=== PATIENT | female | born 1940 | race Caucasian/White ===

== ENCOUNTER 2022-03-09 17:01 | Inpatient (IN) | payer MEDICARE, SELFPAY ==
--- NOTE | 2022-03-09 17:03 | ECHOCS_ITS ---
Reason For Study: CHF Procedure This was a 2D Doppler, Color Flow transthoracic echocardiogram. The study was technically difficult. Contrast injection was performed. Exam performed portable in patient room. Left Ventricle Normal LV size. Mild concentric left ventricular hypertrophy. The left ventricular ejection fraction is 60 %. Unable to assess diastolic dysfunction due to arrhythmia. Right Ventricle Normal right ventricle. Atria The left atrium is severely enlarged. The right atrium is mildly enlarged. Mitral Valve Bioprosthetic mitral valve. Tricuspid Valve Mild tricuspid valve insufficiency. Pulmonary artery systolic pressure is 61 mmHg. Severe pulmonary hypertension. Aortic Valve Mild (1+) aortic valve insufficiency. Pulmonic Valve The pulmonic valve is not well visualized. Great Vessels Normal sized aortic root. Pericardium/Pleural No pericardial effusion. Medication Diluted definity 1ml given slow IV push to enhance endocardial definition. MMode/2D Measurements & Calculations LVIDd: 4.5 cm IVSd: 1.4 cm Ao root diam: 3.1 cm LVIDs: 2.9 cm LVPWd: 1.1 cm LA dimension: 5.4 cm FS: 36.1 % LAV(MOD-bp): 111.7 ml LA A4 area: 33.6 cm2 RA A4 area: 24.6 cm2 LAV(MOD-bp) Indexed: 57.7 ml/m2 LAV(MOD-sp2): 98.6 ml LAV(MOD-sp4): 112.3 ml Doppler Measurements & Calculations MV E max renea: 191.6 cm/sec MV V2 max: 166.1 cm/sec MV P1/2t max renea: 158.5 cm/sec MV max P.1 mmHg MV P1/2t: 110.1 msec MV V2 mean: 106.1 cm/sec MV dec slope: 421.6 cm/sec2 MV mean P.0 mmHg MVA(P1/2t): 2.0 cm2 MV V2 VTI: 39.3 cm Ao V2 max: 176.4 cm/sec LV V1 max: 143.3 cm/sec PA V2 max: 110.0 cm/sec Ao max P.5 mmHg LV V1 max P.3 mmHg Ao V2 mean: 128.5 cm/sec Ao mean P.4 mmHg Ao V2 VTI: 29.1 cm TR max renea: 360.3 cm/sec TR max P.9 mmHg ECHO/Echo Complete W/ Contrast Interpretation Summary Mild concentric left ventricular hypertrophy. The left ventricular ejection fraction is 60 %. Unable to assess diastolic dysfunction due to arrhythmia. The left atrium is severely enlarged. The right atrium is mildly enlarged. Bioprosthetic mitral valve. Mild tricuspid valve insufficiency. Severe pulmonary hypertension. Ordering Physician: Tata Sales Referring Physician: Qasim Carreon Performed By: Graham Lofton RCS
[2022-03-09 17:25] VITALS: BP 126/61; PULSE 87; RESP 18; TEMP 36.9; O2SAT 94; BMI 37.8
--- NOTE | 2022-03-09 17:41 | PCM.HP.STD ---
HPI - General General Date of Admission: 03/09/22 Date of Service: 03/09/22 Chief Complaint: URI type symptoms, dyspnea. HPI Narrative The patient is an 81 y/o F w/ PMHx: Severe debilitating BL Knee OA/Rheumatoid arthritis, Chronic BL LE Lymphedema, CKD stage III unclear subtype, Chronic atrial fibrillation on coumadin, Diastolic CHF following w/ [employer] Ass[employer] Inspector Dr. Munoz, Valvular Heart Disease s/p mitral valve replacement (porcine bioprosthetic mitral valve) and tricuspid valve annuloplasty, pulmonary HTN, Hx prior notable R pleural effusion s/p pleurodesis (remotely 2015), Former tobacco use who initially presented to [facility] ED on 03/08/2022 with onset of flulike symptoms including nausea, malaise, cough, diarrhea as well as body aches x1 week reportedly also not taking her medications at the same time secondary to feeling poorly with initial vital signs at their outside facility including T98.7, BP 104/79, heart rate 149, respiratory rate 28, 93% on room air eventually prior to transfer on 03/09/22 requiring 3L NC, weight 220.4 pounds with BMI calculated 40.363, chest x-ray with diffuse interstitial infiltrates bilaterally, influenza B/A PCR negative, lactate 2.1, COVID PCR negative, D-dimer 2046 which per their range should be less than or equal to 500, initial troponin 3417--> 3090--> 2189, magnesium 2.09 with normal range 1.6-2.40, CMP with sodium 139, potassium 3.5, chloride 102, BUN/creatinine 50/1.97, glucose 116, hepatic profile with T bili 1.5 otherwise not marked appearing, BNP 482, initial INR at their outside facility 12.2 with most recent INR repeat check prior to transfer request 03/09/2022 10:40 AM 6.2 repeat 03/09/2022 BMP with sodium 137, potassium 3.4, chloride 103, BUN/creatinine 47/1.70. 05/30/2021 BMP with creatinine 1.45 at that time. In the ED at outside facility patient rate did improve with Cardizem drip and she was eventually able to be transition to oral metoprolol and Cardizem oral home regimen. However given notable troponin elevations and acute presentation with A. fib RVR as well as CHF exacerbation patient transition to [facility] [place] for further cardiac evaluation. [facility] Medical History (Updated 03/09/22 @ 19:[address] Tata Sales MD) Chronic acquired lymphedema Chronic atrial fibrillation Chronic diastolic CHF (congestive heart failure) Former tobacco use History of temporary cardiac pacemaker treatment HTN (hypertension) Morbid obesity Rheumatoid arthritis Valvular heart disease Home Medications calcium carbonate 600 mg-vitamin D3 10 mcg (400 unit) tablet (Calcium 600 + D(3)) 1 ea PO DAILY 12/17/13 [History Last Taken Unknown] diltiazem HCl 180 mg capsule,extended release 24 hr 180 mg PO DAILY afib 12/17/13 [History Last Taken Unknown] furosemide 40 mg tablet 40 mg PO DAILY diuretic 12/17/13 [History Last Taken Unknown] metoprolol tartrate 50 mg tablet 100 mg PO BID blood pressure 12/17/13 [History Last Taken Unknown] Century Adults 50+ Tablet 1 tab PO DAILY vitamin 08/21/16 [History Last Taken Unknown] Klor-Con M20 1 tab PO DAILY mineral 08/21/16 [History Last Taken Unknown] Spironolactone 25 mg PO DAILY diuretic 08/21/16 [History Last Taken Unknown] Warfarin Sodium 0.5 tab PO afib 08/21/16 [History Last Taken Unknown] Warfarin Sodium 1 tab PO afib 08/21/16 [History Last Taken Unknown] Allergy/AdvReac Type Severity Reaction Status Date / Time ceftriaxone [From Rocephin] Allergy Mild Rash Verified 03/09/22 14:35 allopurinol Allergy Mild Rash Uncoded 03/09/22 14:35 Colchicine Allergy Mild Rash Uncoded 03/09/22 14:35 Family History (Updated 03/09/22 @ 19:[address] Tata Sales MD) Mother Heart disease Father Cancer Leukemia. Surgical History H/O tricuspid valve annuloplasty S/P MVR (mitral valve replacement) Social History (Updated 03/09/22 @ 19:[address] Tata Sales MD) household members: none Smoking Status: Former smoker how long ago did patient quit smoking: Quit 05/26/1959, smoked ~2 years w/ 0.25 pack/day. alcohol intake: current alcohol intake frequency: holidays/special occasions only substance use type: does not use ROS ROS Narrative Admission Review of Systems: CONSTITUTIONAL: No weight loss, fever, chills, + weakness or fatigue. HEENT: + Congestion, rhinorrhea, sore throat. Eyes: No visual loss, blurred vision, double vision or yellow sclerae. Ears, Nose, Throat: No hearing loss, sneezing. SKIN: + Chronic BL LE stasis disease skin changes. CARDIOVASCULAR: No chest pain, chest pressure or chest discomfort, palpitations, edema, orthopnea, syncopal events. RESPIRATORY: + shortness of breath, cough, No marked sputum, wheezing, hemoptysis. GASTROINTESTINAL: + anorexia, nausea, No vomiting or diarrhea, abdominal pain, melena, BRBPR. GENITOURINARY: No dysuria, frequency, urgency or retention. NEUROLOGICAL: No headache, dizziness, syncope, paralysis, ataxia, numbness or tingling in the extremities, focal weakness, change in bowel or bladder control, seizure. MUSCULOSKELETAL: + muscle, back pain, joint pain or stiffness. HEMATOLOGIC: + anemia, bleeding or bruising. LYMPHATICS: No enlarged nodes. No history of splenectomy. PSYCHIATRIC: No history of depression or anxiety. ENDOCRINOLOGIC: No reports of sweating, cold or heat intolerance. No polyuria or polydipsia. ALLERGIES: + history of hives. Vital Signs Vital Signs Vital Signs: Weight Weight: 206 lb 9.17 oz Body Mass Index (BMI) 37.8 Physical Exam Narrative Physical Examination: General: Awake, alert, oriented x 3 and cooperative, seated upright in the PCU bed, fatigued but no distress. Skin: Normal color, normal turgor, no icterus, no cyanosis except for notable bilateral lower extremity stasis skin changes. HEENT: AT/NC, EOMI, PERRLA, MMM, no carotid bruits, + JVD noted. Lungs: Diminished, greater bases, mild rales at bases, appropriate effort, no rhonchi or wheezing. Heart: Irregular irregular; no gallop, rub audible. Abdomen: Soft, obese, NTTP, ND, distant normal BS, no HSM. Extremities: No cyanosis, clubbing, see skin. Neurological: Patient awake, alert, oriented as noted, cognitive function intact; pupils equally reactive to light and accommodation, cranial nerves II-XII grossly normal, moving all 4 extremities, no focal deficits, strength moderately to severely global decreased Psychiatric: Affect appears fatigued otherwise normal, no acute evidence of depressive or anxiety feelings. Results Lab / Micro Data Result Diagrams: 03/09/22 18:29 Assessment & Plan Assessment/Plan (1) Congestive heart failure: (2) Atrial fibrillation: (3) NSTEMI, initial episode of care: PLAN: Plan The patient is an 81 y/o F w/ PMHx: Severe debilitating BL Knee OA/Rheumatoid arthritis, Chronic BL LE Lymphedema, CKD stage III unclear subtype, Chronic atrial fibrillation on coumadin, Diastolic CHF following w/ Quality Ass[employer] Inspector Dr. Munoz, Valvular Heart Disease s/p mitral valve replacement (porcine bioprosthetic mitral valve) and tricuspid valve annuloplasty, pulmonary HTN, Hx prior notable R pleural effusion s/p pleurodesis (remotely 2014), Former tobacco use who initially presented to [facility] ED on 03/08/2022 with onset of flulike symptoms including nausea, malaise, cough, diarrhea as well as body aches x1 week reportedly also not taking her medications at the same time secondary to feeling poorly w/ eventual Dx NSTEMI, PAF w/ RVR, CHF Exac w/ hypoxia prompting transfer to [facility] on 03/09/22. #1. Chronic atrial fibrillation with RVR with associated #2, #3 with associated hypercoagulable state as a result however upon current presentation INR significantly elevated with a supratherapeutic status: EKG in ED w/ atrial fibrillation w/ RVR. Patient in the outside facility eventually transition to Cardizem drip but improved overnight and now on metoprolol and cardizem oral regimen. Will admit to PCU, maintain on telemetry, continue cardiac enzyme serial set with as noted significantly elevated enzymes which have been trending downward fortunately, outside ED magnesium level normal, most recent echocardiogram from review of cleansing records likely 2018 thus obtain ECHO, obtain TSH level. Patient in outside facility initial INR 12.2 with most recent repeat following ED interventions 6.2 thus currently supratherapeutic. Upon admission we will also immediately repeat INR and continue to treat until appropriate level. Will continue oral metoprolol and cardizem with dosing now as rate upon presentation 99. Cardiology consulted, pending. #2. Acute Decompensated Diastolic CHF likely secondary to #1 primarily: CXR obtained in the ED w/ diffuse interstitial infiltrates bilaterally. Suspect likely secondary to #1, will maintain on cardiac telemetry, obtain cardiac enzyme series, obtain serial EKGs, improving, will place on IV lasix 40 mg daily diuresis w/ potential oral transition in AM, monitor I/Os, continue medical therapy w/ asa, at least moderate dose statin, BB, magnesium level normal, TSH requested. Including seeing system unable to see exact results of recent echo but most likely performed last 2018 with reportedly mild reduced EF, appropriate appearing mitral valve, will request repeat. Cardiology consulted, pending. #3. Fatigue, malaise, hypoxia requiring 3 L nasal cannula at outside facility secondary to Acute NSTEMI suspect likely secondary to #1, #2 and #4: EKG in ED w/ atrial fibrillation with RVR as noted, CXR w/ diffuse interstitial infiltrates bilaterally suspected secondary to overload. Trop elevated, 3417--> 3090--> 2189. Outside facility ED presentation with supratherapeutic INR initially 12.2 and most recently prior to transfer 6.2. Will maintain on a monitored bed, continue serial cardiac enzymes and EKGs, magnesium level normal at outside facility. Continue medical management w/ asa, BB, add at least moderate dose statin w/ AM FLP. Cardiology consulted. ASA, NG, morphine. #4. Recent Acute Viral Syndrome: Will maintain on oxygen with wean as tolerated to room air, PRN albuterol, HOB, IS parameters w/ pending sputum cultures, full respiratory viral panel and urine antigens. At outside facility COVID PCR as well as influenza a and B PCR all negative. Patient with ongoing viral type syndrome URI symptoms x1 week. Given presentation chest x-ray suspect more likely from overload however will also request a procalcitonin and low threshold to add antibiotics if any concerns arise for superimposed bacterial pneumonia. CXR will be repeated in AM to assure no developing PNA. #5. Supratherapeutic INR: Unclear why patient's levels so significantly elevated although she does have some elevated renal function as well, initial outside facility INR 12.2, most recent INR repeat prior to transfer 6.2, will repeat level immediately upon admission and continue to treat as needed. #6. Acute kidney injury on CKD stage III, unclear subtype: Secondary to likely acute presentation as noted number 1, #2, admission BUN/Cr initially 50/1.97 with most recent repeat 47/1.70, prior baseline creatinine noted to be 1.4. Given presentation we will continue diuresis but decrease to lasix 40 mg daily with consideration oral transition in AM. #7. Hypokalemia: Admission K+ 3.4 obtained this a.m. at outside facility, will request repeat upon arrival, magnesium the day prior at their facility normal level, supplementation will be administered if repeat level similarly decreased, repeat level in AM. #8. Hypertension: Will continue metoprolol, cardizem, holding spironolactone with current Cr rise, resume once appropriate and IV lasix as noted, PRN IV hydralazine. #9. Valvular heart disease: Per review of records in [facility] system, patient s/p mitral valve replacement (porcine bioprosthetic mitral valve) and tricuspid valve annuloplasty, unable to discern exact echocardiogram read but listed likely most recently 2018, request repeat echo as noted above. #10. Severe debilitating BL Knee OA/Rheumatoid arthritis: Patient and family report that she has significant severe debilitating bilateral knee arthritis and does allude to potentially rheumatoid arthritis but unclear specific history with usage per description of prednisone therapy. Awaiting for medication clarification. Will have PT and OT assessments as well as case management especially given patient from description is near chair/bedbound because of the debility. #11. Former tobacco use: Encourage continued tobacco cessation. #12. Chronic bilateral lower extremity lymphedema: Place neck Pete wraps with elevation. #13. Obesity: Weight loss and lifestyle changes encouraged. #14. DVT prophylaxis: SCDs, continue to trend INR and resume Coumadin once appropriate. #15. CODE status: Patient DARIUS is her daughter Apoorva Aguilar and living will is currently in place. Discussed CODE status at length including difference between FULL code, DNR-CCA and DNR-CC status. Following discussions about the differences in these status, requested Full Code status. Advanced Care Planning Face to Face Time: 16 minutes. Charges/Coding Visit Charges Inpatient E&M: 94241 Init Hosp L3 Procedures Hospitalists Procedures: 15072 Advncd Care Plan 30 Min
--- NOTE | 2022-03-09 18:15 | NURSING ---
Called daughter Apoorva to obtain med list, no answer. Message left asking for call back.
[2022-03-09 18:59] VITALS: PULSE 91
[2022-03-09 19:02] LABS: Anion Gap 6 (5-15); BUN 47 mg/dL (7-18); BUN/Creat Ratio 27.6 RATIO (10-20); Calcium,Total 8.9 mg/dL (8.5-10.1); Chloride 105 mmol/L (98-107); EST Glomerular Filtration Rate 31 mL/min (>60); Est Glom Filt Rate - Afr Amer 37 mL/min (>60); Estimated Creatinine Clearance 20.87 ml/min; Glucose 143 mg/dL (74-106); Potassium 3.4 mmol/L (3.5-5.1); Sodium Level 139 mmol/L (136-145)
[2022-03-09 19:28] LABS: Procalcitonin 1.34 ng/mL (0.00-0.09)
[2022-03-09 20:27] LABS: Troponin-I HS 1568 pg/mL (3.0-54.0)
[2022-03-09 21:31] LABS: Troponin-I HS 1541 pg/mL (3.0-54.0)
[2022-03-09 21:53] VITALS: BP 107/53; PULSE 93; RESP 20; TEMP 37.8; O2SAT 93
[2022-03-09 21:56] VITALS: PULSE 93
[2022-03-09] MEDS: Metoprolol Tartrate 100 MG Tablet PO (21:56)
[2022-03-09] MEDS: dilTIAZem CD 180 MG Capsule PO (21:57)
[2022-03-09] MEDS: Atorvastatin Calcium 40 MG Tablet PO (21:57)
[2022-03-09] MEDS: Aspirin 325 MG Tablet PO (21:57)
[2022-03-09] MEDS: Clopidogrel Bisulfate 300 MG Tablet PO (21:57)
[2022-03-09] MEDS: Potassium Chloride Oral Tablet 20 MEQ 40 MEQ PO (22:00)
[2022-03-09] MEDS: Furosemide 40 MG/4 ML Vial IV (22:04)
[2022-03-09] MEDS: 0.9% Saline Lock 10 ML Syringe IV (22:05)
[2022-03-10] VITALS (12 sets, daily range): BP systolic 93–112; BP diastolic 51–62; PULSE 80–91; RESP 16–20; TEMP 36–37.3; O2SAT 90–96
--- NOTE | 2022-03-10 00:02 | NURSING ---
pt refuses straight cath for urine specimen. urine collected from clean purewick.
[2022-03-10 00:51] LABS: Troponin-I HS 1459 pg/mL (3.0-54.0)
[2022-03-10 04:42] LABS: Mucous, Urine 0 SEEN /hpf (<or=2+); Squamous Epithelial Cells - UA 0 SEEN /hpf (5-10); White Blood Cells 0 SEEN /hpf (0-5)
[2022-03-10 04:43] LABS: Color, Urine Yellow (Yellow); Glucose, Dipstick Normal (Normal); Ketone-Dipstick Negative (Negative); Leukocyte Esterase-Dipstick Negative /ul (Negative); Nitrite-Dipstick Negative (Negative); Occult Blood-Urine 10 /ul (Negative); Protein-Dipstick Negative (Negative); Urine Bilirubin Dipstick Negative (Negative); Urine Clarity Clear (Clear); Urine Urobilinogen Normal (Normal)
[2022-03-10 05:36] LABS: Bacteria 2+ /hpf (None Seen); Red Blood Cells-Urine 0-5 SEEN /hpf (0-5)
--- NOTE | 2022-03-10 05:55 | RAD_ITS ---
STUDY: X-RAY CHEST REASON FOR EXAM: Female, 81 years old. Dyspnea, cough TECHNIQUE: Single AP portable view of the chest. COMPARISON: Comparison is made with prior study of 03/08/2022. FINDINGS: EKG electrodes are seen. Gastric congestion mild degree of CHF. Mild increased markings at the lung bases suggestive of bibasilar atelectasis. There is blunting of the left cosmetic angle. Sternal cerclage wires are present from a prior sternotomy. Prior mitral valve replacement. A left atrial appendage clip is seen. Normal mediastinum and patria. Normal visualized pulmonary arteries. There is atherosclerotic tortuosity of the aortic arch and descending thoracic aorta. Normal visualized thoracic spine. There is degenerative osteoarthritis of the bilateral shoulders. There is no demonstrated abnormality of the visualized soft tissue structures of the upper abdomen. RAD/Chest 1 View (Portable) IMPRESSION: Progressive mild degree of CHF with bibasilar atelectasis. Blunting of both costophrenic angles. Electronically Signed: Herminio Manning MD at 9:43 EST ,
[2022-03-10 07:01] LABS: Absolute Lymphocyte Count 0.43 X10^3/uL (0.83-4.51); Absolute Neutrophil Count 6.6 X10^3/uL (2.0-7.7); Basophil# 0.01 X10^3/uL; Basophil% 0.1 % (0-1); Eosinophil# 0.02 X10^3/uL; Eosinophils% 0.3 % (0-5); Hematocrit 31.7 % (37-47); Hemoglobin 10.3 g/dL (12.0-15.0); Lymphocyte # 0.43 X10^3/ul (0.83-4.51); Lymphocyte % 5.8 % (19-41); Mean Corp Hgb Conc 32.5 g/dL (32-36); Mean Corpuscular Volume 98.4 fL (81-99); Mean Platelet Vol. 10.2 fl (6.2-12.0); Monocyte# 0.32 X10^3/uL; Monocyte% 4.3 % (0-10); NRBC Flagged by Analyzer 0 % (0-5); Neutrophil # 6.59 X10^3/uL (2.7-7.7); Neutrophil % 88.8 % (47-70); POSITIVE DIFFERENTIAL YES; Platelet Count 147 K/mm3 (150-450); RBC Distribution Width CV 14.5 % (11.6-14.6); RBC Distribution Width SD 51.3 fl (35.1-43.9); Red Blood Count 3.22 M/mm3 (4.2-5.4); White Blood Count 7.4 K/mm3 (4.4-11.0)
[2022-03-10 07:02] LABS: Differential Indicated SCAN CRITERIA MET
[2022-03-10 07:57] LABS: ALB/GLOB Ratio 0.5 RATIO (0.9-2.4); AST(SGOT) 23 U/L (15-37); Alanine Aminotransfer ALT/SGPT 17 U/L (13-56); Albumin, Serum 2.2 g/dL (3.2-5.0); Alkaline Phosphatase 90 U/L (45-117); Anion Gap 7 (5-15); BUN 46 mg/dL (7-18); BUN/Creat Ratio 29.1 RATIO (10-20); Calcium,Total 8.4 mg/dL (8.5-10.1); Chloride 107 mmol/L (98-107); Cholesterol 88 mg/dL (200); Creatinine, Serum 1.58 mg/dL (0.55-1.02); EST Glomerular Filtration Rate 33 mL/min (>60); Est Glom Filt Rate - Afr Amer 40 mL/min (>60); Estimated Creatinine Clearance 22.46 ml/min; Globulin 4.2 g/dL (2.2-4.2); Glucose 111 mg/dL (74-106); High Density Lipoprotein 22 mg/dL; Potassium 3.8 mmol/L (3.5-5.1); Protein, Total 6.4 g/dL (6.4-8.2); Sodium Level 138 mmol/L (136-145); Thyroid Stim Hormone (TSH) 0.53 uIU/mL (0.358-3.74); Triglycerides 93 mg/dL; Very Low Density Lipoprotein 19 mg/dL (5-40)
[2022-03-10 07:58] LABS: International Normalized Ratio 4.1; Prothrombin Time (Protime)PT. 39.3 SECONDS (11.7-14.9)
[2022-03-10] MEDS: dilTIAZem CD 180 MG Capsule PO (08:34)
[2022-03-10] MEDS: Clopidogrel Bisulfate 75 MG Tablet PO (08:34)
[2022-03-10] MEDS: Aspirin 81 MG TAB.CHEW PO (08:34)
--- NOTE | 2022-03-10 09:52 | CON.PCM.CA_ITS ---
Assessment & Plan Assessment/Plan (1) NSTEMI, initial episode of care: PLAN: Troponin here in our hospital are showing a rather flat trend. Possibly type II. Will cycle another set of troponin. If it also remained in the flat trend, then will recommend Lexiscan stress Myoview. Otherwise, coronary angiography will be recommended. (2) Atrial fibrillation: PLAN: Chronic atrial fibrillation. For rate control. Agree with metoprolol and diltiazem. (3) Congestive heart failure: PLAN: Echo pending. (4) Hypertension: QUALIFIERS: Hypertension type: essential hypertension PLAN: Controlled. (5) S/P MVR (mitral valve replacement): PLAN: Surgery done in 2014. Awaiting echocardiogram. (6) Chronic renal disease: PLAN: Monitor creatinine. HPI Consult Data Date of Consult: 03/10/22 HPI Narrative HPI Narrative: The patient has a history of valvular heart disease status post mitral valve replacement with a bioprosthetic valve, cardiomyopathy and chronic atrial fibrillation. According to her, she stopped taking her medications at home 3 to 4 days prior to presentation because of not feeling well. According to her, she had nausea, malaise and generalized body aches. No chest pain. No short ness of breath. According to her, her children were at home and advised her to go to the hospital. According to her, they noticed that she was more lethargic and sleepy. In the emergency room, she was noted to be in atrial fibrillation with rapid ventricular response. Her troponins were also elevated. [facility] Medical History (Updated 03/10/22 @ 09:[address] Aretha Reyes MD) Chronic acquired lymphedema Chronic atrial fibrillation Chronic diastolic CHF (congestive heart failure) Former tobacco use History of temporary cardiac pacemaker treatment HTN (hypertension) Morbid obesity Rheumatoid arthritis Valvular heart disease Home Medications calcium carbonate 600 mg-vitamin D3 10 mcg (400 unit) tablet (Calcium 600 + D(3)) 1 ea PO DAILY 12/17/13 [History Last Taken Unknown] diltiazem HCl 180 mg capsule,extended release 24 hr 180 mg PO DAILY afib 12/17/13 [History Last Taken Unknown] furosemide 40 mg tablet 40 mg PO DAILY diuretic 12/17/13 [History Last Taken Unknown] metoprolol tartrate 50 mg tablet 100 mg PO BID blood pressure 12/17/13 [History Last Taken Unknown] Century Adults 50+ Tablet 1 tab PO DAILY vitamin 08/21/16 [History Last Taken Unknown] Klor-Con M20 1 tab PO DAILY mineral 08/21/16 [History Last Taken Unknown] Spironolactone 25 mg PO DAILY diuretic 08/21/16 [History Last Taken Unknown] Warfarin Sodium 0.5 tab PO afib 08/21/16 [History Last Taken Unknown] Warfarin Sodium 1 tab PO afib 08/21/16 [History Last Taken Unknown] Allergy/AdvReac Type Severity Reaction Status Date / Time ceftriaxone [From Rocephin] Allergy Mild Rash Verified 03/09/22 14:35 allopurinol Allergy Mild Rash Uncoded 03/09/22 14:35 Colchicine Allergy Mild Rash Uncoded 03/09/22 14:35 Family History (Updated 03/09/22 @ 19:[address] Tata Sales MD) Mother Heart disease Father Cancer Leukemia. Surgical History (Updated 03/10/22 @ 09:[address] Aretha Reyes MD) H/O tricuspid valve annuloplasty S/P MVR (mitral valve replacement) Social History (Updated 03/09/22 @ 19:[address] Tata Sales MD) household members: none Smoking Status: Former smoker how long ago did patient quit smoking: Quit 05/26/1959, smoked ~2 years w/ 0.25 pack/day. alcohol intake: current alcohol intake frequency: holidays/special occasions only substance use type: does not use Physical Exam Narrative Comfortable. No apparent distress. Heart sounds 1 and 2 noted. Irregularly irregular. Chest examination shows decreased breath sounds at bases. Abdomen soft. Alert oriented x3. Both legs have chronic eczematous changes. No ankle edema noted. Risk Stratification Risk Stratification Applicable: No Objective Data Vital Signs: Vital Signs Temp Pulse Resp BP Pulse Ox O2 Del Method O2 Flow Rate 98.6 F 90 16 102/53 L 95 Nasal Cannula 2 03/10/22 08:18 03/10/22 08:18 03/10/22 08:18 03/10/22 08:18 03/10/22 08:18 03/10/22 08:18 03/10/22 08:18 Oxygen Flow Rate (L/min) 2 Oxygen Delivery Method Nasal Cannula Weight: 208 lb 1.862 oz Body Mass Index (BMI) 37.8 Intake & Output: Intake and Output for Last 24 Hours 03/08/22 03/09/22 03/10/22 23:59 23:59 23:59 Intake Total 150 / 150 Output Total 400 / 400 Balance -250 / -250 Lab / Micro Data Attestation: I reviewed the patient's lab results. Result Diagrams: 03/10/22 06:35 03/10/22 06:35 Labs: Laboratory Results - last 24 hr 03/09/22 18:29: PT 39.0 H, INR 4.0 H* 03/09/22 18:29: Sodium 139, Potassium 3.4 L, Chloride 105, Carbon Dioxide 28.0, Anion Gap 6, BUN 47 H, Creatinine 1.70 H, Estim Creat Clear Calc 20.87, Est GFR (MDRD) Af Amer 37 L, Est GFR (MDRD) Non-Af 31 L, BUN/Creatinine Ratio 27.6 H, Glucose 143 H, Calcium 8.9 03/09/22 18:29: Procalcitonin 1.34 H 03/09/22 18:29: Troponin I High Sens 1568 H* 03/09/22 21:00: Troponin I High Sens 1541 H* 03/10/22 00:02: Urine Color Yellow, Urine Clarity Clear, Urine pH 5.0, Ur Specific [place] 1.020, Urine Protein Negative, Urine Glucose (UA) Normal, Urine Ketones Negative, Urine Occult Blood 10 H, Urine Nitrite Negative, Urine Bilirubin Negative, Urine Urobilinogen Normal, Ur Leukocyte Esterase Negative, Urine RBC 0-5 SEEN, Urine WBC 0 SEEN, Ur Squamous Epith Cells 0 SEEN, Urine Bacteria 2+, Urine Mucus 0 SEEN 03/10/22 00:06: Troponin I High Sens 1459 H* 03/10/22 06:35: WBC 7.4, RBC 3.22 L, Hgb 10.3 L, Hct 31.7 L, MCV 98.4, MCH 32.0, MCHC 32.5, RDW Std Deviation 51.3 H, RDW Coeff of Diandra 14.5, Plt Count 147 L, MPV 10.2, Immature Gran % (Auto) 0.700, Neut % (Auto) 88.8 H, Lymph % (Auto) 5.8 L, [place] % (Auto) 4.3, Eos % (Auto) 0.3, Baso % (Auto) 0.1, Absolute Neuts (auto) 6.6, Absolute Lymphs (auto) 0.43 L, Nucleated RBC % 0 03/10/22 06:35: PT 39.3 H, INR 4.1 H* 03/10/22 06:35: Sodium 138, Potassium 3.8, Chloride 107, Carbon Dioxide 24.0, Anion Gap 7, BUN 46 H, Creatinine 1.58 H, Estim Creat Clear Calc 22.46, Est GFR (MDRD) Af Amer 40 L, Est GFR (MDRD) Non-Af 33 L, BUN/Creatinine Ratio 29.1 H, Glucose 111 H, Calcium 8.4 L, Total Bilirubin 1.70 H, AST 23, ALT 17, Alkaline Phosphatase 90, Total Protein 6.4, Albumin 2.2 L, Globulin 4.2, Albumin/Globulin Ratio 0.5 L, Triglycerides 93, Cholesterol 88, LDL Cholesterol 47, VLDL Cholesterol 19, HDL Cholesterol 22 L, TSH 0.53 Micro: Microbiology 03/09/22 22:51 Nasal Secretion SARS-CoV-2 Antigen (Rapid) - Final 03/09/22 18:08 Mucosa - Nasopharyngeal Respiratory Panel (PCR) - Final Rhythm Strip Rhythm Strip: A-fib Cardiology Labs/Tests 03/09/22 18:29: PT 39.0 H, INR 4.0 H* 03/09/22 18:29: Sodium 139, Potassium 3.4 L, Chloride 105, Carbon Dioxide 28.0, Anion Gap 6, BUN 47 H, Creatinine 1.70 H, Est GFR (MDRD) Af Amer 37 L, Est GFR (MDRD) Non-Af 31 L, BUN/Creatinine Ratio 27.6 H, Glucose 143 H, Calcium 8.9 03/10/22 00:02: Urine Color Yellow, Urine Clarity Clear, Urine pH 5.0, Ur Specific [place] 1.020, Urine Protein Negative, Urine Glucose (UA) Normal, Urine Ketones Negative, Urine Occult Blood 10 H, Urine Nitrite Negative, Urine Bilirubin Negative, Urine Urobilinogen Normal, Ur Leukocyte Esterase Negative, Urine RBC 0-5 SEEN, Urine WBC 0 SEEN 03/10/22 06:35: WBC 7.4, RBC 3.22 L, Hgb 10.3 L, Hct 31.7 L, MCV 98.4, MCH 32.0, MCHC 32.5, Plt Count 147 L, MPV 10.2, Immature Gran % (Auto) 0.700, Neut % (A uto) 88.8 H, Lymph % (Auto) 5.8 L, [place] % (Auto) 4.3, Eos % (Auto) 0.3, Baso % (Auto) 0.1, Absolute Neuts (auto) 6.6, Nucleated RBC % 0 03/10/22 06:35: PT 39.3 H, INR 4.1 H* 03/10/22 06:35: Sodium 138, Potassium 3.8, Chloride 107, Carbon Dioxide 24.0, Anion Gap 7, BUN 46 H, Creatinine 1.58 H, Est GFR (MDRD) Af Amer 40 L, Est GFR (MDRD) Non-Af 33 L, BUN/Creatinine Ratio 29.1 H, Glucose 111 H, Calcium 8.4 L, Total Bilirubin 1.70 H, Triglycerides 93, Cholesterol 88, LDL Cholesterol 47, VLDL Cholesterol 19, HDL Cholesterol 22 L Rhythm: EKG: Atrial fibrillation. No ischemic changes noted. ECHO: Stress Test: Cardiac Cath: PCI: CT Surgery: Holter monitor: EPS: PPM: CXR: Chest CT Scan: Radiography Diagnostic Testing: Radiology Impression Chest X-Ray 03/10/22 05:55 IMPRESSION: Progressive mild degree of CHF with bibasilar atelectasis. Blunting of both costophrenic angles. Electronically Signed: Herminio Manning MD at 9:43 EST ,
[2022-03-10 11:23] LABS: Troponin-I HS 1216 pg/mL (3.0-54.0)
--- NOTE | 2022-03-10 12:00 | CASEMGMT ---
Addendum entered by Christina Jacobson 03/10/22 17:54: 1330: RN KOLE to room. Pt resting in bed. Dtr, Apoorva, @ bedside. PT/OT evals still pending. Apoorva voices concern re: pt weakness and her returning home. She states she feels pt should go to a SNF @ discharge short-term prior to returning home. Pt agreeable. They both state [facility] in [place] is 1st choice, but they would like to look at list of other SNF choices. sr. merchandise planner, Jodie, made aware. Original Note: RN CM ARMHOLE RAISER LOCKSTITCH CM to room to meet with patient for initial transition planning/care coordination assessment. RN KOLE introduced self and role at [facility]. Pt voices understanding and consents to assessment at this time. Pt resting in bed in no distress at this time. Pt is A/O at this time and answers all questions appropriately. Care providers, pharmacy, and demographics verified/updated at this time. PCP: Dr Carreon Specialists:Dr Hernandez--blade bender furnace tender @ [facility]. [facility] in [place]. Preferred Pharmacy: [facility], [place]. Insurance: Vaprema Prescription Benefit: yes Living Will/HPOA: Has both LW and HCPOA, who is her dtr, Apoorva LNOK: DtrApoorva. 2 sons Living Arrangements: Lives alone in condo w/no steps to enter. Was independent w/ADL's @ baseline. Dtr lives about 5 miles away and stops in often. Granddaughters help w/home mgmt tasks and get groceries for pt. Pt manages her own medications. Transportation: Pt states drives self and states no transportation concerns at this time. Pt states she usually only drives to doctor appts and to the hospital. DME: States has the following DME: cane, lift chair, pulse ox. Pt states her son just ordered her a rollator, but it has not come in yet. Pt interested in medical alert info which was provided at this time. Pt states no need for further DME at this time. HHC/SNF: Hx [facility] in [place]. Pt states she has been weak and would consider going to a SNF, if needed. PT/OT evals pending. PLAN: TBD by tila w/therapy Essie RAMOS RN, CM
--- NOTE | 2022-03-10 13:14 | PN.HOSP_ITS ---
Subjective Subjective Patient seen and examined. She had no active complaints and had an uneventful night. She denied any chest pain, palpitations, dizziness, nausea, vomiting or diarrhea. Review of systems is otherwise negative. She has remained rate controlled. Objective Data Objective Data Vital Signs: Vital Signs Temp Pulse Resp BP Pulse Ox O2 Del Method O2 Flow Rate 98.6 F 90 16 102/53 L 95 Nasal Cannula 2 03/10/22 08:18 03/10/22 08:18 03/10/22 08:18 03/10/22 08:18 03/10/22 08:18 03/10/22 08:18 03/10/22 08:18 Oxygen Flow Rate (L/min) 2 Oxygen Delivery Method Nasal Cannula Weight: 208 lb 1.862 oz Body Mass Index (BMI) 37.8 Intake & Output: Intake and Output for Last 24 Hours 03/08/22 03/09/22 03/10/22 23:59 23:59 23:59 Intake Total 150 / 150 Output Total 400 / 400 Balance -250 / -250 Lab / Micro Data Result Diagrams: 03/10/22 06:35 03/10/22 06:35 Labs: Laboratory Results - last 24 hr 03/09/22 18:29: PT 39.0 H, INR 4.0 H* 03/09/22 18:29: Sodium 139, Potassium 3.4 L, Chloride 105, Carbon Dioxide 28.0, Anion Gap 6, BUN 47 H, Creatinine 1.70 H, Estim Creat Clear Calc 20.87, Est GFR (MDRD) Af Amer 37 L, Est GFR (MDRD) Non-Af 31 L, BUN/Creatinine Ratio 27.6 H, Glucose 143 H, Calcium 8.9 03/09/22 18:29: Procalcitonin 1.34 H 03/09/22 18:29: Troponin I High Sens 1568 H* 03/09/22 21:00: Troponin I High Sens 1541 H* 03/10/22 00:02: Urine Color Yellow, Urine Clarity Clear, Urine pH 5.0, Ur Specific [place] 1.020, Urine Protein Negative, Urine Glucose (UA) Normal, Urine Ketones Negative, Urine Occult Blood 10 H, Urine Nitrite Negative, Urine Bilirubin Negative, Urine Urobilinogen Normal, Ur Leukocyte Esterase Negative, Urine RBC 0-5 SEEN, Urine WBC 0 SEEN, Ur Squamous Epith Cells 0 SEEN, Urine Bacteria 2+, Urine Mucus 0 SEEN 03/10/22 00:06: Troponin I High Sens 1459 H* 03/10/22 06:35: WBC 7.4, RBC 3.22 L, Hgb 10.3 L, Hct 31.7 L, MCV 98.4, MCH 32.0, MCHC 32.5, RDW Std Deviation 51.3 H, RDW Coeff of Diandra 14.5, Plt Count 147 L, MPV 10.2, Immature Gran % (Auto) 0.700, Neut % (Auto) 88.8 H, Lymph % (Auto) 5.8 L, Saline % (Auto) 4.3, Eos % (Auto) 0.3, Baso % (Auto) 0.1, Absolute Neuts (auto) 6.6, Absolute Lymphs (auto) 0.43 L, Nucleated RBC % 0 03/10/22 06:35: PT 39.3 H, INR 4.1 H* 03/10/22 06:35: Sodium 138, Potassium 3.8, Chloride 107, Carbon Dioxide 24.0, Anion Gap 7, BUN 46 H, Creatinine 1.58 H, Estim Creat Clear Calc 22.46, Est GFR (MDRD) Af Amer 40 L, Est GFR (MDRD) Non-Af 33 L, BUN/Creatinine Ratio 29.1 H, Glucose 111 H, Calcium 8.4 L, Total Bilirubin 1.70 H, AST 23, ALT 17, Alkaline Phosphatase 90, Total Protein 6.4, Albumin 2.2 L, Globulin 4.2, Albumin/Globulin Ratio 0.5 L, Triglycerides 93, Cholesterol 88, LDL Cholesterol 47, VLDL Cholesterol 19, HDL Cholesterol 22 L, TSH 0.53 03/10/22 10:15: Troponin I High Sens 1216 H* Micro: Microbiology 03/09/22 22:51 Nasal Secretion SARS-CoV-2 Antigen (Rapid) - Final 03/09/22 18:08 Mucosa - Nasopharyngeal Respiratory Panel (PCR) - Final Radiography Diagnostic Testing: Radiology Impression Echocardiogram 03/09/22 17:03 Interpretation Summary Mild concentric left ventricular hypertrophy. The left ventricular ejection fraction is 60 %. Unable to assess diastolic dysfunction due to arrhythmia. The left atrium is severely enlarged. The right atrium is mildly enlarged. Bioprosthetic mitral valve. Mild tricuspid valve insufficiency. Severe pulmonary hypertension. Ordering Physician: Tata Sales Referring Physician: Qasim Carreon Performed By: Graham Lofton RCS Chest X-Ray 03/10/22 05:55 IMPRESSION: Progressive mild degree of CHF with bibasilar atelectasis. Blunting of both costophrenic angles. Electronically Signed: Herminio Manning MD at 9:43 EST Reading Location ID and State: [address] [place] [address] , Service support , Rhythm Strip Rhythm Strip: A-fib Physical Exam Const alert, oriented x3 and no apparent distress HEENT head/scalp atraumatic and moist oral mucous membranes Head and Scalp: normocephalic Mouth: oral and palatal mucosa normal Eyes PERRL, EOMs intact bilaterally and conjunctivae normal Neck no lymphadenopathy, supple and no JVD Resp normal respiratory effort, no retractions, no use of accessory muscles and clear to auscultation bilaterally Cardio regular rate, S1 normal heart sound, S2 normal heart sound and no murmurs Cardio Narrative: afib, rate controlled GI normal to inspection, nondistended, normoactive bowel sounds, soft to palpation and non-tender Extremity normal to inspection, full ROM and no clubbing, cyanosis or edema Neuro oriented x3, CN's II-XII intact bilaterally, moves all extremities and no focal motor deficits Sensorium / Orientation: awake and alert Motor Exam: strength 5/5 throughout Psych affect normal Assessment & Plan Assessment/Plan (1) NSTEMI, initial episode of care: (2) Atrial fibrillation: PLAN: Plan #Acute on chronic HFpEF * stable. on room air * on IV lasix 40mg dialy * monitor intkae and output * fluid restriction to 1500cc daily. * #Afib with RVR * still in afib, though now rate controlled * cardiology consulted o/a of markedly elevated troonins. * on metoprolol and cardizem. * cardiology on board. 2D echo ordered * coumadin on hold due to supratherapeutic INR * #Nonstemi * troponins were markedly elevated in the mid 3000s; trended downwards to 1216. * cardiology on board * on aspirin, plavix nad metoprolol * cardiology on board * for stress test tomorrow per cardiology #Supratherapeutic INR: INR today is 4.1. coumadin on hold. #JACQUIE on CKD 3B: CR is 1.58 today, dwon from 1.7 yesterday. Baseline from August 2016 shows Cr of 1.56. #Hypokalemia:resolved. K is 3.8 #Hypertension: on metoprolol and losartan #Bilateral knee arthritis: on tylenol #Chronic bilateral LE lymphedema: SANTHOSH wraps in place MItral valve disease: s/p mitral valve replacement with a prosthetic valve DVT prophylaxis: SCDs. no anticoagulation as INR is supratherapeutic Charges/Coding Visit Charges Inpatient E&M: 29543 Subs Hosp L2
--- NOTE | 2022-03-10 13:46 | CASEMGMT ---
Discharge Monitor Worker This health underwriter went to patients room. Family at bedside. A daughter and two sons. This health underwriter introduced self and role at [facility]. This health underwriter left a?list of?care home facility providers including quality and resource use data and consistent with patient?s preferred geographic region, medical needs, and insurance network were provided from the [employer] Guide. [facility] [place] does not have any beds at this time. 2nd choice would be [facility]. This health underwriter will send a referral to [facility]. MARIA ALEJANDRA Michel notified. Jerad TINOCO Tnt Powder Worker
[2022-03-10] MEDS: Acetaminophen 325 MG Tablet 650 MG PO (14:55)
--- NOTE | 2022-03-10 15:53 | CASEMGMT ---
Discharge Foster Care Case Manager This comic book writer sent PT/OT notes to Karin at [facility]. Jerad TINOCO Food Trades Assistants
--- NOTE | 2022-03-10 16:34 | CASEMGMT ---
Discharge Powerhouse Electrician Apprentice Karin from [facility] reached out. Patient has been accepted. Pre-cert has been started. MARIA ALEJANDRA Michel notified. Jerad TINOCO Subacute Nurse
[2022-03-10] MEDS: Metoprolol Tartrate 100 MG Tablet PO (21:51)
[2022-03-10] MEDS: Atorvastatin Calcium 40 MG Tablet PO (21:51)
[2022-03-11] VITALS (18 sets, daily range): BP systolic 103–122; BP diastolic 52–65; PULSE 81–113; RESP 18–24; TEMP 36.7–38.7; O2SAT 91–96
[2022-03-11] MEDS: Acetaminophen 325 MG Tablet 650 MG PO ×4 (04:15→18:34)
--- NOTE | 2022-03-11 04:17 | NURSING ---
pt with T 100.4, pt noted with 8 layers of blankets on pt bed. 4 layers removed at this time. will monitor.
--- NOTE | 2022-03-11 05:55 | EKG12_ITS ---
Test Reason : AM EKG Blood Pressure : / mmHG Vent. Rate : 096 BPM Atrial Rate : 000 BPM P-R Int : 000 ms QRS Dur : 086 ms QT Int : 352 ms P-R-T Axes : 000 092 077 degrees QTc Int : 444 ms Atrial fibrillation Rightward axis Nonspecific ST and T wave abnormality Abnormal ECG When compared with ECG of 10-MAR-2022 05:20, No significant change was found Confirmed by SHARON MARKS, GIRISH ([id number]), pictures editor PHIL LOOMIS ([id number]) on 03/14/2022 12:44:21 PM Referred By: Confirmed By:GIRISH HERRERA MD
[2022-03-11 06:24] LABS: Absolute Lymphocyte Count 0.41 X10^3/uL (0.83-4.51); Absolute Neutrophil Count 5.6 X10^3/uL (2.0-7.7); Eosinophil# 0.02 X10^3/uL; Eosinophils% 0.3 % (0-5); Hematocrit 29.9 % (37-47); Hemoglobin 9.7 g/dL (12.0-15.0); Lymphocyte # 0.41 X10^3/ul (0.83-4.51); Lymphocyte % 6.5 % (19-41); Mean Corp Hgb Conc 32.4 g/dL (32-36); Mean Corpuscular Hgb 31.9 pg (27.0-32.0); Mean Corpuscular Volume 98.4 fL (81-99); Monocyte# 0.28 X10^3/uL; Monocyte% 4.4 % (0-10); NRBC Flagged by Analyzer 0 % (0-5); Neutrophil # 5.57 X10^3/uL (2.7-7.7); Neutrophil % 87.9 % (47-70); POSITIVE DIFFERENTIAL YES; Platelet Count 130 K/mm3 (150-450); RBC Distribution Width CV 14.6 % (11.6-14.6); RBC Distribution Width SD 52.1 fl (35.1-43.9); Red Blood Count 3.04 M/mm3 (4.2-5.4); White Blood Count 6.3 K/mm3 (4.4-11.0)
--- NOTE | 2022-03-11 06:25 | RAD_ITS ---
STUDY: X-RAY CHEST REASON FOR EXAM: Female, 81 years old. Fever. TECHNIQUE: AP COMPARISON: 03/10/2022 at 5:16 AM FINDINGS: Mild cardiomegaly, sternotomy wires, atrial appendage clip and evidence of previous mitral valve repair. No evidence of consolidation, pneumothorax, or large pleural effusion. The interstitial and vascular prominence seen on previous study has improved but not resolved. Mild blunting of costophrenic sulci persists. RAD/Chest 1 View (Portable) IMPRESSION: Slight improvement in CHF. Mild residual interstitial edema remains present. Electronically Signed: Sim Santos MD at 6:39 EST Reading Location ID and State: [facility] / [place] Tel , Service support ,
[2022-03-11 06:42] LABS: Differential Indicated SCAN CRITERIA MET
[2022-03-11 06:49] LABS: Anion Gap 4 (5-15); BUN 50 mg/dL (7-18); BUN/Creat Ratio 29.9 RATIO (10-20); Calcium,Total 8.6 mg/dL (8.5-10.1); Chloride 107 mmol/L (98-107); Creatinine, Serum 1.67 mg/dL (0.55-1.02); EST Glomerular Filtration Rate 31 mL/min (>60); Est Glom Filt Rate - Afr Amer 38 mL/min (>60); Estimated Creatinine Clearance 21.25 ml/min; Glucose 128 mg/dL (74-106); Potassium 3.9 mmol/L (3.5-5.1); Sodium Level 138 mmol/L (136-145)
[2022-03-11 07:19] LABS: Differential Comment SCANNED
--- NOTE | 2022-03-11 08:50 | NURSING ---
Patient brought down to the [facility] department for Lexiscan stress test. After resting nuclear images obtained, patient then refused to proceed with the remainder of the test. Patient taken back to her room in PCU 126. Charge nurse Ciara notified, family notified, and Dr. Reyes notified.
[2022-03-11 09:47] LABS: Prothrombin Time (Protime)PT. 39.7 SECONDS (11.7-14.9)
[2022-03-11 09:59] LABS: International Normalized Ratio 4.1
[2022-03-11] MEDS: Aspirin 81 MG TAB.CHEW PO (10:01)
[2022-03-11] MEDS: dilTIAZem CD 180 MG Capsule PO (10:01)
[2022-03-11] MEDS: Clopidogrel Bisulfate 75 MG Tablet PO (10:01)
--- NOTE | 2022-03-11 10:02 | PN.CARD_ITS ---
Subjective Subjective Patient complains of generally feeling unwell. Generalized aches and pains. Refused to complete the pharmacological stress test this morning. Only resting images were obtained. Diagnosed with UTI and started on antibiotics by internal medicine. Objective Data Vital Signs: Vital Signs Temp Pulse Resp BP Pulse Ox O2 Del Method O2 Flow Rate 99.6 F H 111 H 18 108/62 93 Nasal Cannula 2 03/11/22 09:28 03/11/22 09:28 03/11/22 09:28 03/11/22 09:28 03/11/22 09:28 03/11/22 09:28 03/11/22 09:28 Oxygen Flow Rate (L/min) 2 Oxygen Delivery Method Nasal Cannula Weight: 206 lb 12.697 oz Body Mass Index (BMI) 37.8 Intake & Output: Intake and Output for Last 24 Hours 03/09/22 03/10/22 03/11/22 23:59 23:59 23:59 Intake Total 1110 / 1310 200 / 200 Output Total 1100 / 1325 325 / 325 Balance 10 / -15 -125 / -125 Lab / Micro Data Result Diagrams: 03/11/22 06:14 03/11/22 06:14 Labs: Laboratory Results - last 24 hr 03/10/22 10:15: Troponin I High Sens 1216 H* 03/11/22 06:14: WBC 6.3, RBC 3.04 L, Hgb 9.7 L, Hct 29.9 L, MCV 98.4, MCH 31.9, MCHC 32.4, RDW Std Deviation 52.1 H, RDW Coeff of Diandra 14.6, Plt Count 130 L, MPV 10.0, Immature Gran % (Auto) 0.900, Neut % (Auto) 87.9 H, Lymph % (Auto) 6.5 L, [place] % (Auto) 4.4, Eos % (Auto) 0.3, Baso % (Auto) 0.0, Absolute Neuts (auto) 5.6, Absolute Lymphs (auto) 0.41 L, Nucleated RBC % 0, Differential Comment SCANNED 03/11/22 06:14: Sodium 138, Potassium 3.9, Chloride 107, Carbon Dioxide 27.0, Anion Gap 4 L, BUN 50 H, Creatinine 1.67 H, Estim Creat Clear Calc 21.25, Est GFR (MDRD) Af Amer 38 L, Est GFR (MDRD) Non-Af 31 L, BUN/Creatinine Ratio 29.9 H , Glucose 128 H, Calcium 8.6 03/11/22 09:22: PT 39.7 H, INR 4.1 H* Micro: Microbiology 03/10/22 00:02 Urine, Clean Catch Urine Culture - Final Mixed Gram Pos & Gram Neg Org 03/11/22 06:40 Nasal Secretion SARS-CoV-2 & FLU Antigen (Rapid) - Final Rhythm Strip Rhythm Strip: A-fib Cardiology Labs/Tests 03/11/22 06:14: WBC 6.3, RBC 3.04 L, Hgb 9.7 L, Hct 29.9 L, MCV 98.4, MCH 31.9, MCHC 32.4, Plt Count 130 L, MPV 10.0, Immature Gran % (Auto) 0.900, Neut % (Auto) 87.9 H, Lymph % (Auto) 6.5 L, [place] % (Auto) 4.4, Eos % (Auto) 0.3, Baso % (Auto) 0.0, Absolute Neuts (auto) 5.6, Nucleated RBC % 0 03/11/22 06:14: Sodium 138, Potassium 3.9, Chloride 107, Carbon Dioxide 27.0, Anion Gap 4 L, BUN 50 H, Creatinine 1.67 H, Est GFR (MDRD) Af Amer 38 L, Est GFR (MDRD) Non-Af 31 L, BUN/Creatinine Ratio 29.9 H, Glucose 128 H, Calcium 8.6 03/11/22 09:22: PT 39.7 H, INR 4.1 H* Rhythm: EKG: ECHO: Stress Test: Cardiac Cath: PCI: CT Surgery: Holter monitor: EPS: PPM: CXR: Chest CT Scan: Radiography Diagnostic Testing: Radiology Impression Echocardiogram 03/09/22 17:03 Interpretation Summary Mild concentric left ventricular hypertrophy. The left ventricular ejection fraction is 60 %. Unable to assess diastolic dysfunction due to arrhythmia. The left atrium is severely enlarged. The right atrium is mildly enlarged. Bioprosthetic mitral valve. Mild tricuspid valve insufficiency. Severe pulmonary hypertension. Ordering Physician: Tata Sales Referring Physician: Qasim Carreon Performed By: Graham Lofton RCS Chest X-Ray 03/11/22 06:25 IMPRESSION: Slight improvement in CHF. Mild residual interstitial edema remains present. Electronically Signed: Sim Santos MD at 6:39 EST Reading Location ID and State: [facility] / [place] Tel , Service support , Physical Exam Narrative Heart sounds 1 and 2 noted. Irregularly irregular. Chest examination shows decreased breath sounds at bilateral bases. Alert oriented x3. No ankle edema. Assessment & Plan Assessment/Plan (1) NSTEMI, initial episode of care: PLAN: No symptoms of chest pain or shortness of breath. Normal left ventricular systolic function on echo. Discussed with patient and her daughter. We will try to complete pharmacological stress on Sunday. (2) Atrial fibrillation: PLAN: Chronic atrial fibrillation. For rate control. Agree with metoprolol and diltiazem. Increase as tolerated. (3) Congestive heart failure: PLAN: Normal left ventricular systolic function. Unable to determine diastolic function secondary to rhythm problems. (4) Hypertension: QUALIFIERS: Hypertension type: essential hypertension PLAN: Controlled. (5) S/P MVR (mitral valve replacement): PLAN: Bioprosthetic mitral valve functioning normally. (6) Chronic renal disease: PLAN: Monitor creatinine. (7) UTI (urinary tract infection): PLAN: As per internal medicine. (8) Pulmonary hypertension:
--- NOTE | 2022-03-11 10:30 | PN.HOSP_ITS ---
Subjective Subjective Patient seen and examined. Daughter and son were by her bedside. She was due to have a stress test today, but abandoned the test after she had the resting images taken. She complains of generalised malaise and weakness. SHe has a mild fever today of 99.6F. Her heart rate was 111 at time of review. Objective Data Objective Data Vital Signs: Vital Signs Temp Pulse Resp BP Pulse Ox O2 Del Method O2 Flow Rate 99.6 F H 111 H 18 108/62 93 Nasal Cannula 2 03/11/22 09:28 03/11/22 09:28 03/11/22 09:28 03/11/22 09:28 03/11/22 09:28 03/11/22 09:28 03/11/22 09:28 Oxygen Flow Rate (L/min) 2 Oxygen Delivery Method Nasal Cannula Weight: 206 lb 12.697 oz Body Mass Index (BMI) 37.8 Intake & Output: Intake and Output for Last 24 Hours 03/09/22 03/10/22 03/11/22 23:59 23:59 23:59 Intake Total 1110 / 1310 200 / 200 Output Total 1100 / 1325 325 / 325 Balance 10 / -15 -125 / -125 Lab / Micro Data Result Diagrams: 03/11/22 06:14 03/11/22 06:14 Labs: Laboratory Results - last 24 hr 03/10/22 10:15: Troponin I High Sens 1216 H* 03/11/22 06:14: WBC 6.3, RBC 3.04 L, Hgb 9.7 L, Hct 29.9 L, MCV 98.4, MCH 31.9, MCHC 32.4, RDW Std Deviation 52.1 H, RDW Coeff of Diandra 14.6, Plt Count 130 L, MPV 10.0, Immature Gran % (Auto) 0.900, Neut % (Auto) 87.9 H, Lymph % (Auto) 6.5 L, [place] % (Auto) 4.4, Eos % (Auto) 0.3, Baso % (Auto) 0.0, Absolute Neuts (auto) 5.6, Absolute Lymphs (auto) 0.41 L, Nucleated RBC % 0, Differential Comment SCANNED 03/11/22 06:14: Sodium 138, Potassium 3.9, Chloride 107, Carbon Dioxide 27.0, Anion Gap 4 L, BUN 50 H, Creatinine 1.67 H, Estim Creat Clear Calc 21.25, Est GFR (MDRD) Af Amer 38 L, Est GFR (MDRD) Non-Af 31 L, BUN/Creatinine Ratio 29.9 H , Glucose 128 H, Calcium 8.6 03/11/22 09:22: PT 39.7 H, INR 4.1 H* Micro: Microbiology 03/10/22 00:02 Urine, Clean Catch Urine Culture - Final Mixed Gram Pos & Gram Neg Org 03/11/22 06:40 Nasal Secretion SARS-CoV-2 & FLU Antigen (Rapid) - Final 03/09/22 22:51 Nasal Secretion SARS-CoV-2 Antigen (Rapid) - Final 03/09/22 18:08 Mucosa - Nasopharyngeal Respiratory Panel (PCR) - Final Radiography Diagnostic Testing: Radiology Impression Echocardiogram 03/09/22 17:03 Interpretation Summary Mild concentric left ventricular hypertrophy. The left ventricular ejection fraction is 60 %. Unable to assess diastolic dysfunction due to arrhythmia. The left atrium is severely enlarged. The right atrium is mildly enlarged. Bioprosthetic mitral valve. Mild tricuspid valve insufficiency. Severe pulmonary hypertension. Ordering Physician: Tata Sales Referring Physician: Qasim Carreon Performed By: Graham Lofton [facility] Chest X-Ray 03/11/22 06:25 IMPRESSION: Slight improvement in CHF. Mild residual interstitial edema remains present. Electronically Signed: Sim Santos MD at 6:39 EST Reading Location ID and State: [facility] [place] Tel , Service support , Rhythm Strip Rhythm Strip: A-fib Physical Exam Const alert, oriented x3 and no apparent distress HEENT head/scalp atraumatic and moist oral mucous membranes Head and Scalp: normocephalic Mouth: oral and palatal mucosa normal Eyes PERRL, EOMs intact bilaterally and conjunctivae normal Neck no lymphadenopathy, supple and no JVD Resp normal respiratory effort, no retractions, no use of accessory muscles and clear to auscultation bilaterally Cardio regular rate, regular rhythm, S1 normal heart sound, S2 normal heart sound and no murmurs Cardio Narrative: afib, rate controlled GI normal to inspection, nondistended, normoactive bowel sounds, soft to palpation and non-tender Extremity normal to inspection, full ROM and no clubbing, cyanosis or edema Neuro oriented x3, CN's II-XII intact bilaterally, moves all extremities and no focal motor deficits Sensorium / Orientation: awake and alert Motor Exam: strength 5/5 throughout Psych affect normal Assessment & Plan Assessment/Plan (1) NSTEMI, initial episode of care: (2) Atrial fibrillation: PLAN: Plan #Acute on chronic HFpEF * stable. on room air * on IV lasix 40mg dialy * monitor intkae and output * fluid restriction to 1500cc daily. * #Afib with RVR * still in afib; rate control not optimized * on metoprolol and cardizem * 2D echo: EF of 60%, with mild concentric LVH with severely enlarged left atrium, bioprosthetic mitral valve and severe pulmonary hypertension * coumadin on hold due to supratherapeutic INR * * #Nonstemi * troponins were markedly elevated in the mid 3000s; trended downwards to 1216. * cardiology on board * on aspirin, plavix nad metoprolol * cardiology on board * abandoned stress test after the resting images were taken * per cardiology, she is not in a good shape to have cardiac cath; to have the rest of the stress images taken on Sunday. #Supratherapeutic INR: INR today remains 4.1. coumadin on hold. #UTI: urinalysis showed 2+ bacteria. Urine culture pending. Started on IV ceftriaxone #JACQUIE on CKD 3B: CR is 1.67 today. Baseline Cr is ~ 1.56. WIll monitor. #Hypokalemia:resolved. #Hypertension: on metoprolol and losartan #Bilateral knee arthritis: on tylenol #Chronic bilateral LE lymphedema: SANTHOSH wraps in place MItral valve disease: s/p mitral valve replacement with a prosthetic valve DVT prophylaxis: SCDs. no anticoagulation as INR is supratherapeutic Charges/Coding Visit Charges Inpatient E&M: 64045 [facility] Hosp L3
[2022-03-11 17:42] LABS: Mucous, Urine 0 SEEN /hpf (<or=2+)
[2022-03-11 17:50] LABS: Color, Urine Yellow (Yellow); Glucose, Dipstick Normal (Normal); Ketone-Dipstick Negative (Negative); Leukocyte Esterase-Dipstick 25 /ul (Negative); Nitrite-Dipstick Negative (Negative); Occult Blood-Urine 25 /ul (Negative); Protein-Dipstick 30 mg/dl (Negative); Specific Gravity, Urine 1.015 (1.002-1.030); Urine Bilirubin Dipstick Negative (Negative); Urine Clarity Sl. Cloudy (Clear); Urine Urobilinogen Normal (Normal)
[2022-03-11 17:52] LABS: Bacteria 2+ /hpf (None Seen); Red Blood Cells-Urine 0-5 SEEN /hpf (0-5); Squamous Epithelial Cells - UA 0-5 SEEN /hpf (5-10); White Blood Cells 0-5 SEEN /hpf (0-5)
[2022-03-11] MEDS: Metoprolol Tartrate 50 MG Tablet PO (18:34)
--- NOTE | 2022-03-11 19:53 | PCM.HOSP.N ---
Hospitalist Note Bld Cx w/ GP cocci, will add vanc.
[2022-03-11] MEDS: Atorvastatin Calcium 40 MG Tablet PO (20:37)
[2022-03-11] MEDS: 0.9% Saline Lock 10 ML Syringe IV (22:03)
--- NOTE | 2022-03-11 22:45 | PCM.RX.CS ---
Consult Pharmacy has been consulted to manage selected antiobiotic: Vancomycin Type of Consult: New start Labs: Sodium 138 mmol/L (136-145) 03/11/22 06:14 Potassium 3.9 mmol/L (3.5-5.1) 03/11/22 06:14 Chloride 107 mmol/L (98-107) 03/11/22 06:14 Carbon Dioxide 27.0 mmol/L (21.0-32.0) 03/11/22 06:14 Anion Gap 4 (5-15) L 03/11/22 06:14 BUN 50 mg/dL (7-18) H 03/11/22 06:14 Creatinine 1.67 mg/dL (0.55-1.02) H 03/11/22 06:14 Est GFR (MDRD) Af Amer 38 mL/min (>60) L 03/11/22 06:14 Est GFR (MDRD) Non-Af 31 mL/min (>60) L 03/11/22 06:14 BUN/Creatinine Ratio 29.9 RATIO (10-20) H 03/11/22 06:14 Glucose 128 mg/dL (74-106) H 03/11/22 06:14 Microbiology: Microbiology 03/11/22 07:32 Blood Culture (Wb) - Venous Blood Culture - Preliminary 03/10/22 00:02 Urine, Clean Catch Urine Culture - Final Mixed Gram Pos & Gram Neg Org 03/11/22 06:40 Nasal Secretion SARS-CoV-2 & FLU Antigen (Rapid) - Final 03/09/22 22:51 Nasal Secretion SARS-CoV-2 Antigen (Rapid) - Final 03/09/22 18:08 Mucosa - Nasopharyngeal Respiratory Panel (PCR) - Final Weight used for dosin.8 kg Estimated Creatinine Clearance: 28.5 Goal Trough: 15-20 mcg/mL Pharmacy Plan for Drug Dosing: Pharmacy Service will continue to monitor and adjust dosing as required. Medications Vancomycin HCl (Vancomycin) 1,000 mg in 200 mls @ 200 mls/hr IV Q24H BRAIN Discontinued Medications Vancomycin HCl 2,000 mg/ (Sodium Chloride) 540 mls @ 250 mls/hr IV X1 ONE Stop: 03/11/22 22:09 Last Admin: 03/11/22 22:02 Dose: 250 mls/hr Follow-Up Labs: Trough Vancomycin Labs to be done on [date and time ordered]: 03/13 @ 2474
[2022-03-12] VITALS (16 sets, daily range): BP systolic 104–120; BP diastolic 45–67; PULSE 80–112; RESP 18–28; TEMP 36.6–38.2; O2SAT 91–99
[2022-03-12] MEDS: Acetaminophen 325 MG Tablet 650 MG PO ×3 (05:48→21:22)
[2022-03-12 07:42] LABS: Absolute Lymphocyte Count 0.37 X10^3/uL (0.83-4.51); Absolute Neutrophil Count 4.9 X10^3/uL (2.0-7.7); Basophil# 0.01 X10^3/uL; Basophil% 0.2 % (0-1); Hematocrit 28.5 % (37-47); Hemoglobin 9.5 g/dL (12.0-15.0); Lymphocyte # 0.37 X10^3/ul (0.83-4.51); Lymphocyte % 6.6 % (19-41); Mean Corp Hgb Conc 33.3 g/dL (32-36); Mean Corpuscular Hgb 33.1 pg (27.0-32.0); Mean Corpuscular Volume 99.3 fL (81-99); Mean Platelet Vol. 9.9 fl (6.2-12.0); Monocyte# 0.35 X10^3/uL; Monocyte% 6.2 % (0-10); NRBC Flagged by Analyzer 0 % (0-5); Neutrophil # 4.88 X10^3/uL (2.7-7.7); Neutrophil % 86.5 % (47-70); POSITIVE DIFFERENTIAL YES; Platelet Count 135 K/mm3 (150-450); RBC Distribution Width CV 14.4 % (11.6-14.6); RBC Distribution Width SD 51.8 fl (35.1-43.9); Red Blood Count 2.87 M/mm3 (4.2-5.4); White Blood Count 5.6 K/mm3 (4.4-11.0)
[2022-03-12 07:47] LABS: Differential Indicated SCAN CRITERIA MET
[2022-03-12 08:10] LABS: Anion Gap 7 (5-15); BUN 53 mg/dL (7-18); BUN/Creat Ratio 31.7 RATIO (10-20); Calcium,Total 8.2 mg/dL (8.5-10.1); Chloride 106 mmol/L (98-107); Creatinine, Serum 1.67 mg/dL (0.55-1.02); EST Glomerular Filtration Rate 31 mL/min (>60); Est Glom Filt Rate - Afr Amer 38 mL/min (>60); Estimated Creatinine Clearance 21.25 ml/min; Glucose 117 mg/dL (74-106); Magnesium 2.6 mg/dL (1.6-2.6); Sodium Level 137 mmol/L (136-145)
[2022-03-12 08:41] LABS: Platelet Estimate ADEQUATE (ADEQ); Red Cell Morphology NORM C+C NORMAL (NORM C&C)
[2022-03-12 08:43] LABS: Prothrombin Time (Protime)PT. 40.6 SECONDS (11.7-14.9)
[2022-03-12 08:46] LABS: International Normalized Ratio 4.2
[2022-03-12] MEDS: dilTIAZem CD 240 MG Capsule PO (09:03)
[2022-03-12] MEDS: Metoprolol Tartrate 100 MG Tablet PO ×2 (09:03→21:22)
[2022-03-12] MEDS: Clopidogrel Bisulfate 75 MG Tablet PO (09:03)
--- NOTE | 2022-03-12 10:21 | PN.CARD_ITS ---
Subjective Subjective Reports feeling much better today. Appetite coming back. No chest pain or shortness of breath. Objective Data Vital Signs: Vital Signs Temp Pulse Resp BP Pulse Ox O2 Del Method O2 Flow Rate 98.9 F 108 H 28 H 111/45 L 95 Nasal Cannula 2 03/12/22 08:48 03/12/22 09:03 03/12/22 08:48 03/12/22 09:03 03/12/22 08:48 03/12/22 08:48 03/12/22 08:48 Oxygen Flow Rate (L/min) 2 Oxygen Delivery Method Nasal Cannula Weight: 208 lb 5.389 oz Body Mass Index (BMI) 37.8 Intake & Output: Intake and Output for Last 24 Hours 03/10/22 03/11/22 03/12/22 23:59 23:59 23:59 Intake Total 1110 / 1310 1050 / 1170 810 / 810 Output Total 1100 / 1325 775 / 925 300 / 300 Balance 10 / 15 275 / 245 510 / 510 Lab / Micro Data Result Diagrams: 03/12/22 07:21 03/12/22 07:21 Labs: Laboratory Results - last 24 hr 03/11/22 17:25: Urine Color Yellow, Urine Clarity Sl. Cloudy, Urine pH 6.0, Ur Specific [place] 1.015, Urine Protein 30 H, Urine Glucose (UA) Normal, Urine Ketones Negative, Urine Occult Blood 25 H, Urine Nitrite Negative, Urine Bilirubin Negative, Urine Urobilinogen Normal, Ur Leukocyte Esterase 25 H, Urine RBC 0-5 SEEN, Urine WBC 0-5 SEEN, Ur Squamous Epith Cells 0-5 SEEN, Urine Bacteria 2+, Urine Mucus 0 SEEN 03/12/22 07:21: WBC 5.6, RBC 2.87 L, Hgb 9.5 L, Hct 28.5 L, MCV 99.3 H, MCH 33.1 H, MCHC 33.3, RDW Std Deviation 51.8 H, RDW Coeff of Diandra 14.4, Plt Count 135 L, MPV 9.9, Immature Gran % (Auto) 0.500, Neut % (Auto) 86.5 H, Lymph % (Auto) 6.6 L, [place] % (Auto) 6.2, Eos % (Auto) 0.0, Baso % (Auto) 0.2, Absolute Neuts (auto) 4.9, Absolute Lymphs (auto) 0.37 L, Nucleated RBC % 0, Platelet Estimate ADEQUATE, RBC Morphology NORM C+C 03/12/22 07:21: Sodium 137, Potassium 4.0, Chloride 106, Carbon Dioxide 24.0, Anion Gap 7, BUN 53 H, Creatinine 1.67 H, Estim Creat Clear Calc 21.25, Est GFR (MDRD) Af Amer 38 L, Est GFR (MDRD) Non-Af 31 L, BUN/Creatinine Ratio 31.7 H, Glucose 117 H, Calcium 8.2 L, Magnesium 2.6 03/12/22 07:21: PT 40.6 H, INR 4.2 H* Micro: Microbiology 03/11/22 07:32 Blood Culture (Wb) - Venous Bacteria Detection (PCR) - Final Enterococcus faecalis 03/11/22 07:32 Blood Culture (Wb) - Venous Blood Culture - Preliminary 03/10/22 00:02 Urine, Clean Catch Urine Culture - Final Mixed Gram Pos & Gram Neg Org 03/11/22 06:40 Nasal Secretion SARS-CoV-2 & FLU Antigen (Rapid) - Final Rhythm Strip Rhythm Strip: A-fib (Episode of irregular broad complex tachycardia. Likely A. fib with aberrancy (Chula's)) Cardiology Labs/Tests 03/11/22 17:25: Urine Color Yellow, Urine Clarity Sl. Cloudy, Urine pH 6.0, Ur Specific [place] 1.015, Urine Protein 30 H, Urine Glucose (UA) Normal, Urine Ketones Negative, Urine Occult Blood 25 H, Urine Nitrite Negative, Urine Bilirubin Negative, Urine Urobilinogen Normal, Ur Leukocyte Esterase 25 H, Urine RBC 0-5 SEEN, Urine WBC 0-5 SEEN 03/12/22 07:21: WBC 5.6, RBC 2.87 L, Hgb 9.5 L, Hct 28.5 L, MCV 99.3 H, MCH 33.1 H, MCHC 33.3, Plt Count 135 L, MPV 9.9, Immature Gran % (Auto) 0.500, Neut % (Auto) 86.5 H, Lymph % (Auto) 6.6 L, [place] % (Auto) 6.2, Eos % (Auto) 0.0, Baso % (Auto) 0.2, Absolute Neuts (auto) 4.9, Nucleated RBC % 0 03/12/22 07:21: Sodium 137, Potassium 4.0, Chloride 106, Carbon Dioxide 24.0, Anion Gap 7, BUN 53 H, Creatinine 1.67 H, Est GFR (MDRD) Af Amer 38 L, Est GFR (MDRD) Non-Af 31 L, BUN/Creatinine Ratio 31.7 H, Glucose 117 H, Calcium 8.2 L, Magnesium 2.6 03/12/22 07:21: PT 40.6 H, INR 4.2 H* Rhythm: EKG: ECHO: Stress Test: Cardiac Cath: PCI: CT Surgery: Holter monitor: EPS: PPM: CXR: Chest CT Scan: Physical Exam Narrative Heart sounds 1 and 2 noted. Irregularly irregular. Chest examination shows decreased breath sounds at bilateral bases. Alert oriented x3. No ankle edema. Assessment & Plan Assessment/Plan (1) NSTEMI, initial episode of care: PLAN: No symptoms of chest pain or shortness of breath. Normal left ventricular systolic function on echo. Discussed with patient and her daughter. We will try to complete pharmacological stress on Sunday. Stop Aspirin as patient on Clopidogrel and Warfarin. (2) Atrial fibrillation: PLAN: Chronic atrial fibrillation. For rate control. Continue metoprolol and diltiazem. Check magnesium level. (3) Congestive heart failure: PLAN: Normal left ventricular systolic function. Unable to determine diastolic function secondary to rhythm problems. (4) Hypertension: QUALIFIERS: Hypertension type: essential hypertension PLAN: Controlled. (5) S/P MVR (mitral valve replacement): PLAN: Bioprosthetic mitral valve functioning normally. (6) Chronic renal disease: PLAN: Monitor creatinine. (7) UTI (urinary tract infection): PLAN: As per internal medicine. (8) Pulmonary hypertension: PLAN: On diltiazem.
[2022-03-12] MEDS: Furosemide 40 MG/4 ML Vial IV (10:33)
[2022-03-12] MEDS: 0.9% Saline Lock 10 ML Syringe IV ×2 (10:33→21:23)
[2022-03-12 11:17] LABS: Magnesium 2.6 mg/dL (1.6-2.6)
[2022-03-12 13:09] LABS: AST(SGOT) 25 U/L (15-37); Alanine Aminotransfer ALT/SGPT 18 U/L (13-56); Albumin, Serum 2.1 g/dL (3.2-5.0); Alkaline Phosphatase 113 U/L (45-117); Bilirubin, Direct 0.65 mg/dL (0.00-0.30); Globulin 5.2 g/dL (2.2-4.2); Magnesium 2.6 mg/dL (1.6-2.6); Protein, Total 7.3 g/dL (6.4-8.2)
--- NOTE | 2022-03-12 13:47 | PN.HOSP_ITS ---
Subjective Subjective Patient seen ad examined. SHe had no active complaints. She had been tachycardic and tachypneic this morning; these resolved later in the day. She had a fever this morning also. She denied any fever, chills, cough, chest pain, palpitations, dizziness. Review of systems is otherwise negative. Objective Data Objective Data Vital Signs: Vital Signs Temp Pulse Resp BP Pulse Ox O2 Del Method O2 Flow Rate 98.8 F 80 20 H 107/52 L 97 Nasal Cannula 2 03/12/22 10:24 03/12/22 10:59 03/12/22 10:24 03/12/22 10:24 03/12/22 12:33 03/12/22 10:24 03/12/22 12:33 Oxygen Flow Rate (L/min) 2 Oxygen Delivery Method Nasal Cannula Weight: 208 lb 5.389 oz Body Mass Index (BMI) 37.8 Intake & Output: Intake and Output for Last 24 Hours 03/10/22 03/11/22 03/12/22 23:59 23:59 23:59 Intake Total 1110 / 1310 1050 / 1170 810 / 810 Output Total 1100 / 1325 775 / 925 300 / 300 Balance / 15 275 / 245 510 / 510 Lab / Micro Data Result Diagrams: 03/12/22 07:21 03/12/22 07:21 Labs: Laboratory Results - last 24 hr 03/11/22 17:25: Urine Color Yellow, Urine Clarity Sl. Cloudy, Urine pH 6.0, Ur Specific [place] 1.015, Urine Protein 30 H, Urine Glucose (UA) Normal, Urine Ketones Negative, Urine Occult Blood 25 H, Urine Nitrite Negative, Urine Bilirubin Negative, Urine Urobilinogen Normal, Ur Leukocyte Esterase 25 H, Urine RBC 0-5 SEEN, Urine WBC 0-5 SEEN, Ur Squamous Epith Cells 0-5 SEEN, Urine Bacteria 2+, Urine Mucus 0 SEEN 03/12/22 07:21: WBC 5.6, RBC 2.87 L, Hgb 9.5 L, Hct 28.5 L, MCV 99.3 H, MCH 33.1 H, MCHC 33.3, RDW Std Deviation 51.8 H, RDW Coeff of Diandra 14.4, Plt Count 135 L, MPV 9.9, Immature Gran % (Auto) 0.500, Neut % (Auto) 86.5 H, Lymph % (Auto) 6.6 L, [place] % (Auto) 6.2, Eos % (Auto) 0.0, Baso % (Auto) 0.2, Absolute Neuts (auto) 4.9, Absolute Lymphs (auto) 0.37 L, Nucleated RBC % 0, Platelet Estimate ADEQUATE, RBC Morphology NORM C+C 03/12/22 07:21: Sodium 137, Potassium 4.0, Chloride 106, Carbon Dioxide 24.0, Anion Gap 7, BUN 53 H, Creatinine 1.67 H, Estim Creat Clear Calc 21.25, Est GFR (MDRD) Af Amer 38 L, Est GFR (MDRD) Non-Af 31 L, BUN/Creatinine Ratio 31.7 H, Glucose 117 H, Calcium 8.2 L, Magnesium 2.6 03/12/22 07:21: PT 40.6 H, INR 4.2 H* 03/12/22 07:21: Magnesium 2.6 03/12/22 12:44: Magnesium 2.6, Total Bilirubin 1.20 H, Direct Bilirubin 0.65 H, AST 25, ALT 18, Alkaline Phosphatase 113, Total Protein 7.3, Albumin 2.1 L, Globulin 5.2 H Micro: Microbiology 03/11/22 07:32 Blood Culture (Wb) - Venous Bacteria Detection (PCR) - Final Enterococcus faecalis 03/11/22 07:32 Blood Culture (Wb) - Venous Blood Culture - Preliminary Enterococcus faecalis 03/11/22 17:25 Urine, Clean Catch Urine Culture - Preliminary 03/10/22 00:02 Urine, Clean Catch Urine Culture - Final Mixed Gram Pos & Gram Neg Org 03/11/22 06:40 Nasal Secretion SARS-CoV-2 & FLU Antigen (Rapid) - Final 03/09/22 22:51 Nasal Secretion SARS-CoV-2 Antigen (Rapid) - Final 03/09/22 18:08 Mucosa - Nasopharyngeal Respiratory Panel (PCR) - Final Rhythm Strip Rhythm Strip: A-fib (Episode of irregular broad complex tachycardia. Likely A. fib with aberrancy (Chula's)) Physical Exam Const alert, oriented x3 and no apparent distress HEENT head/scalp atraumatic and moist oral mucous membranes Head and Scalp: normocephalic Mouth: oral and palatal mucosa normal Eyes PERRL, EOMs intact bilaterally and conjunctivae normal Neck no lymphadenopathy, supple and no JVD Resp normal respiratory effort, no retractions, no use of accessory muscles and clear to auscultation bilaterally Cardio regular rhythm, S1 normal heart sound, S2 normal heart sound and no murmurs Cardio Narrative: tachycardic GI normal to inspection, nondistended, normoactive bowel sounds, soft to palpation and non-tender Extremity normal to inspection, full ROM and no clubbing, cyanosis or edema Neuro oriented x3, CN's II-XII intact bilaterally, moves all extremities and no focal motor deficits Sensorium / Orientation: awake and alert Motor Exam: strength 5/5 throughout Psych affect normal Assessment & Plan Assessment/Plan (1) NSTEMI, initial episode of care: (2) Atrial fibrillation: PLAN: Plan #Acute on chronic HFpEF * stable. on room air * on IV lasix 40mg dialy * monitor intkae and output * fluid restriction to 1500cc daily. * #Afib with RVR * was mildly tachycardic today. * on metoprolol and cardizem * 2D echo: EF of 60%, with mild concentric LVH with severely enlarged left atrium, bioprosthetic mitral valve and severe pulmonary hypertension * coumadin on hold due to supratherapeutic INR * * #Nonstemi * troponins were markedly elevated in the mid 3000s; trended downwards to 1216. * cardiology on board * on aspirin, plavix nad metoprolol * cardiology on board * abandoned stress test after the resting images were taken * per cardiology, she is not in a good shape to have cardiac cath; to have the rest of the stress images taken on Sunday. #Supratherapeutic INR: * INR remains elevated and is 4.2 today. * coumadin remains on hold. * liver enzymes show elevated bilirubin of 1.7, but AST,ALT and ALP are WNL * trend INR #UTI with bacteremia * blood cultures positive (one sample) for Enterococcus faecalis. Blood bacteria PCR also positive for Enterococcus faecalis * now on IV vancomycin and zosyn * repeat blood cultures * consult ID * 2D echo showed no evidence of vegetation. #JACQUIE on CKD 3B: CR is still 1.67 today. Baseline Cr is ~ 1.56. WIll monitor. #Hypokalemia:resolved. #Hypertension: on metoprolol and losartan #Bilateral knee arthritis: on tylenol #Chronic bilateral LE lymphedema: SANTHOSH wraps in place MItral valve disease: s/p mitral valve replacement with a prosthetic valve DVT prophylaxis: SCDs. no anticoagulation as INR is supratherapeutic Charges/Coding Visit Charges Inpatient E&M: 74015 [facility] Hosp L3
--- NOTE | 2022-03-12 15:29 | CT_ITS ---
INDICATION: Sepsis. UTI with bacteremia. History of tricuspid valve annuloplasty. EXAMINATION: CT ABDOMEN AND PELVIS WITH CONTRAST - CT Abdomen And Pelvis W/ Contrast Injection TECHNIQUE: Helically acquired images were obtained of the abdomen and pelvis following IV contrast. A radiation dose optimization technique was used for this scan. IV Contrast dosage and agent: 75 mL of Isovue 370 Oral contrast: Gastrografin. COMPARISON: None. FINDINGS: LOWER CHEST: Small left pleural effusion. There is dependent changes at the left lung base. Evidence of median sternotomy. There are diffuse coronary artery calcifications and evidence of mitral valve replacement. Mild cardiomegaly. LIVER: Homogeneous. No focal mass. GALLBLADDER AND BILIARY TREE: Multiple gallstones without wall thickening or inflammatory change. No intra- or extrahepatic biliary ductal dilation. PANCREAS: Partial fatty replacement of the pancreas without mass. SPLEEN: Spleen is mildly prominent. There is an irregular area of low attenuation anteriorly. Question remote infarct. ADRENAL GLANDS: No nodules. KIDNEYS AND URETERS: The right kidney is malrotated. There is a exophytic 3.9 cm cyst off the lower pole. No renal calculi or solid mass. No hydronephrosis. Normal visualized right ureter. There is a subcentimeter cyst lower pole cortex of an otherwise normal left kidney. Normal left ureter. PERITONEUM: No ascites or free air. No other fluid collection. BOWEL: Stomach is poorly distended but otherwise unremarkable. Normal small intestine. Contrast history throughout the colon. There is sigmoid diverticulosis without acute inflammatory change. Normal appendix. LYMPH NODES: No enlarged mesenteric or retroperitoneal lymph nodes. VESSELS: Minimal atherosclerotic changes of the aorta without aneurysm. Prominent IVC. URINARY BLADDER: Unremarkable. REPRODUCTIVE ORGANS: Anteverted uterus. There is a large calcified fibroid posterior fundal wall. Other scattered calcifications are seen in the myometrium. No adnexal mass. ABDOMINAL WALL: No discrete abdominal or pelvic wall hernia. BONES: Degenerative changes of the lumbar spine and hips. No lytic or blastic lesions are noted. CT/Abdomen/Pelvis WITH Contrast IMPRESSION: 1. Bilateral renal cysts. There is no other evidence of renal, ureteral or urinary bladder abnormality. 2. Sigmoid diverticulosis without acute inflammatory change. 3. Fibroid uterus. 4. Remote splenic infarct. 5. Multiple gallstones without choledocholithiasis or inflammatory change. 6. Degenerative changes of the lumbar spine. Electronically Signed: Dante Casarez DO at 18:39 EST Reading Location ID and State: [address] [place] [address] Tel [phone], Service support ,
[2022-03-12] MEDS: Atorvastatin Calcium 40 MG Tablet PO (21:22)
[2022-03-12] MEDS: Vancomycin IV 1,000 MG/200 ML BAG 200 MG IV (21:23)
[2022-03-13] VITALS (15 sets, daily range): BP systolic 91–122; BP diastolic 51–60; PULSE 80–107; RESP 12–20; TEMP 36.6–37.8; O2SAT 87–99
[2022-03-13] MEDS: Acetaminophen 325 MG Tablet 650 MG PO ×2 (05:04→20:44)
--- NOTE | 2022-03-13 05:40 | EKG12_ITS ---
Test Reason : AM EKG Blood Pressure : / mmHG Vent. Rate : 086 BPM Atrial Rate : 000 BPM P-R Int : 000 ms QRS Dur : 102 ms QT Int : 386 ms P-R-T Axes : 000 101 052 degrees QTc Int : 461 ms Atrial fibrillation Possible Right ventricular hypertrophy Abnormal ECG When compared with ECG of 11-MAR-2022 04:43, MANUAL COMPARISON REQUIRED, DATA IS UNCONFIRMED Confirmed by SHARON MARKS, GIRISH ([id number]), multimedia editor PHIL LOOMIS ([id number]) on 03/14/2022 12:57:07 PM Referred By: Confirmed By:GIRISH HERRERA MD
--- NOTE | 2022-03-13 05:55 | EKG12_ITS ---
Test Reason : AM EKG Blood Pressure : / mmHG Vent. Rate : 101 BPM Atrial Rate : 000 BPM P-R Int : 000 ms QRS Dur : 098 ms QT Int : 380 ms P-R-T Axes : 000 092 041 degrees QTc Int : 492 ms Atrial fibrillation with rapid ventricular response Rightward axis Low voltage QRS RSR' or QR pattern in V1 suggests right ventricular conduction delay Abnormal ECG Confirmed by PARDEEP MARKS, MASON ([id number]), marketing editor PHIL LOOMIS ([id number]) on 03/22/2022 9:00:47 AM Referred By: FOREIGN Confirmed By:MASON ROBERTO MD
[2022-03-13] MEDS: Clopidogrel Bisulfate 75 MG Tablet PO (06:22)
[2022-03-13 06:36] LABS: Absolute Neutrophil Count 4.9 X10^3/uL (2.0-7.7); Basophil# 0.02 X10^3/uL; Basophil% 0.3 % (0-1); Eosinophil# 0.03 X10^3/uL; Eosinophils% 0.5 % (0-5); Hematocrit 27.3 % (37-47); Hemoglobin 8.9 g/dL (12.0-15.0); Lymphocyte % 8.5 % (19-41); Mean Corp Hgb Conc 32.6 g/dL (32-36); Mean Corpuscular Hgb 32.2 pg (27.0-32.0); Mean Corpuscular Volume 98.9 fL (81-99); Mean Platelet Vol. 9.6 fl (6.2-12.0); Monocyte# 0.39 X10^3/uL; Monocyte% 6.7 % (0-10); NRBC Flagged by Analyzer 0 % (0-5); Neutrophil # 4.89 X10^3/uL (2.7-7.7); Neutrophil % 83.5 % (47-70); POSITIVE DIFFERENTIAL YES; Platelet Count 140 K/mm3 (150-450); RBC Distribution Width CV 14.5 % (11.6-14.6); RBC Distribution Width SD 51.8 fl (35.1-43.9); Red Blood Count 2.76 M/mm3 (4.2-5.4); White Blood Count 5.9 K/mm3 (4.4-11.0)
[2022-03-13 06:49] LABS: International Normalized Ratio 5.2
[2022-03-13 06:52] LABS: Differential Indicated SCAN CRITERIA MET
[2022-03-13 07:03] LABS: Anion Gap 8 (5-15); BUN 53 mg/dL (7-18); BUN/Creat Ratio 29.1 RATIO (10-20); Calcium,Total 8.2 mg/dL (8.5-10.1); Chloride 104 mmol/L (98-107); Creatinine, Serum 1.82 mg/dL (0.55-1.02); EST Glomerular Filtration Rate 28 mL/min (>60); Est Glom Filt Rate - Afr Amer 34 mL/min (>60); Glucose 110 mg/dL (74-106); Potassium 3.5 mmol/L (3.5-5.1); Sodium Level 139 mmol/L (136-145)
[2022-03-13 07:06] LABS: Platelet Estimate SLT DEC (ADEQ)
[2022-03-13] MEDS: 0.9% Saline Lock 10 ML Syringe IV ×2 (09:42→21:41)
--- NOTE | 2022-03-13 11:04 | CASEMGMT ---
Discharge Machinery Cleaner Karin reached out. Pre-cert has been obtained. MARIA ALEJANDRA Michel notified. Jerad TINOCO University Lecturer
[2022-03-13] MEDS: dilTIAZem CD 240 MG Capsule PO (12:06)
[2022-03-13] MEDS: Furosemide 40 MG/4 ML Vial IV (12:06)
[2022-03-13] MEDS: Metoprolol Tartrate 100 MG Tablet PO ×2 (12:06→20:44)
--- NOTE | 2022-03-13 12:57 | STRESSREP ---
Stress Test Report Pharmacologic myocardial perfusion stress test. [83-year-old lady with a history of chest pain and non-ST elevation myocardial infarction.] Resting EKG demonstrates sinus bradycardia with a rate of 94 bpm. Resting blood pressure is 104/62 mmHg. 0.4 mg of regadenoson was infused per usual protocol followed by rapid intravenous saline flush injection. Continuous EKG monitoring was performed. The maximum heart rate was 126 bpm which was 90% of max impacted heart rate the maximum workload was 1 metabolic equivalent. At rest there were no ST or T wave changes noted to suggest ischemia and at peak infusion nonspecific ST changes were noted with did not meet the criteria for ischemia. Occasional premature ventricular complexes noted. No clinical angina is noted. The final blood pressure was 104/62 mmHg. Myocardial perfusion protocol. 14.1 mCi of technetium 99m sestamibi was injected at rest. 0.4 mg of regadenoson was infused per usual protocol. At peak infusion 43 mCi of technetium 99m sestamibi was injected stress images were obtained stress and rest images were reconstructed and compared in the short axis vertical long and horizontal long axis. Gated images were also obtained. Perfusion SPECT analysis: Review of the stress images demonstrate normal uptake of tracer noted in all areas of the myocardium. The resting images similar demonstrated normal uptake of tracer noted in all areas of the myocardium. No areas of reversibility are noted to suggest ischemia and no previous infarct is noted. Gated SPECT analysis: The gated ejection fraction is 60. Conclusion: Normal pharmacologic myocardial perfusion stress test. Preserved ejection fraction.
--- NOTE | 2022-03-13 13:35 | CASEMGMT ---
MARIA ALEJANDRA did notify physician that patient was approved for correction. However, patient is not medically ready. MARIA ALEJANDRA notified [place] via [employer]. Marilu [place] PULMONOLOGIST INTENSIVIST KARMA
--- NOTE | 2022-03-13 13:42 | PCM.CONS.GEN ---
Assessment & Plan Assessment/Plan (1) S/P MVR (mitral valve replacement): (2) UTI (urinary tract infection): PLAN: 1 of 2 bcx with enterococcus, possible bacteremia secondary to uti. Will stop zosyn. Cont vanc. Repeat bcx pending. Depending on clinical progress and further cx results, may need NOHEMY given presence of tissue valve replacement. Spoke with lab at [place], no bcx were collected there. Will follow, thank you, d/w Dr. Hernandez HPI Consult Data Date of Consult: 03/13/22 HPI Narrative Reason for Consultation: bacteremia HPI Narrative: CARLOS ALBERTO GOLDBERG, is a 81 F with RA, CKD, tissue MVR, presented to ED at [facility] with 1 week of aches, fatigue, nausea, cough, falls at home. Had stopped taking her meds at home due to not feeling well. Some dysuria, no abd pain. Transferred here for CHF exacerbation. Fever to 101.7, abx started. Now on vanc/zosyn, feeling a little better. Full ROS performed and neg except as noted above. [facility] Medical History Chronic acquired lymphedema Chronic atrial fibrillation Chronic diastolic CHF (congestive heart failure) Former tobacco use History of temporary cardiac pacemaker treatment HTN (hypertension) Morbid obesity Rheumatoid arthritis Valvular heart disease Home Medications calcium carbonate 600 mg-vitamin D3 10 mcg (400 unit) tablet (Calcium 600 + D(3)) 1 ea PO DAILY supp 12/17/13 [History Last Taken Unknown] diltiazem HCl 180 mg capsule,extended release 24 hr 180 mg PO DAILY afib 12/17/13 [History Last Taken Unknown] furosemide 40 mg tablet 40 mg PO DAILY diuretic 12/17/13 [History Last Taken Unknown] metoprolol tartrate 50 mg tablet 100 mg PO BID blood pressure 12/17/13 [History Last Taken Unknown] Century Adults 50+ Tablet 1 tab PO DAILY vitamin 08/21/16 [History Last Taken Unknown] Klor-Con M20 1 tab PO DAILY mineral 08/21/16 [History Last Taken Unknown] Warfarin Sodium 1 tab PO afib 08/21/16 [History Last Taken Unknown] Warfarin Sodium 5 mg PO afib 08/21/16 [History Last Taken Unknown] Allergy/AdvReac Type Severity Reaction Status Date / Time allopurinol Allergy Mild Rash Verified 03/11/22 10:14 ceftriaxone [From Rocephin] Allergy Mild Rash Verified 03/09/22 14:35 colchicine Allergy Mild Rash Verified 03/11/22 10:14 Family History (Updated 03/09/22 @ 19:[address] Tata Sales MD) Mother Heart disease Father Cancer Leukemia. Surgical History (Updated 03/10/22 @ 09:[address] Aretha Reyes MD) H/O tricuspid valve annuloplasty S/P MVR (mitral valve replacement) Social History (Updated 03/09/22 @ 19:[address] Tata Sales MD) household members: none Smoking Status: Former smoker how long ago did patient quit smoking: Quit 05/26/1959, smoked ~2 years w/ 0.25 pack/day. alcohol intake: current alcohol intake frequency: holidays/special occasions only substance use type: does not use Physical Exam Const alert and no apparent distress General Appearance: cooperative HEENT normocephalic and head/scalp atraumatic Eyes PERRL and EOMs intact bilaterally Neck supple and No nodes Resp clear to auscultation bilaterally Auscultation: diminished lung sounds Cardio regular rate and regular rhythm Heart Sounds: murmur GI soft to palpation, non-tender and non-distended Extremity General Extremity: edema Skin no rashes or lesions noted Skin Narrative: no splinter hemorrhages on fingers Neuro CN's II-XII intact bilaterally Lab / Micro Data Attestation: I reviewed the patient's lab results. Result Diagrams: 03/13/22 06:19 03/13/22 06:19 Labs: Laboratory Results - last 24 hr 03/13/22 06:19: WBC 5.9, RBC 2.76 L, Hgb 8.9 L, Hct 27.3 L, MCV 98.9, MCH 32.2 H, MCHC 32.6, RDW Std Deviation 51.8 H, RDW Coeff of Diandra 14.5, Plt Count 140 L, MPV 9.6, Immature Gran % (Auto) 0.500, Neut % (Auto) 83.5 H, Lymph % (Auto) 8.5 L, [place] % (Auto) 6.7, Eos % (Auto) 0.5, Baso % (Auto) 0.3, Absolute Neuts (auto) 4.9, Absolute Lymphs (auto) 0.50 L, Nucleated RBC % 0, Platelet Estimate SLT 03/13/22 06:19: Sodium 139, Potassium 3.5, Chloride 104, Carbon Dioxide 27.0, Anion Gap 8, BUN 53 H, Creatinine 1.82 H, Estim Creat Clear Calc 19.50, Est GFR (MDRD) Af Amer 34 L, Est GFR (MDRD) Non-Af 28 L, BUN/Creatinine Ratio 29.1 H, Glucose 110 H, Calcium 8.2 L 03/13/22 06:19: PT 48.0 H, INR 5.2 H* Micro: Microbiology 03/11/22 17:25 Urine, Clean Catch Urine Culture - Preliminary GPC Poss Enterococcus sp Mixed Gram Positive Organisms 03/11/22 07:32 Blood Culture (Wb) - Venous Bacteria Detection (PCR) - Final Enterococcus faecalis 03/11/22 07:32 Blood Culture (Wb) - Venous Blood Culture - Final Enterococcus faecalis Rhythm Strip Rhythm Strip: A-fib (Episode of irregular broad complex tachycardia. Likely A. fib with aberrancy (Chula's)) Radiology Impression Abdomen/Pelvis CT 03/12/22 15:29 IMPRESSION: 1. Bilateral renal cysts. There is no other evidence of renal, ureteral or urinary bladder abnormality. 2. Sigmoid diverticulosis without acute inflammatory change. 3. Fibroid uterus. 4. Remote splenic infarct. 5. Multiple gallstones without choledocholithiasis or inflammatory change. 6. Degenerative changes of the lumbar spine. Electronically Signed: Dante Casarez DO at 18:39 EST Reading Location ID and State: [address] [place] [address] Tel [phone], Service support ,
--- NOTE | 2022-03-13 15:45 | PN.HOSP_ITS ---
Subjective Subjective Doing well, no chest pain, no issues overnight Objective Data Objective Data Vital Signs: Vital Signs Temp Pulse Resp BP Pulse Ox O2 Del Method O2 Flow Rate 98.7 F 94 12 122/56 H 99 Room Air 2 03/13/22 12:08 03/13/22 15:00 03/13/22 12:08 03/13/22 12:08 03/13/22 12:08 03/13/22 14:08 03/13/22 08:28 Oxygen Flow Rate (L/min) 2 Oxygen Delivery Method Room Air Weight: 209 lb 7.026 oz Body Mass Index (BMI) 37.8 Intake & Output: Intake and Output for Last 24 Hours 03/12/22 03/13/22 03/14/22 03:59 03:59 03:59 Intake Total 1560 / 1560 895 / 895 50 / 50 Output Total 700 / 700 700 / 700 75 / 75 Balance 860 / 860 195 / 195 -25 / -25 Lab / Micro Data Result Diagrams: 03/13/22 06:19 03/13/22 06:19 Labs: Laboratory Results - last 24 hr 03/13/22 06:19: WBC 5.9, RBC 2.76 L, Hgb 8.9 L, Hct 27.3 L, MCV 98.9, MCH 32.2 H , MCHC 32.6, RDW Std Deviation 51.8 H, RDW Coeff of Diandra 14.5, Plt Count 140 L, MPV 9.6, Immature Gran % (Auto) 0.500, Neut % (Auto) 83.5 H, Lymph % (Auto) 8.5 L, [place] % (Auto) 6.7, Eos % (Auto) 0.5, Baso % (Auto) 0.3, Absolute Neuts (auto) 4.9, Absolute Lymphs (auto) 0.50 L, Nucleated RBC % 0, Platelet Estimate SLT 03/13/22 06:19: Sodium 139, Potassium 3.5, Chloride 104, Carbon Dioxide 27.0, Anion Gap 8, BUN 53 H, Creatinine 1.82 H, Estim Creat Clear Calc 19.50, Est GFR (MDRD) Af Amer 34 L, Est GFR (MDRD) Non-Af 28 L, BUN/Creatinine Ratio 29.1 H, Glucose 110 H, Calcium 8.2 L 03/13/22 06:19: PT 48.0 H, INR 5.2 H* Micro: Microbiology 03/12/22 15:40 Blood Culture (Wb) - Right Hand Blood Culture - Preliminary 03/11/22 17:25 Urine, Clean Catch Urine Culture - Preliminary GPC Poss Enterococcus sp Mixed Gram Positive Organisms 03/11/22 07:32 Blood Culture (Wb) - Venous Bacteria Detection (PCR) - Final Enterococcus faecalis 03/11/22 07:32 Blood Culture (Wb) - Venous Blood Culture - Final Enterococcus faecalis 03/10/22 00:02 Urine, Clean Catch Urine Culture - Final Mixed Gram Pos & Gram Neg Org 03/11/22 06:40 Nasal Secretion SARS-CoV-2 & FLU Antigen (Rapid) - Final 03/09/22 22:51 Nasal Secretion SARS-CoV-2 Antigen (Rapid) - Final 03/09/22 18:08 Mucosa - Nasopharyngeal Respiratory Panel (PCR) - Final Radiography Diagnostic Testing: Radiology Impression Abdomen/Pelvis CT 03/12/22 15:29 IMPRESSION: 1. Bilateral renal cysts. There is no other evidence of renal, ureteral or urinary bladder abnormality. 2. Sigmoid diverticulosis without acute inflammatory change. 3. Fibroid uterus. 4. Remote splenic infarct. 5. Multiple gallstones without choledocholithiasis or inflammatory change. 6. Degenerative changes of the lumbar spine. Electronically Signed: Dante Casarez DO at 18:39 EST Reading Location ID and State: [address] [place] [address] Tel [phone], Service support , Rhythm Strip Rhythm Strip: A-fib (Episode of irregular broad complex tachycardia. Likely A. fib with aberrancy (Chula's)) Physical Exam Narrative General: Alert, Oriented x3, Cooperative, No apparent distress HEENT: Atraumatic, PERRLA, EOMI, Normocephalic Oral: Moist Mucosa Neck: Supple, No JVD Lungs: Diminished, Normal air movement, No rhonchi, No wheeze, No rales Cardiovascular: Regular rate, Regular Rhythm, Normal S1, Normal S2, No murmurs Abdomen: Soft, Non Tender, Non-Distended, No Hepato-splenomegaly Extremities: No edema, Capillary Refill Less than 3 Seconds Skin: No rashes, No breakdown Musculoskeletal: No Tenderness to Palpation of Joints or Extremities Neurological: Cranial nerves II-XII grossly intact, Motor Exam 5/5 strength throughout, Sensory exam intact to light touch and pain Psych/Mental Status: Normal Affect, Appropriate Assessment & Plan Assessment/Plan (1) NSTEMI, initial episode of care: (2) Atrial fibrillation: PLAN: Plan 1. Acute on chronic diastolic CHF/A. fib with RVR/non-STEMI/supratherapeutic INR/JACQUIE/HTN/HLD ? She is feeling much better and her creatinine is improving we will continue with her IV Lasix ? Continue with the fluid restriction ? We will continue to hold her Coumadin as her INR is elevated to 5.2 this is likely a reaction to the antibiotics we will continue to monitor ? Echo with an EF of 60% and a bioprosthetic mitral valve with severe pulmonary hypertension ? Stress test today was unremarkable, elevated troponin was likely secondary to her RVR 2. UTI with possible bacteremia ? 1 blood culture with Enterococcus repeat blood cultures are pending ? Appreciate infectious disease assistance ? Initial 2D echo does not show any vegetations on her bioprosthetic valve DVT: Supratherapeutic INR Charges/Coding Visit Charges Inpatient E&M: 37321 Subs Hosp L2
[2022-03-13] MEDS: Atorvastatin Calcium 40 MG Tablet PO (20:44)
[2022-03-13] MEDS: Vancomycin IV 1,000 MG/200 ML BAG 200 MG IV (21:41)
[2022-03-13 22:24] LABS: Vancomycin, Trough Level 21.3 ug/mL (5.0-15.0)
[2022-03-14] VITALS (17 sets, daily range): BP systolic 86–113; BP diastolic 48–88; PULSE 81–93; RESP 16–20; TEMP 36.4–36.8; O2SAT 97–100
--- NOTE | 2022-03-14 03:22 | PCM.RX.CS ---
Consult Pharmacy has been consulted to manage selected antiobiotic: Vancomycin Type of Consult: Follow-up Labs: Sodium 139 mmol/L (136-145) 03/13/22 06:19 Potassium 3.5 mmol/L (3.5-5.1) 03/13/22 06:19 Chloride 104 mmol/L (98-107) 03/13/22 06:19 Carbon Dioxide 27.0 mmol/L (21.0-32.0) 03/13/22 06:19 Anion Gap 8 (5-15) 03/13/22 06:19 BUN 53 mg/dL (7-18) H 03/13/22 06:19 Creatinine 1.82 mg/dL (0.55-1.02) H 03/13/22 06:19 Est GFR (MDRD) Af Amer 34 mL/min (>60) L 03/13/22 06:19 Est GFR (MDRD) Non-Af 28 mL/min (>60) L 03/13/22 06:19 BUN/Creatinine Ratio 29.1 RATIO (10-20) H 03/13/22 06:19 Glucose 110 mg/dL (74-106) H 03/13/22 06:19 Vancomycin Trough 21.3 ug/mL (5.0-15.0) H 03/13/22 21:21 Microbiology: Microbiology 03/12/22 15:40 Blood Culture (Wb) - Right Hand Blood Culture - Preliminary 03/11/22 17:25 Urine, Clean Catch Urine Culture - Preliminary GPC Poss Enterococcus sp Mixed Gram Positive Organisms 03/11/22 07:32 Blood Culture (Wb) - Venous Bacteria Detection (PCR) - Final Enterococcus faecalis 03/11/22 07:32 Blood Culture (Wb) - Venous Blood Culture - Final Enterococcus faecalis 03/10/22 00:02 Urine, Clean Catch Urine Culture - Final Mixed Gram Pos & Gram Neg Org 03/11/22 06:40 Nasal Secretion SARS-CoV-2 & FLU Antigen (Rapid) - Final 03/09/22 22:51 Nasal Secretion SARS-CoV-2 Antigen (Rapid) - Final 03/09/22 18:08 Mucosa - Nasopharyngeal Respiratory Panel (PCR) - Final Goal Trough: 15-20 mcg/mL Pharmacy Plan for Drug Dosing: Pharmacy Service will continue to monitor and adjust dosing as required. TROUGH 21.3 AND DOSE GIVEN. HOLD NEXT DOSE AND DRAW RANDOM LEVEL IN 32 HRS
[2022-03-14 06:41] LABS: Absolute Lymphocyte Count 0.76 X10^3/uL (0.83-4.51); Absolute Neutrophil Count 6.7 X10^3/uL (2.0-7.7); Basophil# 0.01 X10^3/uL; Basophil% 0.1 % (0-1); Eosinophil# 0.07 X10^3/uL; Eosinophils% 0.9 % (0-5); Hematocrit 27.8 % (37-47); Hemoglobin 8.7 g/dL (12.0-15.0); Lymphocyte # 0.76 X10^3/ul (0.83-4.51); Lymphocyte % 9.5 % (19-41); Mean Corp Hgb Conc 31.3 g/dL (32-36); Mean Corpuscular Hgb 31.4 pg (27.0-32.0); Mean Corpuscular Volume 100.4 fL (81-99); Mean Platelet Vol. 9.9 fl (6.2-12.0); Monocyte# 0.42 X10^3/uL; Monocyte% 5.3 % (0-10); NRBC Flagged by Analyzer 0 % (0-5); Neutrophil # 6.68 X10^3/uL (2.7-7.7); Neutrophil % 83.6 % (47-70); Platelet Count 177 K/mm3 (150-450); RBC Distribution Width CV 14.3 % (11.6-14.6); RBC Distribution Width SD 51.8 fl (35.1-43.9); Red Blood Count 2.77 M/mm3 (4.2-5.4)
[2022-03-14 07:09] LABS: Anion Gap 10 (5-15); BUN 53 mg/dL (7-18); BUN/Creat Ratio 25.1 RATIO (10-20); Calcium,Total 8.4 mg/dL (8.5-10.1); Chloride 105 mmol/L (98-107); Creatinine, Serum 2.11 mg/dL (0.55-1.02); EST Glomerular Filtration Rate 24 mL/min (>60); Est Glom Filt Rate - Afr Amer 29 mL/min (>60); Estimated Creatinine Clearance 16.82 ml/min; Glucose 110 mg/dL (74-106); Potassium 3.4 mmol/L (3.5-5.1); Sodium Level 140 mmol/L (136-145)
[2022-03-14 08:02] LABS: Prothrombin Time (Protime)PT. 56.6 SECONDS (11.7-14.9)
[2022-03-14 08:05] LABS: International Normalized Ratio 6.5
[2022-03-14] MEDS: Acetaminophen 325 MG Tablet 650 MG PO (08:29)
[2022-03-14] MEDS: Furosemide 40 MG/4 ML Vial IV (08:29)
[2022-03-14] MEDS: Metoprolol Tartrate 100 MG Tablet PO ×2 (08:29→21:39)
[2022-03-14] MEDS: Clopidogrel Bisulfate 75 MG Tablet PO (08:29)
--- NOTE | 2022-03-14 09:43 | PCM.PN.ID ---
Physical Exam Narrative Feeling better, no fever, no n/v/d. Const alert and no apparent distress Resp normal air movement and clear to auscultation bilaterally Cardio regular rate and regular rhythm Heart Sounds: murmur GI soft to palpation, non-tender and non-distended Skin no rashes or lesions noted ID ID: Route of nutrition/ use of supplements: [] Nutritional Intake: [] IV Site: [] Hernandez Catheter: [] Assessment & Plan Assessment/Plan (1) S/P MVR (mitral valve replacement): (2) UTI (urinary tract infection): PLAN: enterococcus bacteremia secondary to uti. Change vanc to ampicillin. Repeat bcx today. Will order NOHEMY given presence of tissue valve replacement. Spoke with lab at [facility], no bcx were collected there. Will follow (3) Bacteremia due to Enterococcus:
--- NOTE | 2022-03-14 10:16 | PCM.PN.HOSP ---
Subjective Subjective Well, no issues overnight. She has intermittently required oxygen via nasal cannula Objective Data Objective Data Vital Signs: Vital Signs Temp Pulse Resp BP Pulse Ox O2 Del Method O2 Flow Rate 97.5 F L 93 18 107/70 98 Nasal Cannula 2 03/14/22 08:12 03/14/22 08:29 03/14/22 08:12 03/14/22 08:29 03/14/22 08:12 03/14/22 08:12 03/14/22 08:12 Oxygen Flow Rate (L/min) 2 Oxygen Delivery Method Nasal Cannula Weight: 208 lb 1.862 oz Body Mass Index (BMI) 37.8 Intake & Output: Intake and Output for Last 24 Hours 03/13/22 03/14/22 03/15/22 03:59 03:59 03:59 Intake Total 895 / 895 820 / 820 60 / 60 Output Total 700 / 700 75 / 75 200 / 200 Balance 195 / 195 745 / 745 -140 / -140 Lab / Micro Data Result Diagrams: 03/14/22 06:32 03/14/22 06:32 Labs: Laboratory Results - last 24 hr 03/13/22 21:21: Vancomycin Trough 21.3 H 03/14/22 06:32: WBC 8.0, RBC 2.77 L, Hgb 8.7 L, Hct 27.8 L, MCV 100.4 H, MCH 31.4, MCHC 31.3 L, RDW Std Deviation 51.8 H, RDW Coeff of Diandra 14.3, Plt Count 177, MPV 9.9, Immature Gran % (Auto) 0.600, Neut % (Auto) 83.6 H, Lymph % (Auto) 9.5 L, [place] % (Auto) 5.3, Eos % (Auto) 0.9, Baso % (Auto) 0.1, Absolute Neuts (auto) 6.7, Absolute Lymphs (auto) 0.76 L, Nucleated RBC % 0 03/14/22 06:32: Sodium 140, Potassium 3.4 L, Chloride 105, Carbon Dioxide 25.0, Anion Gap 10, BUN 53 H, Creatinine 2.11 H, Estim Creat Clear Calc 16.82, Est GFR (MDRD) Af Amer 29 L, Est GFR (MDRD) Non-Af 24 L, BUN/Creatinine Ratio 25.1 H, Glucose 110 H, Calcium 8.4 L 03/14/22 06:32: PT 56.6 H, INR 6.5 H* Micro: Microbiology 03/12/22 15:40 Blood Culture (Wb) - Right Hand Blood Culture - Preliminary 03/11/22 17:25 Urine, Clean Catch Urine Culture - Final Enterococcus faecalis Mixed Gram Positive Organisms 03/13/22 06:19 Blood Culture (Wb) - Right Hand Blood Culture - Preliminary 03/11/22 07:32 Blood Culture (Wb) - Venous Bacteria Detection (PCR) - Final Enterococcus faecalis 03/11/22 07:32 Blood Culture (Wb) - Venous Blood Culture - Final Enterococcus faecalis 03/10/22 00:02 Urine, Clean Catch Urine Culture - Final Mixed Gram Pos & Gram Neg Org 03/11/22 06:40 Nasal Secretion SARS-CoV-2 & FLU Antigen (Rapid) - Final 03/09/22 22:51 Nasal Secretion SARS-CoV-2 Antigen (Rapid) - Final 03/09/22 18:08 Mucosa - Nasopharyngeal Respiratory Panel (PCR) - Final Rhythm Strip Rhythm Strip: A-fib (Episode of irregular broad complex tachycardia. Likely A. fib with aberrancy (Ch[place]'s)) Physical Exam Narrative General: Alert, Oriented x3, Cooperative, No apparent distress HEENT: Atraumatic, PERRLA, EOMI, Normocephalic Oral: Moist Mucosa Neck: Supple, No JVD Lungs: Diminished, Normal air movement, No rhonchi, No wheeze, No rales Cardiovascular: Regular rate, Regular Rhythm, Normal S1, Normal S2, No murmurs Abdomen: Soft, Non Tender, Non-Distended, No Hepato-splenomegaly Extremities: No edema, Capillary Refill Less than 3 Seconds Skin: No rashes, No breakdown Musculoskeletal: No Tenderness to Palpation of Joints or Extremities Neurological: Cranial nerves II-XII grossly intact, Motor Exam 5/5 strength throughout, Sensory exam intact to light touch and pain Psych/Mental Status: Normal Affect, Appropriate Assessment & Plan Assessment/Plan (1) NSTEMI, initial episode of care: (2) Atrial fibrillation: PLAN: Plan 1. Acute on chronic diastolic CHF/A. fib with RVR/non-STEMI/supratherapeutic INR/JACQUIE/HTN/HLD ? She is feeling much better and her her creatinine did get worse today we will hold her Lasix ? Continue with the fluid restriction ? We will continue to hold her Coumadin as her INR is elevated to 5.2 this is likely a reaction to the antibiotics we will continue to monitor ? Echo with an EF of 60% and a bioprosthetic mitral valve with severe pulmonary hypertension ? Stress test today was unremarkable, elevated troponin was likely secondary to her RVR ? Her INR continues to rise and is now 6.5, will give her p.o. dose of vitamin K 2. UTI with possible bacteremia ? Repeat blood cultures are positive for gram-positive organism ? Appreciate infectious disease assistance ? Initial 2D echo does not show any vegetations on her bioprosthetic valve DVT: Supratherapeutic INR Charges/Coding Visit Charges Inpatient E&M: 65848 Subs Hosp L2
--- NOTE | 2022-03-14 10:30 | CASEMGMT ---
According to the [employer] medicare website, the following are in-network tertiary facilities: [facility], [facility], [facility], [facility], [facility], [facility], [facility], and . Briana MACKEY CM
--- NOTE | 2022-03-14 10:30 | CASEMGMT ---
MARIA ALEJANDRA notified Karin at [facility] that patient will not be ready today and that she may come on IV antibiotics. This was done through [facility]. SW will keep her updated. Plan: [facility] pending patient being medically ready and a new pre-cert is obtained. Marilu Covington [employer]
[2022-03-14] MEDS: Phytonadione (Vit K1) 5 MG TABLET PO (10:37)
[2022-03-14] MEDS: Atorvastatin Calcium 40 MG Tablet PO (21:39)
[2022-03-14] MEDS: 0.9% Saline Lock 10 ML Syringe IV (21:40)
[2022-03-15] VITALS (24 sets, daily range): BP systolic 90–112; BP diastolic 40–63; PULSE 66–110; RESP 16–18; TEMP 36.2–36.8; O2SAT 91–100
[2022-03-15] MEDS: 0.9% Saline Lock 10 ML Syringe IV ×4 (05:26→20:38)
[2022-03-15 05:58] LABS: Absolute Lymphocyte Count 0.61 X10^3/uL (0.83-4.51); Absolute Neutrophil Count 6.1 X10^3/uL (2.0-7.7); Basophil# 0.02 X10^3/uL; Basophil% 0.3 % (0-1); Eosinophil# 0.07 X10^3/uL; Eosinophils% 0.9 % (0-5); Hematocrit 23.7 % (37-47); Hemoglobin 7.4 g/dL (12.0-15.0); Lymphocyte # 0.61 X10^3/ul (0.83-4.51); Lymphocyte % 8.2 % (19-41); Mean Corp Hgb Conc 31.2 g/dL (32-36); Mean Corpuscular Hgb 31.2 pg (27.0-32.0); Monocyte# 0.47 X10^3/uL; Monocyte% 6.4 % (0-10); NRBC Flagged by Analyzer 0 % (0-5); Neutrophil # 6.14 X10^3/uL (2.7-7.7); Platelet Count 190 K/mm3 (150-450); RBC Distribution Width CV 14.2 % (11.6-14.6); RBC Distribution Width SD 50.7 fl (35.1-43.9); Red Blood Count 2.37 M/mm3 (4.2-5.4); White Blood Count 7.4 K/mm3 (4.4-11.0)
[2022-03-15 06:12] LABS: International Normalized Ratio 3.4; Prothrombin Time (Protime)PT. 33.8 SECONDS (11.7-14.9)
[2022-03-15 06:42] LABS: Anion Gap 6 (5-15); BUN 60 mg/dL (7-18); BUN/Creat Ratio 21.9 RATIO (10-20); Calcium,Total 8.4 mg/dL (8.5-10.1); Chloride 106 mmol/L (98-107); Creatinine, Serum 2.74 mg/dL (0.55-1.02); EST Glomerular Filtration Rate 18 mL/min (>60); Est Glom Filt Rate - Afr Amer 21 mL/min (>60); Estimated Creatinine Clearance 12.95 ml/min; Glucose 112 mg/dL (74-106); Potassium 3.4 mmol/L (3.5-5.1); Sodium Level 138 mmol/L (136-145)
[2022-03-15] MEDS: Clopidogrel Bisulfate 75 MG Tablet PO (09:24)
--- NOTE | 2022-03-15 12:39 | PN.HOSP_ITS ---
Subjective Subjective Doing well, no issues overnight. She continues to have positive blood cultures and she is more anemic today. She denies any overt symptoms. Objective Data Objective Data Vital Signs: Vital Signs Temp Pulse Resp BP Pulse Ox O2 Del Method O2 Flow Rate 97.3 F L 91 18 92/56 L 100 Nasal Cannula 2 03/15/22 11:26 03/15/22 11:26 03/15/22 11:26 03/15/22 11:26 03/15/22 11:26 03/15/22 11:26 03/15/22 11:26 FiO2 2 03/15/22 07:40 Oxygen Flow Rate (L/min) 2 Oxygen Delivery Method Nasal Cannula Weight: 206 lb 12.697 oz Body Mass Index (BMI) 37.8 Intake & Output: Intake and Output for Last 24 Hours 03/14/22 03/15/22 03/16/22 03:59 03:59 03:59 Intake Total 820 / 820 920 / 920 210 / 210 Output Total 75 / 75 875 / 875 Balance 745 / 745 45 / 45 210 / 210 Lab / Micro Data Result Diagrams: 03/15/22 05:44 03/15/22 05:44 Labs: Laboratory Results - last 24 hr 03/15/22 05:44: WBC 7.4, RBC 2.37 L, Hgb 7.4 L, Hct 23.7 L, MCV 100.0 H, MCH 31.2, MCHC 31.2 L, RDW Std Deviation 50.7 H, RDW Coeff of Diandra 14.2, Plt Count 190, MPV 10.0, Immature Gran % (Auto) 1.200 H, Neut % (Auto) 83.0 H, Lymph % (Auto) 8.2 L, [place] % (Auto) 6.4, Eos % (Auto) 0.9, Baso % (Auto) 0.3, Absolute Neuts (auto) 6.1, Absolute Lymphs (auto) 0.61 L, Nucleated RBC % 0 03/15/22 05:44: Sodium 138, Potassium 3.4 L, Chloride 106, Carbon Dioxide 26.0, Anion Gap 6, BUN 60 H, Creatinine 2.74 H, Estim Creat Clear Calc 12.95, Est GFR (MDRD) Af Amer 21 L, Est GFR (MDRD) Non-Af 18 L, BUN/Creatinine Ratio 21.9 H, Gl ucose 112 H, Calcium 8.4 L 03/15/22 05:44: PT 33.8 H, INR 3.4 03/15/22 08:15: Blood Type A POSITIVE, Antibody Screen NEGATIVE, Crossmatch See Detail Micro: Microbiology 03/13/22 06:19 Blood Culture (Wb) - Right Hand Blood Culture - Preliminary GPC Poss Enterococcus sp 03/12/22 15:40 Blood Culture (Wb) - Right Hand Blood Culture - Preliminary GPC Poss Enterococcus sp 03/11/22 17:25 Urine, Clean Catch Urine Culture - Final Enterococcus faecalis Mixed Gram Positive Organisms 03/11/22 07:32 Blood Culture (Wb) - Venous Bacteria Detection (PCR) - Final Enterococcus faecalis 03/11/22 07:32 Blood Culture (Wb) - Venous Blood Culture - Final Enterococcus faecalis 03/10/22 00:02 Urine, Clean Catch Urine Culture - Final Mixed Gram Pos & Gram Neg Org 03/11/22 06:40 Nasal Secretion SARS-CoV-2 & FLU Antigen (Rapid) - Final 03/09/22 22:51 Nasal Secretion SARS-CoV-2 Antigen (Rapid) - Final 03/09/22 18:08 Mucosa - Nasopharyngeal Respiratory Panel (PCR) - Final Rhythm Strip Rhythm Strip: A-fib (Episode of irregular broad complex tachycardia. Likely A. fib with aberrancy ([place]'s)) Physical Exam Narrative General: Alert, Oriented x3, Cooperative, No apparent distress HEENT: Atraumatic, PERRLA, EOMI, Normocephalic Oral: Moist Mucosa Neck: Supple, No JVD Lungs: Diminished, Normal air movement, No rhonchi, No wheeze, No rales Cardiovascular: Regular rate, Regular Rhythm, Normal S1, Normal S2, No murmurs Abdomen: Soft, Non Tender, Non-Distended, No Hepato-splenomegaly Extremities: No edema, Capillary Refill Less than 3 Seconds Skin: No rashes, No breakdown Musculoskeletal: No Tenderness to Palpation of Joints or Extremities Neurological: Cranial nerves II-XII grossly intact, Motor Exam 5/5 strength throughout, Sensory exam intact to light touch and pain Psych/Mental Status: Normal Affect, Appropriate Assessment & Plan Assessment/Plan (1) NSTEMI, initial episode of care: (2) Atrial fibrillation: PLAN: Plan 1. Acute on chronic diastolic CHF/A. fib with RVR/non-STEMI/supratherapeutic INR/JACQUIE/HTN/HLD ?We will hold her Lasix as well as her other blood pressure medication secondary to her hypotension. ? Continue with the fluid restriction ? We will continue to hold her Coumadin she was given a dose of vitamin K now her INR is 3.4 we will monitor ? Echo with an EF of 60% and a bioprosthetic mitral valve with severe pulmonary hypertension ? Stress test was unremarkable, elevated troponin was likely secondary to her RVR ?Plan is for NOHEMY secondary to her chronic bacteremia however given her anemia cardiology would like to wait 2. UTI with possible bacteremia ? Repeat blood cultures are positive for gram-positive organism ? Appreciate infectious disease assistance ? Initial 2D echo does not show any vegetations on her bioprosthetic valve, plan for NOHEMY 3. Anemia ? Currently unsure as to the etiology no obvious signs of bleeding ? We will obtain a Hemoccult and start her on a PPI ? We will consult GI at the request of cardiology ? Given her cardiac history we will go ahead and transfuse her DVT: Supratherapeutic INR Charges/Coding Visit Charges Inpatient E&M: 84680 Subs Hosp L2
[2022-03-15] MEDS: Nystatin Powder 15gm Bottle 1 APPLIC TOPICAL ×2 (13:27→20:41)
[2022-03-15] MEDS: Menthol/Lanolin/Calamine/Znox 113 GM Tube 1 APPLIC TOPICAL ×2 (13:27→20:40)
[2022-03-15] MEDS: Acetaminophen 325 MG Tablet 650 MG PO (13:40)
--- NOTE | 2022-03-15 13:56 | PN.ID_ITS ---
Physical Exam Narrative No fever, some dyspnea, no n/v/d. Const alert and no apparent distress Resp Auscultation: diminished lung sounds Cardio regular rate and regular rhythm Heart Sounds: murmur GI soft to palpation, non-tender and non-distended Extremity General Extremity: edema Skin no rashes or lesions noted ID ID: Route of nutrition/ use of supplements: [] Nutritional Intake: [] IV Site: [] Hernandez Catheter: [] Assessment & Plan Assessment/Plan (1) S/P MVR (mitral valve replacement): (2) UTI (urinary tract infection): PLAN: enterococcus bacteremia secondary to uti. 03/14 changed vanc to ampicillin. Repeat bcx today. Ordered NOHEMY given presence of tissue valve replacement. Spoke with lab at [place], no bcx were collected there. Will follow (3) Bacteremia due to Enterococcus:
--- NOTE | 2022-03-15 17:28 | EX.PCM.CON.G ---
HPI Consult Data Date of Consult: 03/15/22 HPI Narrative Reason for Consultation: Anemia HPI Narrative: CARLOS ALBERTO GOLDBERG, is a 81 F with Severe debilitating BL Knee OA/Rheumatoid arthritis, Chronic BL LE Lymphedema, CKD stage III unclear subtype, Chronic atrial fibrillation on coumadin, Diastolic CHF following w/ Store Lead Dr. 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 She initially presented to the [facility] ED on 03/08/2022 with onset of flulike symptoms including nausea, malaise, cough, diarrhea as well as body aches x1 week reportedly also not taking her medications at the same time secondary to feeling poorly. She had stopped taking her meds at home due to not feeling well.? She complained of some dysuria, no abd pain.? She was transferred here for CHF exacerbation.? Fever to 101.7, abx started.? She is now on vanc/zosyn feeling a little better.? She is scheduled to get a NOHEMY. However her hemoglobin has been dropping so for evaluation of her worsening anemia. She is on warfarin due to her history of valvular disease status post mitral valve replacement. [facility] Medical History Chronic acquired lymphedema Chronic atrial fibrillation Chronic diastolic CHF (congestive heart failure) Former tobacco use History of temporary cardiac pacemaker treatment HTN (hypertension) Morbid obesity Rheumatoid arthritis Valvular heart disease Home Medications calcium carbonate 600 mg-vitamin D3 10 mcg (400 unit) tablet (Calcium 600 + D(3)) 1 ea PO DAILY supp 12/17/13 [History Last Taken Unknown] diltiazem HCl 180 mg capsule,extended release 24 hr 180 mg PO DAILY afib 12/17/13 [History Last Taken Unknown] furosemide 40 mg tablet 40 mg PO DAILY diuretic 12/17/13 [History Last Taken Unknown] metoprolol tartrate 50 mg tablet 100 mg PO BID blood pressure 12/17/13 [History Last Taken Unknown] Century Adults 50+ Tablet 1 tab PO DAILY vitamin 08/21/16 [History Last Taken Unknown] Klor-Con M20 1 tab PO DAILY mineral 08/21/16 [History Last Taken Unknown] Warfarin Sodium 1 tab PO afib 08/21/16 [History Last Taken Unknown] Warfarin Sodium 5 mg PO afib 08/21/16 [History Last Taken Unknown] Allergy/AdvReac Type Severity Reaction Status Date / Time allopurinol Allergy Mild Rash Verified 03/11/22 10:14 ceftriaxone [From Rocephin] Allergy Mild Rash Verified 03/09/22 14:35 colchicine Allergy Mild Rash Verified 03/11/22 10:14 Family History (Updated 03/09/22 @ 19:[address] Tata Sales MD) Mother Heart disease Father Cancer Leukemia. Surgical History (Updated 03/10/22 @ 09:[address] Aretha Reyes MD) H/O tricuspid valve annuloplasty S/P MVR (mitral valve replacement) Social History (Updated 03/09/22 @ 19:[address] Tata Sales MD) household members: none Smoking Status: Former smoker how long ago did patient quit smoking: Quit 05/26/1959, smoked ~2 years w/ 0.25 pack/day. alcohol intake: current alcohol intake frequency: holidays/special occasions only substance use type: does not use ROS ROS Narrative Admission Review of Systems: CONSTITUTIONAL: No weight loss, fever, chills, + weakness or fatigue. HEENT: + Congestion, rhinorrhea, sore throat. Eyes: No visual loss, blurred vision, double vision or yellow sclerae. Ears, Nose, Throat: No hearing loss, sneezing. SKIN: + Chronic BL LE stasis disease skin changes. CARDIOVASCULAR: No chest pain, chest pressure or chest discomfort, palpitations, edema, orthopnea, syncopal events. RESPIRATORY: + shortness of breath, cough, No marked sputum, wheezing, hemoptysis. GASTROINTESTINAL: + anorexia, nausea, No vomiting or diarrhea, abdominal pain, melena, BRBPR. GENITOURINARY: No dysuria, frequency, urgency or retention. NEUROLOGICAL: No headache, dizziness, syncope, paralysis, ataxia, numbness or tingling in the extremities, focal weakness, change in bowel or bladder control, seizure. MUSCULOSKELETAL: + muscle, back pain, joint pain or stiffness. HEMATOLOGIC: + anemia, bleeding or bruising. LYMPHATICS: No enlarged nodes. No history of splenectomy. PSYCHIATRIC: No history of depression or anxiety. ENDOCRINOLOGIC: No reports of sweating, cold or heat intolerance. No polyuria or polydipsia. ALLERGIES: + history of hives. Physical Exam Narrative No fever, some dyspnea, no n/v/d. Const alert and no apparent distress Resp Auscultation: diminished lung sounds Cardio regular rate and regular rhythm Heart Sounds: murmur GI soft to palpation, non-tender and non-distended Extremity General Extremity: edema Skin no rashes or lesions noted Lab / Micro Data Result Diagrams: 03/15/22 05:44 03/15/22 05:44 Labs: Laboratory Results - last 24 hr 03/15/22 05:44: WBC 7.4, RBC 2.37 L, Hgb 7.4 L, Hct 23.7 L, MCV 100.0 H, MCH 31.2, MCHC 31.2 L, RDW Std Deviation 50.7 H, RDW Coeff of Diandra 14.2, Plt Count 190, MPV 10.0, Immature Gran % (Auto) 1.200 H, Neut % (Auto) 83.0 H, Lymph % (Auto) 8.2 L, [place] % (Auto) 6.4, Eos % (Auto) 0.9, Baso % (Auto) 0.3, Absolute Neuts (auto) 6.1, Absolute Lymphs (auto) 0.61 L, Nucleated RBC % 0 03/15/22 05:44: Sodium 138, Potassium 3.4 L, Chloride 106, Carbon Dioxide 26.0, Anion Gap 6, BUN 60 H, Creatinine 2.74 H, Estim Creat Clear Calc 12.95, Est GFR (MDRD) Af Amer 21 L, Est GFR (MDRD) Non-Af 18 L, BUN/Creatinine Ratio 21.9 H, Glucose 112 H, Calcium 8.4 L 03/15/22 05:44: PT 33.8 H, INR 3.4 03/15/22 08:15: Blood Type A POSITIVE, Antibody Screen NEGATIVE, Crossmatch See Detail Micro: Microbiology 03/13/22 06:19 Blood Culture (Wb) - Right Hand Blood Culture - Preliminary GPC Poss Enterococcus sp Rhythm Strip Rhythm Strip: A-fib (Episode of irregular broad complex tachycardia. Likely A. fib with aberrancy (Chula's)) Assessment & Plan Assessment/Plan (1) Anemia: PLAN: The differential diagnosis for acute blood loss anemia in the setting of abdominal pain and nausea prior to coming to the hospital including peptic ulcer disease, gastritis, duodenitis, esophagitis. She should undergo an upper endoscopy to try for acute blood loss anemia so she can undergo NOHEMY to assess for for any vegetations. The patient and her son were explained alternatives, risk, infection, sepsis, . She will have an ASA of 3 for the procedure. Charges/Coding Visit Charges Inpatient E&M: 45351 Init Hosp L2
[2022-03-15] MEDS: Atorvastatin Calcium 40 MG Tablet PO (20:42)
[2022-03-15] MEDS: Metoprolol Tartrate 100 MG Tablet PO (20:42)
[2022-03-16] VITALS (23 sets, daily range): BP systolic 80–113; BP diastolic 45–59; PULSE 59–121; RESP 16–18; TEMP 36.3–37.3; O2SAT 88–98
[2022-03-16] MEDS: Menthol/Lanolin/Calamine/Znox 113 GM Tube 1 APPLIC TOPICAL ×2 (05:37→22:50)
[2022-03-16] MEDS: 0.9% Saline Lock 10 ML Syringe IV (05:37)
[2022-03-16] MEDS: Nystatin Powder 15gm Bottle 1 APPLIC TOPICAL ×2 (05:37→22:50)
[2022-03-16 06:11] LABS: Absolute Lymphocyte Count 0.45 X10^3/uL (0.83-4.51); Absolute Neutrophil Count 4.9 X10^3/uL (2.0-7.7); Basophil# 0.02 X10^3/uL; Basophil% 0.3 % (0-1); Eosinophil# 0.04 X10^3/uL; Eosinophils% 0.7 % (0-5); Hemoglobin 8.1 g/dL (12.0-15.0); Lymphocyte # 0.45 X10^3/ul (0.83-4.51); Lymphocyte % 7.6 % (19-41); Mean Corp Hgb Conc 32.4 g/dL (32-36); Mean Corpuscular Hgb 30.8 pg (27.0-32.0); Mean Corpuscular Volume 95.1 fL (81-99); Mean Platelet Vol. 9.9 fl (6.2-12.0); Monocyte# 0.39 X10^3/uL; Monocyte% 6.6 % (0-10); NRBC Flagged by Analyzer 0 % (0-5); Neutrophil # 4.92 X10^3/uL (2.7-7.7); Neutrophil % 83.6 % (47-70); POSITIVE DIFFERENTIAL YES; Platelet Count 153 K/mm3 (150-450); RBC Distribution Width CV 17.1 % (11.6-14.6); RBC Distribution Width SD 58.1 fl (35.1-43.9); Red Blood Count 2.63 M/mm3 (4.2-5.4); White Blood Count 5.9 K/mm3 (4.4-11.0)
[2022-03-16 06:25] LABS: Differential Indicated SCAN CRITERIA MET
[2022-03-16 06:30] LABS: International Normalized Ratio 2.8; Prothrombin Time (Protime)PT. 29.1 SECONDS (11.7-14.9)
[2022-03-16 06:37] LABS: Anion Gap 9 (5-15); BUN 69 mg/dL (7-18); BUN/Creat Ratio 19.4 RATIO (10-20); Calcium,Total 8.2 mg/dL (8.5-10.1); Chloride 107 mmol/L (98-107); Creatinine, Serum 3.55 mg/dL (0.55-1.02); EST Glomerular Filtration Rate 13 mL/min (>60); Est Glom Filt Rate - Afr Amer 16 mL/min (>60); Glucose 99 mg/dL (74-106); Potassium 3.5 mmol/L (3.5-5.1); Sodium Level 139 mmol/L (136-145)
[2022-03-16 06:43] LABS: Differential Comment SCANNED
[2022-03-16] MEDS: dilTIAZem CD 240 MG Capsule PO (09:29)
[2022-03-16] MEDS: Metoprolol Tartrate 100 MG Tablet PO (09:29)
--- NOTE | 2022-03-16 10:15 | PN.ID_ITS ---
Physical Exam Narrative Feeling ok, EGD planned. No fever, no abd pain. Const alert and no apparent distress Resp normal air movement and clear to auscultation bilaterally Cardio regular rate and regular rhythm Heart Sounds: murmur GI soft to palpation, non-tender and non-distended Skin no rashes or lesions noted ID ID: Route of nutrition/ use of supplements: [] Nutritional Intake: [] IV Site: [] Hernandez Catheter: [] Assessment & Plan Assessment/Plan (1) S/P MVR (mitral valve replacement): (2) UTI (urinary tract infection): PLAN: enterococcus bacteremia secondary to uti. 03/14 changed vanc to ampicillin. Repeat bcx neg at 48h. Ordered NOHEMY given presence of tissue valve replacement. Spoke with lab at [place], no bcx were collected there. Worsening JACQUIE, will decrease ampicillin dose and consult neph. Will follow (3) Bacteremia due to Enterococcus:
--- NOTE | 2022-03-16 10:38 | CASEMGMT ---
MARIA ALEJANDRA sent updates to [place] via [employer]. MARIA ALEJANDRA also let Karin know patient will not be ready today. Plan: d/c to [place] pending patient being medically ready and insurance approval. Marilu PARADA
--- NOTE | 2022-03-16 11:46 | PN.HOSP_ITS ---
Subjective Subjective No issues overnight, still feels well. Renal functions continue to worsen, she was transfused 2 units yesterday hemoglobin today is 8.1 Objective Data Objective Data Vital Signs: Vital Signs Temp Pulse Resp BP Pulse Ox O2 Del Method O2 Flow Rate 97.4 F L 101 H 18 111/57 L 92 Room Air 2 03/16/22 09:00 03/16/22 09:29 03/16/22 09:00 03/16/22 09:29 03/16/22 10:17 03/16/22 09:25 03/16/22 09:19 FiO2 2 03/15/22 07:40 Oxygen Flow Rate (L/min) 2 Oxygen Delivery Method Room Air Weight: 207 lb 10.807 oz Body Mass Index (BMI) 37.8 Intake & Output: Intake and Output for Last 24 Hours 03/15/22 03/16/22 03/17/22 03:59 03:59 03:59 Intake Total 920 / 920 1860 / 1860 210 / 210 Output Total 875 / 875 475 / 475 50 / 50 Balance 45 / 45 1385 / 1385 160 / 160 Lab / Micro Data Result Diagrams: 03/16/22 04:46 03/16/22 04:46 Labs: Laboratory Results - last 24 hr 03/15/22 08:15: Blood Type A POSITIVE, Antibody Screen NEGATIVE, Crossmatch See Detail 03/16/22 04:46: WBC 5.9, RBC 2.63 L, Hgb 8.1 L, Hct 25.0 L, MCV 95.1, MCH 30.8, MCHC 32.4, RDW Std Deviation 58.1 H, RDW Coeff of Diandra 17.1 H, Plt Count 153, MPV 9.9, Immature Gran % (Auto) 1.200 H, Neut % (Auto) 83.6 H, Lymph % (Auto) 7.6 L, [place] % (Auto) 6.6, Eos % (Auto) 0.7, Baso % (Auto) 0.3, Absolute Neuts (auto) 4. 9, Absolute Lymphs (auto) 0.45 L, Nucleated RBC % 0, Differential Comment SCA NNED 03/16/22 04:46: Sodium 139, Potassium 3.5, Chloride 107, Carbon Dioxide 23.0, Anion Gap 9, BUN 69 H, Creatinine 3.55 H, Estim Creat Clear Calc 10.00, Est GFR (MDRD) Af Amer 16 L, Est GFR (MDRD) Non-Af 13 L, BUN/Creatinine Ratio 19.4, Glucose 99, Calcium 8.2 L 03/16/22 04:46: PT 29.1 H, INR 2.8 Micro: Microbiology 03/14/22 09:54 Blood Culture (Wb) - Right Hand Blood Culture - Preliminary No growth in 48 hours. 03/13/22 06:19 Blood Culture (Wb) - Right Hand Blood Culture - Preliminary GPC Poss Enterococcus sp 03/12/22 15:40 Blood Culture (Wb) - Right Hand Blood Culture - Preliminary GPC Poss Enterococcus sp 03/11/22 17:25 Urine, Clean Catch Urine Culture - Final Enterococcus faecalis Mixed Gram Positive Organisms 03/11/22 07:32 Blood Culture (Wb) - Venous Bacteria Detection (PCR) - Final Enterococcus faecalis 03/11/22 07:32 Blood Culture (Wb) - Venous Blood Culture - Final Enterococcus faecalis 03/10/22 00:02 Urine, Clean Catch Urine Culture - Final Mixed Gram Pos & Gram Neg Org 03/11/22 06:40 Nasal Secretion SARS-CoV-2 & FLU Antigen (Rapid) - Final 03/09/22 22:51 Nasal Secretion SARS-CoV-2 Antigen (Rapid) - Final 03/09/22 18:08 Mucosa - Nasopharyngeal Respiratory Panel (PCR) - Final Rhythm Strip Rhythm Strip: A-fib (Episode of irregular broad complex tachycardia. Likely A. fib with aberrancy (Chula's)) Physical Exam Narrative General: Alert, Oriented x3, Cooperative, No apparent distress HEENT: Atraumatic, PERRLA, EOMI, Normocephalic Oral: Moist Mucosa Neck: Supple, No JVD Lungs: Diminished, Normal air movement, No rhonchi, No wheeze, No rales Cardiovascular: Regular rate, Regular Rhythm, Normal S1, Normal S2, No murmurs Abdomen: Soft, Non Tender, Non-Distended, No Hepato-splenomegaly Extremities: No edema, Capillary Refill Less than 3 Seconds Skin: No rashes, No breakdown Musculoskeletal: No Tenderness to Palpation of Joints or Extremities Neurological: Cranial nerves II-XII grossly intact, Motor Exam 5/5 strength throughout, Sensory exam intact to light touch and pain Psych/Mental Status: Normal Affect, Appropriate Assessment & Plan Assessment/Plan (1) NSTEMI, initial episode of care: (2) Atrial fibrillation: PLAN: Plan 1. Acute on chronic diastolic CHF/A. fib with RVR/non-STEMI/supratherapeutic INR/JACQUIE/HTN/HLD ? Continue with the fluid restriction ? We will continue to hold her Coumadin she was given a dose of vitamin K now her INR is 2.8 we will monitor ? Echo with an EF of 60% and a bioprosthetic mitral valve with severe pulmonary hypertension ? Stress test was unremarkable, elevated troponin was likely secondary to her RVR ? Plan is for NOHEMY secondary to her chronic bacteremia however given her anemia cardiology would like to wait ? She was transfused 2 units hemoglobin is 8.1 which is not an appropriate response, GI was consulted plan for EGD. We will transfuse another unit today 2. UTI with possible bacteremia ? Repeat blood cultures are positive for gram-positive organism ? Appreciate infectious disease assistance ? Initial 2D echo does not show any vegetations on her bioprosthetic valve, plan for NOHEMY 3. Anemia ? Currently unsure as to the etiology no obvious signs of bleeding ? We will obtain a Hemoccult and start her on a PPI ? We will consult GI ? Given her cardiac history we will go ahead and transfuse her DVT: Therapeutic INR Charges/Coding Visit Charges Inpatient E&M: 73414 Subs Hosp L2
[2022-03-16 15:20] LABS: Partial Thromboplast Time 52.1 Seconds (24.1-36.2)
[2022-03-16] MEDS: Lactated Ringers 1,000 ML 15 ML IV (15:47)
--- NOTE | 2022-03-16 16:00 | EGD_PTH ---
PATIENT: CARLOS ALBERTO GOLDBERG LOC: [facility] U#:[id number] AGE/SX: 81/F ROOM: [facility] RE03/09/[address]: Dr. Ni Johnson DO : 1940 BED: 1 DIS: 03/27/2022 SPEC #: [id number] RECD: 03/16/22 16:31 STATUS: BETTY REKisha #: [id number] RAFA: 03/16/22 16:[address]: Sheldon Da Silva DEPT: SURGICAL PATHOLOGY RECD BY: Stephanie Jade ENTERED: 03/17/22 08:37 SP TYPE: EGD BIOPSY OT DR: MD Dr. Crystal Che DO Dr. Linda Wang, MD Dr. Michael Stencel, MD Dr. Mark Tereletsky, DO Dr. Nana Yaa Koram, MD Dr. Nicholas F Kotsonis, MD Dr. Robert Leininger, MD Tissues: Gastric mucous membrane Procedures: Surgery Specimen Level IV Comments: @ Ordering doctor for SUIV edited from to @ by RGOOD at 03/17/22 1229 @ Submitting doctor edited from to @ by RGOOD at 03/17/22 1229 HEADER OPERATION: EGD (MAC) biopsy, APC PRE-OP DIAGNOSIS: Anemia TISSUE SUBMITTED: Antrum biopsy for histo and H. pylori MICROSCOPIC DIAGNOSIS Gastric antrum, biopsy: Chronic gastritis with focal active gastritis. AM:brenda 03/20/2022 COMMENT The results of immunohistochemistry for Helicobacter pylori will be reported separately ([id number]). MICROSCOPIC DESCRIPTION Slides are reviewed. GROSS DESCRIPTION Received in fixative is one container labeled with the patient's name and designated antrum biopsy. The specimen consists of two irregular fragments of light matthew soft tissue that in aggregate measure 0.6 x 0.6 x 0.1 cm. The specimen is totally submitted in one cassette. / AM:brenda 03/17/2022 TC:2 CPT: 76749
--- NOTE | 2022-03-16 16:00 | IMM_PTH ---
PATIENT: CARLOS ALBERTO GOLDBERG LOC: [facility] U#:[id number] AGE/SX: 81/F ROOM: [facility] RE03/09/[address]: Dr. Ni Johnson DO : 1940 BED: 1 DIS: 03/27/2022 SPEC #: [id number] RECD: 03/17/22 12:27 STATUS: BETTY REQ #: [id number] RAFA: 03/16/22 16:[address]: Sheldon Da Silva DEPT: IMMUNOHISTOCHEMISTRY RECD BY: Joyce Aranda ENTERED: 03/17/22 12:28 SP TYPE: IMMUNO OTHR DR: MD Dr. Crystal Che DO Dr. Linda Wang, MD Dr. Michael Stencel, MD Dr. Mark Tereletsky, DO Dr. Nana Yaa Koram, MD Dr. Nicholas F Kotsonis, MD Dr. Robert Leininger, MD Tissues: Stomach, NOS Procedures: H Pylori (initial) PHYSICIAN & [address] [address] SPECIMEN INFORMATION: Tissue Source: Antrum biopsy Clinical Info: Cara Specimen Number: [id number] CPT code: 33832 METHODOLOGY: Deparaffinized sections of prefer/formalin-fixed tissue or PAP/DQ stained slides are incubated with monoclonal/polyclonal antibodies/oligonucleotide probes. Localization is made via biotin free immunoperoxidase method. Appropriate controls are performed and reacted as expected. Results on target cell population are indicated in the following table: RESULTS: ANTIBODY / CLONE RESULT H Pylori (polyclonal) negative These tests were developed and their performance characteristics determined by [facility]. They may not have been cleared or approved by the U.S. Food and Drug Administration. The FDA has determined that such clearance or approval is not necessary. The above immunohistochemical/dualISH markers are ordered and reviewed by the Pathologist. INTERPRETATION: Antrum, biopsy: Negative for Helicobacter pylori organisms. AM:brenda 03/20/2022
--- NOTE | 2022-03-16 16:05 | PCM.CONS.R ---
HPI Consult Data Date of Consult: 03/16/22 HPI Narrative Reason for Consultation: acute renal failure HPI Narrative: CARLOS ALBERTO GOLDBERG, is a 81 F who presents to [facility] on 03/09/22 transfer to [place] ER for afib with rvr, CHF, and urosepsis with enterococcus followed by ID. She complained of nausea, diarrhea, fever, chills, cough, malaise and myalgias. She had poor appetite. She is debilitated from OA/Rheumatoid arthritis. She has chronic CHF, afib, cad s/p MVR and tricuspid valve annuloplasty, pulmonary hypertension, chronic lymphedema. She has a history of CKD stage III with creatinine 1.58 at baseline on [facility] records progressed to 3.55 today. She is nonoliguric. She was treated with vanco then switched to ampicillin for her UTI with sepsis. BP has been low normal but stable. She received iv contrast on 03/[address] abdomen. She was on cardizem drip for afib with rvr., pulse in the 80- 100's. She remains on lasix and potassium. She is on warfarin. Chest x-ray with diffuse interstitial infiltrates bilaterally on admit, influenza B/A PCR negative, COVID PCR negative. [facility] Medical History Chronic acquired lymphedema Chronic atrial fibrillation Chronic diastolic CHF (congestive heart failure) Former tobacco use History of temporary cardiac pacemaker treatment HTN (hypertension) Morbid obesity Rheumatoid arthritis Valvular heart disease Home Medications calcium carbonate 600 mg-vitamin D3 10 mcg (400 unit) tablet (Calcium 600 + D(3)) 1 ea PO DAILY supp 12/17/13 [History Last Taken Unknown] diltiazem HCl 180 mg capsule,extended release 24 hr 180 mg PO DAILY afib 12/17/13 [History Last Taken Unknown] furosemide 40 mg tablet 40 mg PO DAILY diuretic 12/17/13 [History Last Taken Unknown] metoprolol tartrate 50 mg tablet 100 mg PO BID blood pressure 12/17/13 [History Last Taken Unknown] Century Adults 50+ Tablet 1 tab PO DAILY vitamin 08/21/16 [History Last Taken Unknown] Klor-Con M20 1 tab PO DAILY mineral 08/21/16 [History Last Taken Unknown] Warfarin Sodium 1 tab PO afib 08/21/16 [History Last Taken Unknown] Warfarin Sodium 5 mg PO afib 08/21/16 [History Last Taken Unknown] Allergy/AdvReac Type Severity Reaction Status Date / Time allopurinol Allergy Mild Rash Verified 03/11/22 10:14 ceftriaxone [From Rocephin] Allergy Mild Rash Verified 03/09/22 14:35 colchicine Allergy Mild Rash Verified 03/11/22 10:14 Family History (Updated 03/09/22 @ 19:[address] Tata Sales MD) Mother Heart disease Father Cancer Leukemia. Surgical History (Updated 03/10/22 @ 09:[address] Aretha Reyes MD) H/O tricuspid valve annuloplasty S/P MVR (mitral valve replacement) Social History (Updated 03/09/22 @ 19:[address] Tata Sales MD) household members: none Smoking Status: Former smoker how long ago did patient quit smoking: Quit 05/26/1959, smoked ~2 years w/ 0.25 pack/day. alcohol intake: current alcohol intake frequency: holidays/special occasions only substance use type: does not use Lab / Micro Data Result Diagrams: 03/16/22 04:46 03/16/22 04:46 Labs: Laboratory Results - last 24 hr 03/15/22 08:15: Crossmatch See Detail 03/15/22 08:15: Crossmatch See Detail 03/16/22 04:46: WBC 5.9, RBC 2.63 L, Hgb 8.1 L, Hct 25.0 L, MCV 95.1, MCH 30.8, MCHC 32.4, RDW Std Deviation 58.1 H, RDW Coeff of Diandra 17.1 H, Plt Count 153, MPV 9.9, Immature Gran % (Auto) 1.200 H, Neut % (Auto) 83.6 H, Lymph % (Auto) 7.6 L, [place] % (Auto) 6.6, Eos % (Auto) 0.7, Baso % (Auto) 0.3, Absolute Neuts (auto) 4.9, Absolute Lymphs (auto) 0.45 L, Nucleated RBC % 0, Differential Comment SCANNED 03/16/22 04:46: Sodium 139, Potassium 3.5, Chloride 107, Carbon Dioxide 23.0, Anion Gap 9, BUN 69 H, Creatinine 3.55 H, Estim Creat Clear Calc 10.00, Est GFR (MDRD) Af Amer 16 L, Est GFR (MDRD) Non-Af 13 L, BUN/Creatinine Ratio 19.4, Glucose 99, Calcium 8.2 L 03/16/22 04:46: PT 29.1 H, INR 2.8 03/16/22 14:50: APTT 52.1 H Micro: Microbiology 03/14/22 09:54 Blood Culture (Wb) - Right Hand Blood Culture - Preliminary No growth in 48 hours. Rhythm Strip Rhythm Strip: A-fib (Episode of irregular broad complex tachycardia. Likely A. fib with aberrancy (Chula's))
--- NOTE | 2022-03-16 16:26 | OP.CCLET_ITS ---
03/16/2022 Qasim Carreon Re : Upper GI endoscopy procedure for Rose Marie Alexrolly Carreon This procedure was performed on March. My impressions and recommendations are as follows: Impressions : - LA Grade B erosive esophagitis. - Small hiatal hernia. - Red blood in the gastric antrum. - Oozing gastric ulcers with a visible vessel. Injected. Treated with argon plasma coagulation (APC). - Chronic gastritis with hemorrhage. Biopsied. - Normal first portion of the duodenum. Recommendations : - Clear liquid diet today - Return patient to [facility] for [facility] care. - Use Protonix (pantoprazole) 40 mg IV Q12. - Use sucralfate tablets 1 gram PO QID for 3 weeks. - Continue present medications. My findings are described in the full procedure note, which is enclosed. If I can be of further assistance, please feel free to contact me at . Sincerely, Sheldon Da Silva, 03/16/2022 4:25:35 PM This report has been signed electronically.
--- NOTE | 2022-03-16 16:26 | OP.EGD_ITS ---
Patient Name: Rose Marie Rome Procedure Date: 03/16/2022 3:28 PM Date of : 1940 Age: 81 Procedure: Upper GI endoscopy Indications: Epigastric abdominal pain, Melena Providers: Sheldon Da Silva DO Medicines: Monitored Anesthesia Care Patient Profile: This is an 81 year old female. Refer to note in patient chart for documentation of history and physical. Patient has symptoms of acute epigastric abdominal pain. Complications: No immediate complications. Procedure: Pre-Anesthesia Assessment: - Prior to the procedure, a History and Physical was performed, and patient medications and allergies were reviewed. The risks and benefits of the procedure and the sedation options and risks were discussed with the patient. All questions were answered and informed consent was obtained. Patient identification and proposed procedure were verified by the physician. Mental Status Examination: normal. Prophylactic Antibiotics: The patient does not require prophylactic antibiotics. Prior Anticoagulants: The patient has taken no previous anticoagulant or antiplatelet agents. ASA Grade Assessment: II - A patient with mild systemic disease. After reviewing the risks and benefits, the patient was deemed in satisfactory condition to undergo the procedure. The anesthesia plan was to use monitored anesthesia care (MAC). Immediately prior to administration of medications, the patient was re-assessed for adequacy to receive sedatives. The heart rate, respiratory rate, oxygen saturations, blood pressure, adequacy of pulmonary ventilation, and response to care were monitored throughout the procedure. The physical status of the patient was re-assessed after the procedure. After obtaining informed consent, the endoscope was passed under direct vision. Throughout the procedure, the patient's blood pressure, pulse, and oxygen saturations were monitored continuously. The gastroscope was introduced through the mouth, and advanced to the second part of duodenum. The upper GI endoscopy was accomplished without difficulty. The patient tolerated the procedure well. Scope In: 3:55:15 PM Scope Out: 4:08:44 PM Total Procedure Duration Time 0 hours 13 minutes 29 seconds Findings: LA Grade B (one or more mucosal breaks greater than 5 mm, not extending between the tops of two mucosal folds) esophagitis with no bleeding was found 34 to 37 cm from the incisors. A small hiatal hernia was present. Red blood was found in the gastric antrum. Three oozing cratered gastric ulcers with a visible vessel were found in the gastric antrum. The largest lesion was 6 mm in largest dimension. Area was successfully injected with 5 mL of a 1:10,000 solution of epinephrine for hemostasis. Coagulation for hemostasis using argon plasma at 0.3 liters/minute and 30 crocker was successful. Diffuse severe inflammation with hemorrhage characterized by erythema was found in the entire examined stomach. Biopsies were taken with a cold forceps for histology. Verification of patient identification for the specimen was done. Estimated blood loss was minimal. The first portion of the duodenum was normal. Impression: - LA Grade B erosive esophagitis. - Small hiatal hernia. - Red blood in the gastric antrum. - Oozing gastric ulcers with a visible vessel. Injected. Treated with argon plasma coagulation (APC). - Chronic gastritis with hemorrhage. Biopsied. - Normal first portion of the duodenum. Recommendation: - Clear liquid diet today - Return patient to [facility] for [facility] care. - Use Protonix (pantoprazole) 40 mg IV Q12. - Use sucralfate tablets 1 gram PO QID for 3 weeks. - Continue present medications. Procedure Code(s): --- Professional --- 54905, 59, Esophagogastroduodenoscopy, flexible, transoral; with control of bleeding, any method 92754, 51, Esophagogastroduodenoscopy, flexible, transoral; with biopsy, single or multiple CPT copyright 2017 [employer]. All rights reserved. The codes documented in this report are preliminary and upon patient service specialist review may be revised to meet current compliance requirements. Sheldon Da Silva DO 03/16/2022 4:25:35 PM This report has been signed electronically. Number of Addenda: 0 Note Initiated On: 03/16/2022 3:28 PM
--- NOTE | 2022-03-16 16:38 | CON.PCM.RE_ITS ---
Assessment & Plan Assessment/Plan (1) Acute renal failure: PLAN: on CKD stage 4. Creatinine 1.58 eCRCL 22 on admission progressed to 3.55 eCRCL 10cc/min likely due to contrast induced ATN in presence of sepsis, afib with rvr with hypotension.Currently nonoliguric. No urgency for renal replacement today but discussed with pt and son at bedside that she may require dialysis if renal fxn continues to deteriorate. Recommend to hold lasix, give as needed. UA with trace protein, check FENA. urine eos for AIN not available in abena. Check C3 complement r/o SBE. NOHEMY pending. Continue to renal dose antibx. (2) CKD (chronic kidney disease) stage 4, GFR 15-29 ml/min: PLAN: Creatinine 1.58 eCRCL 22cc/min on admit. (3) Bacteremia due to Enterococcus: PLAN: ID following on ampicillin iv. NOHEMY pending r/o SBE. Low grade fever (4) UTI (urinary tract infection): PLAN: on antibx (5) Pulmonary hypertension: PLAN: chronic lymphedema with venous stasis skin changes in legs (6) S/P MVR (mitral valve replacement): (7) Atrial fibrillation: PLAN: with rvr, rate controlled on metoprolol, cardizem. Cardiology mgmt (8) Congestive heart failure: PLAN: oxygenation stable (9) Leg edema: PLAN: hx lymphedema (10) Hypertension: QUALIFIERS: Hypertension type: essential hypertension PLAN: history. Maintain SBP >100 for renal perfusion (11) Anemia: PLAN: prbc as needed HPI Consult Data Date of Consult: 03/17/22 HPI Narrative Reason for Consultation: acute renal failure on CKD Stage 4. HPI Narrative: CARLOS ALBERTO GOLDBERG, is a 81 F who presents to [facility] on 03/09/22 transfer from [facility] for afib with rvr, CHF, and urosepsis with enterococcus.? She complained of nausea, diarrhea, fever, chills, cough, malaise and myalgias. She had poor appetite past several week. She is debilitated from OA/Rheumatoid arthritis but is able to perform ADL's with walker at home prior to admission. She has chronic CHF followed by CHF clinic, afib, CAD s/p MVR and tricuspid valve annuloplasty, pulmonary hypertension, chronic lymphedema on lasix. Her INR was elevated at 6 with anemia s/p blood transfusion. She returns from EGD procedure with son at bedside to provide most of history. She has a history of CKD stage III with creatinine 1.58 on admission upon review of [facility] records. Patient or her son is not aware of kidney problems in the past. Consulted for worsening renal function. Creatinine progressed to 3.55 eCRCL 10cc/min today. She is currently nonoliguric. She was treated with vanco then switched to ampicillin for her UTI with sepsis.?NOHEMY pending. BP has been low normal but stable. She received iv contrast on 03/[address] abdomen.? KIDNEYS AND URETERS: right kidney is malrotated. There is a exophytic 3.9 cm cyst off the lower pole. No renal calculi or solid mass. No hydronephrosis. Normal visualized right ureter. There is a subcentimeter cyst lower pole cortex of an otherwise normal left kidney. She was on cardizem drip for afib with rvr with pulse in the 80- 100's. her l asix was discontinued on 03/14. Chest x-ray with diffuse interstitial infiltrates bilaterally on admit, influenza B/A PCR negative,? COVID PCR negative. [facility] Medical History Chronic acquired lymphedema Chronic atrial fibrillation Chronic diastolic CHF (congestive heart failure) Former tobacco use History of temporary cardiac pacemaker treatment HTN (hypertension) Morbid obesity Rheumatoid arthritis Valvular heart disease Home Medications calcium carbonate 600 mg-vitamin D3 10 mcg (400 unit) tablet (Calcium 600 + D(3)) 1 ea PO DAILY supp 12/17/13 [History Last Taken Unknown] diltiazem HCl 180 mg capsule,extended release 24 hr 180 mg PO DAILY afib 12/17/13 [History Last Taken Unknown] furosemide 40 mg tablet 40 mg PO DAILY diuretic 12/17/13 [History Last Taken Unknown] metoprolol tartrate 50 mg tablet 100 mg PO BID blood pressure 12/17/13 [History Last Taken Unknown] Century Adults 50+ Tablet 1 tab PO DAILY vitamin 08/21/16 [History Last Taken Unknown] Klor-Con M20 1 tab PO DAILY mineral 08/21/16 [History Last Taken Unknown] Warfarin Sodium 1 tab PO afib 08/21/16 [History Last Taken Unknown] Warfarin Sodium 5 mg PO afib 08/21/16 [History Last Taken Unknown] Allergy/AdvReac Type Severity Reaction Status Date / Time allopurinol Allergy Mild Rash Verified 03/11/22 10:14 ceftriaxone [From Rocephin] Allergy Mild Rash Verified 03/09/22 14:35 colchicine Allergy Mild Rash Verified 03/11/22 10:14 Family History (Updated 03/09/22 @ 19:[address] Tata Sales MD) Mother Heart disease Father Cancer Leukemia. Surgical History (Updated 03/10/22 @ 09:[address] Aretha Reyes MD) H/O tricuspid valve annuloplasty S/P MVR (mitral valve replacement) Social History (Updated 03/09/22 @ 19:[address] Tata Sales MD) household members: none Smoking Status: Former smoker how long ago did patient quit smoking: Quit 05/26/1959, smoked ~2 years w/ 0.25 pack/day. alcohol intake: current alcohol intake frequency: holidays/special occasions only substance use type: does not use ROS Review of Systems ROS Unobtainable: due to mental condition Constitutional Constitutional: Reports chills, fever(s), malaise and weakness Eyes Eyes: Denies change in vision ENT HEENT: Denies nasal congestion Cardiovascular Cardiovascular: Reports dyspnea on exertion and edema; Denies chest pain Respiratory/Chest Respiratory/Chest: Reports dyspnea on exertion Gastrointestinal Gastrointestinal: Reports anorexia and nausea; Denies abdominal pain, diarrhea or vomiting Genitourinary Genitourinary: Denies hematuria or oliguria Musculoskeletal Musculoskeletal: Reports abnormal gait, arthralgias, myalgias and other Details: she has RA not on medications for it, uses walker at home Integumentary Integumentary: Reports other Details: easy bruising Neurologic Neurologic: Reports abnormal gait and weakness; Denies syncope Psychiatric Psychiatric: Denies anxiety or confusion Endocrine Endocrinology: Reports fatigue Hematologic/Lymphatic Hematologic/Lymphatic: Reports anemia, easy bleeding and easy bruising Physical Exam Const alert, oriented x3 and no apparent distress Constitutional Narrative: somnolent, drowsy after Endoscopy but arrousable, answers questions appropriately but poor historian, son at bedside General Appearance: well developed Nutritional Appearance: obese HEENT normocephalic Eyes EOMs intact bilaterally and no scleral icterus Resp no use of accessory muscles Resp Narrative: faint basilar crackles Cardio Rhythm: abnormal rhythm GI non-tender and non-distended GI Narrative: obese Auscultation: normoactive bowel sounds Palpation: soft Bladder / Kidney Exam: bladder normal to palpation Back/Spine Back/Spine Narrative: gen weakness, DJD changes Extremity Extremity Narrative: no edema, tender to palpation of legs, joints, muscles Skin Skin Narrative: ecchymosis neck, arms, hands, skin hyperpigmentation below shins bilat Neuro Neuro Narrative: weakness, debilitated, drowy, drifts back to sleep Sensorium / Orientation: awake Psych cooperative Medical Records Data Attestation: I reviewed the patient's medical records Lab / Micro Data Attestation: I reviewed the patient's lab results. Result Diagrams: 03/17/22 06:22 03/17/22 06:22 Labs: Laboratory Results - last 24 hr 03/15/22 08:15: Crossmatch See Detail 03/15/22 08:15: Crossmatch See Detail 03/16/22 04:46: WBC 5.9, RBC 2.63 L, Hgb 8.1 L, Hct 25.0 L, MCV 95.1, MCH 30.8, MCHC 32.4, RDW Std Deviation 58.1 H, RDW Coeff of Diandra 17.1 H, Plt Count 153, MPV 9.9, Immature Gran % (Auto) 1.200 H, Neut % (Auto) 83.6 H, Lymph % (Auto) 7.6 L, [place] % (Auto) 6.6, Eos % (Auto) 0.7, Baso % (Auto) 0.3, Absolute Neuts (auto) 4.9, Absolute Lymphs (auto) 0.45 L, Nucleated RBC % 0, Differential Comment SCANNED 03/16/22 04:46: Sodium 139, Potassium 3.5, Chloride 107, Carbon Dioxide 23.0, Anion Gap 9, BUN 69 H, Creatinine 3.55 H, Estim Creat Clear Calc 10.00, Est GFR (MDRD) Af Amer 16 L, Est GFR (MDRD) Non-Af 13 L, BUN/Creatinine Ratio 19.4, Glucose 99, Calcium 8.2 L 03/16/22 04:46: PT 29.1 H, INR 2.8 03/16/22 14:50: APTT 52.1 H Micro: Microbiology 03/14/22 09:54 Blood Culture (Wb) - Right Hand Blood Culture - Preliminary No growth in 48 hours. Rhythm Strip Rhythm Strip: A-fib (Episode of irregular broad complex tachycardia. Likely A. fib with aberrancy (Chula's))
[2022-03-16] MEDS: Atorvastatin Calcium 40 MG Tablet PO (22:50)
[2022-03-17] VITALS (18 sets, daily range): BP systolic 99–148; BP diastolic 45–59; PULSE 68–90; RESP 16; TEMP 36.4–36.9; O2SAT 95–98
[2022-03-17] MEDS: Menthol/Lanolin/Calamine/Znox 113 GM Tube 1 APPLIC TOPICAL ×3 (05:39→22:21)
[2022-03-17] MEDS: Nystatin Powder 15gm Bottle 1 APPLIC TOPICAL ×3 (05:39→22:21)
[2022-03-17 06:36] LABS: Absolute Lymphocyte Count 0.49 X10^3/uL (0.83-4.51); Absolute Neutrophil Count 6.2 X10^3/uL (2.0-7.7); Basophil# 0.01 X10^3/uL; Basophil% 0.1 % (0-1); Eosinophil# 0.03 X10^3/uL; Eosinophils% 0.4 % (0-5); Hematocrit 26.9 % (37-47); Hemoglobin 8.6 g/dL (12.0-15.0); Lymphocyte # 0.49 X10^3/ul (0.83-4.51); Lymphocyte % 6.9 % (19-41); Mean Corpuscular Hgb 29.6 pg (27.0-32.0); Mean Corpuscular Volume 92.4 fL (81-99); Mean Platelet Vol. 9.5 fl (6.2-12.0); Monocyte# 0.35 X10^3/uL; Monocyte% 4.9 % (0-10); NRBC Flagged by Analyzer 0 % (0-5); Neutrophil # 6.15 X10^3/uL (2.7-7.7); Neutrophil % 86.4 % (47-70); POSITIVE DIFFERENTIAL YES; Platelet Count 175 K/mm3 (150-450); RBC Distribution Width CV 18.2 % (11.6-14.6); RBC Distribution Width SD 60.1 fl (35.1-43.9); Red Blood Count 2.91 M/mm3 (4.2-5.4); White Blood Count 7.1 K/mm3 (4.4-11.0)
[2022-03-17 06:37] LABS: Differential Indicated SCAN CRITERIA MET
[2022-03-17 06:45] LABS: International Normalized Ratio 3.6; Prothrombin Time (Protime)PT. 35.8 SECONDS (11.7-14.9)
[2022-03-17 06:53] LABS: Differential Comment SCANNED
[2022-03-17 07:06] LABS: Anion Gap 9 (5-15); BUN 75 mg/dL (7-18); BUN/Creat Ratio 15.8 RATIO (10-20); Calcium,Total 8.2 mg/dL (8.5-10.1); Chloride 108 mmol/L (98-107); Creatinine, Serum 4.74 mg/dL (0.55-1.02); EST Glomerular Filtration Rate 9 mL/min (>60); Est Glom Filt Rate - Afr Amer 11 mL/min (>60); Estimated Creatinine Clearance 7.49 ml/min; Glucose 114 mg/dL (74-106); Potassium 3.9 mmol/L (3.5-5.1); Sodium Level 139 mmol/L (136-145)
--- NOTE | 2022-03-17 09:20 | CASEMGMT ---
Discharge Research Pharmacist This medical underwriter asked Karin at [facility] to start pre-cert. Jerad TINOCO Nurse Charge Rn
[2022-03-17] MEDS: 0.9 % NaCl (Sterile) Posiflush 10 mL IV (09:56)
[2022-03-17] MEDS: Clopidogrel Bisulfate 75 MG Tablet PO (11:01)
[2022-03-17] MEDS: Metoprolol Tartrate 100 MG Tablet PO ×2 (11:01→22:20)
[2022-03-17] MEDS: dilTIAZem CD 240 MG Capsule PO (11:01)
--- NOTE | 2022-03-17 11:22 | PN.HOSP_ITS ---
Subjective Subjective Drowsy but alert. Her urine output has decreased with her ATN Objective Data Objective Data Vital Signs: Vital Signs Temp Pulse Resp BP Pulse Ox O2 Del Method O2 Flow Rate 98.0 F 89 16 107/59 L 95 Nasal Cannula 2 03/17/22 10:00 03/17/22 11:01 03/17/22 10:00 03/17/22 11:01 03/17/22 10:00 03/17/22 10:00 03/17/22 10:00 FiO2 2 03/16/22 18:00 Oxygen Flow Rate (L/min) 2 Oxygen Delivery Method Nasal Cannula Weight: 207 lb 3.752 oz Body Mass Index (BMI) 37.8 Intake & Output: Intake and Output for Last 24 Hours 03/16/22 03/17/22 03/18/22 03:59 03:59 03:59 Intake Total 1860 / 1860 760 / 760 482.5 / 482.5 Output Total 475 / 475 100 / 100 50 / 50 Balance 1385 / 1385 660 / 660 432.5 / 432.5 Lab / Micro Data Result Diagrams: 03/17/22 06:22 03/17/22 06:22 Labs: Laboratory Results - last 24 hr 03/15/22 08:15: Crossmatch See Detail 03/15/22 08:15: Crossmatch See Detail 03/16/22 14:50: APTT 52.1 H 03/17/22 06:22: WBC 7.1, RBC 2.91 L, Hgb 8.6 L, Hct 26.9 L, MCV 92.4, MCH 29.6, MCHC 32.0, RDW Std Deviation 60.1 H, RDW Coeff of Diandra 18.2 H, Plt Count 175, MPV 9.5, Immature Gran % (Auto) 1.300 H, Neut % (Auto) 86.4 H, Lymph % (Auto) 6.9 L, [place] % (Auto) 4.9, Eos % (Auto) 0.4, Baso % (Auto) 0.1, Absolute Neuts (auto) 6.2, Absolute Lymphs (auto) 0.49 L, Nucleated RBC % 0, Differential Comment SCANNED 03/17/22 06:22: Sodium 139, Potassium 3.9, Chloride 108 H, Carbon Dioxide 22.0, Anion Gap 9, BUN 75 H, Creatinine 4.74 H, Estim Creat Clear Calc 7.49, Est GFR (MDRD) Af Amer 11 L, Est GFR (MDRD) Non-Af 9 L, BUN/Creatinine Ratio 15.8, Glucose 114 H, Calcium 8.2 L 03/17/22 06:22: PT 35.8 H, INR 3.6 Micro: Microbiology 03/16/22 23:25 Stool Stool Occult Blood (JOSSUE) - Final 03/15/22 13:20 Blood Culture (Wb) - Right Hand Blood Culture - Preliminary No growth in 48 hours. 03/14/22 09:54 Blood Culture (Wb) - Right Hand Blood Culture - Preliminary No growth in 48 hours. 03/13/22 06:19 Blood Culture (Wb) - Right Hand Blood Culture - Preliminary GPC Poss Enterococcus sp 03/12/22 15:40 Blood Culture (Wb) - Right Hand Blood Culture - Preliminary GPC Poss Enterococcus sp 03/11/22 17:25 Urine, Clean Catch Urine Culture - Final Enterococcus faecalis Mixed Gram Positive Organisms 03/11/22 07:32 Blood Culture (Wb) - Venous Bacteria Detection (PCR) - Final Enterococcus faecalis 03/11/22 07:32 Blood Culture (Wb) - Venous Blood Culture - Final Enterococcus faecalis 03/10/22 00:02 Urine, Clean Catch Urine Culture - Final Mixed Gram Pos & Gram Neg Org 03/11/22 06:40 Nasal Secretion SARS-CoV-2 & FLU Antigen (Rapid) - Final 03/09/22 22:51 Nasal Secretion SARS-CoV-2 Antigen (Rapid) - Final 03/09/22 18:08 Mucosa - Nasopharyngeal Respiratory Panel (PCR) - Final Rhythm Strip Rhythm Strip: A-fib (Episode of irregular broad complex tachycardia. Likely A. fib with aberrancy (Chula's)) Physical Exam Narrative General: Drowsy but alert, Oriented x3, Cooperative, No apparent distress HEENT: Atraumatic, PERRLA, EOMI, Normocephalic Oral: Moist Mucosa Neck: Supple, No JVD Lungs: Diminished, Normal air movement, No rhonchi, No wheeze, No rales Cardiovascular: Regular rate, Regular Rhythm, Normal S1, Normal S2, No murmurs Abdomen: Soft, Non Tender, Non-Distended, No Hepato-splenomegaly Extremities: No edema, Capillary Refill Less than 3 Seconds Skin: No rashes, No breakdown Musculoskeletal: No Tenderness to Palpation of Joints or Extremities Neurological: Cranial nerves II-XII grossly intact, Motor Exam 5/5 strength throughout, Sensory exam intact to light touch and pain Psych/Mental Status: Normal Affect, Appropriate Assessment & Plan Assessment/Plan (1) NSTEMI, initial episode of care: (2) Atrial fibrillation: PLAN: Plan 1. Acute on chronic diastolic CHF/A. fib with RVR/non-STEMI/supratherapeutic INR/TN/HTN/HLD ? Continue with the fluid restriction ? We will continue to hold her Coumadin she was given a dose of vitamin K now her INR is 2.8 we will monitor ? Echo with an EF of 60% and a bioprosthetic mitral valve with severe pulmonary hypertension ? Stress test was unremarkable, elevated troponin was likely secondary to her RVR ? Plan is for NOHEMY secondary to her chronic bacteremia however given her anemia cardiology would like to wait ?Hemoglobin is 8.6 today after another unit of blood yesterday. She did have an EGD which showed esophagitis and gastritis, continue with PPI and Carafate ? Nephrology consulted secondary to her ATN which is likely a reaction to her diuresis as well as her contrast from the CT scan on 03/14/2022, given her decreased urine output will consult general surgery for a temporary dialysis catheter to be placed. Of note her blood cultures have been negative for the last 2 days 2. UTI with possible bacteremia ? Repeat blood cultures are positive for gram-positive organism ? Appreciate infectious disease assistance ? Initial 2D echo does not show any vegetations on her bioprosthetic valve, plan for NOHEMY 3. Anemia ?Esophagitis and gastritis on EGD ?Continue with her PPI and Carafate ?Appreciate GIs assistance ?We will have a low threshold for transfusion DVT: Therapeutic INR Charges/Coding Visit Charges Inpatient E&M: 21539 Subs Hosp L2
--- NOTE | 2022-03-17 11:40 | PN.RENAL_ITS ---
Subjective Subjective denies nausea, vomiting, SOB or chest pain. Renal fxn continues to decline with oligoanuria. DW hospitalist and pt about initiating dialysis. INR elevated at 3.6 hgb 8.6g today. Repeat Blood cx no growth so far Objective Data Objective Data Vital Signs: Vital Signs Temp Pulse Resp BP Pulse Ox O2 Del Method O2 Flow Rate 98.0 F 89 16 107/59 L 95 Nasal Cannula 2 03/17/22 10:00 03/17/22 11:01 03/17/22 10:00 03/17/22 11:01 03/17/22 10:00 03/17/22 10:00 03/17/22 10:00 FiO2 2 03/16/22 18:00 Oxygen Flow Rate (L/min) 2 Oxygen Delivery Method Nasal Cannula Weight: 94 kg Body Mass Index (BMI) 37.8 Intake & Output: Intake and Output for Last 24 Hours 03/15/22 03/16/22 03/17/22 23:59 23:59 23:59 Intake Total 1860 / 1860 760 / 760 482.5 / 482.5 Output Total 475 / 475 100 / 100 50 / 50 Balance 1385 / 1385 660 / 660 432.5 / 432.5 Lab / Micro Data Result Diagrams: 03/17/22 06:22 03/17/22 06:22 Labs: Laboratory Results - last 24 hr 03/15/22 08:15: Crossmatch See Detail 03/15/22 08:15: Crossmatch See Detail 03/16/22 14:50: APTT 52.1 H 03/17/22 06:22: WBC 7.1, RBC 2.91 L, Hgb 8.6 L, Hct 26.9 L, MCV 92.4, MCH 29.6, MCHC 32.0, RDW Std Deviation 60.1 H, RDW Coeff of Diandra 18.2 H, Plt Count 175, MPV 9.5, Immature Gran % (Auto) 1.300 H, Neut % (Auto) 86.4 H, Lymph % (Auto) 6.9 L, [place] % (Auto) 4.9, Eos % (Auto) 0.4, Baso % (Auto) 0.1, Absolute Neuts (auto) 6.2, Absolute Lymphs (auto) 0.49 L, Nucleated RBC % 0, Differential Comment SCANNED 03/17/22 06:22: Sodium 139, Potassium 3.9, Chloride 108 H, Carbon Dioxide 22.0, Anion Gap 9, BUN 75 H, Creatinine 4.74 H, Estim Creat Clear Calc 7.49, Est GFR (MDRD) Af Amer 11 L, Est GFR (MDRD) Non-Af 9 L, BUN/Creatinine Ratio 15.8, Glucose 114 H, Calcium 8.2 L 03/17/22 06:22: PT 35.8 H, INR 3.6 Micro: Microbiology 03/16/22 23:25 Stool Stool Occult Blood (JOSSUE) - Final 03/15/22 13:20 Blood Culture (Wb) - Right Hand Blood Culture - Preliminary No growth in 48 hours. 03/14/22 09:54 Blood Culture (Wb) - Right Hand Blood Culture - Preliminary No growth in 48 hours. 03/13/22 06:19 Blood Culture (Wb) - Right Hand Blood Culture - Preliminary GPC Poss Enterococcus sp 03/12/22 15:40 Blood Culture (Wb) - Right Hand Blood Culture - Preliminary GPC Poss Enterococcus sp 03/11/22 17:25 Urine, Clean Catch Urine Culture - Final Enterococcus faecalis Mixed Gram Positive Organisms 03/11/22 07:32 Blood Culture (Wb) - Venous Bacteria Detection (PCR) - Final Enterococcus faecalis 03/11/22 07:32 Blood Culture (Wb) - Venous Blood Culture - Final Enterococcus faecalis 03/10/22 00:02 Urine, Clean Catch Urine Culture - Final Mixed Gram Pos & Gram Neg Org 03/11/22 06:40 Nasal Secretion SARS-CoV-2 & FLU Antigen (Rapid) - Final 03/09/22 22:51 Nasal Secretion SARS-CoV-2 Antigen (Rapid) - Final 03/09/22 18:08 Mucosa - Nasopharyngeal Respiratory Panel (PCR) - Final Rhythm Strip Rhythm Strip: A-fib (Episode of irregular broad complex tachycardia. Likely A. fib with aberrancy (Chula's)) Physical Exam Const alert and oriented x3 General Appearance: well developed Nutritional Appearance: obese Resp clear to auscultation bilaterally Cardio no rub Rhythm: abnormal rhythm GI non-tender and non-distended Auscultation: normoactive bowel sounds Palpation: soft Extremity no clubbing, cyanosis or edema Skin Skin Narrative: ecchymosis Neuro Sensorium / Orientation: awake and alert Psych cooperative Assessment & Plan Assessment/Plan (1) Acute renal failure: PLAN: on CKD stage 4. Creatinine 1.58 eCRCL 22 on admission progressed to 4.7 eCRCL 8cc/min today from ATN due to contrast induced ATN, sepsis, afib with rvr with hypotension.Urine output poor. Discussed initiating dialysis with temp dialysis catheter due to elevated INR. Pt in agreement with dialysis. Surgery consulted. Check C3 complement r/o SBE. NOHEMY pending. DW hospitalist, pt and family. (2) CKD (chronic kidney disease) stage 4, GFR 15-29 ml/min: PLAN: Creatinine 1.58 eCRCL 22cc/min on admit. (3) Bacteremia due to Enterococcus: PLAN: ID following on ampicillin iv. NOHEMY pending r/o SBE. (4) UTI (urinary tract infection): PLAN: on antibx (5) Pulmonary hypertension: PLAN: chronic lymphedema with venous stasis skin changes in legs (6) S/P MVR (mitral valve replacement): (7) Atrial fibrillation: PLAN: with rvr, rate controlled on metoprolol, cardizem. Cardiology mgmt (8) Congestive heart failure: PLAN: oxygenation stable (9) Leg edema: PLAN: hx lymphedema (10) Hypertension: QUALIFIERS: Hypertension type: essential hypertension PLAN: history. Maintain SBP >100 for renal perfusion (11) Anemia: PLAN: prbc as needed
[2022-03-17 12:22] LABS: AST(SGOT) 24 U/L (15-37); Alanine Aminotransfer ALT/SGPT 15 U/L (13-56); Albumin, Serum 1.8 g/dL (3.2-5.0); Alkaline Phosphatase 117 U/L (45-117); Bilirubin, Direct 0.46 mg/dL (0.00-0.30); Globulin 4.7 g/dL (2.2-4.2); Protein, Total 6.5 g/dL (6.4-8.2)
--- NOTE | 2022-03-17 12:49 | CASEMGMT ---
Discharge Lead Java Software Engineer Karin reached out. Pre-cert has been obtained. MARIA ALEJANDRA Michel notified. Jerad TINOCO Bottom Filler
--- NOTE | 2022-03-17 13:15 | CASEMGMT ---
Green sheet placed on patient's chart in the event patient is ready over the weekend. Plan: d/c to [place] under skilled level of care when medically ready. Marilu PARADA
[2022-03-17 13:39] LABS: Hemoglobin 8.3 g/dL (12.0-15.0)
--- NOTE | 2022-03-17 13:42 | PN.ID_ITS ---
Physical Exam Narrative Feeling tired and weak. No fever. Const no apparent distress Orientation / Consciousness: lethargic Resp Auscultation: diminished lung sounds Cardio regular rate and regular rhythm GI soft to palpation, non-tender and non-distended Extremity General Extremity: edema Skin no rashes or lesions noted ID ID: Route of nutrition/ use of supplements: [] Nutritional Intake: [] IV Site: [] Hernandez Catheter: [] Assessment & Plan Assessment/Plan (1) S/P MVR (mitral valve replacement): (2) UTI (urinary tract infection): PLAN: enterococcus bacteremia secondary to uti. 03/14 changed vanc to ampicillin. Repeat bcx neg at 48h. Ordered NOHEMY given presence of tissue valve replacement. Spoke with lab at [place], no bcx were collected there. Worsening JACQUIE, neph following. Will follow (3) Bacteremia due to Enterococcus:
[2022-03-17] MEDS: Phytonadione (Vit K1) 5 MG TABLET PO (14:41)
--- NOTE | 2022-03-17 17:36 | PN_ITS ---
Subjective Subjective Patient underwent an upper endoscopy yesterday for GI bleed. 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 She is stools today. She was discovered to have an increase in INR so she had to get more vitamin K. Objective Data Objective Data Vital Signs: Vital Signs Temp Pulse Resp BP Pulse Ox O2 Del Method O2 Flow Rate 97.9 F 75 16 101/55 L 97 Nasal Cannula 2 03/17/22 16:55 03/17/22 16:55 03/17/22 16:55 03/17/22 16:55 03/17/22 16:55 03/17/22 16:55 03/17/22 16:55 FiO2 2 03/17/22 12:00 Oxygen Flow Rate (L/min) 2 Oxygen Delivery Method Nasal Cannula Weight: 207 lb 3.752 oz Body Mass Index (BMI) 37.8 Intake & Output: Intake and Output for Last 24 Hours 03/15/22 03/16/22 03/17/22 23:59 23:59 23:59 Intake Total 1860 / 1860 760 / 760 512.5 / 512.5 Output Total 475 / 475 100 / 100 50 / 50 Balance 1385 / 1385 660 / 660 462.5 / 462.5 Lab / Micro Data Result Diagrams: 03/17/22 13:23 03/17/22 06:22 Labs: Laboratory Results - last 24 hr 03/15/22 08:15: Crossmatch See Detail 03/17/22 06:22: WBC 7.1, RBC 2.91 L, Hgb 8.6 L, Hct 26.9 L, MCV 92.4, MCH 29.6, MCHC 32.0, RDW Std Deviation 60.1 H, RDW Coeff of Diandra 18.2 H, Plt Count 175, MPV 9.5, Immature Gran % (Auto) 1.300 H, Neut % (Auto) 86.4 H, Lymph % (Auto) 6.9 L, [place] % (Auto) 4.9, Eos % (Auto) 0.4, Baso % (Auto) 0.1, Absolute Neuts (auto) 6.2, Absolute Lymphs (auto) 0.49 L, Nucleated RBC % 0, Differential Comment SCANNED 03/17/22 06:22: Sodium 139, Potassium 3.9, Chloride 108 H, Carbon Dioxide 22.0, Anion Gap 9, BUN 75 H, Creatinine 4.74 H, Estim Creat Clear Calc 7.49, Est GFR (MDRD) Af Amer 11 L, Est GFR (MDRD) Non-Af 9 L, BUN/Creatinine Ratio 15.8, Glucose 114 H, Calcium 8.2 L 03/17/22 06:22: PT 35.8 H, INR 3.6 03/17/22 06:22: Total Bilirubin 0.90, Direct Bilirubin 0.46 H, AST 24, ALT 15, Alkaline Phosphatase 117, Total Protein 6.5, Albumin 1.8 L, Globulin 4.7 H 03/17/22 13:23: Hgb 8.3 L, Hct 26.0 L Micro: Microbiology 03/16/22 23:25 Stool Stool Occult Blood (JOSSUE) - Final 03/15/22 13:20 Blood Culture (Wb) - Right Hand Blood Culture - Preliminary No growth in 48 hours. 03/14/22 09:54 Blood Culture (Wb) - Right Hand Blood Culture - Preliminary No growth in 48 hours. 03/13/22 06:19 Blood Culture (Wb) - Right Hand Blood Culture - Preliminary GPC Poss Enterococcus sp 03/12/22 15:40 Blood Culture (Wb) - Right Hand Blood Culture - Preliminary GPC Poss Enterococcus sp 03/11/22 17:25 Urine, Clean Catch Urine Culture - Final Enterococcus faecalis Mixed Gram Positive Organisms 03/11/22 07:32 Blood Culture (Wb) - Venous Bacteria Detection (PCR) - Final Enterococcus faecalis 03/11/22 07:32 Blood Culture (Wb) - Venous Blood Culture - Final Enterococcus faecalis 03/10/22 00:02 Urine, Clean Catch Urine Culture - Final Mixed Gram Pos & Gram Neg Org 03/11/22 06:40 Nasal Secretion SARS-CoV-2 & FLU Antigen (Rapid) - Final 03/09/22 22:51 Nasal Secretion SARS-CoV-2 Antigen (Rapid) - Final 03/09/22 18:08 Mucosa - Nasopharyngeal Respiratory Panel (PCR) - Final Rhythm Strip Rhythm Strip: A-fib (Episode of irregular broad complex tachycardia. Likely A. fib with aberrancy (Chula's)) Physical Exam Narrative Feeling tired and weak. No fever. Const no apparent distress Orientation / Consciousness: lethargic Resp Auscultation: diminished lung sounds Cardio regular rate and regular rhythm GI soft to palpation, non-tender and non-distended Extremity General Extremity: edema Skin no rashes or lesions noted Assessment & Plan Assessment/Plan (1) GI bleed: PLAN: Recommend continue PPI therapy. She will also need octreotide. Hemoglobin hematocrit. She may need repeat upper endoscopy if her hemoglobin continues to trend down in the setting of anticoagulation. Charges/Coding Visit Charges Inpatient E&M: 12035 Subs Hosp L2
--- NOTE | 2022-03-17 19:19 | CON.PCM.SX_ITS ---
Assessment & Plan Assessment/Plan (1) Acute renal failure: PLAN: see below PLAN: Plan This consultaiton is a request for temporary dialysis catheter i have discussed this with patient's family and patient. Given that patient has elevated INR, will await until it is lower, possibly tomorrow. I have explained the risks of the procedure to them, including but not limited to: infection, bleeding, injury to blood vessels/nerves, pneumothorax, etc. - they understand and agree to proceed. I have answered their questions and they have no further questions. Will check INR tomorrow. HPI Consult Data Date of Consult: 03/17/22 HPI Narrative Reason for Consultation: need for dialysis catheter HPI Narrative: CARLOS ALBERTO GOLDBERG, is a 81 F with multiple medical illnesses who presents with acute renal failure. Dr. Nic Hernandez, the hospitalist, has requested consultation for consideration of placement of temporary dialysis catheter. Patient was admitted to hospital on 03/09/2022 for exacerbation of CHF. A few days ago, she had an INR of 6.5, she was taking coumadin as a home medication. In talking with the patient's children and herself, they do not recall the last time she took coumadin. I cannot find in the medical records if the patient was given coumadin during her hospitalization. However, she is on plavix. Patient has had a GI bleeding with findings of ulcers and angiodysplasia by endoscopy. She has had little to no urine output recently and her serum creatinine has been slowly increasing, this morning it was 4.74. Nephrology has recommended temporary dialysis. [facility] Medical History Chronic acquired lymphedema Chronic atrial fibrillation Chronic diastolic CHF (congestive heart failure) Former tobacco use History of temporary cardiac pacemaker treatment HTN (hypertension) Morbid obesity Rheumatoid arthritis Valvular heart disease Home Medications calcium carbonate 600 mg-vitamin D3 10 mcg (400 unit) tablet (Calcium 600 + D(3)) 1 ea PO DAILY supp 12/17/13 [History Last Taken Unknown] diltiazem HCl 180 mg capsule,extended release 24 hr 180 mg PO DAILY afib 12/17/13 [History Last Taken Unknown] furosemide 40 mg tablet 40 mg PO DAILY diuretic 12/17/13 [History Last Taken Unknown] metoprolol tartrate 50 mg tablet 100 mg PO BID blood pressure 12/17/13 [History Last Taken Unknown] Century Adults 50+ Tablet 1 tab PO DAILY vitamin 08/21/16 [History Last Taken Unknown] Klor-Con M20 1 tab PO DAILY mineral 08/21/16 [History Last Taken Unknown] Warfarin Sodium 1 tab PO afib 08/21/16 [History Last Taken Unknown] Warfarin Sodium 5 mg PO afib 08/21/16 [History Last Taken Unknown] Allergy/AdvReac Type Severity Reaction Status Date / Time allopurinol Allergy Mild Rash Verified 03/11/22 10:14 ceftriaxone [From Rocephin] Allergy Mild Rash Verified 03/09/22 14:35 colchicine Allergy Mild Rash Verified 03/11/22 10:14 Family History Mother Heart disease Father Cancer Leukemia. Surgical History H/O tricuspid valve annuloplasty S/P MVR (mitral valve replacement) Social History household members: none Smoking Status: Former smoker how long ago did patient quit smoking: Quit 05/26/1959, smoked ~2 years w/ 0.25 pack/day. alcohol intake: current alcohol intake frequency: holidays/special occasions only substance use type: does not use ROS Constitutional Constitutional: Reports fatigue; Denies anorexia or chills Cardiovascular Cardiovascular: Denies chest pain at rest Respiratory/Chest Respiratory/Chest: Reports shortness of breath with exertion Gastrointestinal Gastrointestinal: Reports systems reviewed and no addt'l complaints, except as documented Genitourinary Genitourinary: Denies hematuria Musculoskeletal Musculoskeletal: Denies abnormal gait Integumentary Integumentary: Denies jaundice Physical Exam Narrative ill appearing, morbidly obese female with numerous ecchymoses of extremities Const alert and oriented x3 General Appearance: cooperative HEENT normocephalic Neck supple Resp normal respiratory effort Effort and Inspection: able to speak in complete sentences GI soft to palpation Medical Records Data Attestation: I reviewed the patient's medical records Lab / Micro Data Attestation: I reviewed the patient's lab results. Result Diagrams: 03/17/22 13:23 03/17/22 06:22 Labs: Laboratory Results - last 24 hr 03/15/22 08:15: Crossmatch See Detail 03/17/22 06:22: WBC 7.1, RBC 2.91 L, Hgb 8.6 L, Hct 26.9 L, MCV 92.4, MCH 29.6, MCHC 32.0, RDW Std Deviation 60.1 H, RDW Coeff of Diandra 18.2 H, Plt Count 175, MPV 9.5, Immature Gran % (Auto) 1.300 H, Neut % (Auto) 86.4 H, Lymph % (Auto) 6.9 L, [place] % (Auto) 4.9, Eos % (Auto) 0.4, Baso % (Auto) 0.1, Absolute Neuts (auto) 6.2, Absolute Lymphs (auto) 0.49 L, Nucleated RBC % 0, Differential Comment SCANNED 03/17/22 06:22: Sodium 139, Potassium 3.9, Chloride 108 H, Carbon Dioxide 22.0, Anion Gap 9, BUN 75 H, Creatinine 4.74 H, Estim Creat Clear Calc 7.49, Est GFR (MDRD) Af Amer 11 L, Est GFR (MDRD) Non-Af 9 L, BUN/Creatinine Ratio 15.8, Glucose 114 H, Calcium 8.2 L 03/17/22 06:22: PT 35.8 H, INR 3.6 03/17/22 06:22: Total Bilirubin 0.90, Direct Bilirubin 0.46 H, AST 24, ALT 15, Alkaline Phosphatase 117, Total Protein 6.5, Albumin 1.8 L, Globulin 4.7 H 03/17/22 13:23: Hgb 8.3 L, Hct 26.0 L Micro: Microbiology 03/16/22 23:25 Stool Stool Occult Blood (JOSSUE) - Final 03/15/22 13:20 Blood Culture (Wb) - Right Hand Blood Culture - Preliminary No growth in 48 hours. Rhythm Strip Rhythm Strip: A-fib (Episode of irregular broad complex tachycardia. Likely A. fib with aberrancy ([place]ula's))
[2022-03-17] MEDS: Atorvastatin Calcium 40 MG Tablet PO (22:20)
[2022-03-17] MEDS: 0.9% Saline Lock 10 ML Syringe IV (22:25)
[2022-03-18] VITALS (18 sets, daily range): BP systolic 96–121; BP diastolic 50–68; PULSE 58–90; RESP 18–20; TEMP 36.2–36.7; O2SAT 93–98
[2022-03-18] MEDS: Menthol/Lanolin/Calamine/Znox 113 GM Tube 1 APPLIC TOPICAL ×2 (05:48→12:51)
[2022-03-18] MEDS: Nystatin Powder 15gm Bottle 1 APPLIC TOPICAL ×2 (05:48→12:51)
[2022-03-18 07:12] LABS: Absolute Neutrophil Count 6.1 X10^3/uL (2.0-7.7); Basophil# 0.02 X10^3/uL; Basophil% 0.3 % (0-1); Eosinophil# 0.03 X10^3/uL; Eosinophils% 0.4 % (0-5); Hematocrit 28.6 % (37-47); Hemoglobin 9.2 g/dL (12.0-15.0); Lymphocyte % 5.7 % (19-41); Mean Corp Hgb Conc 32.2 g/dL (32-36); Mean Corpuscular Hgb 29.7 pg (27.0-32.0); Mean Corpuscular Volume 92.3 fL (81-99); Mean Platelet Vol. 9.3 fl (6.2-12.0); Monocyte# 0.34 X10^3/uL; Monocyte% 4.9 % (0-10); NRBC Flagged by Analyzer 0.3 % (0-5); Neutrophil # 6.12 X10^3/uL (2.7-7.7); Neutrophil % 87.4 % (47-70); POSITIVE DIFFERENTIAL YES; Platelet Count 176 K/mm3 (150-450); RBC Distribution Width CV 17.5 % (11.6-14.6); RBC Distribution Width SD 57.2 fl (35.1-43.9)
[2022-03-18 07:20] LABS: Differential Indicated SCAN CRITERIA MET
[2022-03-18 07:54] LABS: ALB/GLOB Ratio 0.4 RATIO (0.9-2.4); AST(SGOT) 18 U/L (15-37); Alanine Aminotransfer ALT/SGPT 15 U/L (13-56); Albumin, Serum 1.8 g/dL (3.2-5.0); Alkaline Phosphatase 112 U/L (45-117); Anion Gap 12 (5-15); BUN 81 mg/dL (7-18); BUN/Creat Ratio 14.6 RATIO (10-20); Calcium,Total 8.4 mg/dL (8.5-10.1); Chloride 106 mmol/L (98-107); Creatinine, Serum 5.54 mg/dL (0.55-1.02); EST Glomerular Filtration Rate 8 mL/min (>60); Est Glom Filt Rate - Afr Amer 10 mL/min (>60); Estimated Creatinine Clearance 6.41 ml/min; Globulin 4.6 g/dL (2.2-4.2); Glucose 107 mg/dL (74-106); Potassium 3.9 mmol/L (3.5-5.1); Protein, Total 6.4 g/dL (6.4-8.2); Sodium Level 139 mmol/L (136-145)
[2022-03-18 08:21] LABS: International Normalized Ratio 2.3; Prothrombin Time (Protime)PT. 24.5 SECONDS (11.7-14.9)
[2022-03-18] MEDS: dilTIAZem CD 240 MG Capsule PO (09:13)
[2022-03-18] MEDS: Clopidogrel Bisulfate 75 MG Tablet PO (09:13)
[2022-03-18] MEDS: Metoprolol Tartrate 100 MG Tablet PO (09:13)
[2022-03-18 09:48] LABS: Complement C3 108 mg/dL (82-167)
[2022-03-18] MEDS: Phytonadione (Vit K1) 5 MG TABLET PO (10:18)
--- NOTE | 2022-03-18 11:24 | PN.RENAL_ITS ---
Subjective Subjective Denies nausea or vomiting. Shortness of breath is under control. Denies chest pain. Dialysis catheter delayed due to elevated INR. Receiving FFP and vitamin K to reverse INR. Hemoglobin stable at 9.2 today after multiple blood transfusions. Objective Data Objective Data Vital Signs: Vital Signs Temp Pulse Resp BP Pulse Ox O2 Del Method O2 Flow Rate 97.7 F L 72 18 116/57 L 95 Nasal Cannula 2 03/18/22 09:04 03/18/22 09:13 03/18/22 09:04 03/18/22 09:04 03/18/22 09:04 03/18/22 09:04 03/18/22 09:04 FiO2 2 03/17/22 12:00 Oxygen Flow Rate (L/min) 2 Oxygen Delivery Method Nasal Cannula Weight: 94 kg Body Mass Index (BMI) 37.8 Intake & Output: Intake and Output for Last 24 Hours 03/16/22 03/17/22 03/18/22 23:59 23:59 23:59 Intake Total 760 / 760 1272.5 / 1272.5 210 / 210 Output Total 100 / 100 50 / 50 0 / 0 Balance 660 / 660 1222.5 / 1222.5 210 / 210 Lab / Micro Data Result Diagrams: 03/18/22 06:50 03/18/22 06:50 Labs: Laboratory Results - last 24 hr 03/15/22 08:15: Crossmatch See Detail 03/17/22 06:22: Complement C3 108 03/17/22 06:22: Total Bilirubin 0.90, Direct Bilirubin 0.46 H, AST 24, ALT 15, Alkaline Phosphatase 117, Total Protein 6.5, Albumin 1.8 L, Globulin 4.7 H 03/17/22 13:23: Hgb 8.3 L, Hct 26.0 L 03/18/22 06:50: WBC 7.0, RBC 3.10 L, Hgb 9.2 L, Hct 28.6 L, MCV 92.3, MCH 29.7, MCHC 32.2, RDW Std Deviation 57.2 H, RDW Coeff of Diandra 17.5 H, Plt Count 176, MPV 9.3, Immature Gran % (Auto) 1.300 H, Neut % (Auto) 87.4 H, Lymph % (Auto) 5.7 L, [place] % (Auto) 4.9, Eos % (Auto) 0.4, Baso % (Auto) 0.3, Absolute Neuts (auto) 6.1, Absolute Lymphs (auto) 0.40 L, Nucleated RBC % 0.3 03/18/22 06:50: PT 24.5 H, INR 2.3 03/18/22 06:50: Sodium 139, Potassium 3.9, Chloride 106, Carbon Dioxide 21.0, Anion Gap 12, BUN 81 H, Creatinine 5.54 H, Estim Creat Clear Calc 6.41, Est GFR (MDRD) Af Amer 10 L, Est GFR (MDRD) Non-Af 8 L, BUN/Creatinine Ratio 14.6, Glu cose 107 H, Calcium 8.4 L, Total Bilirubin 1.00, AST 18, ALT 15, Alkaline Phosphatase 112, Total Protein 6.4, Albumin 1.8 L, Globulin 4.6 H, Albumin/Globulin Ratio 0.4 L Micro: Microbiology 03/13/22 06:19 Blood Culture (Wb) - Right Hand Blood Culture - Final GPC Poss Enterococcus sp 03/12/22 15:40 Blood Culture (Wb) - Right Hand Blood Culture - Final GPC Poss Enterococcus sp 03/16/22 23:25 Stool Stool Occult Blood (JOSSUE) - Final 03/15/22 13:20 Blood Culture (Wb) - Right Hand Blood Culture - Preliminary No growth in 48 hours. 03/14/22 09:54 Blood Culture (Wb) - Right Hand Blood Culture - Preliminary No growth in 48 hours. 03/11/22 17:25 Urine, Clean Catch Urine Culture - Final Enterococcus faecalis Mixed Gram Positive Organisms 03/11/22 07:32 Blood Culture (Wb) - Venous Bacteria Detection (PCR) - Final Enterococcus faecalis 03/11/22 07:32 Blood Culture (Wb) - Venous Blood Culture - Final Enterococcus faecalis 03/10/22 00:02 Urine, Clean Catch Urine Culture - Final Mixed Gram Pos & Gram Neg Org 03/11/22 06:40 Nasal Secretion SARS-CoV-2 & FLU Antigen (Rapid) - Final 03/09/22 22:51 Nasal Secretion SARS-CoV-2 Antigen (Rapid) - Final 03/09/22 18:08 Mucosa - Nasopharyngeal Respiratory Panel (PCR) - Final Rhythm Strip Rhythm Strip: A-fib (Episode of irregular broad complex tachycardia. Likely A. fib with aberrancy (Chula's)) Physical Exam Const alert, oriented x3 and no apparent distress General Appearance: well developed Nutritional Appearance: obese HEENT normocephalic Eyes PERRL Resp clear to auscultation bilaterally Cardio Rhythm: abnormal rhythm irregularly irregular GI non-tender and non-distended Auscultation: normoactive bowel sounds Palpation: soft Extremity no clubbing, cyanosis or edema Skin Skin Narrative: Ecchymosis diffuse, hyperpigmentation of skin on lower extremities bilaterally Neuro Sensorium / Orientation: awake and alert Motor Exam: Negative for tremor or asterixis Psych cooperative Assessment & Plan Assessment/Plan (1) Acute renal failure: PLAN: on CKD stage 4. Creatinine increased to 5.54 with oliguric renal failure. Dialysis today after temporary dialysis catheter placement by surgery after INR reversed with FFP and vitamin K. Discussed with patient and patient daughter regarding initiating dialysis. (2) CKD (chronic kidney disease) stage 4, GFR 15-29 ml/min: PLAN: Creatinine 1.58 eCRCL 22cc/min on admit. (3) Bacteremia due to Enterococcus: PLAN: ID following on ampicillin iv. NOHEMY pending r/o SBE. (4) UTI (urinary tract infection): PLAN: on antibx (5) Pulmonary hypertension: PLAN: chronic lymphedema with venous stasis skin changes in legs (6) S/P MVR (mitral valve replacement): (7) Atrial fibrillation: PLAN: with rvr, rate controlled on metoprolol, cardizem. Cardiology mgmt (8) Congestive heart failure: PLAN: oxygenation stable (9) Leg edema: PLAN: hx lymphedema (10) Hypertension: QUALIFIERS: Hypertension type: essential hypertension PLAN: history. Maintain SBP >100 for renal perfusion (11) Anemia: PLAN: prbc as needed
--- NOTE | 2022-03-18 11:42 | PN.HOSP_ITS ---
Subjective Subjective Doing well, no issues overnight. INR is down to 2.3 Objective Data Objective Data Vital Signs: Vital Signs Temp Pulse Resp BP Pulse Ox O2 Del Method O2 Flow Rate 97.7 F L 72 18 116/57 L 95 Nasal Cannula 2 03/18/22 09:04 03/18/22 09:13 03/18/22 09:04 03/18/22 09:04 03/18/22 09:04 03/18/22 09:04 03/18/22 09:04 FiO2 2 03/17/22 12:00 Oxygen Flow Rate (L/min) 2 Oxygen Delivery Method Nasal Cannula Weight: 207 lb 3.752 oz Body Mass Index (BMI) 37.8 Intake & Output: Intake and Output for Last 24 Hours 03/17/22 03/18/22 03/19/22 03:59 03:59 03:59 Intake Total 760 / 760 1272.5 / 1272.5 210 / 210 Output Total 100 / 100 50 / 50 0 / 0 Balance 660 / 660 1222.5 / 1222.5 210 / 210 Lab / Micro Data Result Diagrams: 03/18/22 06:50 03/18/22 06:50 Labs: Laboratory Results - last 24 hr 03/15/22 08:15: Crossmatch See Detail 03/17/22 06:22: Complement C3 108 03/17/22 06:22: Total Bilirubin 0.90, Direct Bilirubin 0.46 H, AST 24, ALT 15, Alkaline Phosphatase 117, Total Protein 6.5, Albumin 1.8 L, Globulin 4.7 H 03/17/22 13:23: Hgb 8.3 L, Hct 26.0 L 03/18/22 06:50: WBC 7.0, RBC 3.10 L, Hgb 9.2 L, Hct 28.6 L, MCV 92.3, MCH 29.7, MCHC 32.2, RDW Std Deviation 57.2 H, RDW Coeff of Diandra 17.5 H, Plt Count 176, MPV 9.3, Immature Gran % (Auto) 1.300 H, Neut % (Auto) 87.4 H, Lymph % (Auto) 5.7 L, [place] % (Auto) 4.9, Eos % (Auto) 0.4, Baso % (Auto) 0.3, Absolute Neuts (auto) 6.1, Absolute Lymphs (auto) 0.40 L, Nucleated RBC % 0.3 03/18/22 06:50: PT 24.5 H, INR 2.3 03/18/22 06:50: Sodium 139, Potassium 3.9, Chloride 106, Carbon Dioxide 21.0, Anion Gap 12, BUN 81 H, Creatinine 5.54 H, Estim Creat Clear Calc 6.41, Est GFR (MDRD) Af Amer 10 L, Est GFR (MDRD) Non-Af 8 L, BUN/Creatinine Ratio 14.6, Glucose 107 H, Calcium 8.4 L, Total Bilirubin 1.00, AST 18, ALT 15, Alkaline Phosphatase 112, Total Protein 6.4, Albumin 1.8 L, Globulin 4.6 H, Albumin/Globulin Ratio 0.4 L Micro: Microbiology 03/13/22 06:19 Blood Culture (Wb) - Right Hand Blood Culture - Final GPC Poss Enterococcus sp 03/12/22 15:40 Blood Culture (Wb) - Right Hand Blood Culture - Final GPC Poss Enterococcus sp 03/16/22 23:25 Stool Stool Occult Blood (JOSSUE) - Final 03/15/22 13:20 Blood Culture (Wb) - Right Hand Blood Culture - Preliminary No growth in 48 hours. 03/14/22 09:54 Blood Culture (Wb) - Right Hand Blood Culture - Preliminary No growth in 48 hours. 03/11/22 17:25 Urine, Clean Catch Urine Culture - Final Enterococcus faecalis Mixed Gram Positive Organisms 03/11/22 07:32 Blood Culture (Wb) - Venous Bacteria Detection (PCR) - Final Enterococcus faecalis 03/11/22 07:32 Blood Culture (Wb) - Venous Blood Culture - Final Enterococcus faecalis 03/10/22 00:02 Urine, Clean Catch Urine Culture - Final Mixed Gram Pos & Gram Neg Org 03/11/22 06:40 Nasal Secretion SARS-CoV-2 & FLU Antigen (Rapid) - Final 03/09/22 22:51 Nasal Secretion SARS-CoV-2 Antigen (Rapid) - Final 03/09/22 18:08 Mucosa - Nasopharyngeal Respiratory Panel (PCR) - Final Rhythm Strip Rhythm Strip: A-fib (Episode of irregular broad complex tachycardia. Likely A. fib with aberrancy ([place]'s)) Physical Exam Narrative General: Drowsy but alert, Oriented x3, Cooperative, No apparent distress HEENT: Atraumatic, PERRLA, EOMI, Normocephalic Oral: Moist Mucosa Neck: Supple, No JVD Lungs: Diminished, Normal air movement, No rhonchi, No wheeze, No rales Cardiovascular: Regular rate, Regular Rhythm, Normal S1, Normal S2, No murmurs Abdomen: Soft, Non Tender, Non-Distended, No Hepato-splenomegaly Extremities: No edema, Capillary Refill Less than 3 Seconds Skin: No rashes, No breakdown Musculoskeletal: No Tenderness to Palpation of Joints or Extremities Neurological: Cranial nerves II-XII grossly intact, Motor Exam 5/5 strength throughout, Sensory exam intact to light touch and pain Psych/Mental Status: Normal Affect, Appropriate Assessment & Plan Assessment/Plan (1) NSTEMI, initial episode of care: (2) Atrial fibrillation: PLAN: Plan 1. Acute on chronic diastolic CHF/A. fib with RVR/non-STEMI/supratherapeutic INR/TN/HTN/HLD ? Continue with the fluid restriction ? We will continue to hold her Coumadin she was given a dose of vitamin K now her INR is 2.3, will give her another dose of vitamin K and FFP to try to get her INR below 1.7 so she can have a dialysis catheter placed and start dialysis. ? Echo with an EF of 60% and a bioprosthetic mitral valve with severe pulmonary hypertension ? Stress test was unremarkable, elevated troponin was likely secondary to her RVR ? Plan is for NOHEMY secondary to her chronic bacteremia however given her anemia cardiology would like to wait ?Hemoglobin is 8.6 today after another unit of blood yesterday. She did have an EGD which showed esophagitis and gastritis, continue with PPI and Carafate ? Nephrology consulted secondary to her ATN which is likely a reaction to her diuresis as well as her contrast from the CT scan on 03/14/2022, given her decreased urine output. Of note her blood cultures have been negative for several days 2. UTI with possible bacteremia ? Repeat blood cultures are negative ? Appreciate infectious disease assistance ? Initial 2D echo does not show any vegetations on her bioprosthetic valve, plan for NOHEMY 3. Anemia ?Esophagitis and gastritis on EGD ?Continue with her PPI and Carafate ?Appreciate GIs assistance ?We will have a low threshold for transfusion DVT: Therapeutic INR Charges/Coding Visit Charges Inpatient E&M: 89834 Subs Hosp L2
[2022-03-18 15:03] LABS: International Normalized Ratio 1.9; Prothrombin Time (Protime)PT. 21.4 SECONDS (11.7-14.9)
[2022-03-18] MEDS: Lidocaine 1% (20 ml mdv) 20 ML Vial 10 ML INFILT (16:30)
--- NOTE | 2022-03-18 16:30 | RAD_ITS ---
STUDY: X-RAY CHEST REASON FOR EXAM: Female, 81 years old. dialysis cath line placement verification TECHNIQUE: Single frontal view of the chest. COMPARISON: March 11, 2022 FINDINGS: Sternotomy wires and atrial appendage clip again noted. New right subclavian catheter terminates in the superior vena cava. Prosthetic heart valve. SUGGESTED. Increased left lower lobe airspace disease. There is no demonstrated pleural abnormality. Normal size heart. Normal mediastinum and patria. Normal visualized pulmonary arteries. Normal visualized aortic arch and descending thoracic aorta. Normal visualized thoracic spine. Normal visualized ribs, clavicles, and shoulders. There is no demonstrated abnormality of the visualized soft tissue structures of the upper abdomen. RAD/CXR for Line Placement IMPRESSION: Increasing left lower lobe infiltrate. New right subclavian catheter. No pneumothorax. Electronically Signed: Gregorio Su MD at 17:17 EST ,
[2022-03-18] MEDS: Acetaminophen 325 MG Tablet 650 MG PO (16:50)
--- NOTE | 2022-03-18 20:46 | OP.PCM_ITS ---
Report of Operation Date of Procedure: 03/18/22 Pre-Operative Diagnosis: acute renal failure, need for dialysis, need for dialy sis catheter Post-Operative Diagnosis: same Surgery/Procedure Performed:: placement of double lumen dialysis catheter in right subclavian vein Surgeon: Nancy Wasserman Type of Anesthesia: Local Estimated Blood Loss (mL): 10 ml Description of Procedure: After informed consent was given, the patient was supine in her hospital bed as this was a bedside procedure. The patient?s right upper chest and neck were then prepped with a surgical skin preparation and sterile surgical drapes were placed. The skin of the neck and upper chest area was infiltrated with local anesthetic - 1% xylocaine.- a total of 15 ml was used. The US machine was used for real time imaging. The right IJ was identified. A needle trocar was then inserted attempted to be inserted into the RIJ but without success. Therefore, the right subclavian vein was attempted to be accessed. A needle trocar was inserted into the right subclavian vein and there was good aspiration of venous blood. A wire was then threaded into the needle trocar. Once this was done, then the needle trocar was removed. A small skin ronny was made with an 11 blade knife at the wire entrance site. The dilators in the kit were then passed over the wire into the right subclavian vein via the Seldinger technique. Then the dialysis catheter itself was then passed over the wire into the right subclavian vein via the Seldinger technique. There was good aspiration of blood. The catheter was then flushed with normal saline. It was then sutured to the chest wall skin. Sterile dressing was applied. The patient tolerated the procedure well. Complications none noted
--- NOTE | 2022-03-18 21:12 | DIALYSIS ---
2044 Hemodialysis treatment x 2.5 hours. Net UF 0 (even). Patient tolerated well, without complaints or adverse clinical S&S. Catheter positional (red port difficult to flush or draw without manipulation). HD run with ports reversed, able to sustain BFR 250 to 300 - high VPs (>250). Catheter insertion site seeping blood - dressing reinforced by packing sterile gauze beneath catheter, under existing dressing, near insertion point. Each catheter lumen closed with 1.3 ml heparin (1000 units/ml). This volume was best estimate, because fill volumes are NOT marked on either catheter port or visible portion of catheter hub (markings do show that catheter is 12 Fr, 16mm length). Blood sample drawn for Hep B sAg and sAb screen. Reported the foregoing information to staff RNs (Pretty).
[2022-03-18 21:23] LABS: Hepatitis B Surface Antibody Non-Reactive; Hepatitis B Surface Antigen Non-Reactive (Nonreactive)
[2022-03-19] VITALS (16 sets, daily range): BP systolic 113–129; BP diastolic 50–66; PULSE 74–90; RESP 18; TEMP 36.1–36.9; O2SAT 92–95
[2022-03-19] MEDS: Nystatin Powder 15gm Bottle 1 APPLIC TOPICAL ×4 (00:19→20:34)
[2022-03-19] MEDS: Heparin 10,000 UNITS/10 ML Vial IV (00:20)
[2022-03-19] MEDS: Menthol/Lanolin/Calamine/Znox 113 GM Tube 1 APPLIC TOPICAL ×4 (00:33→20:34)
[2022-03-19] MEDS: Atorvastatin Calcium 40 MG Tablet PO ×2 (00:35→20:34)
[2022-03-19] MEDS: Metoprolol Tartrate 100 MG Tablet PO ×3 (00:36→20:34)
[2022-03-19 06:52] LABS: Absolute Lymphocyte Count 0.34 X10^3/uL (0.83-4.51); Absolute Neutrophil Count 4.5 X10^3/uL (2.0-7.7); Basophil# 0.01 X10^3/uL; Basophil% 0.2 % (0-1); Eosinophil# 0.02 X10^3/uL; Eosinophils% 0.4 % (0-5); Hematocrit 28.6 % (37-47); Hemoglobin 9.3 g/dL (12.0-15.0); Lymphocyte # 0.34 X10^3/ul (0.83-4.51); Lymphocyte % 6.5 % (19-41); Mean Corp Hgb Conc 32.5 g/dL (32-36); Mean Corpuscular Hgb 30.4 pg (27.0-32.0); Mean Corpuscular Volume 93.5 fL (81-99); Mean Platelet Vol. 9.2 fl (6.2-12.0); Monocyte% 5.8 % (0-10); NRBC Flagged by Analyzer 0 % (0-5); Neutrophil # 4.49 X10^3/uL (2.7-7.7); Neutrophil % 86.3 % (47-70); POSITIVE DIFFERENTIAL YES; Platelet Count 173 K/mm3 (150-450); RBC Distribution Width CV 17.4 % (11.6-14.6); RBC Distribution Width SD 57.2 fl (35.1-43.9); Red Blood Count 3.06 M/mm3 (4.2-5.4); White Blood Count 5.2 K/mm3 (4.4-11.0)
[2022-03-19 06:55] LABS: Differential Indicated SCAN CRITERIA MET
[2022-03-19 07:01] LABS: International Normalized Ratio 1.5; Prothrombin Time (Protime)PT. 17.4 SECONDS (11.7-14.9)
[2022-03-19 07:16] LABS: Anion Gap 9 (5-15); BUN 43 mg/dL (7-18); Calcium,Total 8.5 mg/dL (8.5-10.1); Chloride 105 mmol/L (98-107); Creatinine, Serum 3.32 mg/dL (0.55-1.02); Differential Comment SCANNED; EST Glomerular Filtration Rate 14 mL/min (>60); Est Glom Filt Rate - Afr Amer 17 mL/min (>60); Estimated Creatinine Clearance 10.69 ml/min; Glucose 94 mg/dL (74-106); Potassium 3.6 mmol/L (3.5-5.1); Sodium Level 138 mmol/L (136-145)
[2022-03-19] MEDS: Clopidogrel Bisulfate 75 MG Tablet PO (09:06)
[2022-03-19] MEDS: dilTIAZem CD 240 MG Capsule PO (09:07)
[2022-03-19] MEDS: Acetaminophen 325 MG Tablet 650 MG PO ×2 (09:15→20:37)
--- NOTE | 2022-03-19 10:44 | PCM.PN.BLA ---
Progress Note Patient s/p placement of right subclavian dialysis catheter, site looks OK Will sign off case Please re-consult general surgery if required
--- NOTE | 2022-03-19 10:46 | PCM.PN.HOSP ---
Subjective Subjective Feels little bit better today after her dialysis yesterday. Objective Data Objective Data Vital Signs: Vital Signs Temp Pulse Resp BP Pulse Ox O2 Del Method O2 Flow Rate 97.9 F 80 18 113/66 93 Nasal Cannula 2 03/19/22 09:04 03/19/22 09:06 03/19/22 09:04 03/19/22 09:04 03/19/22 09:50 03/19/22 09:50 03/19/22 09:50 FiO2 2 03/19/22 06:00 Oxygen Flow Rate (L/min) 2 Oxygen Delivery Method Nasal Cannula Weight: 208 lb 15.971 oz Body Mass Index (BMI) 37.8 Intake & Output: Intake and Output for Last 24 Hours 03/18/22 03/19/22 03/20/22 03:59 03:59 03:59 Intake Total 1272.5 / 1272.5 1460 / 1460 310 / 310 Output Total 50 / 50 / Balance 1222.5 / 1222.5 1459 / 1459 310 / 310 Lab / Micro Data Result Diagrams: 03/19/22 06:15 03/19/22 06:15 Labs: Laboratory Results - last 24 hr 03/15/22 08:15: Crossmatch See Detail 03/18/22 10:07: Blood Type A POSITIVE 03/18/22 14:39: PT 21.4 H, INR 1.9 03/18/22 20:00: Hep Bs Antigen Non-Reactive, Hep Bs Antibody Non-Reactive 03/19/22 06:15: PT 17.4 H, INR 1.5 03/19/22 06:15: WBC 5.2, RBC 3.06 L, Hgb 9.3 L, Hct 28.6 L, MCV 93.5, MCH 30.4, MCHC 32.5, RDW Std Deviation 57.2 H, RDW Coeff of Diandra 17.4 H, Plt Count 173, MPV 9.2, Immature Gran % (Auto) 0.800, Neut % (Auto) 86.3 H, Lymph % (Auto) 6.5 L, Stewart % (Auto) 5.8, Eos % (Auto) 0.4, Baso % (Auto) 0.2, Absolute Neuts (auto) 4.5, Absolute Lymphs (auto) 0.34 L, Nucleated RBC % 0, Differential Comment SCANNED 03/19/22 06:15: Sodium 138, Potassium 3.6, Chloride 105, Carbon Dioxide 24.0, Anion Gap 9, BUN 43 H, Creatinine 3.32 H, Estim Creat Clear Calc 10.69, Est GFR (MDRD) Af Amer 17 L, Est GFR (MDRD) Non-Af 14 L, BUN/Creatinine Ratio 13.0, Glucose 94, Calcium 8.5 Micro: Microbiology 03/13/22 06:19 Blood Culture (Wb) - Right Hand Blood Culture - Final GPC Poss Enterococcus sp 03/12/22 15:40 Blood Culture (Wb) - Right Hand Blood Culture - Final GPC Poss Enterococcus sp 03/16/22 23:25 Stool Stool Occult Blood (JOSSUE) - Final 03/15/22 13:20 Blood Culture (Wb) - Right Hand Blood Culture - Preliminary No growth in 48 hours. 03/14/22 09:54 Blood Culture (Wb) - Right Hand Blood Culture - Preliminary No growth in 48 hours. 03/11/22 17:25 Urine, Clean Catch Urine Culture - Final Enterococcus faecalis Mixed Gram Positive Organisms 03/11/22 07:32 Blood Culture (Wb) - Venous Bacteria Detection (PCR) - Final Enterococcus faecalis 03/11/22 07:32 Blood Culture (Wb) - Venous Blood Culture - Final Enterococcus faecalis 03/10/22 00:02 Urine, Clean Catch Urine Culture - Final Mixed Gram Pos & Gram Neg Org 03/11/22 06:40 Nasal Secretion SARS-CoV-2 & FLU Antigen (Rapid) - Final 03/09/22 22:51 Nasal Secretion SARS-CoV-2 Antigen (Rapid) - Final 03/09/22 18:08 Mucosa - Nasopharyngeal Respiratory Panel (PCR) - Final Radiography Diagnostic Testing: Radiology Impression Chest X-Ray 03/18/22 16:30 IMPRESSION: Increasing left lower lobe infiltrate. New right subclavian catheter. No pneumothorax. Electronically Signed: Gregorio Su MD at 17:17 EST , Rhythm Strip Rhythm Strip: A-fib (Episode of irregular broad complex tachycardia. Likely A. fib with aberrancy (Chula's)) Physical Exam Narrative General: Drowsy but alert, Oriented x3, Cooperative, No apparent distress HEENT: Atraumatic, PERRLA, EOMI, Normocephalic Oral: Moist Mucosa Neck: Supple, No JVD Lungs: Diminished, Normal air movement, No rhonchi, No wheeze, No rales Cardiovascular: Regular rate, Regular Rhythm, Normal S1, Normal S2, No murmurs Abdomen: Soft, Non Tender, Non-Distended, No Hepato-splenomegaly Extremities: No edema, Capillary Refill Less than 3 Seconds Skin: No rashes, No breakdown dressing around the dialysis catheter with some bleeding Musculoskeletal: No Tenderness to Palpation of Joints or Extremities Neurological: Cranial nerves II-XII grossly intact, Motor Exam 5/5 strength throughout, Sensory exam intact to light touch and pain Psych/Mental Status: Normal Affect, Appropriate Assessment & Plan Assessment/Plan (1) NSTEMI, initial episode of care: (2) Atrial fibrillation: PLAN: Plan 1. Acute on chronic diastolic CHF/A. fib with RVR/non-STEMI/supratherapeutic INR/TN/HTN/HLD ? Continue with the fluid restriction ? INR is down to 1.5, continue with dialysis appreciate surgery's assistance with placing the line ? Echo with an EF of 60% and a bioprosthetic mitral valve with severe pulmonary hypertension ? Stress test was unremarkable, elevated troponin was likely secondary to her RVR ? Plan is for NOHEMY secondary to her chronic bacteremia however given her anemia cardiology would like to wait ?Hemoglobin is 9.3 today. She did have an EGD which showed esophagitis and gastritis, continue with PPI and Carafate ? Nephrology consulted secondary to her ATN which is likely a reaction to her diuresis as well as her contrast from the CT scan on 03/14/2022, given her decreased urine output. Of note her blood cultures have been negative for several days 2. UTI with possible bacteremia ? Repeat blood cultures are negative ? Appreciate infectious disease assistance ? Initial 2D echo does not show any vegetations on her bioprosthetic valve, plan for NOHEMY 3. Anemia ?Esophagitis and gastritis on EGD ?Continue with her PPI and Carafate ?Appreciate GIs assistance ?We will have a low threshold for transfusion DVT: SCDs Charges/Coding Visit Charges Inpatient E&M: 28183 Subs Hosp L2
[2022-03-20] VITALS (12 sets, daily range): BP systolic 109–136; BP diastolic 50–75; PULSE 78–104; RESP 18–20; TEMP 36.6–37; O2SAT 92–95
[2022-03-20] MEDS: Nystatin Powder 15gm Bottle 1 APPLIC TOPICAL ×3 (04:47→20:14)
[2022-03-20] MEDS: Menthol/Lanolin/Calamine/Znox 113 GM Tube 1 APPLIC TOPICAL ×3 (04:47→20:14)
[2022-03-20] MEDS: Acetaminophen 325 MG Tablet 650 MG PO ×3 (05:59→20:56)
[2022-03-20 06:55] LABS: Absolute Lymphocyte Count 0.37 X10^3/uL (0.83-4.51); Absolute Neutrophil Count 4.8 X10^3/uL (2.0-7.7); Basophil# 0.02 X10^3/uL; Basophil% 0.4 % (0-1); Eosinophil# 0.02 X10^3/uL; Eosinophils% 0.4 % (0-5); Hematocrit 29.4 % (37-47); Hemoglobin 9.3 g/dL (12.0-15.0); Lymphocyte # 0.37 X10^3/ul (0.83-4.51); Lymphocyte % 6.6 % (19-41); Mean Corp Hgb Conc 31.6 g/dL (32-36); Mean Corpuscular Hgb 30.5 pg (27.0-32.0); Mean Corpuscular Volume 96.4 fL (81-99); Mean Platelet Vol. 9.5 fl (6.2-12.0); Monocyte# 0.37 X10^3/uL; Monocyte% 6.6 % (0-10); NRBC Flagged by Analyzer 0 % (0-5); Neutrophil # 4.79 X10^3/uL (2.7-7.7); Neutrophil % 84.9 % (47-70); POSITIVE DIFFERENTIAL YES; Platelet Count 171 K/mm3 (150-450); RBC Distribution Width CV 17.3 % (11.6-14.6); RBC Distribution Width SD 58.2 fl (35.1-43.9); Red Blood Count 3.05 M/mm3 (4.2-5.4); White Blood Count 5.6 K/mm3 (4.4-11.0)
[2022-03-20 06:57] LABS: Differential Indicated SCAN CRITERIA MET
[2022-03-20 07:18] LABS: ALB/GLOB Ratio 0.4 RATIO (0.9-2.4); AST(SGOT) 22 U/L (15-37); Alanine Aminotransfer ALT/SGPT 17 U/L (13-56); Albumin, Serum 1.9 g/dL (3.2-5.0); Alkaline Phosphatase 115 U/L (45-117); Anion Gap 8 (5-15); BUN 49 mg/dL (7-18); BUN/Creat Ratio 13.9 RATIO (10-20); Calcium,Total 8.7 mg/dL (8.5-10.1); Chloride 108 mmol/L (98-107); Creatinine, Serum 3.53 mg/dL (0.55-1.02); EST Glomerular Filtration Rate 13 mL/min (>60); Est Glom Filt Rate - Afr Amer 16 mL/min (>60); Estimated Creatinine Clearance 10.05 ml/min; Globulin 4.6 g/dL (2.2-4.2); Glucose 88 mg/dL (74-106); Potassium 3.3 mmol/L (3.5-5.1); Protein, Total 6.5 g/dL (6.4-8.2); Sodium Level 140 mmol/L (136-145)
[2022-03-20 07:27] LABS: Protein:Creat Ratio 1607 mg/g CRE (0-200); Urine Sodium 25 mmol/L (Not Establ.)
[2022-03-20] MEDS: Heparin 10,000 UNITS/10 ML Vial 2000 UNITS IV (09:30)
--- NOTE | 2022-03-20 09:37 | CASEMGMT ---
Discharge Drywall Taper Helper This blurb writer sent updates to [place]. This blurb writer also let Karin know patient is a new Dialysis patient. Jerad TINOCO Care Coordinator
--- NOTE | 2022-03-20 10:43 | WOUNDNOTE ---
Was asked to see patient per nursing for dryness to bilateral lower legs. there are a few small scabs noted to the right tate. some dry thick skin noted to the ankles and feet. there are no open areas noted. legs tender to touch. washed legs and feet with soap and water. pat dry. applied aloe vesta. no need for wound care at this time. will follow as needed. see skin photos.
--- NOTE | 2022-03-20 11:22 | PN.HOSP_ITS ---
Subjective Subjective Patient seen and examined. She was having dialysis. SHe had no active complaints and review of systems is otherwise negative. She is to have NOHEMY tomorrow. Objective Data Objective Data Vital Signs: Vital Signs Temp Pulse Resp BP Pulse Ox O2 Del Method O2 Flow Rate 97.9 F 83 18 118/54 L 92 Nasal Cannula 2 03/20/22 06:00 03/20/22 07:13 03/20/22 06:00 03/20/22 06:00 03/20/22 06:00 03/20/22 08:20 03/20/22 08:20 FiO2 2 03/19/22 06:00 Oxygen Flow Rate (L/min) 2 Oxygen Delivery Method Nasal Cannula Weight: 208 lb 1.862 oz Body Mass Index (BMI) 37.8 Intake & Output: Intake and Output for Last 24 Hours 03/18/22 03/19/22 03/20/22 23:59 23:59 23:59 Intake Total 1460 / 1460 800 / 800 Output Total 350 / 350 135 / 135 Balance 1459 / 1459 450 / 450 -135 / -135 Lab / Micro Data Result Diagrams: 03/20/22 05:52 03/20/22 05:52 Labs: Laboratory Results - last 24 hr 03/20/22 04:50: U Random Total Protein 180.0 H, Ur Random Sodium 25, Urine Crea tinine 112.00, Protein/Creatinin Ratio 1607 H 03/20/22 05:52: Sodium 140, Potassium 3.3 L, Chloride 108 H, Carbon Dioxide 24.0, Anion Gap 8, BUN 49 H, Creatinine 3.53 H, Estim Creat Clear Calc 10.05, Est GFR (MDRD) Af Amer 16 L, Est GFR (MDRD) Non-Af 13 L, BUN/Creatinine Ratio 13.9, Glucose 88, Calcium 8.7, Total Bilirubin 1.30 H, AST 22, ALT 17, Alkaline Phosphatase 115, Total Protein 6.5, Albumin 1.9 L, Globulin 4.6 H, Albumin/Gl obulin Ratio 0.4 L 03/20/22 05:52: WBC 5.6, RBC 3.05 L, Hgb 9.3 L, Hct 29.4 L, MCV 96.4, MCH 30.5, MCHC 31.6 L, RDW Std Deviation 58.2 H, RDW Coeff of Diandra 17.3 H, Plt Count 171, MPV 9.5, Immature Gran % (Auto) 1.100 H, Neut % (Auto) 84.9 H, Lymph % (Auto) 6.6 L, Leslie % (Auto) 6.6, Eos % (Auto) 0.4, Baso % (Auto) 0.4, Absolute Neuts (auto) 4.8, Absolute Lymphs (auto) 0.37 L, Nucleated RBC % 0 Micro: Microbiology 03/14/22 09:54 Blood Culture (Wb) - Right Hand Blood Culture - Final No growth in 5 days. 03/13/22 06:19 Blood Culture (Wb) - Right Hand Blood Culture - Final GPC Poss Enterococcus sp 03/12/22 15:40 Blood Culture (Wb) - Right Hand Blood Culture - Final GPC Poss Enterococcus sp 03/16/22 23:25 Stool Stool Occult Blood (JOSSUE) - Final 03/15/22 13:20 Blood Culture (Wb) - Right Hand Blood Culture - Preliminary No growth in 48 hours. 03/11/22 17:25 Urine, Clean Catch Urine Culture - Final Enterococcus faecalis Mixed Gram Positive Organisms 03/11/22 07:32 Blood Culture (Wb) - Venous Bacteria Detection (PCR) - Final Enterococcus faecalis 03/11/22 07:32 Blood Culture (Wb) - Venous Blood Culture - Final Enterococcus faecalis 03/10/22 00:02 Urine, Clean Catch Urine Culture - Final Mixed Gram Pos & Gram Neg Org 03/11/22 06:40 Nasal Secretion SARS-CoV-2 & FLU Antigen (Rapid) - Final 03/09/22 22:51 Nasal Secretion SARS-CoV-2 Antigen (Rapid) - Final 03/09/22 18:08 Mucosa - Nasopharyngeal Respiratory Panel (PCR) - Final Rhythm Strip Rhythm Strip: A-fib (Episode of irregular broad complex tachycardia. Likely A. fib with aberrancy (Chula's)) Physical Exam Const alert, oriented x3 and no apparent distress Constitutional Narrative: frail HEENT head/scalp atraumatic, moist oral mucous membranes and oropharynx normal Head and Scalp: normocephalic Mouth: oral and palatal mucosa normal Eyes PERRL, EOMs intact bilaterally and conjunctivae normal Neck no lymphadenopathy and supple Resp Resp Narrative: diminished breath sounds bibasally, no wheezes or crackles. on room air Cardio regular rate, regular rhythm, S1 normal heart sound, S2 normal heart sound and no murmurs GI normal to inspection, nondistended, normoactive bowel sounds, soft to palpation, non-tender and non-distended Extremity normal to inspection, full ROM and no clubbing, cyanosis or edema Extremity Narrative: dialysis catheter in left side of chest Neuro oriented x3, CN's II-XII intact bilaterally, moves all extremities and no focal motor deficits Sensorium / Orientation: awake Motor Exam: strength 5/5 throughout Psych affect normal Assessment & Plan Assessment/Plan (1) Acute renal failure: (2) Bacteremia due to Enterococcus: (3) Anemia: (4) Anemia: (5) GI bleed: (6) CKD (chronic kidney disease) stage 4, GFR 15-29 ml/min: PLAN: Plan #Acute on chronic HFpEF * now on dialysis due to JACQUIE. #Afib with RVR * Resolved. On metoprolol and cardizem * On Eliquis. #Acute on chronic anemia: Status posttransfusion. Had EGD which showed esophagitis and gastritis. On PPI and Carafate. #Nonstemi #JACQUIE on CKD * Thought it was due to ATN from dialysis and probable contrast induced nephropathy from CAT scan done on 03/14/2022. * now requiring dialysis * having dialysis today. nephrology on board * * #Bacteremia * blood cultures grew Enterococcus faecalis; repeat blood cultures were negative. * on IV ampicillin * ID on board * TTE showed no evidence of vegetations * NOHEMY ordered; to be done tomorrow * #Hypokalemia: resolved #Hypertension: on metoprolol ans losartan #Bilateral knee arthritis: on tylenol #Chronic bilateral LE edema: SANTHOSH wraps #Mitral valve disease: S/p mitral valve replacement with prosthetic valve. DVT prophylaxis: on coumadin. Charges/Coding Visit Charges Inpatient E&M: 14835 Subs Hosp L3
--- NOTE | 2022-03-20 11:38 | WOUNDNOTE ---
skin photo: right lower leg
--- NOTE | 2022-03-20 11:39 | WOUNDNOTE ---
skin photo: left lower leg
--- NOTE | 2022-03-20 11:45 | CASEMGMT ---
NARENDRA SHARIF in room to discuss outpatient HD. NARENDRA SHARIF review facilities with patient, patient agreeable to [facility]. Patient had no further questions or concerns. NARENDRA SHARIF completed outpatient HD referral on [facility] Admissions Portal. NARENDRA SHARIF updated SW regarding outpatient HD setup. CM will continue to follow this patient and assist with discharge planning.
--- NOTE | 2022-03-20 13:24 | PCM.PN.ID ---
Physical Exam Narrative Not feeling any better, no fever, no n/v/d. Const alert and no apparent distress Resp normal air movement and clear to auscultation bilaterally Cardio regular rate and regular rhythm GI soft to palpation, non-tender and non-distended Extremity General Extremity: edema Skin no rashes or lesions noted ID ID: Route of nutrition/ use of supplements: [] Nutritional Intake: [] IV Site: [] Hernandez Catheter: [] Assessment & Plan Assessment/Plan (1) S/P MVR (mitral valve replacement): (2) UTI (urinary tract infection): PLAN: enterococcus bacteremia secondary to uti. 03/14 changed vanc to ampicillin. Repeat bcx neg. Ordered NOHEMY given presence of tissue valve replacement. Spoke with lab at [place], no bcx were collected there. Now on HD, neph following. Will follow (3) Bacteremia due to Enterococcus:
[2022-03-20] MEDS: 0.9% Saline Lock 10 ML Syringe IV (13:30)
[2022-03-20] MEDS: Potassium Chloride Oral Tablet 20 MEQ 40 MEQ PO (13:31)
[2022-03-20] MEDS: dilTIAZem CD 240 MG Capsule PO (13:31)
[2022-03-20] MEDS: Clopidogrel Bisulfate 75 MG Tablet PO (13:32)
--- NOTE | 2022-03-20 13:43 | PCM.PN.REN ---
Subjective Subjective seen on dialysis, tolerating well so far. Atempt 1L fluid removal. BP stable Objective Data Objective Data Vital Signs: Vital Signs Temp Pulse Resp BP Pulse Ox O2 Del Method O2 Flow Rate 97.9 F 104 H 18 118/54 L 92 Nasal Cannula 2 03/20/22 06:00 03/20/22 11:43 03/20/22 06:00 03/20/22 06:00 03/20/22 06:00 03/20/22 08:20 03/20/22 08:20 FiO2 2 03/19/22 06:00 Oxygen Flow Rate (L/min) 2 Oxygen Delivery Method Nasal Cannula Weight: 94.4 kg Body Mass Index (BMI) 37.8 Intake & Output: Intake and Output for Last 24 Hours 03/18/22 03/19/22 03/20/22 23:59 23:59 23:59 Intake Total 1460 / 1460 800 / 800 120 / 120 Output Total 350 / 350 135 / 135 Balance 1459 / 1459 450 / 450 -15 / -15 Lab / Micro Data Result Diagrams: 03/20/22 05:52 03/20/22 05:52 Labs: Laboratory Results - last 24 hr 03/20/22 04:50: U Random Total Protein 180.0 H, Ur Random Sodium 25, Urine Creatinine 112.00, Protein/Creatinin Ratio 1607 H 03/20/22 05:52: Sodium 140, Potassium 3.3 L, Chloride 108 H, Carbon Dioxide 24.0, Anion Gap 8, BUN 49 H, Creatinine 3.53 H, Estim Creat Clear Calc 10.05, Est GFR (MDRD) Af Amer 16 L, Est GFR (MDRD) Non-Af 13 L, BUN/Creatinine Ratio 13.9, Glucose 88, Calcium 8.7, Total Bilirubin 1.30 H, AST 22, ALT 17, Alkaline Phosphatase 115, Total Protein 6.5, Albumin 1.9 L, Globulin 4.6 H, Albumin/Globulin Ratio 0.4 L 03/20/22 05:52: WBC 5.6, RBC 3.05 L, Hgb 9.3 L, Hct 29.4 L, MCV 96.4, MCH 30.5, MCHC 31.6 L, RDW Std Deviation 58.2 H, RDW Coeff of Diandra 17.3 H, Plt Count 171, MPV 9.5, Immature Gran % (Auto) 1.100 H, Neut % (Auto) 84.9 H, Lymph % (Auto) 6.6 L, [place] % (Auto) 6.6, Eos % (Auto) 0.4, Baso % (Auto) 0.4, Absolute Neuts (auto) 4.8, Absolute Lymphs (auto) 0.37 L, Nucleated RBC % 0 Micro: Microbiology 03/14/22 09:54 Blood Culture (Wb) - Right Hand Blood Culture - Final No growth in 5 days. 03/13/22 06:19 Blood Culture (Wb) - Right Hand Blood Culture - Final GPC Poss Enterococcus sp 03/12/22 15:40 Blood Culture (Wb) - Right Hand Blood Culture - Final GPC Poss Enterococcus sp 03/16/22 23:25 Stool Stool Occult Blood (JOSSUE) - Final 03/15/22 13:20 Blood Culture (Wb) - Right Hand Blood Culture - Preliminary No growth in 48 hours. 03/11/22 17:25 Urine, Clean Catch Urine Culture - Final Enterococcus faecalis Mixed Gram Positive Organisms 03/11/22 07:32 Blood Culture (Wb) - Venous Bacteria Detection (PCR) - Final Enterococcus faecalis 03/11/22 07:32 Blood Culture (Wb) - Venous Blood Culture - Final Enterococcus faecalis 03/10/22 00:02 Urine, Clean Catch Urine Culture - Final Mixed Gram Pos & Gram Neg Org 03/11/22 06:40 Nasal Secretion SARS-CoV-2 & FLU Antigen (Rapid) - Final 03/09/22 22:51 Nasal Secretion SARS-CoV-2 Antigen (Rapid) - Final 03/09/22 18:08 Mucosa - Nasopharyngeal Respiratory Panel (PCR) - Final Rhythm Strip Rhythm Strip: A-fib (Episode of irregular broad complex tachycardia. Likely A. fib with aberrancy (Chula's)) Physical Exam Const alert and oriented x3 Constitutional Narrative: weak, debilitated Cardio Rhythm: abnormal rhythm irregularly irregular GI non-tender and non-distended Auscultation: normoactive bowel sounds Palpation: soft Extremity no clubbing, cyanosis or edema Psych cooperative Assessment & Plan Assessment/Plan (1) Acute renal failure: PLAN: acute on CKD stage 4 due to ATN. Dialysis dependent. Urine output poor, minimal with rising creatinine. Dialysis next on Sunday. (2) CKD (chronic kidney disease) stage 4, GFR 15-29 ml/min: PLAN: Creatinine 1.58 eCRCL 22cc/min on admit. (3) Bacteremia due to Enterococcus: PLAN: ID following on ampicillin iv. Repeat Blood cx no growth so far (4) UTI (urinary tract infection): PLAN: on antibx (5) Pulmonary hypertension: PLAN: chronic lymphedema with venous stasis skin changes in legs (6) S/P MVR (mitral valve replacement): (7) Atrial fibrillation: PLAN: with rvr, rate controlled on metoprolol, cardizem. Cardiology mgmt (8) Congestive heart failure: PLAN: oxygenation stable (9) Leg edema: PLAN: hx lymphedema (10) Hypertension: QUALIFIERS: Hypertension type: essential hypertension PLAN: history. Maintain SBP >100 for renal perfusion (11) Anemia: PLAN: prbc as needed
[2022-03-20] MEDS: Metoprolol Tartrate 100 MG Tablet PO ×2 (13:48→20:15)
--- NOTE | 2022-03-20 15:45 | DIALYSIS ---
1300: Hemodialysis 3 hrs, Net UF 1000 ml, VSS, no complaints. HD ctheter positional (red port occludes with patient head position changes), blood returned to patient at end of treatment, HD catheter ports closed with heparin (1.3 ml each lumen - volumes estimated because catheter ports have no fill volume markings). HD insertion surgical dressing removed, blood clots removed, site cleaned and sterilized, new CHG dressing applied - no visible seepage from site.RN report at bedside. Per Dr. Johnson, next hemodialysis treatment on 03/22/22.
[2022-03-20] MEDS: Nepro with Carbsteady 237 ML Liquid 120 ML PO (16:00)
[2022-03-20] MEDS: Atorvastatin Calcium 40 MG Tablet PO (20:15)
[2022-03-21] VITALS (23 sets, daily range): BP systolic 107–130; BP diastolic 50–75; PULSE 74–100; RESP 16–23; TEMP 36.3–37.5; O2SAT 90–98
[2022-03-21] MEDS: Menthol/Lanolin/Calamine/Znox 113 GM Tube 1 APPLIC TOPICAL ×3 (04:44→20:27)
[2022-03-21] MEDS: Nystatin Powder 15gm Bottle 1 APPLIC TOPICAL ×3 (04:44→20:27)
[2022-03-21 05:53] LABS: Absolute Lymphocyte Count 0.42 X10^3/uL (0.83-4.51); Absolute Neutrophil Count 4.6 X10^3/uL (2.0-7.7); Basophil# 0.02 X10^3/uL; Basophil% 0.4 % (0-1); Eosinophil# 0.03 X10^3/uL; Eosinophils% 0.5 % (0-5); Hematocrit 27.5 % (37-47); Lymphocyte # 0.42 X10^3/ul (0.83-4.51); Lymphocyte % 7.6 % (19-41); Mean Corp Hgb Conc 32.7 g/dL (32-36); Mean Corpuscular Hgb 30.8 pg (27.0-32.0); Mean Corpuscular Volume 94.2 fL (81-99); Mean Platelet Vol. 8.9 fl (6.2-12.0); Monocyte# 0.37 X10^3/uL; Monocyte% 6.7 % (0-10); NRBC Flagged by Analyzer 0 % (0-5); Neutrophil # 4.62 X10^3/uL (2.7-7.7); Neutrophil % 83.9 % (47-70); POSITIVE DIFFERENTIAL YES; Platelet Count 162 K/mm3 (150-450); RBC Distribution Width CV 17.1 % (11.6-14.6); RBC Distribution Width SD 57.2 fl (35.1-43.9); Red Blood Count 2.92 M/mm3 (4.2-5.4); White Blood Count 5.5 K/mm3 (4.4-11.0)
[2022-03-21 05:54] LABS: Differential Indicated SCAN CRITERIA MET
[2022-03-21 06:12] LABS: Anisocytosis 1+
[2022-03-21 06:29] LABS: Anion Gap 7 (5-15); BUN 27 mg/dL (7-18); BUN/Creat Ratio 13.2 RATIO (10-20); Calcium,Total 8.5 mg/dL (8.5-10.1); Chloride 107 mmol/L (98-107); Creatinine, Serum 2.04 mg/dL (0.55-1.02); EST Glomerular Filtration Rate 25 mL/min (>60); Est Glom Filt Rate - Afr Amer 30 mL/min (>60); Glucose 95 mg/dL (74-106); Potassium 3.7 mmol/L (3.5-5.1); Sodium Level 141 mmol/L (136-145)
--- NOTE | 2022-03-21 08:00 | [place]OT[place]_ITS ---
Reason For Study: Murmur Medication NOHEMY probe 6VT-D (SN [id number]) passed with minimal difficulty. No complications were noted. Cetacaine Topical Manson given X3 orally. Versed 1 mg given slow IVP. Fentanyl 75 mcg given slow IVP. Performed a rapid injection of agitated mix of 9 cc saline and 1cc air to assess for atrial septal defect. Left Ventricle Normal LV size. Left ventricular systolic function is normal. The estimated ejection fraction is 55 %. No regional wall motion abnormalities noted. Right Ventricle Normal RV size. Normal systolic function. Atria Bubble contrast study negative for right to left interatrial shunt. The left atrium is severely enlarged. Normal right atrium. Mitral Valve Bioprosthetic mitral valve. Cannot exclude a tiny less than 0.5 cm freely mobile mass on the mitral valve leaflet. Tricuspid Valve Mild tricuspid valve insufficiency. An annuloplasty ring is noted in the tricuspid position. Aortic Valve Trisinus/trileaflet aortic valve. Aortic valve vegetation(s)/mass of the left coronary cusp. measures about 0.5 cm. mobile. Mild (1+) aortic valve insufficiency. Pulmonic Valve Normal pulmonic valve. Vessels Normal aortic root. The pulmonary artery is normal size. Pericardium No pericardial effusion. Patient Safety Limited views obtained due to patient condition of esophageal varices. ECHO/Echo Transesophageal (NOHEMY) Interpretation Summary Normal LV size. Left ventricular systolic function is normal. The estimated ejection fraction is 55 %. Trisinus/trileaflet aortic valve. Aortic valve vegetation(s)/mass of the left coronary cusp. Bioprosthetic mitral valve. Cannot exclude a tiny less than 0.5 cm freely mobile mass on the mitral valve l eaflet Ordering Physician: Hu Kumar Referring Physician: Qasim Carreon Performed By: Graham Lofton RCS
[2022-03-21] MEDS: Pantoprazole Sodium 40 MG Tablet PO (09:29)
[2022-03-21] MEDS: 0.9% Saline Lock 10 ML Syringe IV (09:29)
[2022-03-21] MEDS: Nepro with Carbsteady 237 ML Liquid 120 ML PO ×3 (09:30→17:41)
[2022-03-21] MEDS: Metoprolol Tartrate 100 MG Tablet PO ×2 (09:30→20:26)
[2022-03-21] MEDS: dilTIAZem CD 240 MG Capsule PO (09:30)
[2022-03-21] MEDS: Clopidogrel Bisulfate 75 MG Tablet PO (09:30)
[2022-03-21] MEDS: Acetaminophen 325 MG Tablet 650 MG PO ×2 (09:36→13:52)
--- NOTE | 2022-03-21 10:48 | PN.HOSP_ITS ---
Subjective Subjective Patient seen and examined. She had just come back from [place]; she complained of some sore throat from the [place]. She is still quite frail, but has no other complaints. Review of systems is otherwise negative. Objective Data Objective Data Vital Signs: Vital Signs Temp Pulse Resp BP Pulse Ox O2 Del Method O2 Flow Rate 99.1 F 83 20 H 124/61 H 91 Nasal Cannula 4 03/21/22 09:31 03/21/22 09:31 03/21/22 09:31 03/21/22 09:31 03/21/22 09:31 03/21/22 09:31 03/21/22 09:31 FiO2 2 03/19/22 06:00 Oxygen Flow Rate (L/min) 4 Oxygen Delivery Method Nasal Cannula Weight: 211 lb 13.828 oz Body Mass Index (BMI) 37.8 Intake & Output: Intake and Output for Last 24 Hours 03/19/22 03/20/22 03/21/22 23:59 23:59 23:59 Intake Total 800 / 800 680 / 730 150 / 150 Output Total 350 / 350 1135 / 1435 300 / 300 Balance 450 / 450 -455 / -705 -150 / -150 Lab / Micro Data Result Diagrams: 03/21/22 05:38 03/21/22 05:38 Labs: Laboratory Results - last 24 hr 03/21/22 05:38: WBC 5.5, RBC 2.92 L, Hgb 9.0 L, Hct 27.5 L, MCV 94.2, MCH 30.8, MCHC 32.7, RDW Std Deviation 57.2 H, RDW Coeff of Diandra 17.1 H, Plt Count 162, MPV 8.9, Immature Gran % (Auto) 0.900, Neut % (Auto) 83.9 H, Lymph % (Auto) 7.6 L, [place] % (Auto) 6.7, Eos % (Auto) 0.5, Baso % (Auto) 0.4, Absolute Neuts (auto) 4.6, Absolute Lymphs (auto) 0.42 L, Nucleated RBC % 0, Anisocytosis 1+ 03/21/22 05:38: Sodium 141, Potassium 3.7, Chloride 107, Carbon Dioxide 27.0, Anion Gap 7, BUN 27 H, Creatinine 2.04 H, Estim Creat Clear Calc 17.40, Est GFR (MDRD) Af Amer 30 L, Est GFR (MDRD) Non-Af 25 L, BUN/Creatinine Ratio 13.2, Glucose 95, Calcium 8.5 Micro: Microbiology 03/15/22 13:20 Blood Culture (Wb) - Right Hand Blood Culture - Final No growth in 5 days. 03/14/22 09:54 Blood Culture (Wb) - Right Hand Blood Culture - Final No growth in 5 days. 03/13/22 06:19 Blood Culture (Wb) - Right Hand Blood Culture - Final GPC Poss Enterococcus sp 03/12/22 15:40 Blood Culture (Wb) - Right Hand Blood Culture - Final GPC Poss Enterococcus sp 03/16/22 23:25 Stool Stool Occult Blood (JOSSUE) - Final 03/11/22 17:25 Urine, Clean Catch Urine Culture - Final Enterococcus faecalis Mixed Gram Positive Organisms 03/11/22 07:32 Blood Culture (Wb) - Venous Bacteria Detection (PCR) - Final Enterococcus faecalis 03/11/22 07:32 Blood Culture (Wb) - Venous Blood Culture - Final Enterococcus faecalis 03/10/22 00:02 Urine, Clean Catch Urine Culture - Final Mixed Gram Pos & Gram Neg Org 03/11/22 06:40 Nasal Secretion SARS-CoV-2 & FLU Antigen (Rapid) - Final 03/09/22 22:51 Nasal Secretion SARS-CoV-2 Antigen (Rapid) - Final 03/09/22 18:08 Mucosa - Nasopharyngeal Respiratory Panel (PCR) - Final Radiography Diagnostic Testing: Radiology Impression Transesophageal Echocardiogram 03/21/22 08:00 Interpretation Summary Normal LV size. Left ventricular systolic function is normal. The estimated ejection fraction is 55 %. Trisinus/trileaflet aortic valve. Aortic valve vegetation(s)/mass of the left coronary cusp. Bioprosthetic mitral valve. Cannot exclude a tiny less than 0.5 cm freely mobile mass on the mitral valve leaflet Ordering Physician: Hu Kumar Referring Physician: Qasim Carreon Performed By: Graham Lofton RCS Rhythm Strip Rhythm Strip: A-fib (Episode of irregular broad complex tachycardia. Likely A. fib with aberrancy (Chula's)) Physical Exam Const alert, oriented x3 and no apparent distress Constitutional Narrative: frail HEENT head/scalp atraumatic, moist oral mucous membranes and oropharynx normal Head and Scalp: normocephalic Mouth: oral and palatal mucosa normal Eyes PERRL, EOMs intact bilaterally and conjunctivae normal Neck no lymphadenopathy, supple and no JVD Resp normal respiratory effort, no retractions, no use of accessory muscles and clear to auscultation bilaterally Resp Narrative: diminished breath sounds bibasally, no wheezes or crackles. on room air Cardio regular rate, regular rhythm, S1 normal heart sound, S2 normal heart sound and no murmurs Cardio Narrative: tachycardic GI normal to inspection, nondistended, normoactive bowel sounds, soft to palpation, non-tender and non-distended Extremity normal to inspection, full ROM and no clubbing, cyanosis or edema Extremity Narrative: dialysis catheter in left side of chest Neuro oriented x3, CN's II-XII intact bilaterally, moves all extremities and no focal motor deficits Sensorium / Orientation: awake and alert Motor Exam: strength 5/5 throughout Psych affect normal Assessment & Plan Assessment/Plan (1) Acute renal failure: (2) Bacteremia due to Enterococcus: (3) Anemia: (4) GI bleed: (5) CKD (chronic kidney disease) stage 4, GFR 15-29 ml/min: PLAN: Plan #Acute on chronic HFpEF * now on dialysis due to JACQUIE. #Afib with RVR * Resolved. On metoprolol and cardizem * On Eliquis. #Acute on chronic anemia: Status posttransfusion. Had EGD which showed esophagitis and gastritis. On PPI and Carafate. #Nonstemi #JACQUIE on CKD * Thought it was due to ATN from dialysis and probable contrast induced nephropathy from CAT scan done on 03/14/2022. * now requiring dialysis * having dialysis today. nephrology on board * * #Bacteremia * blood cultures grew Enterococcus faecalis; repeat blood cultures were negative. * on IV ampicillin * ID on board * TTE showed no evidence of vegetations * NOHEMY showed evidence of vegetations on the aortic valve; cannot xclude tiny (<0.5cm) freely mobile mass on mitral valve leaflet * ID to determine duration of antibiotics #Hypokalemia: resolved #Hypertension: on metoprolol ans losartan #Bilateral knee arthritis: on tylenol #Chronic bilateral LE edema: SANTHOSH wraps #Mitral valve disease: S/p mitral valve replacement with prosthetic valve. DVT prophylaxis: on coumadin. Disposition; will need placement Charges/Coding Visit Charges Inpatient E&M: 42276 [facility] Hosp L3
--- NOTE | 2022-03-21 10:48 | CASEMGMT ---
NARENDRA SHARIF received message from Kimmy at [facility]. NARENDRA SHARIF returned called and updated regarding anticipated discharge in the next 24-48 hours. Per Kimmy, they are able to do a start of care for outpatient HD at the [facility] on 03/24/22 with chair time of 0620 with arrival at 0600. NARENDRA SHARIF updated SW [place]. CM will continue to assist with discharge needs.
[2022-03-21] MEDS: Ipratropium/Albuterol Sulfate 3 ML AMPUL.NEB INHALATION (17:24)
[2022-03-21] MEDS: Atorvastatin Calcium 40 MG Tablet PO (20:27)
[2022-03-22] VITALS (20 sets, daily range): BP systolic 111–135; BP diastolic 57–78; PULSE 60–98; RESP 14–30; TEMP 35.2–37.3; O2SAT 94–99
[2022-03-22] MEDS: Nystatin Powder 15gm Bottle 1 APPLIC TOPICAL ×3 (04:42→21:26)
[2022-03-22] MEDS: Menthol/Lanolin/Calamine/Znox 113 GM Tube 1 APPLIC TOPICAL ×3 (04:42→21:26)
[2022-03-22 05:13] LABS: Absolute Lymphocyte Count 0.48 X10^3/uL (0.83-4.51); Absolute Neutrophil Count 4.6 X10^3/uL (2.0-7.7); Basophil# 0.03 X10^3/uL; Basophil% 0.5 % (0-1); Eosinophil# 0.04 X10^3/uL; Eosinophils% 0.7 % (0-5); Hematocrit 27.2 % (37-47); Hemoglobin 8.6 g/dL (12.0-15.0); Lymphocyte # 0.48 X10^3/ul (0.83-4.51); Lymphocyte % 8.6 % (19-41); Mean Corp Hgb Conc 31.6 g/dL (32-36); Mean Corpuscular Hgb 30.3 pg (27.0-32.0); Mean Corpuscular Volume 95.8 fL (81-99); Mean Platelet Vol. 9.2 fl (6.2-12.0); Monocyte# 0.38 X10^3/uL; Monocyte% 6.8 % (0-10); NRBC Flagged by Analyzer 0 % (0-5); Neutrophil # 4.62 X10^3/uL (2.7-7.7); Neutrophil % 82.3 % (47-70); POSITIVE DIFFERENTIAL YES; Platelet Count 158 K/mm3 (150-450); RBC Distribution Width CV 17.2 % (11.6-14.6); RBC Distribution Width SD 59.6 fl (35.1-43.9); Red Blood Count 2.84 M/mm3 (4.2-5.4); White Blood Count 5.6 K/mm3 (4.4-11.0)
[2022-03-22 05:15] LABS: Differential Indicated SCAN CRITERIA MET
[2022-03-22 05:27] LABS: Anisocytosis 1+
[2022-03-22 05:33] LABS: Albumin, Serum 1.6 g/dL (3.2-5.0); Anion Gap 4 (5-15); BUN 36 mg/dL (7-18); BUN/Creat Ratio 16.6 RATIO (10-20); Calcium,Total 8.6 mg/dL (8.5-10.1); Chloride 109 mmol/L (98-107); Creatinine, Serum 2.17 mg/dL (0.55-1.02); EST Glomerular Filtration Rate 23 mL/min (>60); Est Glom Filt Rate - Afr Amer 28 mL/min (>60); Estimated Creatinine Clearance 16.35 ml/min; Glucose 113 mg/dL (74-106); Phosphorus 3.5 mg/dL (2.5-4.9); Potassium 3.6 mmol/L (3.5-5.1); Sodium Level 142 mmol/L (136-145)
[2022-03-22] MEDS: Potassium Chloride Oral Tablet 20 MEQ PO (07:22)
[2022-03-22] MEDS: Ipratropium/Albuterol Sulfate 3 ML AMPUL.NEB INHALATION ×3 (07:51→19:23)
--- NOTE | 2022-03-22 08:17 | PCM.PN.REN ---
Subjective Subjective breathing ok, no chest pain or SOB. Appetite still poor without nausea, vomiting. Urine output inaccurate. Objective Data Objective Data Vital Signs: Vital Signs Temp Pulse Resp BP Pulse Ox O2 Del Method O2 Flow Rate 97.9 F 91 30 H 123/64 H 95 Nasal Cannula 3.5 03/22/22 06:20 03/22/22 07:53 03/22/22 07:53 03/22/22 06:20 03/22/22 07:53 03/22/22 07:53 03/22/22 07:53 FiO2 2 03/22/22 04:41 Oxygen Flow Rate (L/min) 3.5 Oxygen Delivery Method Nasal Cannula Weight: 94.3 kg Body Mass Index (BMI) 37.8 Intake & Output: Intake and Output for Last 24 Hours 03/20/22 03/21/22 03/22/22 23:59 23:59 23:59 Intake Total 680 / 730 510 / 630 120 / 120 Output Total 1135 / 1435 400 / 750 350 / 350 Balance -455 / -705 110 / -120 -230 / -230 Lab / Micro Data Result Diagrams: 03/22/22 04:40 03/22/22 04:40 Labs: Laboratory Results - last 24 hr 03/22/22 04:40: Sodium 142, Potassium 3.6, Chloride 109 H, Carbon Dioxide 29.0, Anion Gap 4 L, BUN 36 H, Creatinine 2.17 H, Estim Creat Clear Calc 16.35, Est GFR (MDRD) Af Amer 28 L, Est GFR (MDRD) Non-Af 23 L, BUN/Creatinine Ratio 16.6, Glucose 113 H, Calcium 8.6, Phosphorus 3.5, Albumin 1.6 L 03/22/22 04:40: WBC 5.6, RBC 2.84 L, Hgb 8.6 L, Hct 27.2 L, MCV 95.8, MCH 30.3, MCHC 31.6 L, RDW Std Deviation 59.6 H, RDW Coeff of Diandra 17.2 H, Plt Count 158, MPV 9.2, Immature Gran % (Auto) 1.100 H, Neut % (Auto) 82.3 H, Lymph % (Auto) 8.6 L, [place] % (Auto) 6.8, Eos % (Auto) 0.7, Baso % (Auto) 0.5, Absolute Neuts (auto) 4.6, Absolute Lymphs (auto) 0.48 L, Nucleated RBC % 0, Anisocytosis 1+ Micro: Microbiology 03/15/22 13:20 Blood Culture (Wb) - Right Hand Blood Culture - Final No growth in 5 days. 03/14/22 09:54 Blood Culture (Wb) - Right Hand Blood Culture - Final No growth in 5 days. 03/13/22 06:19 Blood Culture (Wb) - Right Hand Blood Culture - Final GPC Poss Enterococcus sp 03/12/22 15:40 Blood Culture (Wb) - Right Hand Blood Culture - Final GPC Poss Enterococcus sp 03/16/22 23:25 Stool Stool Occult Blood (JOSSUE) - Final 03/11/22 17:25 Urine, Clean Catch Urine Culture - Final Enterococcus faecalis Mixed Gram Positive Organisms 03/11/22 07:32 Blood Culture (Wb) - Venous Bacteria Detection (PCR) - Final Enterococcus faecalis 03/11/22 07:32 Blood Culture (Wb) - Venous Blood Culture - Final Enterococcus faecalis 03/10/22 00:02 Urine, Clean Catch Urine Culture - Final Mixed Gram Pos & Gram Neg Org 03/11/22 06:40 Nasal Secretion SARS-CoV-2 & FLU Antigen (Rapid) - Final 03/09/22 22:51 Nasal Secretion SARS-CoV-2 Antigen (Rapid) - Final 03/09/22 18:08 Mucosa - Nasopharyngeal Respiratory Panel (PCR) - Final Radiography Diagnostic Testing: Radiology Impression Transesophageal Echocardiogram 03/21/22 08:00 Interpretation Summary Normal LV size. Left ventricular systolic function is normal. The estimated ejection fraction is 55 %. Trisinus/trileaflet aortic valve. Aortic valve vegetation(s)/mass of the left coronary cusp. Bioprosthetic mitral valve. Cannot exclude a tiny less than 0.5 cm freely mobile mass on the mitral valve leaflet Ordering Physician: Hu Kumar Referring Physician: Qasim Carreon Performed By: Graham Lofton RCS Rhythm Strip Rhythm Strip: A-fib (Episode of irregular broad complex tachycardia. Likely A. fib with aberrancy (Chula's)) Physical Exam Const alert and oriented x3 Constitutional Narrative: sleepy,sluggish General Appearance: cooperative Resp clear to auscultation bilaterally Cardio Rhythm: abnormal rhythm irregularly irregular (rate controlled) GI non-tender and non-distended Auscultation: normoactive bowel sounds Palpation: soft Extremity no clubbing, cyanosis or edema Skin Skin Narrative: hyperpigmentation of skin Neuro Sensorium / Orientation: awake Psych cooperative Assessment & Plan Assessment/Plan (1) Acute renal failure: PLAN: acute on CKD stage 4 due to ATN. Creatinine same as yesterday at 2.1. Continue to monitor for renal recovery, strict I/O's. Hold Dialysis today. Check for need tomorrow. Watch for recovery. (2) CKD (chronic kidney disease) stage 4, GFR 15-29 ml/min: PLAN: Creatinine 1.58 eCRCL 22cc/min on admit. (3) Bacteremia due to Enterococcus: PLAN: ID following on ampicillin iv. Repeat Blood cx no growth so far (4) UTI (urinary tract infection): PLAN: on antibx (5) Pulmonary hypertension: PLAN: chronic lymphedema with venous stasis skin changes in legs (6) S/P MVR (mitral valve replacement): (7) Atrial fibrillation: PLAN: with rvr, rate controlled on metoprolol, cardizem. Cardiology mgmt (8) Congestive heart failure: PLAN: oxygenation stable (9) Hypertension: QUALIFIERS: Hypertension type: essential hypertension PLAN: history. Maintain SBP >100 for renal perfusion (10) Anemia: PLAN: hgb 8.6g
[2022-03-22 08:20] LABS: Magnesium 2.4 mg/dL (1.6-2.6)
--- NOTE | 2022-03-22 09:52 | DIALYSIS ---
[address] HD [address] machine operator[address] Dr. Sunil Johnson at bedside. Decision to hold off on HD today, observe for signs of renal function recovery. Plan is to observe patient's urine o/p for next 24 hours, re-assess labs and need for HD tomorrow (03/23/22).
[2022-03-22] MEDS: Clopidogrel Bisulfate 75 MG Tablet PO (10:22)
[2022-03-22] MEDS: Pantoprazole Sodium 40 MG Tablet PO (10:22)
[2022-03-22] MEDS: dilTIAZem CD 240 MG Capsule PO (10:22)
[2022-03-22] MEDS: Metoprolol Tartrate 100 MG Tablet PO ×2 (10:22→21:26)
[2022-03-22] MEDS: Nepro with Carbsteady 237 ML Liquid 120 ML PO ×3 (10:30→18:02)
[2022-03-22] MEDS: 0.9% Saline Lock 10 ML Syringe IV ×2 (10:35→22:09)
--- NOTE | 2022-03-22 11:36 | PN.HOSP_ITS ---
Subjective Subjective Patient seen and examined. She feels quite weak. She denies any fever, chills, nausea, vomiting or diarrhea. Review systems otherwise negative. She has been hemodynamically stable. Objective Data Objective Data Vital Signs: Vital Signs Temp Pulse Resp BP Pulse Ox O2 Del Method O2 Flow Rate 97.8 F 90 14 135/60 H 99 Room Air 3 03/22/22 10:19 03/22/22 10:22 03/22/22 10:19 03/22/22 10:03/22/22 10:19 03/22/22 10:19 03/22/22 10:19 FiO2 2 03/22/22 04:41 Oxygen Flow Rate (L/min) 3 Oxygen Delivery Method Room Air Weight: 207 lb 14.334 oz Body Mass Index (BMI) 37.8 Intake & Output: Intake and Output for Last 24 Hours 03/20/22 03/21/22 03/22/22 23:59 23:59 23:59 Intake Total 680 / 730 510 / 630 120 / 120 Output Total 1135 / 1435 400 / 750 350 / 350 Balance -455 / -705 110 / -120 -230 / -230 Lab / Micro Data Result Diagrams: 03/22/22 04:40 03/22/22 04:40 Labs: Laboratory Results - last 24 hr 03/22/22 04:40: Sodium 142, Potassium 3.6, Chloride 109 H, Carbon Dioxide 29.0, Anion Gap 4 L, BUN 36 H, Creatinine 2.17 H, Estim Creat Clear Calc 16.35, Est GF R (MDRD) Af Amer 28 L, Est GFR (MDRD) Non-Af 23 L, BUN/Creatinine Ratio 16.6, Glucose 113 H, Calcium 8.6, Phosphorus 3.5, Albumin 1.6 L 03/22/22 04:40: WBC 5.6, RBC 2.84 L, Hgb 8.6 L, Hct 27.2 L, MCV 95.8, MCH 30.3, MCHC 31.6 L, RDW Std Deviation 59.6 H, RDW Coeff of Diandra 17.2 H, Plt Count 158, MPV 9.2, Immature Gran % (Auto) 1.100 H, Neut % (Auto) 82.3 H, Lymph % (Auto) 8.6 L, [place] % (Auto) 6.8, Eos % (Auto) 0.7, Baso % (Auto) 0.5, Absolute Neuts (auto) 4.6, Absolute Lymphs (auto) 0.48 L, Nucleated RBC % 0, Anisocytosis 1+ 03/22/22 04:40: Magnesium 2.4 Micro: Microbiology 03/15/22 13:20 Blood Culture (Wb) - Right Hand Blood Culture - Final No growth in 5 days. 03/14/22 09:54 Blood Culture (Wb) - Right Hand Blood Culture - Final No growth in 5 days. 03/13/22 06:19 Blood Culture (Wb) - Right Hand Blood Culture - Final GPC Poss Enterococcus sp 03/12/22 15:40 Blood Culture (Wb) - Right Hand Blood Culture - Final GPC Poss Enterococcus sp 03/16/22 23:25 Stool Stool Occult Blood (JOSSUE) - Final 03/11/22 17:25 Urine, Clean Catch Urine Culture - Final Enterococcus faecalis Mixed Gram Positive Organisms 03/11/22 07:32 Blood Culture (Wb) - Venous Bacteria Detection (PCR) - Final Enterococcus faecalis 03/11/22 07:32 Blood Culture (Wb) - Venous Blood Culture - Final Enterococcus faecalis 03/10/22 00:02 Urine, Clean Catch Urine Culture - Final Mixed Gram Pos & Gram Neg Org 03/11/22 06:40 Nasal Secretion SARS-CoV-2 & FLU Antigen (Rapid) - Final 03/09/22 22:51 Nasal Secretion SARS-CoV-2 Antigen (Rapid) - Final 03/09/22 18:08 Mucosa - Nasopharyngeal Respiratory Panel (PCR) - Final Rhythm Strip Rhythm Strip: A-fib (Episode of irregular broad complex tachycardia. Likely A. fib with aberrancy (Chula's)) Physical Exam Const alert, oriented x3 and no apparent distress Constitutional Narrative: frail Orientation / Consciousness: lethargic HEENT head/scalp atraumatic, moist oral mucous membranes and oropharynx normal Head and Scalp: normocephalic Mouth: oral and palatal mucosa normal Eyes PERRL, EOMs intact bilaterally and conjunctivae normal Neck no lymphadenopathy, supple and no JVD Resp Resp Narrative: diminished breath sounds bibasally, no wheezes or crackles. on 3L of oxygen Cardio regular rate, regular rhythm, S1 normal heart sound, S2 normal heart sound and no murmurs Cardio Narrative: tachycardic GI normal to inspection, nondistended, normoactive bowel sounds, soft to palpation, non-tender and non-distended Extremity normal to inspection, full ROM and no clubbing, cyanosis or edema Extremity Narrative: dialysis catheter in left side of chest Neuro oriented x3, CN's II-XII intact bilaterally, moves all extremities and no focal motor deficits Sensorium / Orientation: awake and alert Motor Exam: strength 5/5 throughout Psych Psych Narrative: flat affect, lethargic Assessment & Plan Assessment/Plan (1) Acute renal failure: (2) Bacteremia due to Enterococcus: (3) Anemia: (4) GI bleed: (5) CKD (chronic kidney disease) stage 4, GFR 15-29 ml/min: PLAN: Plan #Acute on chronic HFpEF * now on dialysis due to JACQUIE. #Afib with RVR * Resolved. On metoprolol and cardizem * On Eliquis. #Acute on chronic anemia: Status posttransfusion. Had EGD which showed esophagitis and gastritis. On PPI and Carafate. #Nonstemi #JACQUIE on CKD * Thought it was due to ATN from dialysis and probable contrast induced nephropathy from CAT scan done on 03/14/2022. * now requiring dialysis * nephrology on board. Will likely need to continue dialysis on outpatient basis * #Bacteremia * blood cultures grew Enterococcus faecalis; repeat blood cultures were negative. * on IV ampicillin * ID on board * TTE showed no evidence of vegetations * NOHEMY showed evidence of vegetations on the aortic valve; cannot xclude tiny (<0.5cm) freely mobile mass on mitral valve leaflet * ID to determine duration of antibiotics * #Hypokalemia: resolved #Hypertension: on metoprolol ans losartan #Bilateral knee arthritis: on tylenol #Chronic bilateral LE edema: SANTHOSH wraps #Mitral valve disease: S/p mitral valve replacement with prosthetic valve. DVT prophylaxis: on coumadin. Disposition; will need placement Charges/Coding Visit Charges Inpatient E&M: 10399 Subs Hosp L2
--- NOTE | 2022-03-22 13:33 | CASEMGMT ---
Addendum entered by Marilu [place] 03/22/22 14:20: MARIA ALEJANDRA called Karin at [facility] and left her a voice mail letting her know about antibiotics for patient and that SW sent them via [facility]. Marilu PARADA Original Note: MARIA ALEJANDRA sent patient's antibiotic scripts to [facility]. Patient will likely need another pre-cert. Marilu PARADA
[2022-03-22] MEDS: Ceftriaxone 1 GM/50 ML BAG IV ×2 (13:43→22:08)
[2022-03-22] MEDS: DiphenhydrAMINE 25 MG Capsule PO ×2 (13:50→21:35)
--- NOTE | 2022-03-22 13:50 | PCM.PN.ID ---
Physical Exam Narrative Feeling better, no fever, no n/v/d. Const alert and no apparent distress Resp normal air movement and clear to auscultation bilaterally Cardio regular rate and regular rhythm GI soft to palpation, non-tender and non-distended Skin no rashes or lesions noted ID ID: Route of nutrition/ use of supplements: [] Nutritional Intake: [] IV Site: [] Hernandez Catheter: [] Assessment & Plan Assessment/Plan (1) S/P MVR (mitral valve replacement): (2) UTI (urinary tract infection): PLAN: enterococcus PVE secondary to uti. 03/14 changed vanc to ampicillin. Repeat bcx neg. NOHEMY (+). On amp. Remains on HD but possibly starting to recover. Will add ceftriaxone, monitor for reaction, will give benadryl. Wrote rx for amp/ceftriaxone for 6 weeks total, stop date 04/20/22 with weekly labs. D/w neph, ok for tunneled line placement. Alternatives to amp/ceftriaxone would be amp/dapto or vanc/gent. ID followup in 4 weeks. Will follow, d/w primary team (3) Bacteremia due to Enterococcus: (4) Prosthetic valve endocarditis:
[2022-03-22] MEDS: Atorvastatin Calcium 40 MG Tablet PO (21:27)
[2022-03-23] VITALS (12 sets, daily range): BP systolic 123–137; BP diastolic 59–68; PULSE 81–113; RESP 16–20; TEMP 36–36.8; O2SAT 93–98
[2022-03-23] MEDS: Nystatin Powder 15gm Bottle 1 APPLIC TOPICAL ×3 (05:05→21:07)
[2022-03-23] MEDS: Menthol/Lanolin/Calamine/Znox 113 GM Tube 1 APPLIC TOPICAL ×3 (05:06→21:06)
[2022-03-23 06:16] LABS: Absolute Neutrophil Count 4.6 X10^3/uL (2.0-7.7); Basophil# 0.03 X10^3/uL; Basophil% 0.5 % (0-1); Eosinophil# 0.03 X10^3/uL; Eosinophils% 0.5 % (0-5); Hematocrit 28.4 % (37-47); Hemoglobin 8.8 g/dL (12.0-15.0); Lymphocyte % 8.9 % (19-41); Mean Corpuscular Hgb 30.1 pg (27.0-32.0); Mean Corpuscular Volume 97.3 fL (81-99); Mean Platelet Vol. 9.3 fl (6.2-12.0); Monocyte# 0.36 X10^3/uL; Monocyte% 6.4 % (0-10); NRBC Flagged by Analyzer 0 % (0-5); Neutrophil # 4.61 X10^3/uL (2.7-7.7); Neutrophil % 82.1 % (47-70); POSITIVE DIFFERENTIAL YES; Platelet Count 162 K/mm3 (150-450); RBC Distribution Width CV 17.3 % (11.6-14.6); RBC Distribution Width SD 60.2 fl (35.1-43.9); Red Blood Count 2.92 M/mm3 (4.2-5.4); White Blood Count 5.6 K/mm3 (4.4-11.0)
[2022-03-23 06:26] LABS: Differential Indicated SCAN CRITERIA MET
[2022-03-23 06:34] LABS: Anion Gap 7 (5-15); BUN 40 mg/dL (7-18); BUN/Creat Ratio 19.2 RATIO (10-20); Chloride 109 mmol/L (98-107); Creatinine, Serum 2.08 mg/dL (0.55-1.02); EST Glomerular Filtration Rate 24 mL/min (>60); Est Glom Filt Rate - Afr Amer 29 mL/min (>60); Estimated Creatinine Clearance 17.06 ml/min; Glucose 127 mg/dL (74-106); Potassium 3.7 mmol/L (3.5-5.1); Sodium Level 141 mmol/L (136-145)
[2022-03-23 06:44] LABS: Differential Comment SCANNED
[2022-03-23] MEDS: Ipratropium/Albuterol Sulfate 3 ML AMPUL.NEB INHALATION (07:00)
[2022-03-23] MEDS: Pantoprazole Sodium 40 MG Tablet PO (08:26)
[2022-03-23] MEDS: Nepro with Carbsteady 237 ML Liquid 120 ML PO (08:26)
[2022-03-23] MEDS: Clopidogrel Bisulfate 75 MG Tablet PO (08:27)
[2022-03-23] MEDS: Metoprolol Tartrate 100 MG Tablet PO ×2 (08:27→21:05)
[2022-03-23] MEDS: dilTIAZem CD 240 MG Capsule PO (08:27)
--- NOTE | 2022-03-23 09:51 | PN.HOSP_ITS ---
Subjective Subjective Patient seen and examined. She felt a bit better today and had no active complaints. Review of systems is otherwise negative. SHe has remained hemodynamically stable. Objective Data Objective Data Vital Signs: Vital Signs Temp Pulse Resp BP Pulse Ox O2 Del Method O2 Flow Rate 97.8 F 113 H 16 137/66 H 97 Nasal Cannula 3 03/23/22 08:18 03/23/22 08:27 03/23/22 08:18 03/23/22 08:18 03/23/22 08:18 03/23/22 08:36 03/23/22 08:18 FiO2 2 03/22/22 21:25 Oxygen Flow Rate (L/min) 3 Oxygen Delivery Method Nasal Cannula Weight: 210 lb 1.608 oz Body Mass Index (BMI) 37.8 Intake & Output: Intake and Output for Last 24 Hours 03/21/22 03/22/22 03/23/22 23:59 23:59 23:59 Intake Total 510 / 630 1100 / 1100 60 / 60 Output Total 400 / 750 1000 / 1000 100 / 100 Balance 110 / -120 100 / 100 -40 / -40 Lab / Micro Data Result Diagrams: 03/23/22 05:53 03/23/22 05:53 Labs: Laboratory Results - last 24 hr 03/23/22 05:53: WBC 5.6, RBC 2.92 L, Hgb 8.8 L, Hct 28.4 L, MCV 97.3, MCH 30.1, MCHC 31.0 L, RDW Std Deviation 60.2 H, RDW Coeff of Diandra 17.3 H, Plt Count 162, MPV 9.3, Immature Gran % (Auto) 1.600 H, Neut % (Auto) 82.1 H, Lymph % (Auto) 8.9 L, [place] % (Auto) 6.4, Eos % (Auto) 0.5, Baso % (Auto) 0.5, Absolute Neuts (auto) 4.6, Absolute Lymphs (auto) 0.50 L, Nucleated RBC % 0, Differential Comment SCANNED 03/23/22 05:53: Sodium 141, Potassium 3.7, Chloride 109 H, Carbon Dioxide 25.0, Anion Gap 7, BUN 40 H, Creatinine 2.08 H, Estim Creat Clear Calc 17.06, Est GFR (MDRD) Af Amer 29 L, Est GFR (MDRD) Non-Af 24 L, BUN/Creatinine Ratio 19.2, Glucose 127 H, Calcium 9.0 Micro: Microbiology 03/15/22 13:20 Blood Culture (Wb) - Right Hand Blood Culture - Final No growth in 5 days. 03/14/22 09:54 Blood Culture (Wb) - Right Hand Blood Culture - Final No growth in 5 days. 03/13/22 06:19 Blood Culture (Wb) - Right Hand Blood Culture - Final GPC Poss Enterococcus sp 03/12/22 15:40 Blood Culture (Wb) - Right Hand Blood Culture - Final GPC Poss Enterococcus sp 03/16/22 23:25 Stool Stool Occult Blood (JOSSUE) - Final 03/11/22 17:25 Urine, Clean Catch Urine Culture - Final Enterococcus faecalis Mixed Gram Positive Organisms 03/11/22 07:32 Blood Culture (Wb) - Venous Bacteria Detection (PCR) - Final Enterococcus faecalis 03/11/22 07:32 Blood Culture (Wb) - Venous Blood Culture - Final Enterococcus faecalis 03/10/22 00:02 Urine, Clean Catch Urine Culture - Final Mixed Gram Pos & Gram Neg Org 03/11/22 06:40 Nasal Secretion SARS-CoV-2 & FLU Antigen (Rapid) - Final 03/09/22 22:51 Nasal Secretion SARS-CoV-2 Antigen (Rapid) - Final 03/09/22 18:08 Mucosa - Nasopharyngeal Respiratory Panel (PCR) - Final Rhythm Strip Rhythm Strip: A-fib (Episode of irregular broad complex tachycardia. Likely A. fib with aberrancy (Chula's)) Physical Exam Const alert, oriented x3 and no apparent distress Constitutional Narrative: frail Orientation / Consciousness: lethargic HEENT head/scalp atraumatic, moist oral mucous membranes and oropharynx normal Head and Scalp: normocephalic Mouth: oral and palatal mucosa normal Eyes PERRL, EOMs intact bilaterally and conjunctivae normal Neck no lymphadenopathy, supple and no JVD Resp normal respiratory effort, no retractions, no use of accessory muscles and clear to auscultation bilaterally Resp Narrative: diminished breath sounds bibasally, no wheezes or crackles. on 3L of oxygen Cardio regular rate, regular rhythm, S1 normal heart sound, S2 normal heart sound and no murmurs Cardio Narrative: tachycardic GI normal to inspection, nondistended, normoactive bowel sounds, soft to palpation, non-tender and non-distended Extremity normal to inspection, full ROM and no clubbing, cyanosis or edema Extremity Narrative: dialysis catheter in left side of chest Neuro oriented x3, CN's II-XII intact bilaterally, moves all extremities and no focal motor deficits Sensorium / Orientation: awake and alert Motor Exam: strength 5/5 throughout Psych affect normal Psych Narrative: lethargic Assessment & Plan Assessment/Plan (1) Acute renal failure: (2) Bacteremia due to Enterococcus: (3) Anemia: (4) GI bleed: (5) CKD (chronic kidney disease) stage 4, GFR 15-29 ml/min: PLAN: Plan #Acute on chronic HFpEF * now on dialysis due to JACQUIE. #Afib with RVR * Mildly tachycardic. On metoprolol and cardizem * On Eliquis. #Acute on chronic anemia: Status posttransfusion. Had EGD which showed esophagitis and gastritis. On PPI and Carafate. #JACQUIE on CKD * Thought it was due to ATN from dialysis and probable contrast induced nephropathy from CAT scan done on 03/14/2022. * now requiring dialysis * nephrology on board. Will likely need to continue dialysis on outpatient basis * kidney function is improving. * * #NSTEMI: * cardiology reviewed patient, and felt it was probably a type 2 nonstemi. * had stress test which was negative for any evidence of ischemia #Bacteremia with infective endocarditis * blood cultures grew Enterococcus faecalis; repeat blood cultures were negative. * on IV ampicillin * ID on board * TTE showed no evidence of vegetations * NOHEMY showed evidence of vegetations on the aortic valve; cannot xclude tiny (<0.5cm) freely mobile mass on mitral valve leaflet * ID to determine duration of antibiotics; needs 6 weeks of antibiotics. * #Hypokalemia: resolved #Hypertension: on metoprolol ans losartan #Bilateral knee arthritis: on tylenol #Chronic bilateral LE edema: SANTHOSH wraps #Mitral valve disease: S/p mitral valve replacement with prosthetic valve. DVT prophylaxis: on coumadin. Disposition; will need placement Charges/Coding Visit Charges Inpatient E&M: 84856 Subs Hosp L2
--- NOTE | 2022-03-23 09:59 | CASEMGMT ---
Discharge Housing Installer This internal communications writer asked Karin at [facility] to please start pre-cert. Jerad [employer]
[2022-03-23] MEDS: DiphenhydrAMINE 25 MG Capsule PO ×2 (10:56→21:05)
[2022-03-23] MEDS: Ceftriaxone 1 GM/50 ML BAG IV ×2 (12:25→22:01)
--- NOTE | 2022-03-23 13:47 | PN.RENAL_ITS ---
Subjective Subjective poor oral intake, creatinne stable at 2.0 today with 1L urine output yesterday. Today with dark maryann urine. Holding dialysis. No nausea, vomiting. Complains of thirst. DC fluid restriction Objective Data Objective Data Vital Signs: Vital Signs Temp Pulse Resp BP Pulse Ox O2 Del Method O2 Flow Rate 97.8 F 83 16 137/66 H 97 Nasal Cannula 1 03/23/22 08:18 03/23/22 12:54 03/23/22 08:18 03/23/22 08:18 03/23/22 08:18 03/23/22 08:36 03/23/22 12:31 FiO2 2 03/22/22 21:25 Oxygen Flow Rate (L/min) 1 Oxygen Delivery Method Nasal Cannula Weight: 95.3 kg Body Mass Index (BMI) 37.8 Intake & Output: Intake and Output for Last 24 Hours 03/21/22 03/22/22 03/23/22 23:59 23:59 23:59 Intake Total 510 / 630 1100 / 1100 210 / 210 Output Total 400 / 750 1000 / 1000 100 / 100 Balance 110 / -120 100 / 100 110 / 110 Lab / Micro Data Result Diagrams: 03/23/22 05:53 03/23/22 05:53 Labs: Laboratory Results - last 24 hr 03/23/22 05:53: WBC 5.6, RBC 2.92 L, Hgb 8.8 L, Hct 28.4 L, MCV 97.3, MCH 30.1, MCHC 31.0 L, RDW Std Deviation 60.2 H, RDW Coeff of Diandra 17.3 H, Plt Count 162, MPV 9.3, Immature Gran % (Auto) 1.600 H, Neut % (Auto) 82.1 H, Lymph % (Auto) 8.9 L, [place] % (Auto) 6.4, Eos % (Auto) 0.5, Baso % (Auto) 0.5, Absolute Neuts (auto) 4.6, Absolute Lymphs (auto) 0.50 L, Nucleated RBC % 0, Differential Comment SCANNED 03/23/22 05:53: Sodium 141, Potassium 3.7, Chloride 109 H, Carbon Dioxide 25.0, Anion Gap 7, BUN 40 H, Creatinine 2.08 H, Estim Creat Clear Calc 17.06, Est GFR (MDRD) Af Amer 29 L, Est GFR (MDRD) Non-Af 24 L, BUN/Creatinine Ratio 19.2, Glucose 127 H, Calcium 9.0 Micro: Microbiology 03/15/22 13:20 Blood Culture (Wb) - Right Hand Blood Culture - Final No growth in 5 days. 03/14/22 09:54 Blood Culture (Wb) - Right Hand Blood Culture - Final No growth in 5 days. 03/13/22 06:19 Blood Culture (Wb) - Right Hand Blood Culture - Final GPC Poss Enterococcus sp 03/12/22 15:40 Blood Culture (Wb) - Right Hand Blood Culture - Final GPC Poss Enterococcus sp 03/16/22 23:25 Stool Stool Occult Blood (JOSSEU) - Final 03/11/22 17:25 Urine, Clean Catch Urine Culture - Final Enterococcus faecalis Mixed Gram Positive Organisms 03/11/22 07:32 Blood Culture (Wb) - Venous Bacteria Detection (PCR) - Final Enterococcus faecalis 03/11/22 07:32 Blood Culture (Wb) - Venous Blood Culture - Final Enterococcus faecalis 03/10/22 00:02 Urine, Clean Catch Urine Culture - Final Mixed Gram Pos & Gram Neg Org 03/11/22 06:40 Nasal Secretion SARS-CoV-2 & FLU Antigen (Rapid) - Final 03/09/22 22:51 Nasal Secretion SARS-CoV-2 Antigen (Rapid) - Final 03/09/22 18:08 Mucosa - Nasopharyngeal Respiratory Panel (PCR) - Final Rhythm Strip Rhythm Strip: A-fib (Episode of irregular broad complex tachycardia. Likely A. fib with aberrancy (Chula's)) Physical Exam Const alert and oriented x3 Constitutional Narrative: weak, debilitated. ECF placement in progress Orientation / Consciousness: awake Resp clear to auscultation bilaterally Cardio Rhythm: abnormal rhythm irregularly irregular GI non-tender and non-distended GI Narrative: obese Auscultation: normoactive bowel sounds Palpation: soft Neuro Sensorium / Orientation: awake and alert Psych cooperative Assessment & Plan Assessment/Plan (1) Acute renal failure: PLAN: acute on CKD stage 4 due to ATN. Creatinine same as yesterday at 2.0 eCRCL 17. May be recovering. Hold dialysis today. Encourage fluids. Pt appears dry. DC fluid restriction. Will need temp dialysis catheter removed before dc to ECF (2) CKD (chronic kidney disease) stage 4, GFR 15-29 ml/min: PLAN: Creatinine 1.58 eCRCL 22cc/min on admit. (3) Bacteremia due to Enterococcus: PLAN: ID following on ampicillin iv. Repeat Blood cx no growth so far. NOHEMY with endocarditis. Try to avoid peripheral PICC/midline to preserve veins for fistula in the future due to advanced CKD (4) UTI (urinary tract infection): PLAN: on antibx (5) Pulmonary hypertension: PLAN: chronic lymphedema with venous stasis skin changes in legs (6) S/P MVR (mitral valve replacement): (7) Atrial fibrillation: PLAN: with rvr, rate controlled on metoprolol, cardizem. Cardiology mgmt (8) Congestive heart failure: PLAN: oxygenation stable (9) Hypertension: QUALIFIERS: Hypertension type: essential hypertension PLAN: history. Maintain SBP >100 for renal perfusion (10) Anemia: PLAN: hgb 8.8g
--- NOTE | 2022-03-23 19:35 | EX.PCM.CON.S ---
Assessment & Plan Assessment/Plan (1) Prosthetic valve endocarditis: (2) Acute renal failure: PLAN: Plan This is an 81-year-old female who is being treated for endocarditis and acute renal failure with chronic IV antibiotics and dialysis, respectively. Surgery is asked to evaluate the patient for placement of tunneled central venous access for ongoing antibiotic administration given that ID is recommending a 6-week course of ampicillin for treatment of patient's Enterococcus bacteremia and endocarditis. This access is requested and lieu of a PICC line given patient's potential need for fistula creation in the future and need for viable vasculature. I have shared with both patient and the primary team that I could place a tunneled Flor catheter for the patient's antibiotic administration, however, I have shared that it would be most beneficial to also understand better the patient's ongoing dialysis need. If it proves likely that patient will require dialysis beyond this admission, I would recommend delaying procedure until this determination has been made and we are able to then convert patient's temporary dialysis access to a tunneled access simultaneous with placing a second line for antibiotic infusion. At this point we will tentatively plan for placement of the tunneled Flor catheter tomorrow and the patient will be held n.p.o. past midnight in anticipation of this procedure. In the meantime primary team plans to seek opinion from nephrology as to patient's ongoing need for dialysis. HPI Consult Data Date of Consult: 03/23/22 HPI Narrative Reason for Consultation: Durable IV access for prolonged course of antibiotics HPI Narrative: CARLOS ALBERTO GOLDBERG, is a 81 F with a complex past medical and past surgical history inclusive of mitral valve replacement, atrial fibrillation on anticoagulation, pulmonary hypertension, CKD 3, etc.? who presented to [facility] earlier this month and was ultimately diagnosed with endocarditis and Enterococcus bacteremia. Throughout her stay she has required urgent evaluation by gastroenterology for anemia and nephrology for acute on chronic renal failure. On 03/18/2022 Dr. Wasserman placed a temporary dialysis access via the right subclavian vein. Surgery is now asked to evaluate patient for placement of possible tunneled central venous access for administration of prolonged antibiotic course recommended by infectious disease. Nephrology wishes to avoid PICC line on account of patient's potential need for viable vasculature for fistula creation. It is also unclear whether patient will require dialysis outside of this acute hospitalization. [facility] Medical History Chronic acquired lymphedema Chronic atrial fibrillation Chronic diastolic CHF (congestive heart failure) Former tobacco use History of temporary cardiac pacemaker treatment HTN (hypertension) Morbid obesity Rheumatoid arthritis Valvular heart disease Home Medications calcium carbonate 600 mg-vitamin D3 10 mcg (400 unit) tablet (Calcium 600 + D(3)) 1 ea PO DAILY supp 12/17/13 [History Last Taken Unknown] diltiazem HCl 180 mg capsule,extended release 24 hr 180 mg PO DAILY afib 12/17/13 [History Last Taken Unknown] furosemide 40 mg tablet 40 mg PO DAILY diuretic 12/17/13 [History Last Taken Unknown] metoprolol tartrate 50 mg tablet 100 mg PO BID blood pressure 12/17/13 [History Last Taken Unknown] Century Adults 50+ Tablet 1 tab PO DAILY vitamin 08/21/16 [History Last Taken Unknown] Klor-Con M20 1 tab PO DAILY mineral 08/21/16 [History Last Taken Unknown] Warfarin Sodium 1 tab PO afib 08/21/16 [History Last Taken Unknown] Warfarin Sodium 5 mg PO afib 08/21/16 [History Last Taken Unknown] ampicillin sodium 2 gram solution for injection 2 g IV QAM 33 days #33 ea 03/22/22 [Rx Last Taken Unknown] ceftriaxone 2 gram intravenous solution 2 g IV Q12H #66 ea 03/22/22 [Rx Last Taken Unknown] diphenhydramine HCl 25 mg tablet (Allergy Relief (diphenhydramine)) 25 mg PO TID PRN allergic reaction 40 days #90 tabs 03/22/22 [Rx Last Taken Unknown] Allergy/AdvReac Type Severity Reaction Status Date / Time allopurinol Allergy Mild Rash Verified 03/11/22 10:14 ceftriaxone [From Rocephin] Allergy Mild Rash Verified 03/09/22 14:35 colchicine Allergy Mild Rash Verified 03/11/22 10:14 Family History Mother Heart disease Father Cancer Leukemia. Surgical History H/O tricuspid valve annuloplasty S/P MVR (mitral valve replacement) Social History household members: none Smoking Status: Former smoker how long ago did patient quit smoking: Quit 05/26/1959, smoked ~2 years w/ 0.25 pack/day. alcohol intake: current alcohol intake frequency: holidays/special occasions only substance use type: does not use Physical Exam Const alert, oriented x3 and no apparent distress General Appearance: cooperative Neck Neck Narrative: Patient with some bruising along the right neck, but no scars along left neck Chest Chest Narrative: There is a right-sided temporary dialysis catheter in an infraclavicular position entering the subclavian vein with crusted blood about the ports. There is also significant subcutaneous ecchymosis about this port site. The left chest there is a telemetry lead, but there is no sign of prior intervention with scarring and no active rash or infection. Resp normal respiratory effort Effort and Inspection: able to speak in complete sentences Lab / Micro Data Result Diagrams: 03/23/22 05:53 03/23/22 05:53 Labs: Laboratory Results - last 24 hr 03/23/22 05:53: WBC 5.6, RBC 2.92 L, Hgb 8.8 L, Hct 28.4 L, MCV 97.3, MCH 30.1, MCHC 31.0 L, RDW Std Deviation 60.2 H, RDW Coeff of Diandra 17.3 H, Plt Count 162, MPV 9.3, Immature Gran % (Auto) 1.600 H, Neut % (Auto) 82.1 H, Lymph % (Auto) 8.9 L, [place] % (Auto) 6.4, Eos % (Auto) 0.5, Baso % (Auto) 0.5, Absolute Neuts (auto) 4.6, Absolute Lymphs (auto) 0.50 L, Nucleated RBC % 0, Differential Comment SCANNED 03/23/22 05:53: Sodium 141, Potassium 3.7, Chloride 109 H, Carbon Dioxide 25.0, Anion Gap 7, BUN 40 H, Creatinine 2.08 H, Estim Creat Clear Calc 17.06, Est GFR (MDRD) Af Amer 29 L, Est GFR (MDRD) Non-Af 24 L, BUN/Creatinine Ratio 19.2, Glucose 127 H, Calcium 9.0 Rhythm Strip Rhythm Strip: A-fib (Episode of irregular broad complex tachycardia. Likely A. fib with aberrancy (Chula's)) Charges/Coding Visit Charges Inpatient E&M: 40965 Init Hosp L2
[2022-03-23] MEDS: Atorvastatin Calcium 40 MG Tablet PO (21:06)
[2022-03-23] MEDS: Dextrose 5%/0.9% NaCl 1,000 ML 75 ML IV (23:06)
[2022-03-24] VITALS (21 sets, daily range): BP systolic 99–132; BP diastolic 56–73; PULSE 77–93; RESP 14–24; TEMP 36.4–37.3; O2SAT 92–99
--- NOTE | 2022-03-24 03:27 | NURSING ---
pt want to talk with her daughter before signing consent for garza catherter placement. consent placed on front of pt chart.
[2022-03-24 05:03] LABS: Absolute Lymphocyte Count 0.45 X10^3/uL (0.83-4.51); Absolute Neutrophil Count 4.2 X10^3/uL (2.0-7.7); Basophil# 0.03 X10^3/uL; Basophil% 0.6 % (0-1); Eosinophil# 0.07 X10^3/uL; Eosinophils% 1.4 % (0-5); Hematocrit 29.1 % (37-47); Hemoglobin 8.7 g/dL (12.0-15.0); Lymphocyte # 0.45 X10^3/ul (0.83-4.51); Lymphocyte % 8.7 % (19-41); Mean Corp Hgb Conc 29.9 g/dL (32-36); Mean Corpuscular Volume 100.3 fL (81-99); Mean Platelet Vol. 9.4 fl (6.2-12.0); Monocyte# 0.33 X10^3/uL; Monocyte% 6.4 % (0-10); NRBC Flagged by Analyzer 0 % (0-5); Neutrophil # 4.21 X10^3/uL (2.7-7.7); Neutrophil % 81.5 % (47-70); POSITIVE DIFFERENTIAL YES; Platelet Count 165 K/mm3 (150-450); RBC Distribution Width CV 17.5 % (11.6-14.6); RBC Distribution Width SD 63.5 fl (35.1-43.9); White Blood Count 5.2 K/mm3 (4.4-11.0)
[2022-03-24] MEDS: Nystatin Powder 15gm Bottle 1 APPLIC TOPICAL ×3 (05:03→23:41)
[2022-03-24] MEDS: Menthol/Lanolin/Calamine/Znox 113 GM Tube 1 APPLIC TOPICAL ×3 (05:04→22:01)
[2022-03-24 05:16] LABS: Differential Indicated SCAN CRITERIA MET
[2022-03-24 05:33] LABS: Anisocytosis 1+; Macrocytosis RARE
[2022-03-24 05:37] LABS: Anion Gap 5 (5-15); BUN 36 mg/dL (7-18); BUN/Creat Ratio 18.9 RATIO (10-20); Chloride 111 mmol/L (98-107); EST Glomerular Filtration Rate 27 mL/min (>60); Est Glom Filt Rate - Afr Amer 33 mL/min (>60); Estimated Creatinine Clearance 18.68 ml/min; Glucose 126 mg/dL (74-106); Potassium 3.8 mmol/L (3.5-5.1); Sodium Level 141 mmol/L (136-145)
--- NOTE | 2022-03-24 08:49 | NURSING ---
Daughter called for update on patient. Explained to daughter that her mom is going to have her dialysis port taken out and a Flor line put in place for her halfway antibiotics. Daughter stated she will be in later this afternoon to visit patient.
[2022-03-24] MEDS: dilTIAZem CD 240 MG Capsule PO (08:58)
[2022-03-24] MEDS: Metoprolol Tartrate 100 MG Tablet PO ×2 (08:59→22:03)
--- NOTE | 2022-03-24 09:31 | PN.HOSP_ITS ---
Subjective Subjective Patient seen and Ament. She had no active complaints today. She had an uneventful night. Dialysis was held yesterday and patient was started on gentle hydration with IV fluids as she appeared dry. Her kidney function is improving and creatinine is down to 1.9. Her baseline creatinine is 1.5. Nephrology thinks she will need long-term dialysis and dialysis is currently being held. Objective Data Objective Data Vital Signs: Vital Signs Temp Pulse Resp BP Pulse Ox O2 Del Method O2 Flow Rate 97.7 F L 88 14 119/63 99 Nasal Cannula 3 03/24/22 08:06 03/24/22 08:59 03/24/22 08:06 03/24/22 08:59 03/24/22 08:06 03/24/22 09:05 03/24/22 09:05 FiO2 2 03/24/22 08:06 Oxygen Flow Rate (L/min) 3 Oxygen Delivery Method Nasal Cannula Weight: 207 lb 10.807 oz Body Mass Index (BMI) 37.8 Intake & Output: Intake and Output for Last 24 Hours 03/22/22 03/23/22 03/24/22 23:59 23:59 23:59 Intake Total 1100 / 1100 320 / 320 0 / 0 Output Total 1000 / 1000 1800 / 1800 Balance 100 / 100 -1480 / -1480 0 / 0 Lab / Micro Data Result Diagrams: 03/24/22 04:28 03/24/22 04:28 Labs: Laboratory Results - last 24 hr 03/24/22 04:28: WBC 5.2, RBC 2.90 L, Hgb 8.7 L, Hct 29.1 L, MCV 100.3 H, MCH 3 0.0, MCHC 29.9 L, RDW Std Deviation 63.5 H, RDW Coeff of Diandra 17.5 H, Plt Count 165, MPV 9.4, Immature Gran % (Auto) 1.400 H, Neut % (Auto) 81.5 H, Lymph % (Auto) 8.7 L, [place] % (Auto) 6.4, Eos % (Auto) 1.4, Baso % (Auto) 0.6, Absolute Neuts (auto) 4.2, Absolute Lymphs (auto) 0.45 L, Nucleated RBC % 0, Anisocytosis 1+, Macrocytosis RARE 03/24/22 04:28: Sodium 141, Potassium 3.8, Chloride 111 H, Carbon Dioxide 25.0, Anion Gap 5, BUN 36 H, Creatinine 1.90 H, Estim Creat Clear Calc 18.68, Est GFR (MDRD) Af Amer 33 L, Est GFR (MDRD) Non-Af 27 L, BUN/Creatinine Ratio 18.9, Glucose 126 H, Calcium 9.0 Micro: Microbiology 03/15/22 13:20 Blood Culture (Wb) - Right Hand Blood Culture - Final No growth in 5 days. 03/14/22 09:54 Blood Culture (Wb) - Right Hand Blood Culture - Final No growth in 5 days. 03/13/22 06:19 Blood Culture (Wb) - Right Hand Blood Culture - Final GPC Poss Enterococcus sp 03/12/22 15:40 Blood Culture (Wb) - Right Hand Blood Culture - Final GPC Poss Enterococcus sp 03/16/22 23:25 Stool Stool Occult Blood (JOSSUE) - Final 03/11/22 17:25 Urine, Clean Catch Urine Culture - Final Enterococcus faecalis Mixed Gram Positive Organisms 03/11/22 07:32 Blood Culture (Wb) - Venous Bacteria Detection (PCR) - Final Enterococcus faecalis 03/11/22 07:32 Blood Culture (Wb) - Venous Blood Culture - Final Enterococcus faecalis 03/10/22 00:02 Urine, Clean Catch Urine Culture - Final Mixed Gram Pos & Gram Neg Org 03/11/22 06:40 Nasal Secretion SARS-CoV-2 & FLU Antigen (Rapid) - Final 03/09/22 22:51 Nasal Secretion SARS-CoV-2 Antigen (Rapid) - Final 03/09/22 18:08 Mucosa - Nasopharyngeal Respiratory Panel (PCR) - Final Rhythm Strip Rhythm Strip: A-fib (Episode of irregular broad complex tachycardia. Likely A. fib with aberrancy (Chula's)) Physical Exam Const alert, oriented x3 and no apparent distress Constitutional Narrative: frail HEENT head/scalp atraumatic, moist oral mucous membranes and oropharynx normal Head and Scalp: normocephalic Mouth: dry mucous membranes Eyes PERRL, EOMs intact bilaterally and conjunctivae normal Neck no lymphadenopathy, supple and no JVD Resp normal respiratory effort, no retractions, no use of accessory muscles and clear to auscultation bilaterally Resp Narrative: diminished breath sounds bibasally, no wheezes or crackles. still on 3L of oxygen Cardio regular rate, regular rhythm, S1 normal heart sound, S2 normal heart sound and no murmurs Cardio Narrative: tachycardic GI normal to inspection, nondistended, normoactive bowel sounds, soft to palpation, non-tender and non-distended Extremity normal to inspection, full ROM and no clubbing, cyanosis or edema Extremity Narrative: dialysis catheter in left side of chest Neuro oriented x3, CN's II-XII intact bilaterally, moves all extremities and no focal motor deficits Sensorium / Orientation: awake and alert Motor Exam: strength 5/5 throughout Psych Psych Narrative: flat affect Assessment & Plan Assessment/Plan (1) Acute renal failure: (2) Bacteremia due to Enterococcus: (3) Anemia: (4) GI bleed: (5) CKD (chronic kidney disease) stage 4, GFR 15-29 ml/min: PLAN: Plan #Acute on chronic HFpEF * stable. Off dialysis now, which was helping with fluid removal #Afib with RVR * On metoprolol and cardizem * On Eliquis. #Acute on chronic anemia: * Status posttransfusion. Had EGD which showed esophagitis and gastritis. On PPI and Carafate. #JACQUIE on CKD * Thought it was due to ATN from dialysis and probable contrast induced nephropathy from CAT scan done on 03/14/2022. * kidney function improving * Cr down to 1.9; with her baseline Cr being 1.5 * dialysis stopped; per nephrology, she will likely not need terminal clerk dialysis * temporary dialysis catheter to be removed today * * #NSTEMI: * cardiology reviewed patient, and felt it was probably a type 2 nonstemi. * had stress test which was negative for any evidence of ischemia #Bacteremia with infective endocarditis * blood cultures grew Enterococcus faecalis; repeat blood cultures were negative. 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 DVT prophylaxis: oneliquis Disposition; will need placement Charges/Coding Visit Charges Inpatient E&M: 26364 Subs Hosp L2
[2022-03-24] MEDS: Dextrose 5%/0.9% NaCl 1,000 ML 75 ML IV (10:31)
--- NOTE | 2022-03-24 10:44 | NURSING ---
Called report to NARENDRA Garcia in [place]
[2022-03-24] MEDS: Lactated Ringers 1,000 ML 15 ML IV (11:25)
[2022-03-24] MEDS: Cefazolin 2 GM in 0.9% Normal Saline 100 ML IV (12:31)
[2022-03-24] MEDS: Heparin 10,000 UNITS/10 ML Vial 10000 UNITS (13:15)
[2022-03-24] MEDS: Bupivacaine 0.25% 30 ML Vial (13:20)
--- NOTE | 2022-03-24 13:24 | OP.PCM_ITS ---
Report of Operation Date of Procedure: 03/24/22 Pre-Operative Diagnosis: Endocarditis requiring durable venous access for prolo nged antibiotic course Post-Operative Diagnosis: Same Surgery/Procedure Performed:: 1. Removal of right subclavian access 2. Insertion of single-lumen 9.6 [place]ian Flor catheter cut to a length of 30 cm. Reference #[id number] Description of Surgical Findings:: ? Uneventful removal of hemodialysis catheter and hemostasis achieved with manual direct pressure ? Diminutive right internal jugular vein on the right as it approached the clavicle under ultrasound ? Uneventful placement of Flor catheter to the right atrium Surgeon: Qasim Helms residence hall director: None Type of Anesthesia: MAC/Supplemental/Local Anesthesiologist: Rachid Raman Specimen's removed: Hemodialysis catheter Estimated Blood Loss (mL): 10 Description of Procedure: After appropriate identification in the preoperative holding area the patient was brought to the operating room. There she was administered preoperative antibiotics and positioned supine on the operating room table. Once sedation was begun, the upper chest and lower cervical region were prepped and draped in usual sterile fashion?including patient's existing right-sided hemodialysis catheter. A formal timeout was then conducted to confirm both the patient and procedure. The patient's existing hemodialysis catheter was removed and manual pressure applied to the area for a period of 5 minutes. This resulted in adequate hemostasis. The patient was then positioned in Trendelenburg and ultrasound was used to localize the right internal jugular vein. This vein appeared to be of adequate caliber in the midportion of the neck, however as it approached the clavicle its diameter was significantly smaller and located more deeply in the neck. Therefore, due to mitigate the risk for procedural complications, I elected to go to the contralateral side where the left internal jugular vein was easily identified with a stable caliber throughout its course to the clavicle. Then a wheal of 0.25% plain bupivacaine was raised superficially above the vein. It was accessed under direct ultrasound guidance using a Seldinger technique and micro access kit to place a guidewire. The position of the guidewire was confirmed with fluoroscopy. The micro access guidewire was exchanged for standard 035 guidewire using provided sheath. Next the position of the catheter/cuff was determined (6 cm from the insertion site) and again local anesthetic was used to anesthetize the area of both the pocket and the tunneling cephalad. A transverse incision approximately 2 cm in width was made down through the subcutaneous tissue. The Flor catheter was trimmed to a length of 30 cm from the cuff and then connected to the tunneler and was tunneled up to the position of the guidewire in the neck. Here the dilator and peel-away sheath were placed over the guidewire and the guidewire was removed. Position was again confirmed with fluoroscopy. The catheter was then fed into the sheath and slowly the sheath was peeled away as the catheter was inserted fully into the neck. Postplacement x-ray confirmed no kinking of the catheter and termination was in the right atrium. Function of the catheter was tested using injectable saline and it proved to aspirate and flush without resistance. Back in the chest the port was tied into the pocket using 2-0 nylon and a cerclage technique about the tunneling tract. The insertion site in the neck was also closed with a 2-0 nylon in a [id number] fashion. The catheter was locked with 4 mL of heparinized saline (concentration 50U/5mL). The catheter was then coiled upon itself after placing a Biopatch at the exit site to the tunnel and was affixed to the chest wall with a 3000 drape. On the patient's right side where the hemodialysis catheter was removed a pressure dressing was created using a folded 4 x 4 gauze and a second 3000 drape. Procedure was then officially completed and patient aroused from the sedation and taken to PACU for ongoing recovery were a portable chest x-ray was obtained to confirm port positioning and exclude any pneumothorax. Grafts/Implants Used: single-lumen 9.6 [place] Flor catheter ref #[id number] Complications None
--- NOTE | 2022-03-24 13:49 | RAD_ITS ---
STUDY: X-RAY CHEST REASON FOR EXAM: Female, 81 years old. POST CHO PLACEMENT TECHNIQUE: Single AP portable view of the chest. COMPARISON: March 18, 2022 FINDINGS: Central catheter on the left extends to the right atrium. There are mild perihilar increased opacities. There is no demonstrated pleural abnormality. Sternal cerclage wires are present from a prior sternotomy. There is cardiac enlargement. Normal mediastinum and patria. Normal visualized pulmonary arteries. Normal visualized aortic arch and descending thoracic aorta. There are diffuse degenerative changes of the visualized thoracic spine. Normal visualized ribs, clavicles, and shoulders. There is no demonstrated abnormality of the visualized soft tissue structures of the upper abdomen. RAD/CXR for Line Placement IMPRESSION: Central catheter extends to the right atrium. No pneumothorax. Perihilar edema or atelectasis. Cardiac enlargement. Electronically Signed: Zay Clarke MD at 14:03 EST ,
[2022-03-24] MEDS: Clopidogrel Bisulfate 75 MG Tablet PO (14:44)
[2022-03-24] MEDS: Pantoprazole Sodium 40 MG Tablet PO (14:44)
[2022-03-24] MEDS: DiphenhydrAMINE 25 MG Capsule PO ×2 (14:51→21:10)
[2022-03-24] MEDS: Ceftriaxone 1 GM/50 ML BAG IV ×2 (15:36→21:56)
--- NOTE | 2022-03-24 15:37 | PCM.PN.REN ---
Subjective Subjective temp dialysis catheter removed. Creatinine stable. Nonoliguric. No further dialysis needed. Pt wants a root beer float. Thirsty. No SOB. No CP Objective Data Objective Data Vital Signs: Vital Signs Temp Pulse Resp BP Pulse Ox O2 Del Method O2 Flow Rate 98.2 F 87 14 116/56 L 95 Nasal Cannula 2 03/24/22 14:34 03/24/22 14:34 03/24/22 14:34 03/24/22 14:34 03/24/22 14:34 03/24/22 14:34 03/24/22 14:34 FiO2 2 03/24/22 08:06 Oxygen Flow Rate (L/min) 2 Oxygen Delivery Method Nasal Cannula Weight: 94.2 kg Body Mass Index (BMI) 37.8 Intake & Output: Intake and Output for Last 24 Hours 03/22/22 03/23/22 03/24/22 23:59 23:59 23:59 Intake Total 1100 / 1100 320 / 320 1070 / 1070 Output Total 1000 / 1000 1800 / 1800 Balance 100 / 100 -1480 / -1480 1070 / 1070 Lab / Micro Data Result Diagrams: 03/24/22 04:28 03/24/22 04:28 Labs: Laboratory Results - last 24 hr 03/24/22 04:28: WBC 5.2, RBC 2.90 L, Hgb 8.7 L, Hct 29.1 L, MCV 100.3 H, MCH 30.0, MCHC 29.9 L, RDW Std Deviation 63.5 H, RDW Coeff of Diandra 17.5 H, Plt Count 165, MPV 9.4, Immature Gran % (Auto) 1.400 H, Neut % (Auto) 81.5 H, Lymph % (Auto) 8.7 L, [place] % (Auto) 6.4, Eos % (Auto) 1.4, Baso % (Auto) 0.6, Absolute Neuts (auto) 4.2, Absolute Lymphs (auto) 0.45 L, Nucleated RBC % 0, Anisocytosis 1+, Macrocytosis RARE 03/24/22 04:28: Sodium 141, Potassium 3.8, Chloride 111 H, Carbon Dioxide 25.0, Anion Gap 5, BUN 36 H, Creatinine 1.90 H, Estim Creat Clear Calc 18.68, Est GFR (MDRD) Af Amer 33 L, Est GFR (MDRD) Non-Af 27 L, BUN/Creatinine Ratio 18.9, Glucose 126 H, Calcium 9.0 Micro: Microbiology 03/15/22 13:20 Blood Culture (Wb) - Right Hand Blood Culture - Final No growth in 5 days. 03/14/22 09:54 Blood Culture (Wb) - Right Hand Blood Culture - Final No growth in 5 days. 03/13/22 06:19 Blood Culture (Wb) - Right Hand Blood Culture - Final GPC Poss Enterococcus sp 03/12/22 15:40 Blood Culture (Wb) - Right Hand Blood Culture - Final GPC Poss Enterococcus sp 03/16/22 23:25 Stool Stool Occult Blood (JOSSUE) - Final 03/11/22 17:25 Urine, Clean Catch Urine Culture - Final Enterococcus faecalis Mixed Gram Positive Organisms 03/11/22 07:32 Blood Culture (Wb) - Venous Bacteria Detection (PCR) - Final Enterococcus faecalis 03/11/22 07:32 Blood Culture (Wb) - Venous Blood Culture - Final Enterococcus faecalis 03/10/22 00:02 Urine, Clean Catch Urine Culture - Final Mixed Gram Pos & Gram Neg Org 03/11/22 06:40 Nasal Secretion SARS-CoV-2 & FLU Antigen (Rapid) - Final 03/09/22 22:51 Nasal Secretion SARS-CoV-2 Antigen (Rapid) - Final 03/09/22 18:08 Mucosa - Nasopharyngeal Respiratory Panel (PCR) - Final Radiography Diagnostic Testing: Radiology Impression Chest X-Ray 03/24/22 13:49 IMPRESSION: Central catheter extends to the right atrium. No pneumothorax. Perihilar edema or atelectasis. Cardiac enlargement. Electronically Signed: Zay Clarke MD at 14:03 EST , Rhythm Strip Rhythm Strip: A-fib (Episode of irregular broad complex tachycardia. Likely A. fib with aberrancy (Chula's)) Physical Exam Const alert, oriented x3 and no apparent distress Constitutional Narrative: more alert today General Appearance: well developed Nutritional Appearance: obese Resp clear to auscultation bilaterally Cardio Rhythm: abnormal rhythm irregularly irregular GI non-tender and non-distended Auscultation: normoactive bowel sounds Extremity no clubbing, cyanosis or edema Extremity Narrative: hyperpigmentation of skin BLE Assessment & Plan Assessment/Plan (1) Acute renal failure: PLAN: acute on CKD stage 4 due to ATN. Creatinine stable at 1.9 today. No further dialysis. Temp dialysis catheter removed today. DC fluid restriction. Encourage protein supplement for malnutrition albumin 1.6. (2) CKD (chronic kidney disease) stage 4, GFR 15-29 ml/min: PLAN: Creatinine 1.58 eCRCL 22cc/min on admit. proteinuria UPCR 1.6g no history of diabetes. (3) Endocarditis: PLAN: intermediate antibiotics s/p Flor catheter placement (4) Bacteremia due to Enterococcus: PLAN: ID following (5) UTI (urinary tract infection): PLAN: on antibx (6) Pulmonary hypertension: PLAN: chronic lymphedema with venous stasis skin changes in legs (7) S/P MVR (mitral valve replacement): (8) Atrial fibrillation: PLAN: with rvr, rate controlled on metoprolol, cardizem. Cardiology mgmt (9) Hypertension: QUALIFIERS: Hypertension type: essential hypertension PLAN: history. Maintain SBP >100 for renal perfusion (10) Anemia: PLAN: s/p GI bleed requring multiple blood transfusions. hgb stable
--- NOTE | 2022-03-24 16:10 | CASEMGMT ---
MARIA ALEJANDRA spoke with patient and her daughter. SW let them know [facility] still has a bed for her we just need to wait on insurance. MARIA ALEJANDRA called [facility] and they have not heard yet.They could hear over the weekend. Karin will call [facility] if she gets approval over the weekend. Green sheet on chart in case approval is received. Plan: d/c to [facility] under skilled level of care on a 7000. Marilu PARADA
[2022-03-24] MEDS: Ensure Plus High Protein 120 ML LIQUID PO (17:12)
--- NOTE | 2022-03-24 17:49 | NURSING ---
1630 Dr. Helms came in to inspect Flor line, noted the bleeding. Assisted Dr. Helms in holding pressure on line, followed by dressing change. Dr. Helms placed 2 4x4 over op-site dressing to hold pressure over site.
[2022-03-24] MEDS: Atorvastatin Calcium 40 MG Tablet PO (22:03)
[2022-03-25] VITALS (13 sets, daily range): BP systolic 107–127; BP diastolic 57–62; PULSE 62–89; RESP 16–18; TEMP 36.3–36.7; O2SAT 95–98
[2022-03-25] MEDS: Menthol/Lanolin/Calamine/Znox 113 GM Tube 1 APPLIC TOPICAL ×3 (05:52→21:25)
[2022-03-25] MEDS: Nystatin Powder 15gm Bottle 1 APPLIC TOPICAL ×3 (05:52→21:24)
[2022-03-25] MEDS: Dextrose 5%/0.9% NaCl 1,000 ML 75 ML IV (07:23)
[2022-03-25 08:06] LABS: Absolute Lymphocyte Count 0.41 X10^3/uL (0.83-4.51); Absolute Neutrophil Count 3.8 X10^3/uL (2.0-7.7); Basophil# 0.02 X10^3/uL; Basophil% 0.4 % (0-1); Eosinophil# 0.05 X10^3/uL; Eosinophils% 1.1 % (0-5); Hematocrit 28.3 % (37-47); Hemoglobin 8.4 g/dL (12.0-15.0); Lymphocyte # 0.41 X10^3/ul (0.83-4.51); Lymphocyte % 8.8 % (19-41); Mean Corp Hgb Conc 29.7 g/dL (32-36); Mean Corpuscular Hgb 29.9 pg (27.0-32.0); Mean Corpuscular Volume 100.7 fL (81-99); Mean Platelet Vol. 9.4 fl (6.2-12.0); Monocyte# 0.33 X10^3/uL; Monocyte% 7.1 % (0-10); NRBC Flagged by Analyzer 0 % (0-5); Neutrophil % 81.1 % (47-70); POSITIVE DIFFERENTIAL YES; Platelet Count 149 K/mm3 (150-450); RBC Distribution Width CV 17.5 % (11.6-14.6); RBC Distribution Width SD 63.3 fl (35.1-43.9); Red Blood Count 2.81 M/mm3 (4.2-5.4); White Blood Count 4.7 K/mm3 (4.4-11.0)
[2022-03-25 08:07] LABS: Differential Indicated SCAN CRITERIA MET
[2022-03-25 08:24] LABS: Anion Gap 4 (5-15); BUN 35 mg/dL (7-18); BUN/Creat Ratio 20.3 RATIO (10-20); Calcium,Total 9.4 mg/dL (8.5-10.1); Chloride 112 mmol/L (98-107); Creatinine, Serum 1.72 mg/dL (0.55-1.02); EST Glomerular Filtration Rate 30 mL/min (>60); Est Glom Filt Rate - Afr Amer 37 mL/min (>60); Estimated Creatinine Clearance 20.63 ml/min; Glucose 118 mg/dL (74-106); Potassium 3.4 mmol/L (3.5-5.1); Sodium Level 145 mmol/L (136-145)
--- NOTE | 2022-03-25 08:57 | PN.SURG_ITS ---
Subjective Subjective Patient status post left-sided Flor yesterday. Objective Data Objective Data Multiple bruising on both the left and right neck. No signs of large hematomas. Vital Signs: Vital Signs Temp Pulse Resp BP Pulse Ox O2 Del Method O2 Flow Rate 97.3 F L 86 18 125/59 H 98 Nasal Cannula 2 03/25/22 03:10 03/25/22 06:59 03/25/22 03:10 03/25/22 03:10 03/25/22 03:10 03/25/22 03:10 03/25/22 03:10 FiO2 2 03/24/22 16:02 Oxygen Flow Rate (L/min) 2 Oxygen Delivery Method Nasal Cannula Weight: 210 lb 5.136 oz Body Mass Index (BMI) 37.8 Intake & Output: Intake and Output for Last 24 Hours 03/23/22 03/24/22 03/25/22 23:59 23:59 23:59 Intake Total 320 / 320 1758.5 / 1758.5 940 / 940 Output Total 1800 / 1800 250 / 250 Balance -1480 / -1480 1758.5 / 1608.5 690 / 690 Lab / Micro Data Result Diagrams: 03/25/22 07:32 03/25/22 07:32 Labs: Laboratory Results - last 24 hr 03/25/22 07:32: WBC 4.7, RBC 2.81 L, Hgb 8.4 L, Hct 28.3 L, MCV 100.7 H, MCH 29.9, MCHC 29.7 L, RDW Std Deviation 63.3 H, RDW Coeff of Diandra 17.5 H, Plt Count 149 L, MPV 9.4, Immature Gran % (Auto) 1.500 H, Neut % (Auto) 81.1 H, Lymph % (Auto) 8.8 L, [place] % (Auto) 7.1, Eos % (Auto) 1.1, Baso % (Auto) 0.4, Absolute Neuts (auto) 3.8, Absolute Lymphs (auto) 0.41 L, Nucleated RBC % 0 03/25/22 07:32: Sodium 145, Potassium 3.4 L, Chloride 112 H, Carbon Dioxide 29.0, Anion Gap 4 L, BUN 35 H, Creatinine 1.72 H, Estim Creat Clear Calc 20.63, Est GFR (MDRD) Af Amer 37 L, Est GFR (MDRD) Non-Af 30 L, BUN/Creatinine Ratio 20.3 H, Glucose 118 H, Calcium 9.4 Micro: Microbiology 03/15/22 13:20 Blood Culture (Wb) - Right Hand Blood Culture - Final No growth in 5 days. 03/14/22 09:54 Blood Culture (Wb) - Right Hand Blood Culture - Final No growth in 5 days. 03/13/22 06:19 Blood Culture (Wb) - Right Hand Blood Culture - Final GPC Poss Enterococcus sp 03/12/22 15:40 Blood Culture (Wb) - Right Hand Blood Culture - Final GPC Poss Enterococcus sp 03/16/22 23:25 Stool Stool Occult Blood (JOSSUE) - Final 03/11/22 17:25 Urine, Clean Catch Urine Culture - Final Enterococcus faecalis Mixed Gram Positive Organisms 03/11/22 07:32 Blood Culture (Wb) - Venous Bacteria Detection (PCR) - Final Enterococcus faecalis 03/11/22 07:32 Blood Culture (Wb) - Venous Blood Culture - Final Enterococcus faecalis 03/10/22 00:02 Urine, Clean Catch Urine Culture - Final Mixed Gram Pos & Gram Neg Org 03/11/22 06:40 Nasal Secretion SARS-CoV-2 & FLU Antigen (Rapid) - Final 03/09/22 22:51 Nasal Secretion SARS-CoV-2 Antigen (Rapid) - Final 03/09/22 18:08 Mucosa - Nasopharyngeal Respiratory Panel (PCR) - Final Radiography Diagnostic Testing: Radiology Impression Chest X-Ray 03/24/22 13:49 IMPRESSION: Central catheter extends to the right atrium. No pneumothorax. Perihilar edema or atelectasis. Cardiac enlargement. Electronically Signed: Zay Clarke MD at 14:03 EST , Rhythm Strip Rhythm Strip: A-fib (Episode of irregular broad complex tachycardia. Likely A. fib with aberrancy (Chula's)) Assessment & Plan Assessment/Plan (1) Endocarditis: PLAN: Flor catheter is in place and working.
--- NOTE | 2022-03-25 09:30 | RAD_ITS ---
EXAM: XR RIGHT HIP WITH PELVIS WHEN PERFORMED, 2 OR 3 VIEWS CLINICAL INDICATION: R hip pain and bruising, previous fall TECHNIQUE: Two or three views of the right hip with pelvis when performed. This report was created using [employer] report ipsy technology. COMPARISON: None. FINDINGS: BONES/JOINTS: Degenerative narrowing in the medial aspect of both hip joint spaces. No displaced fracture. No destructive or sclerotic lesions. Note that overlapping bowel shadows may however obscure fine detail. Sacroiliac joint is unremarkable. No widening of the pubic symphysis. SOFT TISSUES: Unremarkable. No soft tissue swelling or gas. OTHER FINDINGS: Calcified uterine fibroid. RAD/Hip Min 2 Views (Portable) IMPRESSION: No acute fracture or dislocation of the pelvis and right hip. Electronically Signed: Jerrell Felton MD at 9:57 EST ,
[2022-03-25 09:50] LABS: Differential Comment SCANNED
--- NOTE | 2022-03-25 10:11 | PN.HOSP_ITS ---
Subjective Subjective Patient seen and examined. She had no complaints and felt well today; review of systems is otherwise negative. She had the temporary dialysis catheter removed yesterday, and had a Flor line placed. She is now awaiting placement Objective Data Objective Data Vital Signs: Vital Signs Temp Pulse Resp BP Pulse Ox O2 Del Method O2 Flow Rate 97.3 F L 86 18 125/59 H 98 Nasal Cannula 2 03/25/22 03:10 03/25/22 06:59 03/25/22 03:10 03/25/22 03:10 03/25/22 03:10 03/25/22 03:10 03/25/22 03:10 FiO2 2 03/24/22 16:02 Oxygen Flow Rate (L/min) 2 Oxygen Delivery Method Nasal Cannula Weight: 210 lb 5.136 oz Body Mass Index (BMI) 37.8 Intake & Output: Intake and Output for Last 24 Hours 03/23/22 03/24/22 03/25/22 23:59 23:59 23:59 Intake Total 320 / 320 1758.5 / 1758.5 940 / 940 Output Total 1800 / 1800 250 / 250 Balance -1480 / -1480 1758.5 / 1608.5 690 / 690 Lab / Micro Data Result Diagrams: 03/25/22 07:32 03/25/22 07:32 Labs: Laboratory Results - last 24 hr 03/25/22 07:32: WBC 4.7, RBC 2.81 L, Hgb 8.4 L, Hct 28.3 L, MCV 100.7 H, MCH 29.9, MCHC 29.7 L, RDW Std Deviation 63.3 H, RDW Coeff of Diandra 17.5 H, Plt Count 149 L, MPV 9.4, Immature Gran % (Auto) 1.500 H, Neut % (Auto) 81.1 H, Lymph % (Auto) 8.8 L, [place] % (Auto) 7.1, Eos % (Auto) 1.1, Baso % (Auto) 0.4, Absolute Neuts (auto) 3.8, Absolute Lymphs (auto) 0.41 L, Nucleated RBC % 0, Differential Comment SCANNED 03/25/22 07:32: Sodium 145, Potassium 3.4 L, Chloride 112 H, Carbon Dioxide 29.0, Anion Gap 4 L, BUN 35 H, Creatinine 1.72 H, Estim Creat Clear Calc 20.63, Est GFR (MDRD) Af Amer 37 L, Est GFR (MDRD) Non-Af 30 L, BUN/Creatinine Ratio 20.3 H, Glucose 118 H, Calcium 9.4 Micro: Microbiology 03/15/22 13:20 Blood Culture (Wb) - Right Hand Blood Culture - Final No growth in 5 days. 03/14/22 09:54 Blood Culture (Wb) - Right Hand Blood Culture - Final No growth in 5 days. 03/13/22 06:19 Blood Culture (Wb) - Right Hand Blood Culture - Final GPC Poss Enterococcus sp 03/12/22 15:40 Blood Culture (Wb) - Right Hand Blood Culture - Final GPC Poss Enterococcus sp 03/16/22 23:25 Stool Stool Occult Blood (JOSSUE) - Final 03/11/22 17:25 Urine, Clean Catch Urine Culture - Final Enterococcus faecalis Mixed Gram Positive Organisms 03/11/22 07:32 Blood Culture (Wb) - Venous Bacteria Detection (PCR) - Final Enterococcus faecalis 03/11/22 07:32 Blood Culture (Wb) - Venous Blood Culture - Final Enterococcus faecalis 03/10/22 00:02 Urine, Clean Catch Urine Culture - Final Mixed Gram Pos & Gram Neg Org 03/11/22 06:40 Nasal Secretion SARS-CoV-2 & FLU Antigen (Rapid) - Final 03/09/22 22:51 Nasal Secretion SARS-CoV-2 Antigen (Rapid) - Final 03/09/22 18:08 Mucosa - Nasopharyngeal Respiratory Panel (PCR) - Final Radiography Diagnostic Testing: Radiology Impression Chest X-Ray 03/24/22 13:49 IMPRESSION: Central catheter extends to the right atrium. No pneumothorax. Perihilar edema or atelectasis. Cardiac enlargement. Electronically Signed: Zay Clarke MD at 14:03 EST , Hip X-Ray 03/25/22 09:30 IMPRESSION: No acute fracture or dislocation of the pelvis and right hip. Electronically Signed: Jerrell Felton MD at 9:57 EST , Rhythm Strip Rhythm Strip: A-fib (Episode of irregular broad complex tachycardia. Likely A. fib with aberrancy ([place]'s)) Physical Exam Const alert, oriented x3 and no apparent distress Constitutional Narrative: frail HEENT head/scalp atraumatic, moist oral mucous membranes and oropharynx normal Head and Scalp: normocephalic Mouth: oral and palatal mucosa normal Eyes PERRL, EOMs intact bilaterally and conjunctivae normal Neck no lymphadenopathy, supple and no JVD Resp normal respiratory effort, no retractions, no use of accessory muscles and clear to auscultation bilaterally Resp Narrative: diminished breath sounds bibasally, no wheezes or crackles. still on 3L of oxygen Cardio regular rate, regular rhythm, S1 normal heart sound, S2 normal heart sound and no murmurs GI normal to inspection, nondistended, normoactive bowel sounds, soft to palpation, non-tender and non-distended Extremity normal to inspection, full ROM and no clubbing, cyanosis or edema Extremity Narrative: Flor catheter inserted. Neuro oriented x3, CN's II-XII intact bilaterally, moves all extremities and no focal motor deficits Sensorium / Orientation: awake and alert Motor Exam: strength 5/5 throughout Psych affect normal Psych Narrative: flat affect Assessment & Plan Assessment/Plan (1) Acute renal failure: (2) Bacteremia due to Enterococcus: (3) Anemia: (4) GI bleed: (5) CKD (chronic kidney disease) stage 4, GFR 15-29 ml/min: PLAN: Plan #Acute on chronic HFpEF * stable. Off dialysis now, which was helping with fluid removal #Afib with RVR * On metoprolol and cardizem * On Eliquis. #Acute on chronic anemia: * Status posttransfusion. * Had EGD which showed esophagitis and gastritis. On PPI and Carafate. #JACQUIE on CKD * Thought it was due to ATN from dialysis and probable contrast induced nephropathy from CAT scan done on 03/14/2022. 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 * * #NSTEMI: * cardiology reviewed patient, and felt it was probably a type 2 nonstemi. * had stress test which was negative for any evidence of ischemia #Bacteremia with infective endocarditis * blood cultures grew Enterococcus faecalis; repeat blood cultures were negative. * on IV ampicillin * ID on board * TTE showed no evidence of vegetations * NOHEMY showed evidence of vegetations on the aortic valve; cannot xclude tiny (<0.5cm) freely mobile mass on mitral valve leaflet * to be on IV ampicillin for 6 weeks, per ID * Flor line inserted. * #Hypokalemia: resolved #Hypertension: on metoprolol ans losartan #Bilateral knee arthritis: on tylenol #Chronic bilateral LE edema: SANTHOSH wraps #Mitral valve disease: S/p mitral valve replacement with prosthetic valve. DVT prophylaxis: on eliquis Disposition: awaiting placement Charges/Coding Visit Charges Inpatient E&M: 11881 Subs Hosp L2
[2022-03-25] MEDS: dilTIAZem CD 240 MG Capsule PO (10:17)
[2022-03-25] MEDS: Ensure Plus High Protein 120 ML LIQUID PO ×2 (10:17→14:26)
[2022-03-25] MEDS: Pantoprazole Sodium 40 MG Tablet PO (10:17)
[2022-03-25] MEDS: Clopidogrel Bisulfate 75 MG Tablet PO (10:17)
[2022-03-25] MEDS: Metoprolol Tartrate 100 MG Tablet PO ×2 (10:17→21:23)
[2022-03-25] MEDS: Ceftriaxone 1 GM/50 ML BAG IV ×2 (11:16→21:24)
[2022-03-25] MEDS: Potassium Chloride Oral Tablet 20 MEQ 40 MEQ PO (11:16)
--- NOTE | 2022-03-25 17:46 | PCM.PN.REN ---
Subjective Subjective doing well, no SOB. Taking po. Will stop iv fluids. Renal fxn improving. Objective Data Objective Data Vital Signs: Vital Signs Temp Pulse Resp BP Pulse Ox O2 Del Method O2 Flow Rate 98.1 F 62 18 111/57 L 95 Nasal Cannula 2 03/25/22 14:31 03/25/22 14:59 03/25/22 14:31 03/25/22 14:31 03/25/22 14:31 03/25/22 14:31 03/25/22 16:49 FiO2 2 03/25/22 14:31 Oxygen Flow Rate (L/min) 2 Oxygen Delivery Method Nasal Cannula Weight: 95.4 kg Body Mass Index (BMI) 37.8 Intake & Output: Intake and Output for Last 24 Hours 03/23/22 03/24/22 03/25/22 23:59 23:59 23:59 Intake Total 320 / 320 1758.5 / 1758.5 1090 / 1090 Output Total 1800 / 1800 730 / 730 Balance -1480 / -1480 1758.5 / 1608.5 360 / 360 Lab / Micro Data Result Diagrams: 03/25/22 07:32 03/25/22 07:32 Labs: Laboratory Results - last 24 hr 03/25/22 07:32: WBC 4.7, RBC 2.81 L, Hgb 8.4 L, Hct 28.3 L, MCV 100.7 H, MCH 29.9, MCHC 29.7 L, RDW Std Deviation 63.3 H, RDW Coeff of Diandra 17.5 H, Plt Count 149 L, MPV 9.4, Immature Gran % (Auto) 1.500 H, Neut % (Auto) 81.1 H, Lymph % (Auto) 8.8 L, [place] % (Auto) 7.1, Eos % (Auto) 1.1, Baso % (Auto) 0.4, Absolute Neuts (auto) 3.8, Absolute Lymphs (auto) 0.41 L, Nucleated RBC % 0, Differential Comment SCANNED 03/25/22 07:32: Sodium 145, Potassium 3.4 L, Chloride 112 H, Carbon Dioxide 29.0, Anion Gap 4 L, BUN 35 H, Creatinine 1.72 H, Estim Creat Clear Calc 20.63, Est GFR (MDRD) Af Amer 37 L, Est GFR (MDRD) Non-Af 30 L, BUN/Creatinine Ratio 20.3 H, Glucose 118 H, Calcium 9.4 Micro: Microbiology 03/15/22 13:20 Blood Culture (Wb) - Right Hand Blood Culture - Final No growth in 5 days. 03/14/22 09:54 Blood Culture (Wb) - Right Hand Blood Culture - Final No growth in 5 days. 03/13/22 06:19 Blood Culture (Wb) - Right Hand Blood Culture - Final GPC Poss Enterococcus sp 03/12/22 15:40 Blood Culture (Wb) - Right Hand Blood Culture - Final GPC Poss Enterococcus sp 03/16/22 23:25 Stool Stool Occult Blood (JOSSUE) - Final 03/11/22 17:25 Urine, Clean Catch Urine Culture - Final Enterococcus faecalis Mixed Gram Positive Organisms 03/11/22 07:32 Blood Culture (Wb) - Venous Bacteria Detection (PCR) - Final Enterococcus faecalis 03/11/22 07:32 Blood Culture (Wb) - Venous Blood Culture - Final Enterococcus faecalis 03/10/22 00:02 Urine, Clean Catch Urine Culture - Final Mixed Gram Pos & Gram Neg Org 03/11/22 06:40 Nasal Secretion SARS-CoV-2 & FLU Antigen (Rapid) - Final 03/09/22 22:51 Nasal Secretion SARS-CoV-2 Antigen (Rapid) - Final 03/09/22 18:08 Mucosa - Nasopharyngeal Respiratory Panel (PCR) - Final Radiography Diagnostic Testing: Radiology Impression Hip X-Ray 03/25/22 09:30 IMPRESSION: No acute fracture or dislocation of the pelvis and right hip. Electronically Signed: Jerrell Felton MD at 9:57 EST , Rhythm Strip Rhythm Strip: A-fib (Episode of irregular broad complex tachycardia. Likely A. fib with aberrancy ([place]'s)) Physical Exam Const alert and oriented x3 Nutritional Appearance: obese Resp clear to auscultation bilaterally Cardio Rhythm: abnormal rhythm irregularly irregular GI non-tender and non-distended Auscultation: normoactive bowel sounds Palpation: soft Extremity Extremity Narrative: no edema Assessment & Plan Assessment/Plan (1) Acute renal failure: PLAN: acute on CKD stage 4 due to ATN. Creatinine stable at 1.72 today. No further dialysis needed. DC fluid restriction. D iv fluids Change to regular diet. Encourage protein supplement for malnutrition albumin 1.6. (2) CKD (chronic kidney disease) stage 4, GFR 15-29 ml/min: PLAN: Creatinine 1.58 eCRCL 22cc/min on admit. proteinuria UPCR 1.6g no history of diabetes. (3) Endocarditis: PLAN: [facility] antibiotics s/p Flor catheter placement (4) Bacteremia due to Enterococcus: PLAN: ID following (5) UTI (urinary tract infection): PLAN: on antibx (6) Pulmonary hypertension: PLAN: chronic lymphedema with venous stasis skin changes in legs (7) S/P MVR (mitral valve replacement): (8) Atrial fibrillation: PLAN: with rvr, rate controlled on metoprolol, cardizem. Cardiology mgmt (9) Hypertension: QUALIFIERS: Hypertension type: essential hypertension PLAN: history. Maintain SBP >100 for renal perfusion (10) Anemia: PLAN: s/p GI bleed requring multiple blood transfusions. hgb stable
[2022-03-25] MEDS: Atorvastatin Calcium 40 MG Tablet PO (21:23)
[2022-03-26] VITALS (14 sets, daily range): BP systolic 109–121; BP diastolic 50–66; PULSE 61–87; RESP 16; TEMP 36.6–36.8; O2SAT 93–97
[2022-03-26] MEDS: Nystatin Powder 15gm Bottle 1 APPLIC TOPICAL ×3 (05:42→21:01)
[2022-03-26] MEDS: Menthol/Lanolin/Calamine/Znox 113 GM Tube 1 APPLIC TOPICAL ×3 (05:43→21:02)
[2022-03-26 06:13] LABS: Absolute Lymphocyte Count 0.45 X10^3/uL (0.83-4.51); Absolute Neutrophil Count 3.6 X10^3/uL (2.0-7.7); Basophil# 0.02 X10^3/uL; Basophil% 0.4 % (0-1); Eosinophil# 0.09 X10^3/uL; Eosinophils% 1.9 % (0-5); Hematocrit 26.5 % (37-47); Hemoglobin 7.8 g/dL (12.0-15.0); Lymphocyte # 0.45 X10^3/ul (0.83-4.51); Lymphocyte % 9.7 % (19-41); Mean Corp Hgb Conc 29.4 g/dL (32-36); Mean Corpuscular Hgb 29.7 pg (27.0-32.0); Mean Corpuscular Volume 100.8 fL (81-99); Mean Platelet Vol. 9.4 fl (6.2-12.0); Monocyte# 0.42 X10^3/uL; Monocyte% 9.1 % (0-10); NRBC Flagged by Analyzer 0 % (0-5); Neutrophil # 3.59 X10^3/uL (2.7-7.7); Neutrophil % 77.6 % (47-70); POSITIVE DIFFERENTIAL YES; Platelet Count 147 K/mm3 (150-450); RBC Distribution Width CV 17.8 % (11.6-14.6); Red Blood Count 2.63 M/mm3 (4.2-5.4); White Blood Count 4.6 K/mm3 (4.4-11.0)
[2022-03-26 06:35] LABS: Differential Indicated SCAN CRITERIA MET
[2022-03-26 06:46] LABS: Anion Gap 4 (5-15); BUN 35 mg/dL (7-18); BUN/Creat Ratio 21.1 RATIO (10-20); Calcium,Total 9.6 mg/dL (8.5-10.1); Chloride 115 mmol/L (98-107); Creatinine, Serum 1.66 mg/dL (0.55-1.02); EST Glomerular Filtration Rate 32 mL/min (>60); Est Glom Filt Rate - Afr Amer 38 mL/min (>60); Estimated Creatinine Clearance 21.38 ml/min; Glucose 108 mg/dL (74-106); Sodium Level 147 mmol/L (136-145)
[2022-03-26] MEDS: Metoprolol Tartrate 100 MG Tablet PO ×2 (09:44→21:00)
[2022-03-26] MEDS: Nepro with Carbsteady 237 ML Liquid 120 ML PO (09:44)
[2022-03-26] MEDS: Clopidogrel Bisulfate 75 MG Tablet PO (09:44)
[2022-03-26] MEDS: Pantoprazole Sodium 40 MG Tablet PO (09:45)
[2022-03-26] MEDS: dilTIAZem CD 240 MG Capsule PO (09:45)
[2022-03-26] MEDS: Ceftriaxone 1 GM/50 ML BAG IV ×2 (09:50→21:01)
[2022-03-26] MEDS: 0.45% Normal Saline 1,000 ML 75 ML IV ×2 (09:50→23:36)
[2022-03-26 10:04] LABS: Differential Comment SCANNED
--- NOTE | 2022-03-26 13:18 | PN.HOSP_ITS ---
Subjective Subjective Patient seen and examined. SHe had no complaints today and felt well. REview of systems is otherwise negative. She is now awaiting placement. Objective Data Objective Data Vital Signs: Vital Signs Temp Pulse Resp BP Pulse Ox O2 Del Method O2 Flow Rate 98.0 F 76 16 111/50 L 95 Nasal Cannula 2 03/26/22 09:25 03/26/22 10:59 03/26/22 09:25 03/26/22 09:44 03/26/22 09:25 03/26/22 09:30 03/26/22 09:30 FiO2 2 03/25/22 14:31 Oxygen Flow Rate (L/min) 2 Oxygen Delivery Method Nasal Cannula Weight: 211 lb 6.773 oz Body Mass Index (BMI) 37.8 Intake & Output: Intake and Output for Last 24 Hours 03/24/22 03/25/22 03/26/22 23:59 23:59 23:59 Intake Total 1758.5 / 1758.5 1902.5 / 1902.5 200 / 200 Output Total 780 / 780 400 / 400 Balance 1758.5 / 1608.5 1122.5 / 1122.5 -200 / -200 Lab / Micro Data Result Diagrams: 03/26/22 05:33 03/26/22 05:33 Labs: Laboratory Results - last 24 hr 03/26/22 05:33: WBC 4.6, RBC 2.63 L, Hgb 7.8 L, Hct 26.5 L, MCV 100.8 H, MCH 29.7, MCHC 29.4 L, RDW Std Deviation 64.0 H, RDW Coeff of Diandra 17.8 H, Plt Count 147 L, MPV 9.4, Immature Gran % (Auto) 1.300 H, Neut % (Auto) 77.6 H, Lymph % (Auto) 9.7 L, [place] % (Auto) 9.1, Eos % (Auto) 1.9, Baso % (Auto) 0.4, Absolute Neuts (auto) 3.6, Absolute Lymphs (auto) 0.45 L, Nucleated RBC % 0, Differential Comment SCANNED 03/26/22 05:33: Sodium 147 H, Potassium 4.0, Chloride 115 H, Carbon Dioxide 28.0, Anion Gap 4 L, BUN 35 H, Creatinine 1.66 H, Estim Creat Clear Calc 21.38, Est GFR (MDRD) Af Amer 38 L, Est GFR (MDRD) Non-Af 32 L, BUN/Creatinine Ratio 21.1 H, Glucose 108 H, Calcium 9.6 Micro: Microbiology 03/15/22 13:20 Blood Culture (Wb) - Right Hand Blood Culture - Final No growth in 5 days. 03/14/22 09:54 Blood Culture (Wb) - Right Hand Blood Culture - Final No growth in 5 days. 03/13/22 06:19 Blood Culture (Wb) - Right Hand Blood Culture - Final GPC Poss Enterococcus sp 03/12/22 15:40 Blood Culture (Wb) - Right Hand Blood Culture - Final GPC Poss Enterococcus sp 03/16/22 23:25 Stool Stool Occult Blood (JOSSUE) - Final 03/11/22 17:25 Urine, Clean Catch Urine Culture - Final Enterococcus faecalis Mixed Gram Positive Organisms 03/11/22 07:32 Blood Culture (Wb) - Venous Bacteria Detection (PCR) - Final Enterococcus faecalis 03/11/22 07:32 Blood Culture (Wb) - Venous Blood Culture - Final Enterococcus faecalis 03/10/22 00:02 Urine, Clean Catch Urine Culture - Final Mixed Gram Pos & Gram Neg Org 03/11/22 06:40 Nasal Secretion SARS-CoV-2 & FLU Antigen (Rapid) - Final 03/09/22 22:51 Nasal Secretion SARS-CoV-2 Antigen (Rapid) - Final 03/09/22 18:08 Mucosa - Nasopharyngeal Respiratory Panel (PCR) - Final Rhythm Strip Rhythm Strip: A-fib (Episode of irregular broad complex tachycardia. Likely A. fib with aberrancy (Chula's)) Physical Exam Const alert, oriented x3 and no apparent distress Constitutional Narrative: frail HEENT head/scalp atraumatic, moist oral mucous membranes and oropharynx normal Head and Scalp: normocephalic Mouth: oral and palatal mucosa normal Eyes PERRL, EOMs intact bilaterally and conjunctivae normal Neck no lymphadenopathy, supple and no JVD Resp normal respiratory effort, no retractions, no use of accessory muscles and clear to auscultation bilaterally Resp Narrative: diminished breath sounds bibasally, no wheezes or crackles. still on 3L of oxygen Cardio regular rate, regular rhythm, S1 normal heart sound, S2 normal heart sound and no murmurs GI normal to inspection, nondistended, normoactive bowel sounds, soft to palpation, non-tender and non-distended Extremity normal to inspection, full ROM and no clubbing, cyanosis or edema Extremity Narrative: Flor catheter in place. Neuro oriented x3, CN's II-XII intact bilaterally, moves all extremities and no focal motor deficits Sensorium / Orientation: awake and alert Motor Exam: strength 5/5 throughout Psych affect normal Assessment & Plan Assessment/Plan (1) Acute renal failure: (2) Bacteremia due to Enterococcus: (3) Anemia: (4) GI bleed: (5) CKD (chronic kidney disease) stage 4, GFR 15-29 ml/min: PLAN: Plan #Acute on chronic HFpEF * stable. was gettig fluid removal with dialysis. Dialysis now discontinued. Patient stable. #Afib with RVR * On metoprolol and cardizem * On Eliquis. #Acute on chronic anemia: * Status posttransfusion. * Had EGD which showed esophagitis and gastritis. On PPI and Carafate. #JACQUIE on CKD * Thought it was due to ATN from dialysis and probable contrast induced nephropathy from CAT scan done on 03/14/2022. * kidney function improving * Cr is down to 1.66 * temporary dialysis catheter removed * per nephrology, will not need security strategist dialysis. * * #NSTEMI: * cardiology reviewed patient, and felt it was probably a type 2 nonstemi. * had stress test which was negative for any evidence of ischemia #Bacteremia with infective endocarditis * blood cultures grew Enterococcus faecalis; repeat blood cultures were negative. * on IV ampicillin * ID on board * TTE showed no evidence of vegetations * NOHEMY showed evidence of vegetations on the aortic valve; cannot xclude tiny (<0.5cm) freely mobile mass on mitral valve leaflet * to be on IV ampicillin for 6 weeks, per ID * Flor line inserted. * #Hypokalemia: resolved #Hypertension: on metoprolol ans losartan #Bilateral knee arthritis: on tylenol #Chronic bilateral LE edema: SANTHOSH wraps #Mitral valve disease: S/p mitral valve replacement with prosthetic valve. DVT prophylaxis: on eliquis Disposition: awaiting placement Charges/Coding Visit Charges Inpatient E&M: 07790 Subs Hosp L2
[2022-03-26] MEDS: Atorvastatin Calcium 40 MG Tablet PO (21:00)
[2022-03-27] VITALS (10 sets, daily range): BP systolic 114–134; BP diastolic 62–69; PULSE 69–87; RESP 16–20; TEMP 36.3–36.6; O2SAT 94–98
--- NOTE | 2022-03-27 04:18 | NURSING ---
attempted to wean pt to RA, pt 89%. 2L NC in place
[2022-03-27] MEDS: Menthol/Lanolin/Calamine/Znox 113 GM Tube 1 APPLIC TOPICAL (05:14)
[2022-03-27] MEDS: Nystatin Powder 15gm Bottle 1 APPLIC TOPICAL (05:14)
[2022-03-27 06:48] LABS: Absolute Neutrophil Count 3.2 X10^3/uL (2.0-7.7); Basophil# 0.01 X10^3/uL; Basophil% 0.3 % (0-1); Eosinophil# 0.06 X10^3/uL; Eosinophils% 1.5 % (0-5); Hematocrit 25.9 % (37-47); Hemoglobin 7.8 g/dL (12.0-15.0); Mean Corp Hgb Conc 30.1 g/dL (32-36); Mean Corpuscular Hgb 30.4 pg (27.0-32.0); Mean Corpuscular Volume 100.8 fL (81-99); Mean Platelet Vol. 9.1 fl (6.2-12.0); Monocyte# 0.28 X10^3/uL; NRBC Flagged by Analyzer 0 % (0-5); Neutrophil # 3.21 X10^3/uL (2.7-7.7); Neutrophil % 80.2 % (47-70); POSITIVE DIFFERENTIAL YES; POSITIVE MORPHOLOGY YES; Platelet Count 124 K/mm3 (150-450); Red Blood Count 2.57 M/mm3 (4.2-5.4)
[2022-03-27 07:17] LABS: Anion Gap 4 (5-15); BUN 33 mg/dL (7-18); BUN/Creat Ratio 20.9 RATIO (10-20); Calcium,Total 9.5 mg/dL (8.5-10.1); Chloride 112 mmol/L (98-107); Creatinine, Serum 1.58 mg/dL (0.55-1.02); EST Glomerular Filtration Rate 33 mL/min (>60); Est Glom Filt Rate - Afr Amer 40 mL/min (>60); Estimated Creatinine Clearance 22.46 ml/min; Glucose 106 mg/dL (74-106); Potassium 3.7 mmol/L (3.5-5.1); Sodium Level 143 mmol/L (136-145)
[2022-03-27 07:23] LABS: Differential Indicated SCAN CRITERIA MET
--- NOTE | 2022-03-27 07:58 | CASEMGMT ---
Discharge Offbearer Sewer Pipe This content writer sent updated notes to Karin at [facility] via [facility]. Jerad TINOCO Exceptional Student Education Aide
[2022-03-27] MEDS: Metoprolol Tartrate 100 MG Tablet PO (09:07)
[2022-03-27] MEDS: Pantoprazole Sodium 40 MG Tablet PO (09:07)
[2022-03-27] MEDS: Clopidogrel Bisulfate 75 MG Tablet PO (09:07)
[2022-03-27] MEDS: dilTIAZem CD 240 MG Capsule PO (09:08)
[2022-03-27 09:46] LABS: Anisocytosis 1+
--- NOTE | 2022-03-27 09:50 | CASEMGMT ---
Discharge Ring Cutter Lathe Operator Pre-cert has been obtained at [facility]. MARIA ALEJANDRA Michel notified. Jerad TINOCO Front Desk Auxiliary
[2022-03-27] MEDS: 0.45% Normal Saline 1,000 ML 75 ML IV (09:54)
[2022-03-27] MEDS: Ceftriaxone 1 GM/50 ML BAG IV (09:54)
--- NOTE | 2022-03-27 12:39 | PN.RENAL_ITS ---
Subjective Subjective doing well. No complaints. Renal fxn better, taking po well. Objective Data Objective Data Vital Signs: Vital Signs Temp Pulse Resp BP Pulse Ox O2 Del Method O2 Flow Rate 97.3 F L 87 20 H 130/67 H 98 Nasal Cannula 2 03/27/22 09:15 03/27/22 09:15 03/27/22 09:15 03/27/22 09:15 03/27/22 09:15 03/27/22 10:00 03/27/22 10:00 FiO2 2 03/27/22 09:00 Oxygen Flow Rate (L/min) 2 Oxygen Delivery Method Nasal Cannula Weight: 96.3 kg Body Mass Index (BMI) 37.8 Intake & Output: Intake and Output for Last 24 Hours 03/25/22 03/26/22 03/27/22 23:59 23:59 23:59 Intake Total 1902.5 / 1902.5 1250 / 1250 917.50 / 917.50 Output Total 780 / 780 850 / 850 Balance 1122.5 / 1122.5 400 / 400 917.50 / 917.50 Lab / Micro Data Result Diagrams: 03/27/22 06:35 03/27/22 06:35 Labs: Laboratory Results - last 24 hr 03/27/22 06:35: WBC 4.0 L, RBC 2.57 L, Hgb 7.8 L, Hct 25.9 L, MCV 100.8 H, MCH 30.4, MCHC 30.1 L, RDW Std Deviation 66.0 H, RDW Coeff of Diandra 18.0 H, Plt Count 124 L, MPV 9.1, Immature Gran % (Auto) 1.000 H, Neut % (Auto) 80.2 H, Lymph % (Auto) 10.0 L, [place] % (Auto) 7.0, Eos % (Auto) 1.5, Baso % (Auto) 0.3, Absolute Neuts (auto) 3.2, Absolute Lymphs (auto) 0.40 L, Nucleated RBC % 0, Differential Comment COMMENT, Diff Path Review May foll, Anisocytosis 1+ 03/27/22 06:35: Sodium 143, Potassium 3.7, Chloride 112 H, Carbon Dioxide 27.0, Anion Gap 4 L, BUN 33 H, Creatinine 1.58 H, Estim Creat Clear Calc 22.46, Est GFR (MDRD) Af Amer 40 L, Est GFR (MDRD) Non-Af 33 L, BUN/Creatinine Ratio 20.9 H , Glucose 106, Calcium 9.5 Micro: Microbiology 03/15/22 13:20 Blood Culture (Wb) - Right Hand Blood Culture - Final No growth in 5 days. 03/14/22 09:54 Blood Culture (Wb) - Right Hand Blood Culture - Final No growth in 5 days. 03/13/22 06:19 Blood Culture (Wb) - Right Hand Blood Culture - Final GPC Poss Enterococcus sp 03/12/22 15:40 Blood Culture (Wb) - Right Hand Blood Culture - Final GPC Poss Enterococcus sp 03/16/22 23:25 Stool Stool Occult Blood (JOSSUE) - Final 03/11/22 17:25 Urine, Clean Catch Urine Culture - Final Enterococcus faecalis Mixed Gram Positive Organisms 03/11/22 07:32 Blood Culture (Wb) - Venous Bacteria Detection (PCR) - Final Enterococcus faecalis 03/11/22 07:32 Blood Culture (Wb) - Venous Blood Culture - Final Enterococcus faecalis 03/10/22 00:02 Urine, Clean Catch Urine Culture - Final Mixed Gram Pos & Gram Neg Org 03/11/22 06:40 Nasal Secretion SARS-CoV-2 & FLU Antigen (Rapid) - Final 03/09/22 22:51 Nasal Secretion SARS-CoV-2 Antigen (Rapid) - Final 03/09/22 18:08 Mucosa - Nasopharyngeal Respiratory Panel (PCR) - Final Rhythm Strip Rhythm Strip: A-fib (Episode of irregular broad complex tachycardia. Likely A. fib with aberrancy (Chula's)) Physical Exam Const alert and oriented x3 Resp clear to auscultation bilaterally Assessment & Plan Assessment/Plan (1) Acute renal failure: PLAN: acute on CKD stage 4 due to ATN. Creatinine stable at 1.58 today. No further dialysis needed. DC fluid restriction.Follow up in 1 month (2) CKD (chronic kidney disease) stage 4, GFR 15-29 ml/min: PLAN: Creatinine 1.58 eCRCL 22cc/min on admit. proteinuria UPCR 1.6g no history of diabetes. (3) Endocarditis: PLAN: nursing home antibiotics s/p Flor catheter placement (4) Bacteremia due to Enterococcus: PLAN: ID following (5) UTI (urinary tract infection): PLAN: on antibx (6) Pulmonary hypertension: PLAN: chronic lymphedema with venous stasis skin changes in legs (7) S/P MVR (mitral valve replacement): (8) Atrial fibrillation: PLAN: with rvr, rate controlled on metoprolol, cardizem. Cardiology mgmt (9) Hypertension: QUALIFIERS: Hypertension type: essential hypertension PLAN: history. Maintain SBP >100 for renal perfusion (10) Anemia: PLAN: s/p GI bleed requring multiple blood transfusions. hgb stable
--- NOTE | 2022-03-27 14:32 | PN.ID_ITS ---
Physical Exam Narrative Feeling better, no fever, no rash, no itching Const alert and no apparent distress Resp normal air movement and clear to auscultation bilaterally Cardio regular rate and regular rhythm GI soft to palpation, non-tender and non-distended Skin no rashes or lesions noted ID ID: Route of nutrition/ use of supplements: [] Nutritional Intake: [] IV Site: [] Hernandez Catheter: [] Assessment & Plan Assessment/Plan (1) S/P MVR (mitral valve replacement): (2) UTI (urinary tract infection): PLAN: enterococcus PVE secondary to uti. 03/14 changed vanc to ampicillin. Re peat bcx neg. NOHEMY (+). Wrote rx for amp/ceftriaxone for 6 weeks total, stop date 04/20/22 with weekly labs. D/w neph, ok for tunneled line placement. Increased doses of amp/ceftriaxone today. ID followup in 4 weeks. Will follow (3) Bacteremia due to Enterococcus: (4) Prosthetic valve endocarditis:
--- NOTE | 2022-03-27 14:35 | PCM.TXEXTCAR ---
Diet Diet Order/Speech Therapy: 03/25/22 11:10 Diet: Regular - General Dietary Modifications:: Sodium Restricted Type of Dietary Supplement:: Ensure Plus High Protein Is pt able to select menu?: Yes Diet Comments: 120 ml Ensure + TID w/ meals Routine Orders/Code Status Suppository Frequency: Daily PRN O2 Liters per Minute: 2 O2 Frequency: Continuous Keep PO Greater than or Equal to (%): 92 Routine Lab Work: CBC (1 week) and BMP (1 week) Code Status: Full Code Wound(s) RT CHEST: Wound Type: Puncture LT CHEST: Wound Type: Puncture LT NECK: Wound Type: Puncture Therapies Physical Therapy: Eval and Treat Occupational Therapy: Eval and Treat Problem/Diagnosis (1) S/P MVR (mitral valve replacement): Status: Acute Code(s): Z95.2 - Presence of prosthetic heart valve Comment: s/p mitral valve replacement (porcine bioprosthetic mitral valve) and tricuspid valve annuloplasty. Ring 28mm Physio Tricuspid Annuloplasty System - [id number] Valve 27mm Porcine Amador Epic Stented - [id number] Implanted: Qty: 1 on 06/08/2014 [facility]: ChestST SUZANNA CD 11/17/2017 [id number] Implanted: Qty: 1 on 06/08/2014 by Tomi Radford MD at [facility] (2) UTI (urinary tract infection): Status: Acute Code(s): N39.0 - Urinary tract infection, site not specified (3) Bacteremia due to Enterococcus: Status: Acute Code(s): R78.81 - Bacteremia; B95.2 - Enterococcus as the cause of diseases classified elsewhere (4) Prosthetic valve endocarditis: Status: Acute Code(s): T82.6XXA - Infection and inflammatory reaction due to cardiac valve prosthesis, initial encounter; I38 - Endocarditis, valve unspecified Allergies/Procedures Done in Hospital Allergies allopurinol Allergy (Mild, Verified 03/11/22 10:14) Rash RASH ON HANDS ceftriaxone [From Rocephin] Allergy (Mild, Verified 03/09/22 14:35) Rash colchicine Allergy (Mild, Verified 03/11/22 10:14) Rash RASH ON HANDS Procedures: 2-D Echocardiogram, Nuclear Stress Test, Transesophageal Echo and - (CT abdomen pelvis) Type of Care/Length of Stay Estimated LOS: Convalescent Care Less Than 30 days Type of Care Needed: Skilled Rehab Potential: Fair Prognosis: Fair Additional Orders/Day of Discharge Day of Discharge: 03/27/22 Dietary and Speech Recommendations Dietitian Recommendations/Changes: Regular/Sodium-Restricted diet; fluid restriction as per physician. Will add 120 ml Ensure Plus High Protein TID w/ meals. Will d/c ensure and nepro w/ medpass; encourage PO at meals. Discharge Plan Admission Admit Date/Time: 03/09/22 17:01 Attending Provider: Ni Johnson Primary Care Provider: Qasim Carreon Consulting Providers: Aretha Reyes ; Myron Gibson ; Bertha Kruger ; Hu Kumar ; Crystal Johnson ; Nancy Wasserman ; Dallas Hernandez Discharge Orders/Prescriptions Prescriptions: New ceftriaxone 2 gram recon soln 2 g IV Q12H Qty: 66 0RF Rx Instructions: stop date 04/25/22 dx: endocarditis weekly bmp and CBC. Fax to [phone] ampicillin sodium 2 gram Recon Soln 2 g IV QAM 33 Days Qty: 33 0RF Rx Instructions: dx: endocarditis stop date 04/25/22 weekly bmp, cbc. Fax to [phone] diphenhydramine HCl [Allergy Relief(diphenhydramin)] 25 mg tablet 25 mg PO TID PRN (Reason: allergic reaction) 40 Days Qty: 90 0RF Rx Instructions: Give prior to ceftriaxone. No Action furosemide 40 MG tablet 40 mg PO DAILY MDD 80mg diltiazem HCl 180 MG capsule,extended release 24hr 180 mg PO DAILY metoprolol tartrate 50 MG tablet 100 mg PO BID calcium carbonate-vitamin D3 [Calcium 600 + D(3)] 1 EACH tablet 1 ea PO DAILY Warfarin Sodium 5 mg PO Warfarin Sodium 1 tab PO Century Adults 50+ Tablet 1 tab PO DAILY Klor-Con M20 1 tab PO DAILY Referrals / Follow Up: Qasim Carreon MD [Primary Care Provider] -
--- NOTE | 2022-03-27 14:38 | PCM.DC.SUM ---
Providers Date of Admission: 03/09/22 Date of Discharge: 03/27/22 Primary Care Physician: Dr. Qasim Carreon MD Consultations 03/09/22 17:01 Consult: Cardiology Routine Consulting Provider: Aretha Reyes Reason for Consult: NSTEMI, PAF w/ RVR, CHF exac EMERGENT Consult: No Notified: Yes Date Notified: 03/09/22 Time Notified: 17:02 Method of Notification: call 03/12/22 15:27 Consult: Infectious Disease Routine Consulting Provider: Hu Kumar Reason for Consult: bacteremia EMERGENT Consult: No Notified: Yes Date Notified: 03/13/22 Time Notified: 06:54 Method of Notification: Answering Service 03/15/22 07:33 Consult: Gastroenterology Routine Consulting Provider: [facility] Reason for Consult: GI bleed EMERGENT Consult: No Notified: Yes Date Notified: 03/15/22 Time Notified: 08:07 Method of Notification: Text 03/16/22 09:31 Consult: Nephrology Routine Consulting Provider: Crystal Johnson Reason for Consult: JACQUIE EMERGENT Consult: No Notified: Yes Date Notified: 03/16/22 Time Notified: 09:42 Method of Notification: Text 03/17/22 07:59 Consult: General Surgery Routine Consulting Provider: Nancy Wasserman Reason for Consult: temp dialysis cath EMERGENT Consult: No Notified: Yes Date Notified: 03/17/22 Time Notified: 07:59 Method of Notification: MD to MD 03/18/22 09:26 Consult: Onc/Wound/cnc laser operator Routine Comment: Reason For Visit: AFIB/RVR Diagnosis Discharge Diagnosis (1) S/P MVR (mitral valve replacement): Status: Acute Code(s): Z95.2 - Presence of prosthetic heart valve (2) UTI (urinary tract infection): Status: Acute Code(s): N39.0 - Urinary tract infection, site not specified (3) Bacteremia due to Enterococcus: Status: Acute Code(s): R78.81 - Bacteremia; B95.2 - Enterococcus as the cause of diseases classified elsewhere (4) Prosthetic valve endocarditis: Status: Acute Code(s): T82.6XXA - Infection and inflammatory reaction due to cardiac valve prosthesis, initial encounter; I38 - Endocarditis, valve unspecified Medications at Discharge Home Medications calcium carbonate 600 mg-vitamin D3 10 mcg (400 unit) tablet (Calcium 600 + D(3)) 1 ea PO DAILY supp 12/17/13 furosemide 40 mg tablet 40 mg PO DAILY diuretic 12/17/13 metoprolol tartrate 50 mg tablet 100 mg PO BID blood pressure 12/17/13 Century Adults 50+ Tablet 1 tab PO DAILY vitamin 08/21/16 Klor-Con M20 1 tab PO DAILY mineral 08/21/16 ampicillin sodium 2 gram solution for injection 2 g IV QAM 33 days #33 ea 03/22/22 ceftriaxone 2 gram intravenous solution 2 g IV Q12H #66 ea 03/22/22 diphenhydramine HCl 25 mg tablet (Allergy Relief (diphenhydramine)) 25 mg PO TID PRN allergic reaction 40 days #90 tabs 03/22/22 apixaban 2.5 mg tablet (Eliquis) 2.5 mg PO BID #60 tabs 03/27/22 diltiazem HCl 240 mg capsule,extended release 24 hr 240 mg PO DAILY #30 caps 03/27/22 pantoprazole 40 mg tablet,delayed release 40 mg PO BID #60 tabs 03/27/22 sucralfate 1 gram tablet (Carafate) 1 g PO BID #61 tabs 03/27/22 Hospital Course Operations - (Tunneled dialysis catheter placement/Flor catheter placement) Procedures 2-D Echocardiogram, Dialysis, EGD, Nuclear stress test and Transesophageal Echo Summary of Care Provided Minutes Spent on Discharge: 45 Hospital Course: Mrs. Lomeli is an 81-year-old female who presented to the emergency department at [facility] emergency department on 03/08/2022 with the onset of flulike symptoms including nausea, malaise, cough, diarrhea and body aches that started a week prior to presentation. vital signs at their outside facility including T98.7, BP 104/79, heart rate 149, respiratory rate 28, 93% on room air eventually prior to transfer on 03/09/22 requiring 3L NC, weight 220.4 pounds with BMI calculated 40.363, chest x-ray with diffuse interstitial infiltrates bilaterally, influenza B/A PCR negative, lactate 2.1, COVID PCR negative, D-dimer 2046 which per their range should be less than or equal to 500, initial troponin 3417--> 3090--> 2189, magnesium 2.09 with normal range 1.6-2.40, CMP with sodium 139, potassium 3.5, chloride 102, BUN/creatinine 50/1.97, glucose 116, hepatic profile with T bili 1.5 otherwise not marked appearing, BNP 482, initial INR at their outside facility 12.2. She was given IV Cardizem at the outside facility due to the A. fib with RVR that she was noted to be in on presentation with improved rate control. Given troponin elevation and acute presentation of A. fib with RVR as well as CHF exacerbation she was transferred to [facility] for further care. The patient had an extremely complex hospital course and was evaluated by cardiology, nephrology, general surgery, infectious disease, and gastroenterology during her hospital stay. Blood cultures done on presentation showed Enterococcus faecalis bacteremia with repeat cultures positive on the fourth and the fifth with and finally clearing blood cultures on the sixth followed by a repeat clear culture on the seventh. She had a TTE and a NOHEMY done during her hospital course. The NOHEMY was done on 03/21/2022 and showed an EF of 20 to 55% with aortic valve vegetations on the left coronary cusp and a possible 0.5 freely mobile mass that could be a vegetation on the mitral valve leaflet. Given these findings she is being treated for infective endocarditis. Plan at discharge for antibiotics is ampicillin and ceftriaxone for total of 6 weeks until 04/20/2022 with a follow-up with infectious disease in 1 month. Flor catheter was placed during her hospital course on 03/24/2022 for long-term antibiotics given the fact we need to preserve her veins in case future dialysis was required. Nephrology saw the patient and she did require dialysis during her hospital course however at the time of discharge her creatinine was stabilized at 1.58 and it did not appear she would need any further dialysis. They recommended no fluid restriction and to follow-up with their office in 1 month. She has a tunneled dialysis catheter in which was placed on 03/18/2022 which will need to be removed at some point and will allow her to follow-up with nephrology before that decision is made. Her INR was supratherapeutic on admission however had trended down and normalized. She was off oral anticoagulation throughout her entire hospital course here. We will start Eliquis 2.5 mg at discharge with her history of paroxysmal atrial fibrillation as stroke prevention. While her INR was supratherapeutic and EGD was recommended by gastroenterology at which time they found grade B erosive esophagitis, a small hiatal hernia, red blood in the gastric antrum with oozing gastric ulcers and a visible vessel which was injected and treated with argon plasma coagulation, chronic gastritis with hemorrhage and a normal first portion of the duodenum. Biopsies were done during that time on 03/16/2022 and showed chronic gastritis with focal active gastritis and was negative for H. pylori. It was recommended that the patient be on Carafate 1 g 4 times daily, which was started at the time of discharge, as well as Protonix 40 mg p.o. twice daily. She will need follow-up with gastroenterology within the next month. Her cardiac enzymes that go up during her hospital course and a stress test was performed which showed no inducible ischemia. It was felt that this was likely a type II NSTEMI related to her acute infections. No further work-up was recommended and Plavix and atorvastatin were discontinued at the time of discharge. She was seen by therapy services and ongoing therapy was recommended. She qualified for SNF placement and pre-CERT was obtained on 03/27/2022. Medication changes noted above were sent to the facility and she was discharged in stable condition. Discharge diagnoses: Enterococcus infective endocarditis Enterococcus bacteremia Upper GI bleed secondary to duodenal ulcers Supratherapeutic INR-resolved Paroxysmal atrial fibrillation with RVR Troponin elevation secondary to NSTEMI type II CKD stage IV JACQUIE-resolved HFpEF-compensated Acute on chronic anemia-stable Hypertension Bilateral knee arthritis Chronic bilateral lower extremity edema Mitral valve disease status post mitral valve replacement with bioprosthetic valve History of hypokalemia Debility Physical Exam Const alert, oriented x3, no apparent distress and well nourished Constitutional Narrative: Obese, elderly, debilitated, white female sitting up in bed, appears comfortable and nontoxic at this time, very pleasant, appropriate interaction General Appearance: cooperative, comfortable, well kempt and well developed Orientation / Consciousness: awake, oriented to person, oriented to place and oriented to time Exam Limitations: no limitations Nutritional Appearance: obese HEENT normocephalic, head/scalp atraumatic and moist oral mucous membranes; Negative for hearing grossly normal bilaterally HEENT Narrative: Mucous membranes are moist, Mallampati is 2, no thrush, mild hearing loss Eyes PERRL and EOMs intact bilaterally Eyes Narrative: Mildly pale conjunctiva bilaterally, no scleral icterus Neck no lymphadenopathy, supple and no JVD Neck Narrative: Trachea midline, no thyroid enlargement, ecchymosis in area of tunneled dialysis catheter left chest Resp normal respiratory effort, no retractions, no use of accessory muscles and clear to auscultation bilaterally Resp Narrative: Crackles at bases bilaterally but improved with deep breathing Auscultation: crackles; Negative for rhonchi or wheezes Cardio regular rate, regular rhythm, S1 normal heart sound, S2 normal heart sound, no murmurs, no rub, no gallops and no clicks GI normal to inspection, nondistended, normoactive bowel sounds, soft to palpation and non-tender Extremity Extremity Narrative: Trace bilateral lower extremity edema, no cyanosis or clubbing, decreased lean muscle mass Skin skin turgor normal and no jaundice Skin Narrative: Skin is pale with scattered ecchymosis Neuro oriented x3, CN's II-XII intact bilaterally and no focal motor deficits Neuro Narrative: Marked debility with decreased strength but no focal deficits Speech: speech normal Psych affect normal Psych Narrative: Pleasant and appropriately interactive Weight / BMI Weight Weight: 96.3 kg Body Mass Index (BMI) 37.8 ABG / Lab / Microbiology Data Result Diagrams: 03/27/22 06:35 03/27/22 06:35 Laboratory: Laboratory Results - last 24 hr 03/27/22 06:35: WBC 4.0 L, RBC 2.57 L, Hgb 7.8 L, Hct 25.9 L, MCV 100.8 H, MCH 30.4, MCHC 30.1 L, RDW Std Deviation 66.0 H, RDW Coeff of Diandra 18.0 H, Plt Count 124 L, MPV 9.1, Immature Gran % (Auto) 1.000 H, Neut % (Auto) 80.2 H, Lymph % (Auto) 10.0 L, Reeves % (Auto) 7.0, Eos % (Auto) 1.5, Baso % (Auto) 0.3, Absolute Neuts (auto) 3.2, Absolute Lymphs (auto) 0.40 L, Nucleated RBC % 0, Differential Comment COMMENT, Diff Path Review May foll, Anisocytosis 1+ 03/27/22 06:35: Sodium 143, Potassium 3.7, Chloride 112 H, Carbon Dioxide 27.0, Anion Gap 4 L, BUN 33 H, Creatinine 1.58 H, Estim Creat Clear Calc 22.46, Est GFR (MDRD) Af Amer 40 L, Est GFR (MDRD) Non-Af 33 L, BUN/Creatinine Ratio 20.9 H, Glucose 106, Calcium 9.5 Microbiology: Microbiology 03/15/22 13:20 Blood Culture (Wb) - Right Hand Blood Culture - Final No growth in 5 days. 03/14/22 09:54 Blood Culture (Wb) - Right Hand Blood Culture - Final No growth in 5 days. 03/13/22 06:19 Blood Culture (Wb) - Right Hand Blood Culture - Final GPC Poss Enterococcus sp 03/12/22 15:40 Blood Culture (Wb) - Right Hand Blood Culture - Final GPC Poss Enterococcus sp 03/16/22 23:25 Stool Stool Occult Blood (JOSSUE) - Final 03/11/22 17:25 Urine, Clean Catch Urine Culture - Final Enterococcus faecalis Mixed Gram Positive Organisms 03/11/22 07:32 Blood Culture (Wb) - Venous Bacteria Detection (PCR) - Final Enterococcus faecalis 03/11/22 07:32 Blood Culture (Wb) - Venous Blood Culture - Final Enterococcus faecalis 03/10/22 00:02 Urine, Clean Catch Urine Culture - Final Mixed Gram Pos & Gram Neg Org 03/11/22 06:40 Nasal Secretion SARS-CoV-2 & FLU Antigen (Rapid) - Final 03/09/22 22:51 Nasal Secretion SARS-CoV-2 Antigen (Rapid) - Final 03/09/22 18:08 Mucosa - Nasopharyngeal Respiratory Panel (PCR) - Final Meaningful Use Info Meaningful Use Diagnoses (Choose all that apply): None applicable Discharge Plan Admission Admit Date/Time: 03/09/22 17:01 Primary Reason for Your Visit: Shortness of breath Attending Provider: Ni Johnson Primary Care Provider: Qasim Carreon Consulting Providers: Aretha Reyes ; Myron Gibson ; Bertha Kruger ; Hu Kumar ; Crystal Johnson ; Nancy Wasserman ; Dallas Hernandez Discharge Orders/Prescriptions Prescriptions: New ceftriaxone 2 gram recon soln 2 g IV Q12H Qty: 66 0RF Rx Instructions: stop date 04/25/22 dx: endocarditis weekly bmp and CBC. Fax to [phone] ampicillin sodium 2 gram Recon Soln 2 g IV QAM 33 Days Qty: 33 0RF Rx Instructions: dx: endocarditis stop date 04/25/22 weekly bmp, cbc. Fax to [phone] diphenhydramine HCl [Allergy Relief(diphenhydramin)] 25 mg tablet 25 mg PO TID PRN (Reason: allergic reaction) 40 Days Qty: 90 0RF Rx Instructions: Give prior to ceftriaxone. Eliquis 2.5 mg tablet 2.5 mg PO BID Qty: 60 0RF pantoprazole 40 mg Tablet,Delayed Release (Dr/Ec) 40 mg PO BID Qty: 60 0RF sucralfate [Carafate] 1 gram tablet 1 g PO BID Qty: 61 0RF diltiazem HCl 240 mg Capsule,Extended Release 24hr 240 mg PO DAILY Qty: 30 0RF Continued metoprolol tartrate 50 MG tablet 100 mg PO BID calcium carbonate-vitamin D3 [Calcium 600 + D(3)] 1 EACH tablet 1 ea PO DAILY Century Adults 50+ Tablet 1 tab PO DAILY Held furosemide 40 MG tablet 40 mg PO DAILY MDD 80mg Hold Instructions: Until reevaluated by nephrology Klor-Con M20 1 tab PO DAILY Hold Instructions: Until reevaluated by nephrology Discontinued diltiazem HCl 180 MG capsule,extended release 24hr 180 mg PO DAILY Warfarin Sodium 5 mg PO Warfarin Sodium 1 tab PO Referrals / Follow Up: Crystal Johnson DO [Med Staff - Consulting] - Within 1 Month Qasim Carreon MD [Primary Care Provider] - In 1 Week Sheldon Da Silva DO [Med Staff - Active Staff] - Within 2 Weeks Hu Kumar MD [Med Staff - Active Staff] - Within 1 Month Disposition Disposition (needs filled in before D/C Order can be placed): [facility] Facility Charges/Coding Visit Charges Inpatient E&M: 73242 SNF Disch >30 Min
--- NOTE | 2022-03-27 15:48 | CASEMGMT ---
Patient is ready for discharge to [facility]. SW sent orders to [facility] via [facility]. SW will send COVID test once resulted. Transport will then be arranged. Plan: d/c to [facility] under skilled level of care on a convalescent stay. Physicians will transport patient via cot. Marilu PARADA
--- NOTE | 2022-03-27 15:49 | PHA.DC.MR ---
Pharmacy Service has performed discharge medication reconciliation for this patient. The patient's discharge medication list was reviewed for discrepancies and discrepancies were resolved. Home Medications calcium carbonate 600 mg-vitamin D3 10 mcg (400 unit) tablet (Calcium 600 + D(3)) 1 ea PO DAILY supp 12/17/13 furosemide 40 mg tablet 40 mg PO DAILY diuretic 12/17/13 metoprolol tartrate 50 mg tablet 100 mg PO BID blood pressure 12/17/13 Century Adults 50+ Tablet 1 tab PO DAILY vitamin 08/21/16 Klor-Con M20 1 tab PO DAILY mineral 08/21/16 ampicillin sodium 2 gram solution for injection 2 g IV QAM 33 days #33 ea 03/22/22 ceftriaxone 2 gram intravenous solution 2 g IV Q12H #66 ea 03/22/22 diphenhydramine HCl 25 mg tablet (Allergy Relief (diphenhydramine)) 25 mg PO TID PRN allergic reaction 40 days #90 tabs 03/22/22 apixaban 2.5 mg tablet (Eliquis) 2.5 mg PO BID #60 tabs 03/27/22 diltiazem HCl 240 mg capsule,extended release 24 hr 240 mg PO DAILY #30 caps 03/27/22 pantoprazole 40 mg tablet,delayed release 40 mg PO BID #60 tabs 03/27/22 sucralfate 1 gram tablet (Carafate) 1 g PO BID #61 tabs 03/27/22
--- NOTE | 2022-03-27 16:39 | CASEMGMT ---
MARIA ALEJANDRA arranged transport for 5:30p. SW sent COVID test and pharmacy picking tech time to [facility] via [facility]. RN and corporation secretary notified. SW let patient know about pharmacy picking tech time. SW offered to call patient's daughter, but she declined stating she will let her know. Plan: d/c to [facility] under skilled level of care on a convalescent stay. Physicians will transport via cot. Marilu PARADA
--- NOTE | 2022-03-27 18:10 | NURSING ---
Report called to nurse Kindra at [facility], will assume care of pt when she arrives
[2022-03-28 13:37] LABS: Pathologist Review Reviewed
== END 2022-03-27 17:59 | disposition skilled nursing facility (03) | DRG 280 ==
PROVIDERS: Anesthesiology; Family Medicine; Hospitalist; Internal Medicine; Internal Medicine Cardiovascular Disease; Internal Medicine Gastroenterology; Internal Medicine Nephrology; Student in an Organized Health Care Education/Training Program; Surgery; Admitting Provider Internal Medicine; PCP Family Medicine; Visit Provider Internal Medicine
PROC: 0DJ08ZZ Inspection of Upper Intestinal Tract, Via Natural or Artificial Opening Endoscopic (ICD-10-PCS; CPT 43235; principal; 2022-03-16 15:55)
PROC: 02H633Z Insertion of Infusion Device into Right Atrium, Percutaneous Approach (ICD-10-PCS; principal; 2022-03-24 11:45)
DX: T82.6XXA Infection and inflammatory reaction due to cardiac valve prosthesis, initial encounter (principal); I21.A1 Myocardial infarction type 2; I33.0 Acute and subacute infective endocarditis; N17.0 Acute kidney failure with tubular necrosis; I50.33 Acute on chronic diastolic (congestive) heart failure; K26.4 Chronic or unspecified duodenal ulcer with hemorrhage; K31.811 Angiodysplasia of stomach and duodenum with bleeding; K20.91 Esophagitis, unspecified with bleeding; R78.81 Bacteremia; N18.4 Chronic kidney disease, stage 4 (severe); D68.59 Other primary thrombophilia; I13.0 Hypertensive heart and chronic kidney disease with heart failure and stage 1 through stage 4 chronic kidney disease, or unspecified chronic kidney disease; Z68.41 Body mass index [BMI] 40.0-44.9, adult; I42.9 Cardiomyopathy, unspecified; D62 Acute posthemorrhagic anemia; N39.0 Urinary tract infection, site not specified; I27.20 Pulmonary hypertension, unspecified; I48.0 Paroxysmal atrial fibrillation; E66.01 Morbid (severe) obesity due to excess calories; M05.39 Rheumatoid heart disease with rheumatoid arthritis of multiple sites; E87.6 Hypokalemia; M17.0 Bilateral primary osteoarthritis of knee; E78.5 Hyperlipidemia, unspecified; I89.0 Lymphedema, not elsewhere classified; K44.9 Diaphragmatic hernia without obstruction or gangrene; K20.90 Esophagitis, unspecified without bleeding; Z87.891 Personal history of nicotine dependence; B95.2 Enterococcus as the cause of diseases classified elsewhere; N14.11 Contrast-induced nephropathy; Z20.822 Contact with and (suspected) exposure to COVID-19; Z79.899 Other long term (current) drug therapy; Z79.01 Long term (current) use of anticoagulants; Z95.3 Presence of xenogenic heart valve; Z53.09 Procedure and treatment not carried out because of other contraindication; N28.1 Cyst of kidney, acquired; Y71.2 Prosthetic and other implants, materials and accessory cardiovascular devices associated with adverse incidents
CPT/HCPCS: 36415; 71045; 73502; 74177; 77001; 78452; 80048; 80053; 80061; 80069; 80076; 80202; 81001; 82274; 82570; 83735; 84145; 84156; 84300; 84443; 84484; 85014; 85018; 85025; 85610; 85730; 86160; 86706; 86850; 86900; 86901; 86920; 86921; 86922; 87040; 87077; 87086; 87088; 87149; 87186; 87340; 87428; 87633; 87811; 88305; 88342; 90937; 93005; 93017; 93306; 93312; 93320; 93325; 94640; 97110; 97162; 97166; 97530; 97535; 97802; 99251; A9500; J7040; J7120; P9016; P9017; Q9957; Q9967; A4216; C1751; C1752; C8929; G0257; G0463; J1940; J2405; J2785

== ENCOUNTER 2022-03-29 09:20 | Inpatient (IN) | payer MEDICARE, SELFPAY ==
[2022-03-29] VITALS (45 sets, daily range): BP systolic 66–125; BP diastolic 31–78; PULSE 77–95; RESP 16–24; TEMP 36.2–37.2; O2SAT 91–100; BMI 43.4; BMI 44.7
--- NOTE | 2022-03-29 09:36 | EKG12_ITS ---
Test Reason : LOW BP Blood Pressure : / mmHG Vent. Rate : 087 BPM Atrial Rate : 000 BPM P-R Int : 000 ms QRS Dur : 084 ms QT Int : 380 ms P-R-T Axes : 000 070 057 degrees QTc Int : 457 ms Somatic/Motion Artifact Atrial fibrillation Nonspecific T wave abnormality Abnormal ECG Confirmed by PARDEEP MARKS, MASON ([id number]), online content editor PHIL LOOMIS ([id number]) on 03/30/2022 8:23:10 AM Referred By: Confirmed By:MASON ROBERTO MD
--- NOTE | 2022-03-29 09:41 | ED.RN ---
THIS RN SPOKE WITH GRACE FROM [facility]. I VERIFIED THAT NO ABX WERE ADMIN THIS MORNING
[2022-03-29 09:48] LABS: Absolute Lymphocyte Count 1.27 X10^3/uL (0.83-4.51); Basophil# 0.03 X10^3/uL; Basophil% 0.2 % (0-1); Eosinophil# 0.01 X10^3/uL; Eosinophils% 0.1 % (0-5); Hematocrit 20.6 % (37-47); Hemoglobin 6.1 g/dL (12.0-15.0); Lymphocyte # 1.27 X10^3/ul (0.83-4.51); Lymphocyte % 9.5 % (19-41); Mean Corp Hgb Conc 29.6 g/dL (32-36); Mean Corpuscular Hgb 30.2 pg (27.0-32.0); Monocyte# 0.67 X10^3/uL; NRBC Flagged by Analyzer 0 % (0-5); Neutrophil # 10.96 X10^3/uL (2.7-7.7); Neutrophil % 82.3 % (47-70); POSITIVE MORPHOLOGY YES; Platelet Count 266 K/mm3 (150-450); RBC Distribution Width SD 67.3 fl (35.1-43.9); Red Blood Count 2.02 M/mm3 (4.2-5.4); White Blood Count 13.3 K/mm3 (4.4-11.0)
[2022-03-29 09:51] LABS: Differential Indicated SCAN CRITERIA MET
[2022-03-29 09:57] LABS: Prothrombin Time (Protime)PT. 65.5 SECONDS (11.7-14.9)
[2022-03-29 09:58] LABS: Partial Thromboplast Time 67.6 Seconds (24.1-36.2)
[2022-03-29 10:04] LABS: ALB/GLOB Ratio 0.4 RATIO (0.9-2.4); AST(SGOT) 30 U/L (15-37); Alanine Aminotransfer ALT/SGPT 10 U/L (13-56); Albumin, Serum 1.6 g/dL (3.2-5.0); Alkaline Phosphatase 121 U/L (45-117); Anion Gap 9 (5-15); BUN 41 mg/dL (7-18); BUN/Creat Ratio 18.5 RATIO (10-20); Calcium,Total 9.5 mg/dL (8.5-10.1); Chloride 112 mmol/L (98-107); Creatinine, Serum 2.22 mg/dL (0.55-1.02); EST Glomerular Filtration Rate 23 mL/min (>60); Est Glom Filt Rate - Afr Amer 27 mL/min (>60); Estimated Creatinine Clearance 15.99 ml/min; Globulin 4.1 g/dL (2.2-4.2); Glucose 123 mg/dL (74-106); Potassium 4.6 mmol/L (3.5-5.1); Protein, Total 5.7 g/dL (6.4-8.2); Sodium Level 143 mmol/L (136-145)
[2022-03-29 10:10] LABS: International Normalized Ratio 7.8
[2022-03-29 10:14] LABS: Lactic Acid 4.5 mmol/L (0.4-1.9)
[2022-03-29 10:19] LABS: Anisocytosis 2+; Hypochromasia 1+; Ovalocyte 1+; Polychromasia RARE
--- NOTE | 2022-03-29 10:25 | RAD_ITS ---
STUDY: X-RAY CHEST REASON FOR EXAM: Female, 81 years old. Hypotension TECHNIQUE: Single AP portable view of the chest. COMPARISON: Comparison is made with prior study dated 03/24/2022. FINDINGS: The left-sided central venous catheter is in situ with the tip in the right atrium. Persistent blunting of the left cosmetic angle with the left basilar atelectasis and/or infiltrate. The right lung is clear. Sternal cerclage wires are present from a prior sternotomy. A left atrial clipping is seen. Normal mediastinum and patria. Normal visualized pulmonary arteries. There is atherosclerotic tortuosity of the aortic arch and descending thoracic aorta. There are diffuse degenerative changes of the visualized thoracic spine. Normal visualized ribs, clavicles, and shoulders. There is no demonstrated abnormality of the visualized soft tissue structures of the upper abdomen. RAD/Chest 1 View (Portable) IMPRESSION: Blunting of the left costophrenic angle with left basilar atelectasis and/or infiltrate. The right lung is clear. Electronically Signed: Herminio Manning MD at 10:45 EST ,
--- NOTE | 2022-03-29 10:26 | EX.ED.DYSGE1 ---
HPI History of Present Illness Chief Complaint: Nausea/Vomiting Informant: EMS Narrative Narrative: Patient sent in from [facility] for hemoglobin 5.8 today. She was hypotensive. Patient discharged her 2 days ago. Noted extensive stay from discharge records. Currently on Rocephin and ampicillin for concerns for endocarditis with bacteremia. She had noted paroxysmal A. fib RVR. She had upper GI bleed secondary duodenal ulcers. GI seen, apparently injections performed to the ulcers. She was started on Eliquis prior to discharge. She had dialysis while in the hospital however creatinine improved to 1.58. No further dialysis was necessary. She had type II NSTEMI. Patient has not walked since being discharged. Nursing discussed with facility morning antibiotics were not given. After treatment initiation, records reviewed echo had EF of 55%. Noted aortic valve and mitral valve vegetation concerns. Enterococcus faecalis bacteremia. Discharged with hemoglobin 7.8. Creatinine 1.58. This was 2 days ago. [facility] Medical History Chronic acquired lymphedema Chronic atrial fibrillation Chronic diastolic CHF (congestive heart failure) Former tobacco use History of temporary cardiac pacemaker treatment HTN (hypertension) Morbid obesity Rheumatoid arthritis Valvular heart disease Home Medications calcium carbonate 600 mg-vitamin D3 10 mcg (400 unit) tablet (Calcium 600 + D(3)) 1 ea PO DAILY SUPPLEMENT 12/17/13 [History Last Taken 03/29/22] furosemide 40 mg tablet 40 mg PO DAILY FLUID 12/17/13 [History Last Taken 03/29/22] ampicillin sodium 2 gram solution for injection 2 g IV QAM 33 days #33 ea 03/22/22 [Rx Last Taken 03/28/22 12:00] ceftriaxone 2 gram intravenous solution 2 g IV Q12H #66 ea 03/22/22 [Rx Last Taken 03/29/22 09:00] diphenhydramine HCl 25 mg tablet (Allergy Relief (diphenhydramine)) 25 mg PO TID PRN allergic reaction 40 days #90 tabs 03/22/22 [Rx Last Taken Unknown] sucralfate 1 gram tablet (Carafate) 1 g PO BID #61 tabs 03/27/22 [Rx Last Taken 03/29/22] apixaban 2.5 mg tablet (Eliquis) 2.5 mg PO BID BLOOD THINNER 03/29/22 [History Last Taken 03/29/22] diltiazem HCl 240 mg capsule,extended release 24 hr 240 mg PO DAILY BLOOD PRESSURE 03/29/22 [History Last Taken 03/29/22] metoprolol tartrate 100 mg tablet 100 mg PO BID BLOOD PRESSURE 03/29/22 [History Last Taken 03/29/22] multivitamin with minerals-folic acid 120 mcg chewable tablet (Centrum Adult 50 Plus Fresh-Fruity) 1 tab PO DAILY HEALTH MAINTENANCE 03/29/22 [History Last Taken 03/29/22] pantoprazole 40 mg tablet,delayed release 40 mg PO BID GERD 03/29/22 [History Last Taken 03/29/22] sennosides 8.6 mg tablet (Senna Lax) 8.6 mg PO DAILY PRN Constipation 03/29/22 [History Last Taken Unknown] sennosides 8.6 mg tablet (Senna Lax) 8.6 mg PO QHS CONSTIPATION 03/29/22 [History Last Taken 03/28/22] tramadol 50 mg tablet 50 mg PO PAIN 03/29/22 [History Last Taken 03/29/22 07:15] tramadol 50 mg tablet 50 mg PO DAILY PRN Pain 03/29/22 [History Last Taken Unknown] Allergy/AdvReac Type Severity Reaction Status Date / Time allopurinol Allergy Mild Rash Verified 03/29/22 09:36 ceftriaxone [From Rocephin] Allergy Mild Rash Verified 03/29/22 09:36 colchicine Allergy Mild Rash Verified 03/29/22 09:36 Family History Mother Heart disease Father Cancer Leukemia. Surgical History H/O tricuspid valve annuloplasty S/P MVR (mitral valve replacement) Social History household members: none Smoking Status: Former smoker how long ago did patient quit smoking: Quit 05/26/1959, smoked ~2 years w/ 0.25 pack/day. alcohol intake: current alcohol intake frequency: holidays/special occasions only substance use type: does not use ROS ROS ED ROS Narrative Review of systems limited due to patient's acute medical condition. EXAM Physical Exam Const Vital Signs: 03/29/22 09:21 03/29/22 09:26 03/29/22 09:36 Temperature 97.4 F L 97.4 F L Temperature Source Temporal Temporal Pulse Rate 90 95 Respiratory Rate 22 H 22 H Respiratory Pattern Blood Pressure 66/31 L 66/31 L Blood Pressure Mean 42 42 Blood Pressure Source Blood Pressure Position Blood Pressure Location Pulse Ox 91 96 Oxygen Delivery Method Nasal Cannula Nasal Cannula Nasal Cannula Oxygen Flow Rate (L/min) 2 2 2 03/29/22 09:47 03/29/22 10:20 03/29/22 11:00 Temperature 98.6 F Temperature Source Temporal Pulse Rate 81 82 Respiratory Rate 24 H 24 H Respiratory Pattern Normal Blood Pressure 68/36 L 68/33 L Blood Pressure Mean 46 44 Blood Pressure Source Blood Pressure Position Blood Pressure Location Pulse Ox 98 98 Oxygen Delivery Method Nasal Cannula Nasal Cannula Oxygen Flow Rate (L/min) 2 2 03/29/22 11:22 03/29/22 11:37 Temperature 97.3 F L 97.1 F L Temperature Source Temporal Temporal Pulse Rate 80 79 Respiratory Rate 16 22 H Respiratory Pattern Blood Pressure 69/35 L 77/33 L Blood Pressure Mean 46 47 Blood Pressure Source Monitor Monitor Blood Pressure Position Semi-Fowlers Semi-Fowlers Blood Pressure Location Left Arm Left Arm Pulse Ox 99 97 Oxygen Delivery Method Nasal Cannula Nasal Cannula Oxygen Flow Rate (L/min) 2 2 General Appearance ED: NAD HEENT Reports moist mucous membranes normocephalic and atraumatic Eyes PERRL and EOMs intact bilaterally Eyes Narrative: Pale conjunctiva. General Eye ED: Yes normal appearance of both eyes Neck no lymphadenopathy and supple General: Negative for tenderness Chest Wall Chest Narrative: Left upper chest Flor catheter clean, dry, intact. Chest: Negative for tenderness Resp normal respiratory effort and normal air movement Effort and Inspection: symmetric chest movement; Negative for respiratory distress Cardio regular rate and no murmurs Rhythm: abnormal rhythm Peripheral Pulses: pulses 2+ throughout GI normal to inspection, nondistended, normoactive bowel sounds and non-tender Palpation: Negative for guarding or rebound tenderness present Back/Spine no CVA tenderness and no thoracic nor lumbar tenderness Extremity normal to inspection General Extremety ED: Negative for edema or tenderness General Extremity: Negative for edema Neuro oriented x3 and no sensory deficits noted Sensorium / Orientation: awake and alert Skin no rashes or lesions noted and no wounds Sepsis Attestation Sepsis Alert: Yes Sepsis Attestation: Agree w/Sepsis Date exam was performed: 03/29/22 Time exam was performed: 11:55 Possible Source of Sepsis: Endocarditis Sepsis Organ Dysfunction Criteria Present: SBP < 90 mmHg or MAP < 65 mmHg Fluid Resuscitation Fluid resuscitation indicated?: Yes Fluid Resuscitation ordered: 30 ml/kg fluid bolus ordered Sepsis Note Date exam was performed: 03/29/22 Time exam was performed: 11:56 Sepsis Attestation: Sepsis re-evaluation was performed MDM MDM MDM Narrative Medical decision making narrative: Patient hypotensive on arrival. Sepsis labs are ordered. EKG atrial fibrillation underlying history of this this is rate controlled. Known duodenal ulcers. He low hemoglobin hypotension 2 units of blood was ordered. She is given IV fluids initially 500 cc. However lactic acid returned at 4.5. She had an echocardiogram with EF of 55% therefore 30 cc/kg bolus ordered. Hemoglobin confirmed at 6.1 per nursing had a brown bowel movement in the ED. She was given Protonix IV with her ulcer history along with infusion. White count at 13.3 INR supratherapeutic 7.8. Creatinine 2.22 up from 1.58 when she was discharged. Hernandez catheter was placed leukocytes and white blood cells urine culture sent. She was covered with her Rocephin and ampicillin antibiotics that she was due for. She remains alert and orient x3. 1 view chest x-ray reviewed by myself read by radiology left caustic angle blunting. 1155: Patient still with IV fluids infusion. Blood pressure slowly responding. No active bleeding. Antibiotics have been given. I did speak with GI DrMaye Da Silva who knows her well will follow. I spoke with hospitalist Dr. Do for admission to ICU. Will monitor blood pressure with fluids and blood transfusions. Would not add additional antibiotics at this time blood cultures are pending. Patient does have a Flor catheterization for central line access if needed. Lab Data Attestation: I reviewed the patient's lab results. Labs: Laboratory Results - last 24 hr 03/29/22 03/29/22 03/29/22 09:35 09:35 09:35 WBC 13.3 H RBC 2.02 L Hgb 6.1 L Hct 20.6 L MCV 102.0 H MCH 30.2 MCHC 29.6 L D RDW Std Deviation 67.3 H RDW Coeff of Diandra 19.0 H Plt Count 266 MPV 10.0 Immature Gran % (Auto) 2.900 H Neut % (Auto) 82.3 H Lymph % (Auto) 9.5 L [place] % (Auto) 5.0 Eos % (Auto) 0.1 Baso % (Auto) 0.2 Absolute Neuts (auto) 11.0 H Absolute Lymphs (auto) 1.27 Nucleated RBC % 0 Polychromasia RARE Hypochromasia 1+ Anisocytosis 2+ Ovalocytes 1+ PT 65.5 H INR 7.8 H* APTT 67.6 H Sodium 143 Potassium 4.6 Chloride 112 H Carbon Dioxide 22.0 Anion Gap 9 BUN 41 H Creatinine 2.22 H Estim Creat Clear Calc 15.99 Est GFR (MDRD) Af Amer 27 L Est GFR (MDRD) Non-Af 23 L BUN/Creatinine Ratio 18.5 Glucose 123 H Lactic Acid Calcium 9.5 Total Bilirubin 1.20 H AST 30 ALT 10 L Alkaline Phosphatase 121 H Total Protein 5.7 L Albumin 1.6 L Globulin 4.1 Albumin/Globulin Ratio 0.4 L Urine Color Urine Clarity Urine pH Ur Specific [place] Urine Protein Urine Glucose (UA) Urine Ketones Urine Occult Blood Urine Nitrite Urine Bilirubin Urine Urobilinogen Ur Leukocyte Esterase Urine RBC Urine WBC Ur Squamous Epith Cells Urine Bacteria Urine Mucus Urine Yeast Blood Type Antibody Screen Crossmatch 03/29/22 03/29/22 03/29/22 09:35 09:35 11:10 WBC RBC Hgb Hct MCV MCH MCHC RDW Std Deviation RDW Coeff of Diandra Plt Count MPV Immature Gran % (Auto) Neut % (Auto) Lymph % (Auto) [place] % (Auto) Eos % (Auto) Baso % (Auto) Absolute Neuts (auto) Absolute Lymphs (auto) Nucleated RBC % Polychromasia Hypochromasia Anisocytosis Ovalocytes PT INR APTT Sodium Potassium Chloride Carbon Dioxide Anion Gap BUN Creatinine Estim Creat Clear Calc Est GFR (MDRD) Af Amer Est GFR (MDRD) Non-Af BUN/Creatinine Ratio Glucose Lactic Acid 4.5 H* Calcium Total Bilirubin AST ALT Alkaline Phosphatase Total Protein Albumin Globulin Albumin/Globulin Ratio Urine Color Yellow Urine Clarity Cloudy Urine pH 5.0 Ur Specific [place] 1.015 Urine Protein 30 H Urine Glucose (UA) Normal Urine Ketones Negative Urine Occult Blood 10 H Urine Nitrite Negative Urine Bilirubin Negative Urine Urobilinogen Normal Ur Leukocyte Esterase 500 H Urine RBC 0-5 SEEN Urine WBC 25-50 SEEN Ur Squamous Epith Cells 10-25 SEEN Urine Bacteria RARE Urine Mucus RARE Urine Yeast 1+ Blood Type A POSITIVE Antibody Screen NEGATIVE Crossmatch See Detail Radiography Diagnostic Testing: Clinical Impression(s) from Imaging Studies Chest X-Ray 03/29/22 10:25 IMPRESSION: Blunting of the left costophrenic angle with left basilar atelectasis and/or infiltrate. The right lung is clear. Electronically Signed: Herminio Manning MD at 10:45 EST , EKG Initial EKG: Attestation: I personally reviewed and interpreted this EKG as follows: Comments: EKG concerns for atrial fibrillation however rate was 87. Critical Care Time Critical Care Time: Yes Critical care time (excluding procedures): 30-74 minutes, Discussing w/Patient &/or Family/Coining Press Operator, Discussing w/Consultants, Arranging Admission or Transfer, Performing Direct Patient Care at Bedside and - (40 minutes) Discharge Plan Dx/Rx/DC Orders Clinical Impression: Hypotension, Anemia, Endocarditis, Acidosis, lactic, Acute on chronic renal insufficiency, Bacteremia, Atrial fibrillation Disposition Disposition: Acute Care [facility] Discharge Date/Time: 03/29/22 13:44
[2022-03-29 11:19] LABS: Color, Urine Yellow (Yellow); Glucose, Dipstick Normal (Normal); Ketone-Dipstick Negative (Negative); Leukocyte Esterase-Dipstick 500 /ul (Negative); Nitrite-Dipstick Negative (Negative); Occult Blood-Urine 10 /ul (Negative); Protein-Dipstick 30 mg/dl (Negative); Specific Gravity, Urine 1.015 (1.002-1.030); Urine Bilirubin Dipstick Negative (Negative); Urine Clarity Cloudy (Clear); Urine Urobilinogen Normal (Normal)
[2022-03-29 11:29] LABS: Bacteria RARE /hpf (None Seen); Mucous, Urine RARE /hpf (<or=2+); Red Blood Cells-Urine 0-5 SEEN /hpf (0-5); Squamous Epithelial Cells - UA 10-25 SEEN /hpf (5-10); White Blood Cells 25-50 SEEN /hpf (0-5); Yeast-Urine 1+ /hpf (None Seen)
--- NOTE | 2022-03-29 11:49 | NURSING ---
DR LANCE ZEPEDA
--- NOTE | 2022-03-29 11:57 | PCM.HP.STD ---
HPI - General General Date of Admission: 03/29/22 Date of Service: 03/29/22 Chief Complaint: Hypotension HPI Narrative CARLOS ALBERTO GOLDBERG, is a 81 F who presents with the above. Patient was admitted recently admitted to the hospital and managed as Enterococcus faecalis endocarditis, with vegetation seen on NOHEMY on her aortic valve and a 0.5 freely mobile mass on the mitral valve. Patient was discharged to snf facility on IV ampicillin and ceftriaxone for total of 6 weeks until 04/20/2022. Patient had a Flor catheter placed. Patient was brought to the emergency room with concerns over hypotension and nausea without vomiting. In the emergency room, Patient was 60/31, heart rate 90, SBP 22, temperature 97.4 F, oxygen sat was 91% on 2 L of oxygen. Her RBC count 13.3, hemoglobin 6.1, platelet count 266, INR 7.8, sodium is 143 potassium 4.3, chloride 112,, 20, BUN 41, creatinine 2.22, creatinine at discharge 2 days ago was 1.58. Lactic acid is 2.7, total bili 1.2. UA was slightly cloudy, nitrite negative, leukocyte esterase 500, WBC count is 25?15. Chest x-ray showed blunting of the left costophrenic angle left basilar atelectasis/infiltrate. [facility] Medical History Chronic acquired lymphedema Chronic atrial fibrillation Chronic diastolic CHF (congestive heart failure) Former tobacco use History of temporary cardiac pacemaker treatment HTN (hypertension) Morbid obesity Rheumatoid arthritis Valvular heart disease Home Medications calcium carbonate 600 mg-vitamin D3 10 mcg (400 unit) tablet (Calcium 600 + D(3)) 1 ea PO DAILY SUPPLEMENT 12/17/13 [History Last Taken 03/29/22] furosemide 40 mg tablet 40 mg PO DAILY FLUID 12/17/13 [History Last Taken 03/29/22] ampicillin sodium 2 gram solution for injection 2 g IV QAM 33 days #33 ea 03/22/22 [Rx Last Taken 03/28/22 12:00] ceftriaxone 2 gram intravenous solution 2 g IV Q12H #66 ea 03/22/22 [Rx Last Taken 03/29/22 09:00] diphenhydramine HCl 25 mg tablet (Allergy Relief (diphenhydramine)) 25 mg PO TID PRN allergic reaction 40 days #90 tabs 12/14/22 [Rx Last Taken Unknown] sucralfate 1 gram tablet (Carafate) 1 g PO BID #61 tabs 03/27/22 [Rx Last Taken 03/29/22] apixaban 2.5 mg tablet (Eliquis) 2.5 mg PO BID BLOOD THINNER 03/29/22 [History Last Taken 03/29/22] diltiazem HCl 240 mg capsule,extended release 24 hr 240 mg PO DAILY BLOOD PRESSURE 03/29/22 [History Last Taken 03/29/22] metoprolol tartrate 100 mg tablet 100 mg PO BID BLOOD PRESSURE 03/29/22 [History Last Taken 03/29/22] multivitamin with minerals-folic acid 120 mcg chewable tablet (Centrum Adult 50 Plus Fresh-Fruity) 1 tab PO DAILY HEALTH MAINTENANCE 03/29/22 [History Last Taken 03/29/22] pantoprazole 40 mg tablet,delayed release 40 mg PO BID GERD 03/29/22 [History Last Taken 03/29/22] sennosides 8.6 mg tablet (Senna Lax) 8.6 mg PO DAILY PRN Constipation 03/29/22 [History Last Taken Unknown] sennosides 8.6 mg tablet (Senna Lax) 8.6 mg PO QHS CONSTIPATION 03/29/22 [History Last Taken 03/28/22] tramadol 50 mg tablet 50 mg PO 0715,1915 PAIN 03/29/22 [History Last Taken 03/29/22 07:15] tramadol 50 mg tablet 50 mg PO DAILY PRN Pain 03/29/22 [History Last Taken Unknown] Allergy/AdvReac Type Severity Reaction Status Date / Time allopurinol Allergy Mild Rash Verified 03/29/22 09:36 ceftriaxone [From Rocephin] Allergy Mild Rash Verified 03/29/22 09:36 colchicine Allergy Mild Rash Verified 03/29/22 09:36 Family History Mother Heart disease Father Cancer Leukemia. Surgical History H/O tricuspid valve annuloplasty S/P MVR (mitral valve replacement) Social History household members: none Smoking Status: Former smoker how long ago did patient quit smoking: Quit 05/26/1959, smoked ~2 years w/ 0.25 pack/day. alcohol intake: current alcohol intake frequency: holidays/special occasions only substance use type: does not use ROS Review of Systems ROS Unobtainable: due to encephalopathy Vital Signs Vital Signs Vital Signs: 03/29/22 09:21 03/29/22 09:26 03/29/22 09:36 Temperature 97.4 F L 97.4 F L Temperature Source Temporal Temporal Pulse Rate 90 95 Respiratory Rate 22 H 22 H Respiratory Pattern Blood Pressure 66/31 L 66/31 L Blood Pressure Mean 42 42 Blood Pressure Source Blood Pressure Position Blood Pressure Location Pulse Ox 91 96 Oxygen Delivery Method Nasal Cannula Nasal Cannula Nasal Cannula Oxygen Flow Rate (L/min) 2 2 2 03/29/22 09:47 03/29/22 10:20 03/29/22 11:00 Temperature 98.6 F Temperature Source Temporal Pulse Rate 81 82 Respiratory Rate 24 H 24 H Respiratory Pattern Normal Blood Pressure 68/36 L 68/33 L Blood Pressure Mean 46 44 Blood Pressure Source Blood Pressure Position Blood Pressure Location Pulse Ox 98 98 Oxygen Delivery Method Nasal Cannula Nasal Cannula Oxygen Flow Rate (L/min) 2 2 03/29/22 11:22 03/29/22 11:37 Temperature 97.3 F L 97.1 F L Temperature Source Temporal Temporal Pulse Rate 80 79 Respiratory Rate 16 22 H Respiratory Pattern Blood Pressure 69/35 L 77/33 L Blood Pressure Mean 46 47 Blood Pressure Source Monitor Monitor Blood Pressure Position Semi-Fowlers Semi-Fowlers Blood Pressure Location Left Arm Left Arm Pulse Ox 99 97 Oxygen Delivery Method Nasal Cannula Nasal Cannula Oxygen Flow Rate (L/min) 2 2 Weight Weight: 107.9 kg Body Mass Index (BMI) 43.4 Physical Exam Narrative Physical exam: General: Alert, lethargic, not pale, generalized anasarca HEENT: Atraumatic Oral: Moist Mucosa Neck: Supple Lungs: Clear to auscultation Cardiovascular: HS I+II, regular, no murmurs Abdomen: Bowel Sounds Present, Soft, Non Tender Extremities: Bilateral leg edema +2-3, right thigh is very edematous, looks bruise, hematoma, extends to the right flank and gluteal region Skin: Bruises on the right thigh Neurological: Grossly intact Psych/Mental Status: Appropriate Results Lab / Micro Data Result Diagrams: 03/29/22 09:35 03/29/22 09:35 Labs: Laboratory Results - last 24 hr 03/29/22 09:35: WBC 13.3 H, RBC 2.02 L, Hgb 6.1 L, Hct 20.6 L, MCV 102.0 H, MCH 30.2, MCHC 29.6 L D, RDW Std Deviation 67.3 H, RDW Coeff of Diandra 19.0 H, Plt Count 266, MPV 10.0, Immature Gran % (Auto) 2.900 H, Neut % (Auto) 82.3 H, Lymph % (Auto) 9.5 L, [place] % (Auto) 5.0, Eos % (Auto) 0.1, Baso % (Auto) 0.2, Absolute Neuts (auto) 11.0 H, Absolute Lymphs (auto) 1.27, Nucleated RBC % 0, Polychromasia RARE, Hypochromasia 1+, Anisocytosis 2+, Ovalocytes 1+ 03/29/22 09:35: PT 65.5 H, INR 7.8 H*, APTT 67.6 H 03/29/22 09:35: Sodium 143, Potassium 4.6, Chloride 112 H, Carbon Dioxide 22.0, Anion Gap 9, BUN 41 H, Creatinine 2.22 H, Estim Creat Clear Calc 15.99, Est GFR (MDRD) Af Amer 27 L, Est GFR (MDRD) Non-Af 23 L, BUN/Creatinine Ratio 18.5, Glucose 123 H, Calcium 9.5, Total Bilirubin 1.20 H, AST 30, ALT 10 L, Alkaline Phosphatase 121 H, Total Protein 5.7 L, Albumin 1.6 L, Globulin 4.1, Albumin/Globulin Ratio 0.4 L 03/29/22 09:35: Lactic Acid 4.5 H* 03/29/22 09:35: Blood Type A POSITIVE, Antibody Screen NEGATIVE, Crossmatch See Detail 03/29/22 11:10: Urine Color Yellow, Urine Clarity Cloudy, Urine pH 5.0, Ur Specific [place] 1.015, Urine Protein 30 H, Urine Glucose (UA) Normal, Urine Ketones Negative, Urine Occult Blood 10 H, Urine Nitrite Negative, Urine Bilirubin Negative, Urine Urobilinogen Normal, Ur Leukocyte Esterase 500 H, Urine RBC 0-5 SEEN, Urine WBC 25-50 SEEN, Ur Squamous Epith Cells 10-25 SEEN, Urine Bacteria RARE, Urine Mucus RARE, Urine Yeast 1+ Radiology Impression Chest X-Ray 03/29/22 10:25 IMPRESSION: Blunting of the left costophrenic angle with left basilar atelectasis and/or infiltrate. The right lung is clear. Electronically Signed: Herminio Manning MD at 10:45 EST , Assessment & Plan Assessment/Plan (1) Hypotension: (2) Anemia: PLAN: Plan 1. Shock, probably multifactorial, likely hypovolemic from acute blood loss into the right thigh and flank region Possible acute GI bleed also versus septic shock from recent endocarditis Will admit to ICU, continue IV fluids, blood transfusion, IV pressors [employer] Quality Control Technician consult 2. Severe anemia, hemoglobin 6.1, history of recent GI bleed Likely etiology may be bleeding to the subcutaneous tissues We will transfuse 2 units of packed RBCs Hold Eliquis, will trend labs 3. Right proximal thigh, flank and gluteal region swelling/hematoma, likely source of blood loss Unclear if patient had trauma to the side or her thigh We will get CT scan of the thigh in a.m. when patient is more stable 4. Probable acute GI bleed, patient with recent grade B erosive esophagitis, oozing gastric ulcers and a visible vessel which was injected and treated with argon plasma coagulation. Patient also had chronic gastritis with hemorrhage on endoscopy Continue with IV PPI, GI consult 5. Supratherapeutic INR, INR is 7.8, likely secondary to vitamin K deficiency from malnutrition Will hold Eliquis, will give IV Vitamin K 10mg x1, being given FFP, repeat INR in am 6. Recent aortic and mitral valve endocarditis, h/o mitral valve replacement, Continue on IV ampicillin and ceftriaxone 7. Recent JACQUIE on CKD, patient received dialysis during this admission Cr was 2.22, up from 1.58, will trend, repeat blood work in am 8. Recent non-STEMI, type II/A. fib with RVR, will continue to monitor 9. Severe malnutrition, patient with anasarca, albumin 1.6, communications assistant consulted, will monitor on supplements 10. DVT PPx- SCDs. Charges/Coding Visit Charges Inpatient E&M: 62399 Init Hosp L3
--- NOTE | 2022-03-29 12:05 | NURSING ---
ICU NUAMAH ANEMIA, HYPOTENSION, LACTIC ACIDOSIS, BACTEREMIA
--- NOTE | 2022-03-29 13:03 | NURSING ---
ICU 7
[2022-03-29 13:42] LABS: Reflex Lactate? Y
[2022-03-29 15:07] LABS: Lactic Acid 2.7 mmol/L (0.4-1.9)
--- NOTE | 2022-03-29 15:09 | EX.PCM.CONCC ---
Assessment & Plan Assessment/Plan (1) Hypotension: (2) Anemia: (3) Endocarditis: PLAN: Plan RECOMMENDATIONS: 1. Administer FFP in addition to vitamin K 2. Agree with blood transfusions 3. Repeat pancultures 4. Consider repeat x-ray of right hip 5. Initiate Levophed through Flor if necessary IMPRESSIONS: 1. Hypotension Exact etiology is unclear at this time. Volume loss secondary to blood loss would be a consideration. Patient does have significant ecchymosis of the right hip with induration. Patient also has a recent endocarditis diagnosis so seeding of the hematoma versus development of bacterial resistance would be a consideration. Consider broadening spectrum to vancomycin if patient has to be initiated on pressors. Will administer FFP and blood products for volume resuscitation. Patient is significantly positive at this time. Patient does have a history of diastolic CHF and recent acute kidney injury 2. Acute kidney injury with recent dialysis and CKD 4 Patient's creatinine was down to 1.58 prior to discharge. Patient significantly elevated at this time. It does not appear as though the patient received any contrast, so prerenal etiology is suspected. We will support blood pressures and monitor. Patient did have significant elevation of lactate on presentation. 3. 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 There is some mild blunting, but this may be secondary to atelectasis. Do not believe the patient is significantly volume overloaded at this time. Okay to hold off on diuretics. Could consider adding vancomycin if patient requires pressor therapies after volume resuscitation with blood products. If patient starts to have worsening hypoxia, as needed Lasix could be added. Blood pressure is marginal at this time. 4. Recent admission/morbid obesity/bilateral lymphedema/bilateral arthritis Complicates care, management, recovery and prognosis. Patient was a full code previously, but this cannot be confirmed at this time. Patient also has a history of recent esophagitis leading to acute blood loss anemia. GI has been consulted. TIME: 33 minutes critical care time spent addressing patient's hypotension, acute kidney injury, CHF, review of all data and collaboration with care team HPI Consult Data Date of Consult: 03/29/22 HPI Narrative Reason for Consultation: Hypotension HPI Narrative: CARLOS ALBERTO GOLDBERG is a 81 F, with past medical history listed below, who presents to [facility] on 03/29/2022 from [facility] secondary to anemia and hypotension. Patient was just discharged from [facility] 2 days ago is currently on Rocephin and ampicillin for concerns for endocarditis with bacteremia. Patient has a history of A. fib with RVR, along with secondary duodenal ulcers. Patient reportedly was started on Eliquis just prior to discharge. Patient also required temporary dialysis secondary to acute kidney injury. Bacteriology at the previous hospitalization was consistent with E faecalis and patient was discharged with a hemoglobin of 7.8 and creatinine of 1.58. Patient reportedly had a Flor placed during the previous hospitalization in an effort to save veins for possible future dialysis access. In the ER, patient was afebrile, but tachypneic at 22 breaths/min. Patient was requiring 2 L nasal cannula to maintain saturations, but blood pressure was 66/31. Laboratory work-up showed a white blood cell count of 13.3, hemoglobin of 6.1 and platelets of 266. INR was elevated at 7.8 and bicarbonate was 22. Creatinine was elevated at 2.22 with a total bili of 1.2 and an alkaline phosphatase of 121. Initial lactate was elevated at 4.5 and chest x-ray showed only blunting of the left costophrenic angle. In the intensive care unit, patient is not able to provide much additional information. Patient is moaning and will open her eyes to voice. Patient is not able to provide any additional information. Old documentation from previous hospitalization was reviewed. FORMERLY [facility] Medical History Chronic acquired lymphedema Chronic atrial fibrillation Chronic diastolic CHF (congestive heart failure) Former tobacco use History of temporary cardiac pacemaker treatment HTN (hypertension) Morbid obesity Rheumatoid arthritis Valvular heart disease Home Medications calcium carbonate 600 mg-vitamin D3 10 mcg (400 unit) tablet (Calcium 600 + D(3)) 1 ea PO DAILY SUPPLEMENT 12/17/13 [History Last Taken 03/29/22] furosemide 40 mg tablet 40 mg PO DAILY FLUID 12/17/13 [History Last Taken 03/29/22] ampicillin sodium 2 gram solution for injection 2 g IV QAM 33 days #33 ea 03/22/22 [Rx Last Taken 03/28/22 12:00] ceftriaxone 2 gram intravenous solution 2 g IV Q12H #66 ea 03/22/22 [Rx Last Taken 03/29/22 09:00] diphenhydramine HCl 25 mg tablet (Allergy Relief (diphenhydramine)) 25 mg PO TID PRN allergic reaction 40 days #90 tabs 03/22/22 [Rx Last Taken Unknown] sucralfate 1 gram tablet (Carafate) 1 g PO BID #61 tabs 03/27/22 [Rx Last Taken 03/29/22] apixaban 2.5 mg tablet (Eliquis) 2.5 mg PO BID BLOOD THINNER 03/29/22 [History Last Taken 03/29/22] diltiazem HCl 240 mg capsule,extended release 24 hr 240 mg PO DAILY BLOOD PRESSURE 03/29/22 [History Last Taken 03/29/22] metoprolol tartrate 100 mg tablet 100 mg PO BID BLOOD PRESSURE 03/29/22 [History Last Taken 03/29/22] multivitamin with minerals-folic acid 120 mcg chewable tablet (Centrum Adult 50 Plus Fresh-Fruity) 1 tab PO DAILY HEALTH MAINTENANCE 03/29/22 [History Last Taken 03/29/22] pantoprazole 40 mg tablet,delayed release 40 mg PO BID GERD 03/29/22 [History Last Taken 03/29/22] sennosides 8.6 mg tablet (Senna Lax) 8.6 mg PO DAILY PRN Constipation 03/29/22 [History Last Taken Unknown] sennosides 8.6 mg tablet (Senna Lax) 8.6 mg PO QHS CONSTIPATION 03/29/22 [History Last Taken 03/28/22] tramadol 50 mg tablet 50 mg PO 1915 PAIN 03/29/22 [History Last Taken 03/29/22 07:15] tramadol 50 mg tablet 50 mg PO DAILY PRN Pain 03/29/22 [History Last Taken Unknown] Allergy/AdvReac Type Severity Reaction Status Date / Time allopurinol Allergy Mild Rash Verified 03/29/22 09:36 ceftriaxone [From Rocephin] Allergy Mild Rash Verified 03/29/22 09:36 colchicine Allergy Mild Rash Verified 03/29/22 09:36 Family History Mother Heart disease Father Cancer Leukemia. Surgical History H/O tricuspid valve annuloplasty S/P MVR (mitral valve replacement) Social History household members: none Smoking Status: Former smoker how long ago did patient quit smoking: Quit 05/26/1959, smoked ~2 years w/ 0.25 pack/day. alcohol intake: current alcohol intake frequency: holidays/special occasions only substance use type: does not use ROS Review of Systems ROS Unobtainable: due to mental status Physical Exam Const no apparent distress and well nourished Constitutional Narrative: Obese, elderly, debilitated, white female lying in bed General Appearance: cooperative and lethargic Exam Limitations: no limitations Nutritional Appearance: obese HEENT normocephalic, head/scalp atraumatic and moist oral mucous membranes; Negative for hearing grossly normal bilaterally HEENT Narrative: Mucous membranes are moist, Mallampati is 2, no thrush, mild hearing loss Eyes PERRL and EOMs intact bilaterally Eyes Narrative: Mildly pale conjunctiva bilaterally, no scleral icterus Neck no lymphadenopathy, supple and no JVD Neck Narrative: Trachea midline, no thyroid enlargement, ecchymosis in area of tunneled catheter left chest Resp normal respiratory effort, no retractions and no use of accessory muscles Auscultation: diminished lung sounds; Negative for rhonchi or wheezes Cardio regular rate, regular rhythm, S1 normal heart sound, S2 normal heart sound, no murmurs, no rub, no gallops and no clicks GI normal to inspection, nondistended, normoactive bowel sounds, soft to palpation and non-tender Extremity Extremity Narrative: Large ecchymosis of the right hip. There is an area of significant induration on the anterior lateral side Skin skin turgor normal and no jaundice Skin Narrative: Skin is pale with scattered ecchymosis Neuro moves all extremities and no focal motor deficits Neuro Narrative: Marked debility with decreased strength but no focal deficits Psych Mood & Affect: flat affect Lab / Micro Data Attestation: I reviewed the patient's lab results. Result Diagrams: 03/29/22 09:35 03/29/22 09:35 Labs: Laboratory Results - last 24 hr 03/29/22 09:35: WBC 13.3 H, RBC 2.02 L, Hgb 6.1 L, Hct 20.6 L, MCV 102.0 H, MCH 30.2, MCHC 29.6 L D, RDW Std Deviation 67.3 H, RDW Coeff of Diandra 19.0 H, Plt Count 266, MPV 10.0, Immature Gran % (Auto) 2.900 H, Neut % (Auto) 82.3 H, Lymph % (Auto) 9.5 L, [place] % (Auto) 5.0, Eos % (Auto) 0.1, Baso % (Auto) 0.2, Absolute Neuts (auto) 11.0 H, Absolute Lymphs (auto) 1.27, Nucleated RBC % 0, Polychromasia RARE, Hypochromasia 1+, Anisocytosis 2+, Ovalocytes 1+ 03/29/22 09:35: PT 65.5 H, INR 7.8 H*, APTT 67.6 H 03/29/22 09:35: Sodium 143, Potassium 4.6, Chloride 112 H, Carbon Dioxide 22.0, Anion Gap 9, BUN 41 H, Creatinine 2.22 H, Estim Creat Clear Calc 15.99, Est GFR (MDRD) Af Amer 27 L, Est GFR (MDRD) Non-Af 23 L, BUN/Creatinine Ratio 18.5, Glucose 123 H, Calcium 9.5, Total Bilirubin 1.20 H, AST 30, ALT 10 L, Alkaline Phosphatase 121 H, Total Protein 5.7 L, Albumin 1.6 L, Globulin 4.1, Albumin/Globulin Ratio 0.4 L 03/29/22 09:35: Lactic Acid 4.5 H* 03/29/22 09:35: Blood Type A POSITIVE, Antibody Screen NEGATIVE, Crossmatch See Detail 03/29/22 11:10: Urine Color Yellow, Urine Clarity Cloudy, Urine pH 5.0, Ur Specific [place] 1.015, Urine Protein 30 H, Urine Glucose (UA) Normal, Urine Ketones Negative, Urine Occult Blood 10 H, Urine Nitrite Negative, Urine Bilirubin Negative, Urine Urobilinogen Normal, Ur Leukocyte Esterase 500 H, Urine RBC 0-5 SEEN, Urine WBC 25-50 SEEN, Ur Squamous Epith Cells 10-25 SEEN, Urine Bacteria RARE, Urine Mucus RARE, Urine Yeast 1+ 03/29/22 14:15: Lactic Acid 2.7 H* Radiology Impression Chest X-Ray 03/29/22 10:25 IMPRESSION: Blunting of the left costophrenic angle with left basilar atelectasis and/or infiltrate. The right lung is clear. Electronically Signed: Herminio Manning MD at 10:45 EST , Charges/Coding Procedures Hospitalists Procedures: 60125 Critial Care 1st Hr
--- NOTE | 2022-03-29 17:11 | CON.PCM.GI_ITS ---
HPI Consult Data Date of Consult: 03/29/22 HPI Narrative Reason for Consultation: Anemia HPI Narrative: CARLOS ALBERTO GOLDBERG, is a 81 F who presents with a hemoglobin of 5.8.? Patient discharged her 2 days ago.? Noted extensive stay from discharge records.? Currently on Rocephin and ampicillin for concerns for endocarditis with bacteremia.? She had noted paroxysmal A. fib RVR.? She had upper GI bleed secondary duodenal ulcers.? She was started on Eliquis prior to discharge.? She had dialysis while in the hospital however creatinine improved? to 1.58.? No further dialysis was necessary.? She is currently making urine. She had type II NSTEMI.? Patient has not walked since being discharged.? Nursing discussed with facility morning antibiotics were not given. After treatment initiation, records reviewed echo had EF of 55%.? Noted aortic valve and mitral valve vegetation concerns.? Enterococcus faecalis bacteremia.? Discharged with hemoglobin 7.8.? Creatinine 1.58.? This was 2 days ago. Patient was 60/31, heart rate 90, SBP 22, temperature 97.4 F, oxygen sat was 91% on 2 L of oxygen.? Her RBC count 13.3, hemoglobin 6.1, platelet count 266, INR 7.8, sodium is 143 potassium 4.3, chloride 112,, 20, BUN 41, creatinine 2.22, creatinine at discharge 2 days ago was 1.58.? Lactic acid is 2.7, total bili 1.2.? UA was slightly cloudy, nitrite negative, leukocyte esterase 500, WBC count is 25?15.? Chest x-ray showed blunting of the left costophrenic angle left basilar atelectasis/infiltrate. She is is going to be taken to the ICU for close evaluation. FORMERLY [facility] Medical History Chronic acquired lymphedema Chronic atrial fibrillation Chronic diastolic CHF (congestive heart failure) Former tobacco use History of temporary cardiac pacemaker treatment HTN (hypertension) Morbid obesity Rheumatoid arthritis Valvular heart disease Home Medications calcium carbonate 600 mg-vitamin D3 10 mcg (400 unit) tablet (Calcium 600 + D(3)) 1 ea PO DAILY SUPPLEMENT 12/17/13 [History Last Taken 03/29/22] furosemide 40 mg tablet 40 mg PO DAILY FLUID 12/17/13 [History Last Taken 03/29/22] ampicillin sodium 2 gram solution for injection 2 g IV QAM 33 days #33 ea 03/22/22 [Rx Last Taken 03/28/22 12:00] ceftriaxone 2 gram intravenous solution 2 g IV Q12H #66 ea 03/22/22 [Rx Last Taken 03/29/22 09:00] diphenhydramine HCl 25 mg tablet (Allergy Relief (diphenhydramine)) 25 mg PO TID PRN allergic reaction 40 days #90 tabs 03/22/22 [Rx Last Taken Unknown] sucralfate 1 gram tablet (Carafate) 1 g PO BID #61 tabs 03/27/22 [Rx Last Taken 03/29/22] apixaban 2.5 mg tablet (Eliquis) 2.5 mg PO BID BLOOD THINNER 03/29/22 [History Last Taken 03/29/22] diltiazem HCl 240 mg capsule,extended release 24 hr 240 mg PO DAILY BLOOD PRESSURE 03/29/22 [History Last Taken 03/29/22] metoprolol tartrate 100 mg tablet 100 mg PO BID BLOOD PRESSURE 03/29/22 [History Last Taken 03/29/22] multivitamin with minerals-folic acid 120 mcg chewable tablet (Centrum Adult 50 Plus Fresh-Fruity) 1 tab PO DAILY HEALTH MAINTENANCE 03/29/22 [History Last Taken 03/29/22] pantoprazole 40 mg tablet,delayed release 40 mg PO BID GERD 03/29/22 [History Last Taken 03/29/22] sennosides 8.6 mg tablet (Senna Lax) 8.6 mg PO DAILY PRN Constipation 03/29/22 [History Last Taken Unknown] sennosides 8.6 mg tablet (Senna Lax) 8.6 mg PO QHS CONSTIPATION 03/29/22 [History Last Taken 03/28/22] tramadol 50 mg tablet 50 mg PO 0715,1915 PAIN 03/29/22 [History Last Taken 03/29/22 07:15] tramadol 50 mg tablet 50 mg PO DAILY PRN Pain 03/29/22 [History Last Taken Unknown] Allergy/AdvReac Type Severity Reaction Status Date / Time allopurinol Allergy Mild Rash Verified 03/29/22 09:36 ceftriaxone [From Rocephin] Allergy Mild Rash Verified 03/29/22 09:36 colchicine Allergy Mild Rash Verified 03/29/22 09:36 Family History Mother Heart disease Father Cancer Leukemia. Surgical History H/O tricuspid valve annuloplasty S/P MVR (mitral valve replacement) Social History household members: none Smoking Status: Former smoker how long ago did patient quit smoking: Quit 05/26/1959, smoked ~2 years w/ 0.25 pack/day. alcohol intake: current alcohol intake frequency: holidays/special occasions only substance use type: does not use ROS Review of Systems ROS Unobtainable: due to mental status Physical Exam Const no apparent distress and well nourished Constitutional Narrative: Obese, elderly, debilitated, white female lying in bed General Appearance: cooperative and lethargic Exam Limitations: no limitations Nutritional Appearance: obese HEENT normocephalic, head/scalp atraumatic and moist oral mucous membranes; Negative for hearing grossly normal bilaterally HEENT Narrative: Mucous membranes are moist, Mallampati is 2, no thrush, mild hearing loss Eyes PERRL and EOMs intact bilaterally Eyes Narrative: Mildly pale conjunctiva bilaterally, no scleral icterus Neck no lymphadenopathy, supple and no JVD Neck Narrative: Trachea midline, no thyroid enlargement, ecchymosis in area of tunneled catheter left chest Resp normal respiratory effort, no retractions and no use of accessory muscles Auscultation: diminished lung sounds; Negative for rhonchi or wheezes Cardio regular rate, regular rhythm, S1 normal heart sound, S2 normal heart sound, no murmurs, no rub, no gallops and no clicks GI normal to inspection, nondistended, normoactive bowel sounds, soft to palpation and non-tender Extremity Extremity Narrative: Large ecchymosis of the right hip. There is an area of significant induration on the anterior lateral side Skin skin turgor normal and no jaundice Skin Narrative: Skin is pale with scattered ecchymosis Neuro moves all extremities and no focal motor deficits Neuro Narrative: Marked debility with decreased strength but no focal deficits Psych Mood & Affect: flat affect Lab / Micro Data Result Diagrams: 03/29/22 09:35 03/29/22 09:35 Labs: Laboratory Results - last 24 hr 03/29/22 09:35: WBC 13.3 H, RBC 2.02 L, Hgb 6.1 L, Hct 20.6 L, MCV 102.0 H, MCH 30.2, MCHC 29.6 L D, RDW Std Deviation 67.3 H, RDW Coeff of Diandra 19.0 H, Plt Count 266, MPV 10.0, Immature Gran % (Auto) 2.900 H, Neut % (Auto) 82.3 H, Lymph % (Auto) 9.5 L, [place] % (Auto) 5.0, Eos % (Auto) 0.1, Baso % (Auto) 0.2, Absolute Neuts (auto) 11.0 H, Absolute Lymphs (auto) 1.27, Nucleated RBC % 0, Polychromasia RARE, Hypochromasia 1+, Anisocytosis 2+, Ovalocytes 1+ 03/29/22 09:35: PT 65.5 H, INR 7.8 H*, APTT 67.6 H 03/29/22 09:35: Sodium 143, Potassium 4.6, Chloride 112 H, Carbon Dioxide 22.0, Anion Gap 9, BUN 41 H, Creatinine 2.22 H, Estim Creat Clear Calc 15.99, Est GFR (MDRD) Af Amer 27 L, Est GFR (MDRD) Non-Af 23 L, BUN/Creatinine Ratio 18.5, Glucose 123 H, Calcium 9.5, Total Bilirubin 1.20 H, AST 30, ALT 10 L, Alkaline Phosphatase 121 H, Total Protein 5.7 L, Albumin 1.6 L, Globulin 4.1, Albumin/Globulin Ratio 0.4 L 03/29/22 09:35: Lactic Acid 4.5 H* 03/29/22 09:35: Blood Type A POSITIVE, Antibody Screen NEGATIVE, Crossmatch See Detail 03/29/22 11:10: Urine Color Yellow, Urine Clarity Cloudy, Urine pH 5.0, Ur Specific [place] 1.015, Urine Protein 30 H, Urine Glucose (UA) Normal, Urine Ketones Negative, Urine Occult Blood 10 H, Urine Nitrite Negative, Urine Bilirubin Negative, Urine Urobilinogen Normal, Ur Leukocyte Esterase 500 H, Urine RBC 0-5 SEEN, Urine WBC 25-50 SEEN, Ur Squamous Epith Cells 10-25 SEEN, Urine Bacteria RARE, Urine Mucus RARE, Urine Yeast 1+ 03/29/22 14:15: Lactic Acid 2.7 H* Radiology Impression Chest X-Ray 03/29/22 10:25 IMPRESSION: Blunting of the left costophrenic angle with left basilar atelectasis and/or infiltrate. The right lung is clear. Electronically Signed: Herminio Manning MD at 10:45 EST , Assessment & Plan Assessment/Plan (1) Anemia: PLAN: The differential diagnosis for acute anemia does include acute GI blood loss secondary to GI bleed previously seen ulcerations of the GI tract from therapy. Also due to diagnosis with the small bowel dysplasia, ectasia. Patient does not know the last time she had a colonoscopy. The differential diagnosis could include occult malignancy. She does not have multiple hematoma that can also explain blood loss. If her hemoglobin continues to drop and she is Hemoccult positive that she may benefit from an upper endoscopy and colonoscopy. Recommend to hold all anticoagulant and antiplatelet. Recommend proton 40 mg IV every 12 hours. Charges/Coding Visit Charges Inpatient E&M: 66274 Init Hosp L3
[2022-03-29 18:20] LABS: Hematocrit 24.3 % (37-47)
[2022-03-29] MEDS: TITRATION PARAMETER CHANGE 1 EACH IV (23:19)
[2022-03-30] VITALS (57 sets, daily range): BP systolic 57–134; BP diastolic 42–95; PULSE 82–109; RESP 17–27; TEMP 37.3–38.4; O2SAT 98–100
[2022-03-30 04:04] LABS: Basophil# 0.15 X10^3/uL; Eosinophil# 0.07 X10^3/uL; Hematocrit 22.3 % (37-47); Hemoglobin 7.2 g/dL (12.0-15.0); Mean Corp Hgb Conc 32.3 g/dL (32-36); Mean Corpuscular Hgb 31.7 pg (27.0-32.0); Mean Corpuscular Volume 98.2 fL (81-99); Mean Platelet Vol. 9.5 fl (6.2-12.0); Monocyte# 2.39 X10^3/uL; NRBC Flagged by Analyzer 0.1 % (0-5); POSITIVE DIFFERENTIAL YES; Platelet Count 308 K/mm3 (150-450); RBC Distribution Width CV 18.2 % (11.6-14.6); RBC Distribution Width SD 60.5 fl (35.1-43.9); Red Blood Count 2.27 M/mm3 (4.2-5.4); White Blood Count 28.9 K/mm3 (4.4-11.0)
[2022-03-30] MEDS: 0.9% Saline Lock 10 ML Syringe IV ×3 (04:09→10:37)
[2022-03-30 04:15] LABS: International Normalized Ratio 1.9; Prothrombin Time (Protime)PT. 21.2 SECONDS (11.7-14.9)
[2022-03-30 04:33] LABS: ALB/GLOB Ratio 0.4 RATIO (0.9-2.4); AST(SGOT) 24 U/L (15-37); Alanine Aminotransfer ALT/SGPT 13 U/L (13-56); Albumin, Serum 1.7 g/dL (3.2-5.0); Alkaline Phosphatase 106 U/L (45-117); Anion Gap 7 (5-15); BUN 44 mg/dL (7-18); BUN/Creat Ratio 17.7 RATIO (10-20); Calcium,Total 8.7 mg/dL (8.5-10.1); Chloride 116 mmol/L (98-107); Creatinine, Serum 2.48 mg/dL (0.55-1.02); EST Glomerular Filtration Rate 20 mL/min (>60); Est Glom Filt Rate - Afr Amer 24 mL/min (>60); Glucose 121 mg/dL (74-106); Potassium 4.3 mmol/L (3.5-5.1); Protein, Total 5.7 g/dL (6.4-8.2); Sodium Level 144 mmol/L (136-145)
[2022-03-30 04:35] LABS: Differential Indicated SCAN CRITERIA MET
[2022-03-30 04:42] LABS: Scan Smear per Review Criteria MANUAL DIFF
[2022-03-30 04:48] LABS: Eosinophil 1 % (0-5); Lymphocyte 6 % (19-41); Metamyelocyte 3 % (0-1); Monocyte 1 % (0-10); Myelocyte 2 % (0-0); Neutrophil-Band 2 % (0-5); Neutrophil-Segmented 85 % (47-70); Total Cells Counted 100 (MANUAL DIFF)
[2022-03-30 04:49] LABS: Absolute Lymphocyte Count 1.73 X10^3/uL (0.83-4.51); Absolute Neutrophil Count 26.5 X10^3/uL (2.0-7.7); Lymphocyte # 1.73 X10^3/ul (0.83-4.51); Neutrophil # 26.54 X10^3/uL (2.7-7.7)
[2022-03-30 04:50] LABS: Platelet Estimate ADEQUATE (ADEQ); Polychromasia 1+
[2022-03-30 04:51] LABS: Anisocytosis 2+; Macrocytosis 1+; Microcytosis 1+
--- NOTE | 2022-03-30 07:17 | CT_ITS ---
STUDY: CT RIGHT FEMUR WITHOUT CONTRAST REASON FOR EXAM: Female, 81 years old. Right thigh and hip hematoma RADIATION DOSAGE (If Supplied By Facility): CTDIvol = ( 35.02 ) mGy, DLP = ( 2680.92 ) mGycm TECHNIQUE: Transaxial CT imaging of the femur was performed. Sagittal and coronal images were reconstructed. Individualized dose optimization techniques were used for this CT. COMPARISON: None. FINDINGS: A large acute subcutaneous hematoma is present at the periphery of the right gluteal and hip region measuring 28.52 x 10.0 x 8.90 cm in diameter. The hemorrhage appears to arise from a vessel directly anterior to or within the superior fibers of the sartorius muscle, which is adjacent to the major femoral vessels. The sartorius muscle also demonstrates mild intramuscular hemorrhage and mild swelling at the level of the inguinal fossa. There is also significant edema and swelling of the right thigh as well as the inguinal regions. Moderate edema is seen in the lower anterior pelvic wall and in the included portions of the left thigh. There is some mild age related fatty atrophy of the muscles, otherwise the root remaining muscles are unremarkable. Moderate to significant degenerative changes and narrowing present in the knee joints. There is no acute fracture. No aggressive lesion of the bony structures are present. Multiple calcified fibroids are present uterus. A catheter and balloon are present in the bladder lumen. Rectosigmoid diverticulosis is present. No visualized intrapelvic fluid collections or hemorrhage. There is diffuse demineralization of the femur. CT/Extremity Lower without Contra IMPRESSION: 1. A large acute subcutaneous hematoma is present at the periphery of the right gluteal and hip region measuring 28.52 x 10.0 x 8.90 cm in diameter. The hemorrhage appears to arise from a vessel directly anterior to or within the superior fibers of the sartorius muscle, which is adjacent to the major femoral vessels. Consultation with interventional radiology or vascular surgery is recommended for possible angiography and or embolization. 2. The sartorius muscle also demonstrates mild intramuscular hemorrhage and mild swelling at the level of the inguinal fossa. 3. There is also significant edema and swelling of the right thigh as well as the inguinal regions. Moderate edema is seen in the lower anterior pelvic wall and in the included portions of the left thigh. Electronically Signed: Rudy Maldonado MD at 9:44 EST ,
--- NOTE | 2022-03-30 08:25 | PCM.PN.INT ---
Assessment & Plan Assessment/Plan (1) Hypotension: (2) Anemia: (3) Endocarditis: PLAN: Plan RECOMMENDATIONS: 1. Await CT of the lower extremities 2. Antibiotics per infectious disease 3. Await repeat pancultures 4. Consider repeat x-ray of right hip 5. Wean Levophed as tolerated. Discontinue vasopressin once levo below 15 IMPRESSIONS: 1. Hypotension Exact etiology is unclear at this time. Acute volume loss secondary to bleeding of right hip would be a consideration. Patient does have significant ecchymosis of the right hip with induration. CT of the lower extremity is currently pending. Patient also has a recent endocarditis diagnosis so seeding of the hematoma versus development of bacterial resistance would be a consideration. Infectious disease has been consulted. Consider broadening spectrum to vancomycin if patient has to be initiated on pressors. No indication for transfusion at this time. Patient is significantly positive at this time. Patient does have a history of diastolic CHF and recent acute kidney injury, but is oxygenating okay 2. Acute kidney injury with recent dialysis and CKD 4 Patient's creatinine was down to 1.58 prior to discharge. Patient significantly elevated at this time. It does not appear as though the patient received any contrast, so prerenal etiology is suspected. We will support blood pressures and monitor. Elevation of creatinine appears to be slowing down. Patient did have significant elevation of lactate on presentation. 3. 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 There is some mild blunting, but this may be secondary to atelectasis. Do not believe the patient is significantly volume overloaded at this time. Okay to hold off on diuretics. Could consider adding vancomycin if patient requires pressor therapies after volume resuscitation with blood products. If patient starts to have worsening hypoxia, as needed Lasix could be added. Blood pressure is marginal at this time. We will likely add stress dose steroids tomorrow if patient is still requiring 2 pressor agents with stable blood counts 4. Recent admission/morbid obesity/bilateral lymphedema/bilateral arthritis Complicates care, management, recovery and prognosis. Patient was a full code previously, but this cannot be confirmed at this time. Patient also has a history of recent esophagitis leading to acute blood loss anemia. GI has been consulted. We will need to watch blood sugars closely if steroids are initiated TIME: 35 minutes critical care time spent addressing patient's hypotension, acute kidney injury, CHF, review of all data and collaboration with care team Subjective Subjective Patient much more responsive today than yesterday. Patient is complaining of significant right-sided hip pain. Respiratory status is much improved compared to previous. No obvious blood loss has been reported by nursing staff. Patient does remain in A. fib and received 2 units of packed red blood cells and FFP over the last 24 hours. Objective Data Objective Data Vital Signs: Vital Signs Temp Pulse Resp BP Pulse Ox O2 Del Method O2 Flow Rate 37.7 C H 86 21 H 103/59 L 100 Nasal Cannula 2 03/30/22 07:00 03/30/22 07:00 03/30/22 07:00 03/30/22 07:00 03/30/22 07:13 03/30/22 07:13 03/30/22 07:13 Oxygen Flow Rate (L/min) 2 Oxygen Delivery Method Nasal Cannula Weight: 104.6 kg Body Mass Index (BMI) 44.7 Intake & Output: Intake and Output for Last 24 Hours 03/28/22 03/29/22 03/30/22 23:59 23:59 23:59 Intake Total 5089.48 / 5095.58 599.31 / 599.31 Output Total 100 / 140 45 / 45 Balance 4989.48 / 4955.58 554.31 / 554.31 Lab / Micro Data Attestation: I reviewed the patient's lab results. Result Diagrams: 03/30/22 03:55 03/30/22 03:55 Labs: Laboratory Results - last 24 hr 03/29/22 09:35: WBC 13.3 H, RBC 2.02 L, Hgb 6.1 L, Hct 20.6 L, MCV 102.0 H, MCH 30.2, MCHC 29.6 L D, RDW Std Deviation 67.3 H, RDW Coeff of Diandra 19.0 H, Plt Count 266, MPV 10.0, Immature Gran % (Auto) 2.900 H, Neut % (Auto) 82.3 H, Lymph % (Auto) 9.5 L, [place] % (Auto) 5.0, Eos % (Auto) 0.1, Baso % (Auto) 0.2, Absolute Neuts (auto) 11.0 H, Absolute Lymphs (auto) 1.27, Nucleated RBC % 0, Polychromasia RARE, Hypochromasia 1+, Anisocytosis 2+, Ovalocytes 1+ 03/29/22 09:35: PT 65.5 H, INR 7.8 H*, APTT 67.6 H 03/29/22 09:35: Sodium 143, Potassium 4.6, Chloride 112 H, Carbon Dioxide 22.0, Anion Gap 9, BUN 41 H, Creatinine 2.22 H, Estim Creat Clear Calc 15.99, Est GFR (MDRD) Af Amer 27 L, Est GFR (MDRD) Non-Af 23 L, BUN/Creatinine Ratio 18.5, Glucose 123 H, Calcium 9.5, Total Bilirubin 1.20 H, AST 30, ALT 10 L, Alkaline Phosphatase 121 H, Total Protein 5.7 L, Albumin 1.6 L, Globulin 4.1, Albumin/Globulin Ratio 0.4 L 03/29/22 09:35: Lactic Acid 4.5 H* 03/29/22 09:35: Blood Type A POSITIVE, Antibody Screen NEGATIVE, Crossmatch See Detail 03/29/22 11:10: Urine Color Yellow, Urine Clarity Cloudy, Urine pH 5.0, Ur Specific [place] 1.015, Urine Protein 30 H, Urine Glucose (UA) Normal, Urine Ketones Negative, Urine Occult Blood 10 H, Urine Nitrite Negative, Urine Bilirubin Negative, Urine Urobilinogen Normal, Ur Leukocyte Esterase 500 H, Urine RBC 0-5 SEEN, Urine WBC 25-50 SEEN, Ur Squamous Epith Cells 10-25 SEEN, Urine Bacteria RARE, Urine Mucus RARE, Urine Yeast 1+ 03/29/22 14:15: Lactic Acid 2.7 H* 03/29/22 18:10: Hgb 8.0 L, Hct 24.3 L 03/30/22 03:55: WBC 28.9 H, RBC 2.27 L, Hgb 7.2 L, Hct 22.3 L, MCV 98.2, MCH 31.7, MCHC 32.3 D, RDW Std Deviation 60.5 H, RDW Coeff of Diandra 18.2 H, Plt Count 308, MPV 9.5, Immature Gran % (Auto) SENIOR SOFTWARE DEVELOPMENT ENGINEER, Neut % (Auto) SENIOR SOFTWARE DEVELOPMENT ENGINEER, Lymph % (Auto) SENIOR SOFTWARE DEVELOPMENT ENGINEER, [place] % (Auto) SENIOR SOFTWARE DEVELOPMENT ENGINEER, Eos % (Auto) SENIOR SOFTWARE DEVELOPMENT ENGINEER, Baso % (Auto) SENIOR SOFTWARE DEVELOPMENT ENGINEER, Absolute Neuts (auto) 26.5 H, Absolute Lymphs (auto) 1.73, Total Counted 100, Neutrophils % (Manual) 85 H, Band Neutrophils % 2, Lymphocytes % (Manual) 6 L, Monocytes % (Manual) 1, Eosinophils % (Manual) 1, Metamyelocytes % 3 H, Myelocytes % 2 H, Nucleated RBC % 0.1, Diff Path Review May foll, Platelet Estimate ADEQUATE, Polychromasia 1+, Anisocytosis 2+, Microcytosis 1+, Macrocytosis 1+ 03/30/22 03:55: Sodium 144, Potassium 4.3, Chloride 116 H, Carbon Dioxide 21.0, Anion Gap 7, BUN 44 H, Creatinine 2.48 H, Estim Creat Clear Calc 13.00, Est GFR (MDRD) Af Amer 24 L, Est GFR (MDRD) Non-Af 20 L, BUN/Creatinine Ratio 17.7, Glucose 121 H, Calcium 8.7, Total Bilirubin 1.00, AST 24, ALT 13, Alkaline Phosphatase 106, Total Protein 5.7 L, Albumin 1.7 L, Globulin 4.0, Albumin/Globulin Ratio 0.4 L 03/30/22 03:55: PT 21.2 H, INR 1.9 Radiography Diagnostic Testing: Radiology Impression Chest X-Ray 03/29/22 10:25 IMPRESSION: Blunting of the left costophrenic angle with left basilar atelectasis and/or infiltrate. The right lung is clear. Electronically Signed: Herminio Manning MD at 10:45 EST , Physical Exam Const oriented x3, no apparent distress and well nourished Constitutional Narrative: Obese, elderly, debilitated, white female lying in bed. RASS -1 General Appearance: cooperative, comfortable, well kempt and well developed Exam Limitations: no limitations Nutritional Appearance: obese HEENT normocephalic, head/scalp atraumatic and moist oral mucous membranes; Negative for hearing grossly normal bilaterally Eyes PERRL and EOMs intact bilaterally Eyes Narrative: Mildly pale conjunctiva bilaterally, no scleral icterus Neck no lymphadenopathy, supple and no JVD Neck Narrative: Trachea midline, no thyroid enlargement, ecchymosis in area of tunneled catheter left chest Resp normal respiratory effort, no retractions, no use of accessory muscles and clear to auscultation bilaterally Auscultation: rales and diminished lung sounds; Negative for rhonchi or wheezes Cardio regular rate, S1 normal heart sound, S2 normal heart sound, no murmurs, no rub, no gallops and no clicks Rhythm: abnormal rhythm irregularly irregular GI normal to inspection, nondistended, normoactive bowel sounds, soft to palpation and non-tender Extremity Extremity Narrative: Large ecchymosis of the right hip. There is an area of significant induration on the anterior lateral side Skin skin turgor normal and no jaundice Skin Narrative: Skin is pale with scattered ecchymosis Neuro oriented x3, CN's II-XII intact bilaterally, moves all extremities and no focal motor deficits Neuro Narrative: Marked debility with decreased strength but no focal deficits Psych Psych Narrative: Pleasant and appropriately interactive Mood & Affect: flat affect Charges/Coding Procedures Hospitalists Procedures: [id number] Critial Care 1st Hr
--- NOTE | 2022-03-30 09:07 | ECHOLC_ITS ---
Reason For Study: CHF Procedure This was a 2D Doppler, Color Flow transthoracic echocardiogram. The study was technically difficult. Due to body habitus and exam was performed supine. Exam performed portable in ICU/CCU. Left Ventricle Normal left ventricle. The estimated ejection fraction is 65-70 %. Right Ventricle Moderately dilated right ventricle. Atria The left atrium is severely enlarged. Normal right atrium. Mitral Valve Bioprothetic MV Can Not Exclude MV small Vegetation. Tricuspid Valve Normal tricuspid valve. Aortic Valve Moderate diffuse aortic valve thickening. Pulmonic Valve The pulmonic valve is not well visualized. Great Vessels Normal aortic root. Pericardium/Pleural No pericardial effusion. MMode/2D Measurements & Calculations LVIDd: 4.4 cm IVSd: 0.97 cm LAV(MOD-bp): 124.3 ml LVIDs: 2.6 cm LVPWd: 1.1 cm LAV(MOD-bp) Indexed: 62.7 ml/m2 RVDd: 3.6 cm FS: 42.1 % LAV(MOD-sp2): 126.6 ml LAV(MOD-sp4): 117.4 ml LA A4 area: 31.8 cm2 RA A4 area: 19.4 cm2 ECHO/Echo Limited w/Contrast Interpretation Summary The estimated ejection fraction is 65-70 %. Bioprothetic MV Can Not Exclude MV small Vegetation Recommendation: consider to Evaluate with NOHEMY Ordering Physician: Hu Kumar Referring Physician: Carolyn Stephen Performed By: Sandy Shelton, DEBBIE, RVT
[2022-03-30] MEDS: CHLORHEXIDINE GLUC 2% CLOTH 1 EACH TOWELETTE TOPICAL (09:13)
--- NOTE | 2022-03-30 09:17 | PCM.PN.HOSP ---
Subjective Subjective Follow-up on shock/acute blood loss anemia/right thigh hematoma: Patient was seen and examined. Overnight, she did max out on Levophed and had to be started on vasopressin. CT of the thigh showed large acute subcutaneous hematoma related to major femoral vessels, with possible intramuscular hemorrhage in the sartorius muscle. Vascular surgery has been consulted. Urine output decreased, creatinine slightly elevated, nephrology consulted. Objective Data Objective Data Vital Signs: Vital Signs Temp Pulse Resp BP Pulse Ox O2 Del Method O2 Flow Rate 99.9 F H 86 21 H 103/59 L 100 Nasal Cannula 2 03/30/22 07:00 03/30/22 08:00 03/30/22 07:00 03/30/22 07:00 03/30/22 07:13 03/30/22 08:00 03/30/22 08:00 Oxygen Flow Rate (L/min) 2 Oxygen Delivery Method Nasal Cannula Weight: 104.6 kg Body Mass Index (BMI) 44.7 Intake & Output: Intake and Output for Last 24 Hours 03/28/22 03/29/22 03/30/22 23:59 23:59 23:59 Intake Total 5089.48 / 5095.58 654.02 / 654.02 Output Total 100 / 140 45 / 45 Balance 4989.48 / 4955.58 609.02 / 609.02 Lab / Micro Data Result Diagrams: 03/30/22 11:54 03/30/22 03:55 Labs: Laboratory Results - last 24 hr 03/29/22 09:35: WBC 13.3 H, RBC 2.02 L, Hgb 6.1 L, Hct 20.6 L, MCV 102.0 H, MCH 30.2, MCHC 29.6 L D, RDW Std Deviation 67.3 H, RDW Coeff of Diandra 19.0 H, Plt Count 266, MPV 10.0, Immature Gran % (Auto) 2.900 H, Neut % (Auto) 82.3 H, Lymph % (Auto) 9.5 L, [place] % (Auto) 5.0, Eos % (Auto) 0.1, Baso % (Auto) 0.2, Absolute Neuts (auto) 11.0 H, Absolute Lymphs (auto) 1.27, Nucleated RBC % 0, Polychromasia RARE, Hypochromasia 1+, Anisocytosis 2+, Ovalocytes 1+ 03/29/22 09:35: PT 65.5 H, INR 7.8 H*, APTT 67.6 H 03/29/22 09:35: Sodium 143, Potassium 4.6, Chloride 112 H, Carbon Dioxide 22.0, Anion Gap 9, BUN 41 H, Creatinine 2.22 H, Estim Creat Clear Calc 15.99, Est GFR (MDRD) Af Amer 27 L, Est GFR (MDRD) Non-Af 23 L, BUN/Creatinine Ratio 18.5, Glucose 123 H, Calcium 9.5, Total Bilirubin 1.20 H, AST 30, ALT 10 L, Alkaline Phosphatase 121 H, Total Protein 5.7 L, Albumin 1.6 L, Globulin 4.1, Albumin/Globulin Ratio 0.4 L 03/29/22 09:35: Lactic Acid 4.5 H* 03/29/22 09:35: Blood Type A POSITIVE, Antibody Screen NEGATIVE, Crossmatch See Detail 03/29/22 11:10: Urine Color Yellow, Urine Clarity Cloudy, Urine pH 5.0, Ur Specific [place] 1.015, Urine Protein 30 H, Urine Glucose (UA) Normal, Urine Ketones Negative, Urine Occult Blood 10 H, Urine Nitrite Negative, Urine Bilirubin Negative, Urine Urobilinogen Normal, Ur Leukocyte Esterase 500 H, Urine RBC 0-5 SEEN, Urine WBC 25-50 SEEN, Ur Squamous Epith Cells 10-25 SEEN, Urine Bacteria RARE, Urine Mucus RARE, Urine Yeast 1+ 03/29/22 14:15: Lactic Acid 2.7 H* 03/29/22 18:10: Hgb 8.0 L, Hct 24.3 L 03/30/22 03:55: WBC 28.9 H, RBC 2.27 L, Hgb 7.2 L, Hct 22.3 L, MCV 98.2, MCH 31.7, MCHC 32.3 D, RDW Std Deviation 60.5 H, RDW Coeff of Diandra 18.2 H, Plt Count 308, MPV 9.5, Immature Gran % (Auto) DIVISION CONTROLLER, Neut % (Auto) DIVISION CONTROLLER, Lymph % (Auto) DIVISION CONTROLLER, [place] % (Auto) DIVISION CONTROLLER, Eos % (Auto) DIVISION CONTROLLER, Baso % (Auto) DIVISION CONTROLLER, Absolute Neuts (auto) 26.5 H, Absolute Lymphs (auto) 1.73, Total Counted 100, Neutrophils % (Manual) 85 H, Band Neutrophils % 2, Lymphocytes % (Manual) 6 L, Monocytes % (Manual) 1, Eosinophils % (Manual) 1, Metamyelocytes % 3 H, Myelocytes % 2 H, Nucleated RBC % 0.1, Diff Path Review May foll, Platelet Estimate ADEQUATE, Polychromasia 1+, Anisocytosis 2+, Microcytosis 1+, Macrocytosis 1+ 03/30/22 03:55: Sodium 144, Potassium 4.3, Chloride 116 H, Carbon Dioxide 21.0, Anion Gap 7, BUN 44 H, Creatinine 2.48 H, Estim Creat Clear Calc 13.00, Est GFR (MDRD) Af Amer 24 L, Est GFR (MDRD) Non-Af 20 L, BUN/Creatinine Ratio 17.7, Glucose 121 H, Calcium 8.7, Total Bilirubin 1.00, AST 24, ALT 13, Alkaline Phosphatase 106, Total Protein 5.7 L, Albumin 1.7 L, Globulin 4.0, Albumin/Globulin Ratio 0.4 L 03/30/22 03:55: PT 21.2 H, INR 1.9 Micro: Microbiology 03/29/22 11:10 Urine Catheter - Catheter Urine Culture - Preliminary GNR lactose conveyor technician Gram positive organism Radiography Diagnostic Testing: Radiology Impression Chest X-Ray 03/29/22 10:25 IMPRESSION: Blunting of the left costophrenic angle with left basilar atelectasis and/or infiltrate. The right lung is clear. Electronically Signed: Herminio Manning MD at 10:45 EST , Physical Exam Narrative Physical exam: General: Alert, lethargic, pale, generalized anasarca HEENT: Atraumatic Oral: Moist Mucosa Neck: Supple Lungs: Clear to auscultation Cardiovascular: HS I+II, regular, no murmurs Abdomen: Bowel Sounds Present, Soft, Non Tender Extremities: Bilateral leg edema +2-3, right thigh is very edematous, looks bruise, hematoma, extends to the right flank and gluteal region Skin: Bruises on the right thigh Neurological: Grossly intact Psych/Mental Status: Appropriate Assessment & Plan Assessment/Plan (1) Hypotension: (2) Anemia: PLAN: Plan 1. Shock, probably multifactorial, likely hypovolemic from acute blood loss into the right thigh and flank region Patient is getting worse, on 2 pressors Possible acute GI bleed versus septic shock from recent endocarditis Continue blood transfusion and IV pressors Band Master following 2. Severe anemia secondary to acute blood loss in the right proximal lower extremity Status post units of packed RBC on 03/30/2022 Repeat hemoglobin 7.0, will transfuse 2 units of packed RBC 3. Right proximal thigh, flank and gluteal region hematoma, seen on CT of the thigh/hip Unclear if patient had trauma to the side or her thigh Questionable arterial component to hematoma, vascular surgery consulted, follow-up recommendations 4. Recent Acute GI bleed, patient with recent grade B erosive esophagitis, oozing gastric ulcers and a visible vessel which was injected and treated with argon plasma coagulation. Patient also had chronic gastritis with hemorrhage on endoscopy Continue with IV PPI, GI consulted 5. Supratherapeutic INR, likely secondary to vitamin K deficiency from malnutrition Status post IV vitamin K and FFP Continue to hold Eliquis, Repeat INR in am 6. Recent aortic and mitral valve endocarditis, h/o mitral valve replacement, Continue on IV ampicillin and ceftriaxone 7. Recent JACQUIE on CKD, patient received dialysis during this admission Cr was 2.48, up from 1.58, will trend, repeat blood work in am 8. Recent non-STEMI, type II/A. fib with RVR, will continue to monitor 9. Severe malnutrition, patient with anasarca, albumin 1.7, shop manager consulted, will monitor on supplements 10. DVT PPx- SCDs. Charges/Coding Visit Charges Inpatient E&M: 86365 Subs Hosp L3
--- NOTE | 2022-03-30 10:11 | PCM.CONS.R ---
Assessment & Plan Assessment/Plan (1) Acute renal failure: PLAN: Acute renal failure on CKD likely due to ischemic ATN from hypotension, shock sepsis. Creatinine 2.48 with baseline creatinine 1.58. Currently oliguric. Discussed option of dialysis to pt and pt daughter if unresponsive to pressors and fluids. However, pt overall prognosis poor with underlying chronic debilitation, RA, endocarditis. Poor dialysis candidate. Consider DNR, no heroic measures including no dialysis. Discussed with pt daughter Apoorva (2) CKD (chronic kidney disease) stage 4, GFR 15-29 ml/min: (3) Hypotension: PLAN: Pancultured on antibiotics and pressor support. Recent admission for sepsis. (4) Prosthetic valve endocarditis: PLAN: Renal dose antibiotics (5) Anemia: PLAN: PRBCs as needed (6) Bacteremia due to Enterococcus: PLAN: On long-term antibiotic therapy (7) Atrial fibrillation: PLAN: Rate controlled (8) UTI (urinary tract infection): PLAN: With endocarditis, sepsis HPI Consult Data Date of Consult: 03/31/22 HPI Narrative Reason for Consultation: Acute on chronic renal failure HPI Narrative: CARLOS ALBERTO GOLDBERG, is a 81 F who presents to [facility] on 03/29 for hypotension, UTI and supratherapeutic INR 7.8 with anemia hemoglobin 7.2 g. She has worsening renal function. Baseline creatinine 1.5 prior to discharge on 03/27 after prolonged hospitalization for GI bleed, bacterial endocarditis, UTI and sepsis. She went into acute renal failure from contrast nephropathy, ATN, sepsis requiring temporary dialysis. She regained her renal function prior to last discharge and her temporary dialysis catheter was removed. She did have a Flor placed for long-term antibiotics for her endocarditis. She is admitted to intensive care unit hypotensive requiring pressor support with poor urine output. Creatinine elevated 2.48 today. She complained of nausea and vomiting at extended-care facility prior to admission. She denies falling. She denied any chest pain or shortness of breath. Denied hematemesis or hematochezia or melena. She is a poor historian with generalized weakness. [facility] Medical History Chronic acquired lymphedema Chronic atrial fibrillation Chronic diastolic CHF (congestive heart failure) Former tobacco use History of temporary cardiac pacemaker treatment HTN (hypertension) Morbid obesity Rheumatoid arthritis Valvular heart disease Home Medications calcium carbonate 600 mg-vitamin D3 10 mcg (400 unit) tablet (Calcium 600 + D(3)) 1 ea PO DAILY SUPPLEMENT 12/17/13 [History Last Taken 03/29/22] furosemide 40 mg tablet 40 mg PO DAILY FLUID 12/17/13 [History Last Taken 03/29/22] ampicillin sodium 2 gram solution for injection 2 g IV QAM 33 days #33 ea 03/22/22 [Rx Last Taken 03/28/22 12:00] ceftriaxone 2 gram intravenous solution 2 g IV Q12H #66 ea 03/22/22 [Rx Last Taken 03/29/22 09:00] diphenhydramine HCl 25 mg tablet (Allergy Relief (diphenhydramine)) 25 mg PO TID PRN allergic reaction 40 days #90 tabs 03/22/22 [Rx Last Taken Unknown] sucralfate 1 gram tablet (Carafate) 1 g PO BID #61 tabs 03/27/22 [Rx Last Taken 03/29/22] apixaban 2.5 mg tablet (Eliquis) 2.5 mg PO BID BLOOD THINNER 03/29/22 [History Last Taken 03/29/22] diltiazem HCl 240 mg capsule,extended release 24 hr 240 mg PO DAILY BLOOD PRESSURE 03/29/22 [History Last Taken 03/29/22] metoprolol tartrate 100 mg tablet 100 mg PO BID BLOOD PRESSURE 03/29/22 [History Last Taken 03/29/22] multivitamin with minerals-folic acid 120 mcg chewable tablet (Centrum Adult 50 Plus Fresh-Fruity) 1 tab PO DAILY HEALTH MAINTENANCE 03/29/22 [History Last Taken 03/29/22] pantoprazole 40 mg tablet,delayed release 40 mg PO BID GERD 03/29/22 [History Last Taken 03/29/22] sennosides 8.6 mg tablet (Senna Lax) 8.6 mg PO DAILY PRN Constipation 03/29/22 [History Last Taken Unknown] sennosides 8.6 mg tablet (Senna Lax) 8.6 mg PO QHS CONSTIPATION 03/29/22 [History Last Taken 03/28/22] tramadol 50 mg tablet 50 mg PO PAIN 03/29/22 [History Last Taken 03/29/22 07:15] tramadol 50 mg tablet 50 mg PO DAILY PRN Pain 03/29/22 [History Last Taken Unknown] Allergy/AdvReac Type Severity Reaction Status Date / Time allopurinol Allergy Mild Rash Verified 03/29/22 09:36 ceftriaxone [From Rocephin] Allergy Mild Rash Verified 03/29/22 09:36 colchicine Allergy Mild Rash Verified 03/29/22 09:36 Family History Mother Heart disease Father Cancer Leukemia. Surgical History H/O tricuspid valve annuloplasty S/P MVR (mitral valve replacement) Social History household members: none Smoking Status: Former smoker how long ago did patient quit smoking: Quit 05/26/1959, smoked ~2 years w/ 0.25 pack/day. alcohol intake: current alcohol intake frequency: holidays/special occasions only substance use type: does not use ROS Review of Systems ROS Unobtainable: other Details: Poor historian, frail generalized weakness Constitutional Constitutional: Reports weakness; Denies chills or fever(s) Eyes Eyes: Denies loss of vision ENT HEENT: Reports dry mouth Cardiovascular Cardiovascular: Reports irregular heart rhythm and leg edema; Denies chest pain or dyspnea on exertion Respiratory/Chest Respiratory/Chest: Denies dry cough or dyspnea on exertion Gastrointestinal Gastrointestinal: Reports anorexia, dry heaves, nausea and vomiting; Denies abdominal pain, diarrhea, hematemesis or melena Genitourinary Genitourinary: Reports oliguria Musculoskeletal Musculoskeletal: Reports other Details: Generalized weakness, history of rheumatoid arthritis Integumentary Integumentary: Reports other Details: Ecchymosis with hematoma right hip present on last admission Neurologic Neurologic: Reports weakness; Denies focal weakness or tremor(s) Psychiatric Psychiatric: Denies anxiety, confusion or hallucinations Endocrine Endocrinology: Reports fatigue Hematologic/Lymphatic Hematologic/Lymphatic: Reports anemia, easy bleeding and easy bruising Physical Exam Const alert and oriented x3 Constitutional Narrative: Slow to respond, frail debilitated Nutritional Appearance: morbidly obese HEENT normocephalic Eyes EOMs intact bilaterally Resp clear to auscultation bilaterally Cardio Rhythm: abnormal rhythm irregularly irregular GI non-tender and non-distended Auscultation: normoactive bowel sounds Palpation: soft Bladder / Kidney Exam: catheter in place urethral (Oliguric with dark maryann urine) Back/Spine Thoracic Spine / Upper Back: ROM limited Extremity no clubbing, cyanosis or edema Skin General Skin Exam: ecchymosis Wound Narrative: Right hip hematoma Neuro Neuro Narrative: Sleepy but arousable to verbal stimuli Psych cooperative Lab / Micro Data Result Diagrams: 03/31/22 03:55 03/31/22 03:55 Labs: Laboratory Results - last 24 hr 03/29/22 09:35: Polychromasia RARE, Hypochromasia 1+, Anisocytosis 2+, Ovalocytes 1+ 03/29/22 09:35: PT 65.5 H, INR 7.8 H*, APTT 67.6 H 03/29/22 09:35: Lactic Acid 4.5 H* 03/29/22 09:35: Blood Type A POSITIVE, Antibody Screen NEGATIVE, Crossmatch See Detail 03/29/22 11:10: Urine Color Yellow, Urine Clarity Cloudy, Urine pH 5.0, Ur Specific [place] 1.015, Urine Protein 30 H, Urine Glucose (UA) Normal, Urine Ketones Negative, Urine Occult Blood 10 H, Urine Nitrite Negative, Urine Bilirubin Negative, Urine Urobilinogen Normal, Ur Leukocyte Esterase 500 H, Urine RBC 0-5 SEEN, Urine WBC 25-50 SEEN, Ur Squamous Epith Cells 10-25 SEEN, Urine Bacteria RARE, Urine Mucus RARE, Urine Yeast 1+ 03/29/22 14:15: Lactic Acid 2.7 H* 03/29/22 18:10: Hgb 8.0 L, Hct 24.3 L 03/30/22 03:55: WBC 28.9 H, RBC 2.27 L, Hgb 7.2 L, Hct 22.3 L, MCV 98.2, MCH 31.7, MCHC 32.3 D, RDW Std Deviation 60.5 H, RDW Coeff of Diandra 18.2 H, Plt Count 308, MPV 9.5, Immature Gran % (Auto) ICING AND GLAZE MAKER, Neut % (Auto) ICING AND GLAZE MAKER, Lymph % (Auto) ICING AND GLAZE MAKER, [place] % (Auto) ICING AND GLAZE MAKER, Eos % (Auto) ICING AND GLAZE MAKER, Baso % (Auto) ICING AND GLAZE MAKER, Absolute Neuts (auto) 26.5 H, Absolute Lymphs (auto) 1.73, Total Counted 100, Neutrophils % (Manual) 85 H, Band Neutrophils % 2, Lymphocytes % (Manual) 6 L, Monocytes % (Manual) 1, Eosinophils % (Manual) 1, Metamyelocytes % 3 H, Myelocytes % 2 H, Nucleated RBC % 0.1, Diff Path Review May foll, Platelet Estimate ADEQUATE, Polychromasia 1+, Anisocytosis 2+, Microcytosis 1+, Macrocytosis 1+ 03/30/22 03:55: Sodium 144, Potassium 4.3, Chloride 116 H, Carbon Dioxide 21.0, Anion Gap 7, BUN 44 H, Creatinine 2.48 H, Estim Creat Clear Calc 13.00, Est GFR (MDRD) Af Amer 24 L, Est GFR (MDRD) Non-Af 20 L, BUN/Creatinine Ratio 17.7, Glucose 121 H, Calcium 8.7, Total Bilirubin 1.00, AST 24, ALT 13, Alkaline Phosphatase 106, Total Protein 5.7 L, Albumin 1.7 L, Globulin 4.0, Albumin/Globulin Ratio 0.4 L 03/30/22 03:55: PT 21.2 H, INR 1.9 Micro: Microbiology 03/29/22 11:10 Urine Catheter - Catheter Urine Culture - Preliminary GNR lactose geology professor Gram positive organism Radiology Impression Chest X-Ray 03/29/22 10:25 IMPRESSION: Blunting of the left costophrenic angle with left basilar atelectasis and/or infiltrate. The right lung is clear. Electronically Signed: Herminio Manning MD at 10:45 EST , Lower Extremity CT 03/30/22 07:17 IMPRESSION: 1. A large acute subcutaneous hematoma is present at the periphery of the right gluteal and hip region measuring 28.52 x 10.0 x 8.90 cm in diameter. The hemorrhage appears to arise from a vessel directly anterior to or within the superior fibers of the sartorius muscle, which is adjacent to the major femoral vessels. Consultation with interventional radiology or vascular surgery is recommended for possible angiography and or embolization. 2. The sartorius muscle also demonstrates mild intramuscular hemorrhage and mild swelling at the level of the inguinal fossa. 3. There is also significant edema and swelling of the right thigh as well as the inguinal regions. Moderate edema is seen in the lower anterior pelvic wall and in the included portions of the left thigh. Electronically Signed: Rudy Maldonado MD at 9:44 EST ,
--- NOTE | 2022-03-30 10:22 | ADUL_ITS ---
Reason For Study: Abscees vs Hematoma Right Velocities Common Femoral Artery, mid = 126 cm./sec. Supf Femoral Artery, prox = 110.4 cm./sec. CFV and FV normal venous flow noted. Large structure noted in the right lateral leg with no vascular flow noted within. Preliminary report given to Dr. Gonzales. Procedure Exam performed portable in ICU/CCU. VL/US Art Duplex Unilat Lower Ext Interpretation Summary Patent right femoral vessels with no pseudoaneurysm identified. Heterogenous, non-vascular collection lateral thigh with no flow chamber identi fied. Ordering Physician: Shlomo Gonzales Referring Physician: Carolyn Stephen Performed By: Sunita De La Garza RVT
[2022-03-30] MEDS: Hydrocortisone Sod Succinate 100 MG/2 ML Vial IV ×3 (10:36→23:15)
--- NOTE | 2022-03-30 10:51 | PCM.CONS.GEN ---
Assessment & Plan Assessment/Plan (1) Prosthetic valve endocarditis: PLAN: On vanc/amp/ceftriaxone. Worsened JACQUIE from recent admit. Bcx pending. Ucx with small growth of GNR and GP. Will order repeat echo. Will follow, thank you (2) Shock: (3) CKD (chronic kidney disease), stage IV: HPI Consult Data Date of Consult: 03/30/22 HPI Narrative Reason for Consultation: shock HPI Narrative: CARLOS ALBERTO GOLDBERG, is a 81 F with recent admission for enterococcus PVE and GI bleed due to duodenal ulcers, discharged 03/27 on iv amp/ceftriaxone. Sent to ED from [facility] yesterday due to hypotension. Now admitted to ICU on pressors, vanc/amp/ceftriaxone. Feeling ok, no abd pain, no rash or itching. Denies chest pain, cough, SOB, or fever. Full ROS performed and neg except as noted above. [facility] Medical History Chronic acquired lymphedema Chronic atrial fibrillation Chronic diastolic CHF (congestive heart failure) Former tobacco use History of temporary cardiac pacemaker treatment HTN (hypertension) Morbid obesity Rheumatoid arthritis Valvular heart disease Home Medications calcium carbonate 600 mg-vitamin D3 10 mcg (400 unit) tablet (Calcium 600 + D(3)) 1 ea PO DAILY SUPPLEMENT 12/17/13 [History Last Taken 03/29/22] furosemide 40 mg tablet 40 mg PO DAILY FLUID 12/17/13 [History Last Taken 03/29/22] ampicillin sodium 2 gram solution for injection 2 g IV QAM 33 days #33 ea 03/22/22 [Rx Last Taken 03/28/22 12:00] ceftriaxone 2 gram intravenous solution 2 g IV Q12H #66 ea 03/22/22 [Rx Last Taken 03/29/22 09:00] diphenhydramine HCl 25 mg tablet (Allergy Relief (diphenhydramine)) 25 mg PO TID PRN allergic reaction 40 days #90 tabs 03/22/22 [Rx Last Taken Unknown] sucralfate 1 gram tablet (Carafate) 1 g PO BID #61 tabs 03/27/22 [Rx Last Taken 03/29/22] apixaban 2.5 mg tablet (Eliquis) 2.5 mg PO BID BLOOD THINNER 03/29/22 [History Last Taken 03/29/22] diltiazem HCl 240 mg capsule,extended release 24 hr 240 mg PO DAILY BLOOD PRESSURE 03/29/22 [History Last Taken 03/29/22] metoprolol tartrate 100 mg tablet 100 mg PO BID BLOOD PRESSURE 03/29/22 [History Last Taken 03/29/22] multivitamin with minerals-folic acid 120 mcg chewable tablet (Centrum Adult 50 Plus Fresh-Fruity) 1 tab PO DAILY HEALTH MAINTENANCE 03/29/22 [History Last Taken 03/29/22] pantoprazole 40 mg tablet,delayed release 40 mg PO BID GERD 03/29/22 [History Last Taken 03/29/22] sennosides 8.6 mg tablet (Senna Lax) 8.6 mg PO DAILY PRN Constipation 03/29/22 [History Last Taken Unknown] sennosides 8.6 mg tablet (Senna Lax) 8.6 mg PO QHS CONSTIPATION 03/29/22 [History Last Taken 03/28/22] tramadol 50 mg tablet 50 mg PO PAIN 03/29/22 [History Last Taken 03/29/22 07:15] tramadol 50 mg tablet 50 mg PO DAILY PRN Pain 03/29/22 [History Last Taken Unknown] Allergy/AdvReac Type Severity Reaction Status Date / Time allopurinol Allergy Mild Rash Verified 03/29/22 09:36 ceftriaxone [From Rocephin] Allergy Mild Rash Verified 03/29/22 09:36 colchicine Allergy Mild Rash Verified 03/29/22 09:36 Family History Mother Heart disease Father Cancer Leukemia. Surgical History H/O tricuspid valve annuloplasty S/P MVR (mitral valve replacement) Social History household members: none Smoking Status: Former smoker how long ago did patient quit smoking: Quit 05/26/1959, smoked ~2 years w/ 0.25 pack/day. alcohol intake: current alcohol intake frequency: holidays/special occasions only substance use type: does not use Physical Exam Const alert and no apparent distress Constitutional Narrative: oriented x1 HEENT normocephalic and head/scalp atraumatic Eyes PERRL and EOMs intact bilaterally Neck supple and No nodes Resp clear to auscultation bilaterally Auscultation: diminished lung sounds Cardio regular rate and regular rhythm Heart Sounds: murmur GI soft to palpation, non-tender and non-distended Extremity General Extremity: edema Skin no rashes or lesions noted Skin Narrative: bruising present Neuro CN's II-XII intact bilaterally Lab / Micro Data Attestation: I reviewed the patient's lab results. Result Diagrams: 03/30/22 03:55 03/30/22 03:55 Labs: Laboratory Results - last 24 hr 03/29/22 09:35: Blood Type A POSITIVE, Antibody Screen NEGATIVE, Crossmatch See Detail 03/29/22 11:10: Urine Color Yellow, Urine Clarity Cloudy, Urine pH 5.0, Ur Specific [place] 1.015, Urine Protein 30 H, Urine Glucose (UA) Normal, Urine Ketones Negative, Urine Occult Blood 10 H, Urine Nitrite Negative, Urine Bilirubin Negative, Urine Urobilinogen Normal, Ur Leukocyte Esterase 500 H, Urine RBC 0-5 SEEN, Urine WBC 25-50 SEEN, Ur Squamous Epith Cells 10-25 SEEN, Urine Bacteria RARE, Urine Mucus RARE, Urine Yeast 1+ 03/29/22 14:15: Lactic Acid 2.7 H* 03/29/22 18:10: Hgb 8.0 L, Hct 24.3 L 03/30/22 03:55: WBC 28.9 H, RBC 2.27 L, Hgb 7.2 L, Hct 22.3 L, MCV 98.2, MCH 31.7, MCHC 32.3 D, RDW Std Deviation 60.5 H, RDW Coeff of Diandra 18.2 H, Plt Count 308, MPV 9.5, Immature Gran % (Auto) CLAIMS SUPPORT SPECIALIST, Neut % (Auto) CLAIMS SUPPORT SPECIALIST, Lymph % (Auto) CLAIMS SUPPORT SPECIALIST, [place] % (Auto) CLAIMS SUPPORT SPECIALIST, Eos % (Auto) CLAIMS SUPPORT SPECIALIST, Baso % (Auto) CLAIMS SUPPORT SPECIALIST, Absolute Neuts (auto) 26.5 H, Absolute Lymphs (auto) 1.73, Total Counted 100, Neutrophils % (Manual) 85 H, Band Neutrophils % 2, Lymphocytes % (Manual) 6 L, Monocytes % (Manual) 1, Eosinophils % (Manual) 1, Metamyelocytes % 3 H, Myelocytes % 2 H, Nucleated RBC % 0.1, Diff Path Review May foll, Platelet Estimate ADEQUATE, Polychromasia 1+, Anisocytosis 2+, Microcytosis 1+, Macrocytosis 1+ 03/30/22 03:55: Sodium 144, Potassium 4.3, Chloride 116 H, Carbon Dioxide 21.0, Anion Gap 7, BUN 44 H, Creatinine 2.48 H, Estim Creat Clear Calc 13.00, Est GFR (MDRD) Af Amer 24 L, Est GFR (MDRD) Non-Af 20 L, BUN/Creatinine Ratio 17.7, Glucose 121 H, Calcium 8.7, Total Bilirubin 1.00, AST 24, ALT 13, Alkaline Phosphatase 106, Total Protein 5.7 L, Albumin 1.7 L, Globulin 4.0, Albumin/Globulin Ratio 0.4 L 03/30/22 03:55: PT 21.2 H, INR 1.9 Micro: Microbiology 03/29/22 11:10 Urine Catheter - Catheter Urine Culture - Preliminary GNR lactose special events assistant Gram positive organism Radiology Impression Lower Extremity CT 03/30/22 07:17 IMPRESSION: 1. A large acute subcutaneous hematoma is present at the periphery of the right gluteal and hip region measuring 28.52 x 10.0 x 8.90 cm in diameter. The hemorrhage appears to arise from a vessel directly anterior to or within the superior fibers of the sartorius muscle, which is adjacent to the major femoral vessels. Consultation with interventional radiology or vascular surgery is recommended for possible angiography and or embolization. 2. The sartorius muscle also demonstrates mild intramuscular hemorrhage and mild swelling at the level of the inguinal fossa. 3. There is also significant edema and swelling of the right thigh as well as the inguinal regions. Moderate edema is seen in the lower anterior pelvic wall and in the included portions of the left thigh. Electronically Signed: Rudy Maldonado MD at 9:44 EST ,
[2022-03-30 12:14] LABS: Hematocrit 22.2 % (37-47)
--- NOTE | 2022-03-30 12:51 | PHA.PHARE_ITS ---
Consult Pharmacy has been consulted to manage selected antiobiotic: Vancomycin Type of Consult: New start Prior Doses of Antibiotics Received/Current Regimen: First dose 1500mg @ 1106 on 02/28/22 Labs: Sodium 144 mmol/L (136-145) 03/30/22 03:55 Potassium 4.3 mmol/L (3.5-5.1) 03/30/22 03:55 Chloride 116 mmol/L (98-107) H 03/30/22 03:55 Carbon Dioxide 21.0 mmol/L (21.0-32.0) 03/30/22 03:55 Anion Gap 7 (5-15) 03/30/22 03:55 BUN 44 mg/dL (7-18) H 03/30/22 03:55 Creatinine 2.48 mg/dL (0.55-1.02) H 03/30/22 03:55 Est GFR (MDRD) Af Amer 24 mL/min (>60) L 03/30/22 03:55 Est GFR (MDRD) Non-Af 20 mL/min (>60) L 03/30/22 03:55 BUN/Creatinine Ratio 17.7 RATIO (10-20) 03/30/22 03:55 Glucose 121 mg/dL (74-106) H 03/30/22 03:55 Microbiology: Microbiology 03/29/22 11:10 Urine Catheter - Catheter Urine Culture - Preliminary GNR lactose electrolysis needle operator Yeast, not Renée albicans Weight used for dosin kg Estimated Creatinine Clearance: 20 Goal Trough: 15-20 mcg/mL Pharmacy Plan for Drug Dosinmg every 24 hours starting 03/31/22 @ 1100 Pharmacy Service will continue to monitor and adjust dosing as required. Follow-Up Labs: Trough Vancomycin Labs to be done on [date and time ordered]: 04/01/22 @ 1030
--- NOTE | 2022-03-30 16:56 | PN_ITS ---
Subjective Subjective Patient denies any abdominal pain, nausea, melena or hematochezia. She was started on vasopressin and is on Levophed. Objective Data Objective Data Vital Signs: Vital Signs Temp Pulse Resp BP Pulse Ox O2 Del Method O2 Flow Rate 100.8 F H 90 25 H 108/60 100 Nasal Cannula 2 03/30/22 16:07 03/30/22 16:07 03/30/22 16:07 03/30/22 16:07 03/30/22 16:07 03/30/22 16:07 03/30/22 16:07 Oxygen Flow Rate (L/min) 2 Oxygen Delivery Method Nasal Cannula Weight: 230 lb 9.656 oz Body Mass Index (BMI) 44.7 Intake & Output: Intake and Output for Last 24 Hours 03/28/22 03/29/22 03/30/22 23:59 23:59 23:59 Intake Total 5089.48 / 5095.58 2134.89 / 2134.89 Output Total 100 / 140 45 / 45 Balance 4989.48 / 4955.58 2089.89 / 2089.89 Lab / Micro Data Result Diagrams: 03/30/22 11:54 03/30/22 03:55 Labs: Laboratory Results - last 24 hr 03/29/22 09:35: Crossmatch See Detail 03/29/22 09:35: Crossmatch See Detail 03/29/22 18:10: Hgb 8.0 L, Hct 24.3 L 03/30/22 03:55: WBC 28.9 H, RBC 2.27 L, Hgb 7.2 L, Hct 22.3 L, MCV 98.2, MCH 31.7, MCHC 32.3 D, RDW Std Deviation 60.5 H, RDW Coeff of Diandra 18.2 H, Plt Count 308, MPV 9.5, Immature Gran % (Auto) MANUFACTURING WEAVER, Neut % (Auto) MANUFACTURING WEAVER, Lymph % (Auto) MANUFACTURING WEAVER, [place] % (Auto) MANUFACTURING WEAVER, Eos % (Auto) MANUFACTURING WEAVER, Baso % (Auto) MANUFACTURING WEAVER, Absolute Neuts (auto) 26.5 H, Absolute Lymphs (auto) 1.73, Total Counted 100, Neutrophils % (Manual) 85 H, Band Neutrophils % 2, Lymphocytes % (Manual) 6 L, Monocytes % (Manual) 1, Eosinophils % (Manual) 1, Metamyelocytes % 3 H, Myelocytes % 2 H, Nucleated RBC % 0.1, Diff Path Review May foll, Platelet Estimate ADEQUATE, Polychromasia 1+, Anisocytosis 2+, Microcytosis 1+, Macrocytosis 1+ 03/30/22 03:55: Sodium 144, Potassium 4.3, Chloride 116 H, Carbon Dioxide 21.0, Anion Gap 7, BUN 44 H, Creatinine 2.48 H, Estim Creat Clear Calc 13.00, Est GFR (MDRD) Af Amer 24 L, Est GFR (MDRD) Non-Af 20 L, BUN/Creatinine Ratio 17.7, Glucose 121 H, Calcium 8.7, Total Bilirubin 1.00, AST 24, ALT 13, Alkaline Phosphatase 106, Total Protein 5.7 L, Albumin 1.7 L, Globulin 4.0, Albumin/Globulin Ratio 0.4 L 03/30/22 03:55: PT 21.2 H, INR 1.9 03/30/22 11:54: Hgb 7.0 L, Hct 22.2 L Micro: Microbiology 03/29/22 11:10 Urine Catheter - Catheter Urine Culture - Preliminary GNR lactose equal opportunity officer Yeast, not Renée albicans Radiography Diagnostic Testing: Radiology Impression Lower Extremity CT 03/30/22 07:17 IMPRESSION: 1. A large acute subcutaneous hematoma is present at the periphery of the right gluteal and hip region measuring 28.52 x 10.0 x 8.90 cm in diameter. The hemorrhage appears to arise from a vessel directly anterior to or within the superior fibers of the sartorius muscle, which is adjacent to the major femoral vessels. Consultation with interventional radiology or vascular surgery is recommended for possible angiography and or embolization. 2. The sartorius muscle also demonstrates mild intramuscular hemorrhage and mild swelling at the level of the inguinal fossa. 3. There is also significant edema and swelling of the right thigh as well as the inguinal regions. Moderate edema is seen in the lower anterior pelvic wall and in the included portions of the left thigh. Electronically Signed: Rudy Maldonado MD at 9:44 EST , Physical Exam Const alert and no apparent distress Constitutional Narrative: oriented x1 HEENT normocephalic and head/scalp atraumatic Eyes PERRL and EOMs intact bilaterally Neck supple and No nodes Resp clear to auscultation bilaterally Auscultation: diminished lung sounds Cardio regular rate and regular rhythm Heart Sounds: murmur GI soft to palpation, non-tender and non-distended Extremity General Extremity: edema Skin no rashes or lesions noted Skin Narrative: bruising present Neuro CN's II-XII intact bilaterally Assessment & Plan Assessment/Plan (1) Shock: PLAN: Suspect hypovolemic shock which is multifactorial secondary to recent endocarditis, GI bleed and recent development of a hematoma. She is on pressor therapy and broad-spectrum antibiotics. She is being followed by forestry and wildlife manager service, hospitalist service and infectious disease. She does not seem to be in any distress. I am okay with feeding her as a will help to maintain her gut integrity and allow for less bacterial translocation. (2) Anemia: PLAN: Anemia likely secondary to large hematoma in the setting of anticoagulation. I agree with transfusion of 2 units of packed red blood cells (3) GI bleed: PLAN: . Recent GI bleed of the upper GI tract. No signs of bleeding at this time. Continue to follow H&H. If she continues to decrease her hemoglobin we can perform an upper endoscopy. However, I would like her to be more stable and off of pressor therapy. For now transfuse packed red blood cells, continue proton pump inhibitor and consider octreotide therapy. Charges/Coding Visit Charges Inpatient E&M: 55810 [facility] Hosp L3
[2022-03-30] MEDS: Acetaminophen 325 MG Tablet 650 MG PO (20:07)
--- NOTE | 2022-03-30 20:26 | EX.PCM.CON.S ---
Assessment & Plan Assessment/Plan (1) Hematoma: PLAN: -CT reveals multiple chambers of fluid collection with heterogenous density, non-con unfortunately -either hematoma of varying age or infectious; exam does not appear consistent with infection -not in close proximity to major vessels, so hopefully will stop with INR correction and holding eliquis -dont think it is source of hypotension given fairly stable hgb through the day; will see how she responds to prbc -considered/discussed aspirating at bedside, but with physical exam findings not sure it will reveal infection and would only pose risk of seeding infection -not certain she would tolerate surgery even if required, and definitely want to avoid any unnecessary operative trips -hold anticoagulation 48-72 hrs of stable hgb -family considering goals of care as well -will cont to follow HPI Consult Data Date of Consult: 03/30/22 HPI Narrative HPI Narrative: CARLOS ALBERTO GOLDBERG, is a 81 F who presents with hemodynamic compromise, recent history of endocarditis, acute renal failure requiring HD, recently discharged to SNF then re-admitted. On eliquis for a.fib; prior coumadin but poorly controlled INR. Her last hospital admission also involved upper GI bleed. She was noted to have right flank/hip/thigh ecchymosis last admission; recently suffered what seemed to be insigificant fall against washing machine. Now on 2 pressors. Hbg since re-admission trending 8 -->7.2-->7; 2 uprbc after most recent Hgb. CT revealed complex, multi-loculated collection right flank with heterogeneous appearance concerning for hematoma with possible ongoing hemorrhage [facility] Medical History Chronic acquired lymphedema Chronic atrial fibrillation Chronic diastolic CHF (congestive heart failure) Former tobacco use History of temporary cardiac pacemaker treatment HTN (hypertension) Morbid obesity Rheumatoid arthritis Valvular heart disease Home Medications calcium carbonate 600 mg-vitamin D3 10 mcg (400 unit) tablet (Calcium 600 + D(3)) 1 ea PO DAILY SUPPLEMENT 12/17/13 [History Last Taken 03/29/22] furosemide 40 mg tablet 40 mg PO DAILY FLUID 12/17/13 [History Last Taken 03/29/22] ampicillin sodium 2 gram solution for injection 2 g IV QAM 33 days #33 ea 03/22/22 [Rx Last Taken 03/28/22 12:00] ceftriaxone 2 gram intravenous solution 2 g IV Q12H #66 ea 03/22/22 [Rx Last Taken 03/29/22 09:00] diphenhydramine HCl 25 mg tablet (Allergy Relief (diphenhydramine)) 25 mg PO TID PRN allergic reaction 40 days #90 tabs 03/22/22 [Rx Last Taken Unknown] sucralfate 1 gram tablet (Carafate) 1 g PO BID #61 tabs 03/27/22 [Rx Last Taken 03/29/22] apixaban 2.5 mg tablet (Eliquis) 2.5 mg PO BID BLOOD THINNER 03/29/22 [History Last Taken 03/29/22] diltiazem HCl 240 mg capsule,extended release 24 hr 240 mg PO DAILY BLOOD PRESSURE 03/29/22 [History Last Taken 03/29/22] metoprolol tartrate 100 mg tablet 100 mg PO BID BLOOD PRESSURE 03/29/22 [History Last Taken 03/29/22] multivitamin with minerals-folic acid 120 mcg chewable tablet (Centrum Adult 50 Plus Fresh-Fruity) 1 tab PO DAILY HEALTH MAINTENANCE 03/29/22 [History Last Taken 03/29/22] pantoprazole 40 mg tablet,delayed release 40 mg PO BID GERD 03/29/22 [History Last Taken 03/29/22] sennosides 8.6 mg tablet (Senna Lax) 8.6 mg PO DAILY PRN Constipation 03/29/22 [History Last Taken Unknown] sennosides 8.6 mg tablet (Senna Lax) 8.6 mg PO QHS CONSTIPATION 03/29/22 [History Last Taken 03/28/22] tramadol 50 mg tablet 50 mg PO 0715,1915 PAIN 03/29/22 [History Last Taken 03/29/22 07:15] tramadol 50 mg tablet 50 mg PO DAILY PRN Pain 03/29/22 [History Last Taken Unknown] Allergy/AdvReac Type Severity Reaction Status Date / Time allopurinol Allergy Mild Rash Verified 03/29/22 09:36 ceftriaxone [From Rocephin] Allergy Mild Rash Verified 03/29/22 09:36 colchicine Allergy Mild Rash Verified 03/29/22 09:36 Family History Mother Heart disease Father Cancer Leukemia. Surgical History H/O tricuspid valve annuloplasty S/P MVR (mitral valve replacement) Social History household members: none Smoking Status: Former smoker how long ago did patient quit smoking: Quit 05/26/1959, smoked ~2 years w/ 0.25 pack/day. alcohol intake: current alcohol intake frequency: holidays/special occasions only substance use type: does not use ROS Review of Systems ROS Unobtainable: due to mental condition Physical Exam Const alert and no apparent distress; Negative for healthy appearing General Appearance: cooperative; Negative for combative or lethargic Orientation / Consciousness: awake HEENT Head and Scalp: normocephalic and atraumatic Neck General: trachea midline Resp normal respiratory effort and no use of accessory muscles Effort and Inspection: Negative for labored, stridor or audible wheezes Cardio Rate: tachycardic Rhythm: abnormal rhythm irregularly irregular Peripheral Pulses: Negative for femoral pulses present Back/Spine Cervical Spine: cervical ROM normal Skin no rashes or lesions noted and no wounds Skin Narrative: right flank/lateral thigh ecchymosis, subacute appearance, skin integrity intact with no sign of skin compromise General Skin Exam: ecchymosis Neuro CN's II-XII intact bilaterally Psych cooperative, affect normal and speech normal Lab / Micro Data Result Diagrams: 03/30/22 11:54 03/30/22 03:55 Labs: Laboratory Results - last 24 hr 03/29/22 09:35: Crossmatch See Detail 03/30/22 03:55: WBC 28.9 H, RBC 2.27 L, Hgb 7.2 L, Hct 22.3 L, MCV 98.2, MCH 31.7, MCHC 32.3 D, RDW Std Deviation 60.5 H, RDW Coeff of Diandra 18.2 H, Plt Count 308, MPV 9.5, Immature Gran % (Auto) SUPPLY CHAIN ASSOCIATE, Neut % (Auto) SUPPLY CHAIN ASSOCIATE, Lymph % (Auto) SUPPLY CHAIN ASSOCIATE, [place] % (Auto) SUPPLY CHAIN ASSOCIATE, Eos % (Auto) SUPPLY CHAIN ASSOCIATE, Baso % (Auto) SUPPLY CHAIN ASSOCIATE, Absolute Neuts (auto) 26.5 H, Absolute Lymphs (auto) 1.73, Total Counted 100, Neutrophils % (Manual) 85 H, Band Neutrophils % 2, Lymphocytes % (Manual) 6 L, Monocytes % (Manual) 1, Eosinophils % (Manual) 1, Metamyelocytes % 3 H, Myelocytes % 2 H, Nucleated RBC % 0.1, Diff Path Review May foll, Platelet Estimate ADEQUATE, Polychromasia 1+, Anisocytosis 2+, Microcytosis 1+, Macrocytosis 1+ 03/30/22 03:55: Sodium 144, Potassium 4.3, Chloride 116 H, Carbon Dioxide 21.0, Anion Gap 7, BUN 44 H, Creatinine 2.48 H, Estim Creat Clear Calc 13.00, Est GFR (MDRD) Af Amer 24 L, Est GFR (MDRD) Non-Af 20 L, BUN/Creatinine Ratio 17.7, Glucose 121 H, Calcium 8.7, Total Bilirubin 1.00, AST 24, ALT 13, Alkaline Phosphatase 106, Total Protein 5.7 L, Albumin 1.7 L, Globulin 4.0, Albumin/Globulin Ratio 0.4 L 03/30/22 03:55: PT 21.2 H, INR 1.9 03/30/22 11:54: Hgb 7.0 L, Hct 22.2 L Micro: Microbiology 03/29/22 11:10 Urine Catheter - Catheter Urine Culture - Preliminary GNR lactose hearing healthcare practitioner Yeast, not Renée albicans Radiology Impression Lower Extremity CT 03/30/22 07:17 IMPRESSION: 1. A large acute subcutaneous hematoma is present at the periphery of the right gluteal and hip region measuring 28.52 x 10.0 x 8.90 cm in diameter. The hemorrhage appears to arise from a vessel directly anterior to or within the superior fibers of the sartorius muscle, which is adjacent to the major femoral vessels. Consultation with interventional radiology or vascular surgery is recommended for possible angiography and or embolization. 2. The sartorius muscle also demonstrates mild intramuscular hemorrhage and mild swelling at the level of the inguinal fossa. 3. There is also significant edema and swelling of the right thigh as well as the inguinal regions. Moderate edema is seen in the lower anterior pelvic wall and in the included portions of the left thigh. Electronically Signed: Rudy Maldonado MD at 9:44 EST Reading Location ID and State: [facility] / [place] , Service support , Echocardiogram 03/30/22 09:07 Interpretation Summary The estimated ejection fraction is 65-70 %. Bioprothetic MV Can Not Exclude MV small Vegetation Recommendation: consider to Evaluate with NOHEMY Ordering Physician: Hu Kumar Referring Physician: Carolyn Stephen Performed By: Sandy Shelton, DEBBIE, RVT Charges/Coding Visit Charges Inpatient E&M: 24595 Init Hosp L2
[2022-03-31] VITALS (41 sets, daily range): BP systolic 84–131; BP diastolic 41–98; PULSE 80–158; RESP 23–28; TEMP 37.3–38.2; O2SAT 94–98
[2022-03-31] MEDS: CHLORHEXIDINE GLUC 2% CLOTH 1 EACH TOWELETTE TOPICAL (03:58)
[2022-03-31] MEDS: 0.9% Saline Lock 10 ML Syringe IV ×2 (03:58→13:27)
[2022-03-31 04:21] LABS: Absolute Lymphocyte Count 1.18 X10^3/uL (0.83-4.51); Absolute Neutrophil Count 12.9 X10^3/uL (2.0-7.7); Basophil# 0.06 X10^3/uL; Basophil% 0.4 % (0-1); Hematocrit 24.6 % (37-47); Hemoglobin 8.1 g/dL (12.0-15.0); Lymphocyte # 1.18 X10^3/ul (0.83-4.51); Lymphocyte % 7.8 % (19-41); Mean Corp Hgb Conc 32.9 g/dL (32-36); Mean Corpuscular Hgb 31.8 pg (27.0-32.0); Mean Corpuscular Volume 96.5 fL (81-99); Mean Platelet Vol. 9.8 fl (6.2-12.0); Monocyte# 0.41 X10^3/uL; Monocyte% 2.7 % (0-10); NRBC Flagged by Analyzer 0.8 % (0-5); Neutrophil # 12.88 X10^3/uL (2.7-7.7); Neutrophil % 84.8 % (47-70); Platelet Count 126 K/mm3 (150-450); RBC Distribution Width CV 18.7 % (11.6-14.6); RBC Distribution Width SD 57.9 fl (35.1-43.9); Red Blood Count 2.55 M/mm3 (4.2-5.4); White Blood Count 15.2 K/mm3 (4.4-11.0)
[2022-03-31 04:30] LABS: International Normalized Ratio 1.3; Prothrombin Time (Protime)PT. 15.9 SECONDS (11.7-14.9)
[2022-03-31 04:47] LABS: ALB/GLOB Ratio 0.5 RATIO (0.9-2.4); AST(SGOT) 31 U/L (15-37); Alanine Aminotransfer ALT/SGPT 10 U/L (13-56); Albumin, Serum 1.7 g/dL (3.2-5.0); Alkaline Phosphatase 109 U/L (45-117); Anion Gap 11 (5-15); BUN 49 mg/dL (7-18); BUN/Creat Ratio 17.8 RATIO (10-20); Calcium,Total 8.3 mg/dL (8.5-10.1); Chloride 118 mmol/L (98-107); Creatinine, Serum 2.76 mg/dL (0.55-1.02); EST Glomerular Filtration Rate 18 mL/min (>60); Est Glom Filt Rate - Afr Amer 21 mL/min (>60); Estimated Creatinine Clearance 11.68 ml/min; Globulin 3.7 g/dL (2.2-4.2); Glucose 139 mg/dL (74-106); Potassium 4.6 mmol/L (3.5-5.1); Protein, Total 5.4 g/dL (6.4-8.2); Sodium Level 146 mmol/L (136-145)
[2022-03-31] MEDS: Nystatin Powder 15gm Bottle 1 APPLIC TOPICAL ×3 (06:50→21:30)
[2022-03-31] MEDS: Hydrocortisone Sod Succinate 100 MG/2 ML Vial IV ×3 (06:50→21:31)
--- NOTE | 2022-03-31 07:56 | PN.CC_ITS ---
Assessment & Plan Assessment/Plan (1) Hypotension: (2) Anemia: (3) Endocarditis: PLAN: Plan RECOMMENDATIONS: 1. Continue to hold anticoagulation 2. Antibiotics per infectious disease 3. Await repeat pancultures 4. Defer to nephrology on dialysis 5. Wean Levophed as tolerated. IMPRESSIONS: 1. Hypotension Exact etiology is unclear at this time. Acute volume loss secondary to bleeding of right hip would be a consideration. Patient does have significant ecchymosis of the right hip with induration. H&H appears to be stable. Hypotension is improving. CT of the lower extremity is showing a significant hematoma, but no flow was noted by ultrasound. Patient also has a recent endocarditis diagnosis so seeding of the hematoma versus development of bacterial resistance would be a consideration. Infectious disease is following. Patient is significantly positive at this time. Patient does have a history of diastolic CHF and recent acute kidney injury, but is oxygenating okay at this point. Patient was placed on stress dose steroids yesterday with significant improvement in pressors. This would suggest an element of relative adrenal insufficiency. 2. Acute kidney injury with recent dialysis and CKD 4 Patient's creatinine was down to 1.58 prior to discharge. Patient significantly elevated at this time and slowly worsening day by day. It does not appear as though the patient received any contrast, so prerenal etiology is suspected. We will support blood pressures and monitor. Elevation of creatinine appears to be slowing down. Patient did have significant elevation of lactate on presentation. 3. 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 There is some mild blunting, but this may be secondary to atelectasis. Do not believe the patient is significantly volume overloaded at this time. Okay to hold off on diuretics. Could consider adding vancomycin if patient requires pressor therapies after volume resuscitation with blood products. If patient starts to have worsening hypoxia, as needed Lasix could be added. Blood pressure is marginal at this time. 4. Recent admission/morbid obesity/bilateral lymphedema/bilateral arthritis Complicates care, management, recovery and prognosis. Patient was a full code previously, but this cannot be confirmed at this time. Patient also has a history of recent esophagitis leading to acute blood loss anemia. GI has been consulted. We will need to watch blood sugars closely if steroids are initiated TIME: 34 minutes critical care time spent addressing patient's hypotension, acute kidney injury, CHF, review of all data and collaboration with care team Subjective Subjective Patient did okay overnight. Patient did receive 2 units of packed red blood cells. Patient has also had issues with A. fib with RVR, but pressor requir ements have significantly improved. Patient requiring only 5 mcg of Levophed and vasopressin has been discontinued. Patient is still reporting significant pain of the right lower extremity. There have been reported discussions about goals of therapy, but no changes in CODE STATUS have been reported. Objective Data Objective Data Bedside aspiration by vascular surgery was not performed yesterday after physical exam Vital Signs: Vital Signs Temp Pulse Resp BP Pulse Ox O2 Del Method O2 Flow Rate 37.5 C H 124 H 26 H 97/79 97 Nasal Cannula 2 03/31/22 07:00 03/31/22 07:00 03/31/22 07:00 03/31/22 07:00 03/31/22 07:39 03/31/22 07:39 03/31/22 07:39 Oxygen Flow Rate (L/min) 2 Oxygen Delivery Method Nasal Cannula Weight: 107.2 kg Body Mass Index (BMI) 44.7 Intake & Output: Intake and Output for Last 24 Hours 03/29/22 03/30/22 03/31/22 23:59 23:59 23:59 Intake Total 5089.48 / 5095.58 3160.45 / 3217.48 190.73 / 190.73 Output Total 100 / 140 105 / 255 200 / 200 Balance 4989.48 / 4955.58 3055.45 / 2962.48 -9.27 / -9.27 Lab / Micro Data Attestation: I reviewed the patient's lab results. Result Diagrams: 03/31/22 03:55 03/31/22 03:55 Labs: Laboratory Results - last 24 hr 03/29/22 09:35: Crossmatch See Detail 03/30/22 11:54: Hgb 7.0 L, Hct 22.2 L 03/31/22 03:55: WBC 15.2 H, RBC 2.55 L, Hgb 8.1 L, Hct 24.6 L, MCV 96.5, MCH 31.8, MCHC 32.9, RDW Std Deviation 57.9 H, RDW Coeff of Diandra 18.7 H, Plt Count 126 L, MPV 9.8, Immature Gran % (Auto) 4.300 H, Neut % (Auto) 84.8 H, Lymph % (Auto) 7.8 L, [place] % (Auto) 2.7, Eos % (Auto) 0.0, Baso % (Auto) 0.4, Absolute Neuts (auto) 12.9 H, Absolute Lymphs (auto) 1.18, Nucleated RBC % 0.8 03/31/22 03:55: Sodium 146 H, Potassium 4.6, Chloride 118 H, Carbon Dioxide 17.0 L, Anion Gap 11, BUN 49 H, Creatinine 2.76 H, Estim Creat Clear Calc 11.68, Est GFR (MDRD) Af Amer 21 L, Est GFR (MDRD) Non-Af 18 L, BUN/Creatinine Ratio 17.8, Glucose 139 H, Calcium 8.3 L, Total Bilirubin 0.90, AST 31, ALT 10 L, Alkaline Phosphatase 109, Total Protein 5.4 L, Albumin 1.7 L, Globulin 3.7, Albumin/Globulin Ratio 0.5 L 03/31/22 03:55: PT 15.9 H, INR 1.3 Micro: Microbiology 03/29/22 11:10 Urine Catheter - Catheter Urine Culture - Final Citrobacter freundii Yeast, not Renée albicans 03/29/22 10:15 Blood Culture (Wb) - Left Wrist Blood Culture - Preliminary No growth in 48 hours. 03/29/22 09:35 Blood Culture (Wb) - Left Wrist Blood Culture - Preliminary No growth in 48 hours. Radiography Diagnostic Testing: Radiology Impression Lower Extremity CT 03/30/22 07:17 IMPRESSION: 1. A large acute subcutaneous hematoma is present at the periphery of the right gluteal and hip region measuring 28.52 x 10.0 x 8.90 cm in diameter. The hemorrhage appears to arise from a vessel directly anterior to or within the superior fibers of the sartorius muscle, which is adjacent to the major femoral vessels. Consultation with interventional radiology or vascular surgery is recommended for possible angiography and or embolization. 2. The sartorius muscle also demonstrates mild intramuscular hemorrhage and mild swelling at the level of the inguinal fossa. 3. There is also significant edema and swelling of the right thigh as well as the inguinal regions. Moderate edema is seen in the lower anterior pelvic wall and in the included portions of the left thigh. Electronically Signed: Rudy Maldonado MD at 9:44 EST Reading Location ID and State: [facility] / [place] , Service support , Echocardiogram 03/30/22 09:07 Interpretation Summary The estimated ejection fraction is 65-70 %. Bioprothetic MV Can Not Exclude MV small Vegetation Recommendation: consider to Evaluate with NOHEMY Ordering Physician: Hu Kumar Referring Physician: Carolyn Stephen Performed By: Sandy Shelton RDCS, RVT Duplex Scan Lower Extremity Artery 03/30/22 10:22 Interpretation Summary Patent right femoral vessels with no pseudoaneurysm identified. Heterogenous, non-vascular collection lateral thigh with no flow chamber identified. Ordering Physician: Shlomo Gonzales Referring Physician: Carolyn Stephen Performed By: Sunita De La Garza, RVT Physical Exam Const no apparent distress and well nourished Constitutional Narrative: Obese, elderly, debilitated, white female lying in bed. RASS -1 General Appearance: cooperative, comfortable, well kempt, well developed and lethargic Orientation / Consciousness: awake, oriented to person, oriented to place and oriented to time Exam Limitations: no limitations Nutritional Appearance: obese HEENT normocephalic, head/scalp atraumatic and moist oral mucous membranes; Negative for hearing grossly normal bilaterally Eyes PERRL and EOMs intact bilaterally Eyes Narrative: Mildly pale conjunctiva bilaterally, no scleral icterus Neck no lymphadenopathy, supple and no JVD Neck Narrative: Trachea midline, no thyroid enlargement, ecchymosis in area of tunneled catheter left chest Resp normal respiratory effort, no retractions, no use of accessory muscles and clear to auscultation bilaterally Auscultation: rales and diminished lung sounds; Negative for rhonchi or wheezes Cardio S1 normal heart sound, S2 normal heart sound, no murmurs, no rub, no gallops and no clicks Rate: tachycardic Rhythm: abnormal rhythm irregularly irregular GI normal to inspection, nondistended, normoactive bowel sounds, soft to palpation and non-tender Extremity Extremity Narrative: Large ecchymosis of the right hip. There is an area of significant induration on the anterior lateral side. This appears subjectively unchanged Skin skin turgor normal and no jaundice Skin Narrative: Skin is pale with scattered ecchymosis Neuro oriented x3, CN's II-XII intact bilaterally, moves all extremities and no focal motor deficits Neuro Narrative: Marked debility with decreased strength but no focal deficits Speech: speech normal Psych affect normal Psych Narrative: Resting comfortably Mood & Affect: flat affect Charges/Coding Procedures Hospitalists Procedures: 33216 Critial Care 1st Hr
--- NOTE | 2022-03-31 08:55 | PN.HOSP_ITS ---
Subjective Subjective Follow-up on shock/acute blood loss anemia/right thigh hematoma: Patient was seen and examined. Patient is off pressors today. Heart rate remains elevated; A. fib with RVR. Family decided to keep patient full code yesterday. They will decide on CODE STATUS today. Patient appears a little bit more alert today. Objective Data Objective Data Vital Signs: Vital Signs Temp Pulse Resp BP Pulse Ox O2 Del Method O2 Flow Rate 99.4 F H 136 H 24 H 106/59 L 97 Nasal Cannula 2 03/31/22 08:00 03/31/22 08:00 03/31/22 08:00 03/31/22 08:30 03/31/22 08:00 03/31/22 08:00 03/31/22 08:00 Oxygen Flow Rate (L/min) 2 Oxygen Delivery Method Nasal Cannula Weight: 107.2 kg Body Mass Index (BMI) 44.7 Intake & Output: Intake and Output for Last 24 Hours 03/29/22 03/30/22 03/31/22 23:59 23:59 23:59 Intake Total 5089.48 / 5095.58 3160.45 / 3217.48 202.48 / 202.48 Output Total 100 / 140 105 / 255 200 / 200 Balance 4989.48 / 4955.58 3055.45 / 2962.48 2.48 / 2.48 Lab / Micro Data Result Diagrams: 03/31/22 03:55 03/31/22 03:55 Labs: Laboratory Results - last 24 hr 03/29/22 09:35: Crossmatch See Detail 03/30/22 11:54: Hgb 7.0 L, Hct 22.2 L 03/31/22 03:55: WBC 15.2 H, RBC 2.55 L, Hgb 8.1 L, Hct 24.6 L, MCV 96.5, MCH 31.8, MCHC 32.9, RDW Std Deviation 57.9 H, RDW Coeff of Diandra 18.7 H, Plt Count 126 L, MPV 9.8, Immature Gran % (Auto) 4.300 H, Neut % (Auto) 84.8 H, Lymph % (Auto) 7.8 L, [place] % (Auto) 2.7, Eos % (Auto) 0.0, Baso % (Auto) 0.4, Absolute Neuts (auto) 12.9 H, Absolute Lymphs (auto) 1.18, Nucleated RBC % 0.8 03/31/22 03:55: Sodium 146 H, Potassium 4.6, Chloride 118 H, Carbon Dioxide 17.0 L, Anion Gap 11, BUN 49 H, Creatinine 2.76 H, Estim Creat Clear Calc 11.68, Est GFR (MDRD) Af Amer 21 L, Est GFR (MDRD) Non-Af 18 L, BUN/Creatinine Ratio 17.8, Glucose 139 H, Calcium 8.3 L, Total Bilirubin 0.90, AST 31, ALT 10 L, Alkaline Phosphatase 109, Total Protein 5.4 L, Albumin 1.7 L, Globulin 3.7, Albumin/Globulin Ratio 0.5 L 03/31/22 03:55: PT 15.9 H, INR 1.3 Micro: Microbiology 03/29/22 11:10 Urine Catheter - Catheter Urine Culture - Final Citrobacter freundii Yeast, not Renée albicans 03/29/22 10:15 Blood Culture (Wb) - Left Wrist Blood Culture - Preliminary No growth in 48 hours. 03/29/22 09:35 Blood Culture (Wb) - Left Wrist Blood Culture - Preliminary No growth in 48 hours. Radiography Diagnostic Testing: Radiology Impression Lower Extremity CT 03/30/22 07:17 IMPRESSION: 1. A large acute subcutaneous hematoma is present at the periphery of the right gluteal and hip region measuring 28.52 x 10.0 x 8.90 cm in diameter. The hemorrhage appears to arise from a vessel directly anterior to or within the superior fibers of the sartorius muscle, which is adjacent to the major femoral vessels. Consultation with interventional radiology or vascular surgery is recommended for possible angiography and or embolization. 2. The sartorius muscle also demonstrates mild intramuscular hemorrhage and mild swelling at the level of the inguinal fossa. 3. There is also significant edema and swelling of the right thigh as well as the inguinal regions. Moderate edema is seen in the lower anterior pelvic wall and in the included portions of the left thigh. Electronically Signed: Rudy Maldonado MD at 9:44 EST Reading Location ID and State: [facility] / [place] , Service support , Echocardiogram 03/30/22 09:07 Interpretation Summary The estimated ejection fraction is 65-70 %. Bioprothetic MV Can Not Exclude MV small Vegetation Recommendation: consider to Evaluate with NOHEMY Ordering Physician: Hu Kumar Referring Physician: Carolyn Stephen Performed By: Sandy Shelton RDCS, RVT Duplex Scan Lower Extremity Artery 03/30/22 10:22 Interpretation Summary Patent right femoral vessels with no pseudoaneurysm identified. Heterogenous, non-vascular collection lateral thigh with no flow chamber identified. Ordering Physician: Shlomo Gonzales Referring Physician: Carolyn Stephen Performed By: Sunita De La Garza, RVT Physical Exam Narrative Physical exam: General: Alert, lethargic, pale, generalized anasarca HEENT: Atraumatic Oral: Moist Mucosa Neck: Supple Lungs: Clear to auscultation Cardiovascular: HS I+II, regular, no murmurs Abdomen: Bowel Sounds Present, Soft, Non Tender Extremities: Bilateral leg edema +2-3, right thigh is very edematous, looks bruise, hematoma, extends to the right flank and gluteal region Skin: Bruises on the right thigh Neurological: Grossly intact Psych/Mental Status: Appropriate Assessment & Plan Assessment/Plan (1) Hypotension: (2) Anemia: PLAN: Plan Summary: 81-year-old female with a recent admission for A. fib RVR, non-STEMI, prosthetic aortic valve, mitral valve endocarditis, [facility] and readmitted on 03/29/22 with shock. 1. Shock, probably multifactorial, likely hypovolemic from acute blood loss into the right thigh and flank region Appears resolved for now. Off pressors this morning Possible acute GI bleed versus septic shock from recent endocarditis Continue to monitor Cooler Worker following 2. Severe anemia secondary to acute blood loss in the right proximal lower extremity Status post 4 units of packed RBC on 03/30/2022 Repeat hemoglobin is 8.1, will continue to trend 3. Right proximal thigh, flank and gluteal region hematoma, seen on CT of the thigh/hip Unclear if patient had trauma to the side or her thigh Questionable arterial component to hematoma, vascular surgery consulted Vascular surgery recommends regular follow-up 4. Recent Acute GI bleed, patient with recent grade B erosive esophagitis, oozing gastric ulcers and a visible vessel which was injected and treated with argon plasma coagulation. Patient also had chronic gastritis with hemorrhage on endoscopy Continue with IV PPI, GI consulted; recommends conservative management 5. Supratherapeutic INR, likely secondary to vitamin K deficiency from malnutrition, resolved Patient was admitted with an INR 7.8. Status post IV vitamin K and FFP. INR is 1.3 today Continue to hold Eliquis, Repeat INR in am 6. Recent aortic and mitral valve endocarditis, h/o mitral valve replacement, Continue on IV ampicillin, ceftriaxone and vancomycin Repeat blood cultures showed no growth in 48 hours Infectious disease following 7. Recent JACQUIE on CKD, patient received dialysis during this admission Creatinine today is 2.76 from 2.48 Urine output has been oliguric Nephrology consulted, recommended discussion about goals of care and no dialysis is recommended 8. Recent non-STEMI, type II/A. fib with RVR, will continue to monitor 9. Severe malnutrition, patient with anasarca, albumin 1.7, ensemble member consulted, will monitor on supplements 10. DVT PPx- SCDs. Charges/Coding Visit Charges Inpatient E&M: 38484 Subs Hosp L3
[2022-03-31 09:50] LABS: Pathologist Review Reviewed
--- NOTE | 2022-03-31 11:11 | CASEMGMT ---
Social Work SW attended ICU rounds. Pt dgt Mariel on speaker phone. Pt was admitted to [facility] on Tuesday 03/27 and returned to hospital. Mariel confirms plan for pt to return to [facility] when medically ready. Pt will need precert, but due to medical needs, precert not started at this time. Updated clinicals sent to [facility] via [employer]. SW to continue to follow for d/c planning. Plan: [facility]. Precert needed but not started at this time. NAVEEN Moran
[2022-03-31 11:50] LABS: Vancomycin, Random Level 16.6 ug/mL (0.0-15.0)
--- NOTE | 2022-03-31 11:56 | PN.RENAL_ITS ---
Subjective Subjective off pressors this morning. tachycardia. lethargic but arrousable. Poor historian, debiltated. Objective Data Objective Data Vital Signs: Vital Signs Temp Pulse Resp BP Pulse Ox O2 Del Method O2 Flow Rate 99.4 F H 143 H 23 H 92/66 94 Nasal Cannula 2 03/31/22 11:00 03/31/22 11:00 03/31/22 11:00 03/31/22 11:00 03/31/22 11:00 03/31/22 11:00 03/31/22 11:00 Oxygen Flow Rate (L/min) 2 Oxygen Delivery Method Nasal Cannula Weight: 107.2 kg Body Mass Index (BMI) 44.7 Intake & Output: Intake and Output for Last 24 Hours 03/29/22 03/30/22 03/31/22 23:59 23:59 23:59 Intake Total 5089.48 / 5095.58 3160.45 / 3217.48 657.98 / 657.98 Output Total 100 / 140 105 / 255 240 / 240 Balance 4989.48 / 4955.58 3055.45 / 2962.48 417.98 / 417.98 Lab / Micro Data Result Diagrams: 03/31/22 03:55 03/31/22 03:55 Labs: Laboratory Results - last 24 hr 03/29/22 09:35: Crossmatch See Detail 03/30/22 03:55: Diff Path Review Reviewed 03/30/22 11:54: Hgb 7.0 L, Hct 22.2 L 03/31/22 03:55: WBC 15.2 H, RBC 2.55 L, Hgb 8.1 L, Hct 24.6 L, MCV 96.5, MCH 31.8, MCHC 32.9, RDW Std Deviation 57.9 H, RDW Coeff of Diandra 18.7 H, Plt Count 126 L, MPV 9.8, Immature Gran % (Auto) 4.300 H, Neut % (Auto) 84.8 H, Lymph % (Auto) 7.8 L, [place] % (Auto) 2.7, Eos % (Auto) 0.0, Baso % (Auto) 0.4, Absolute Neuts (auto) 12.9 H, Absolute Lymphs (auto) 1.18, Nucleated RBC % 0.8 03/31/22 03:55: Sodium 146 H, Potassium 4.6, Chloride 118 H, Carbon Dioxide 17.0 L, Anion Gap 11, BUN 49 H, Creatinine 2.76 H, Estim Creat Clear Calc 11.68, Est GFR (MDRD) Af Amer 21 L, Est GFR (MDRD) Non-Af 18 L, BUN/Creatinine Ratio 17.8, Glucose 139 H, Calcium 8.3 L, Total Bilirubin 0.90, AST 31, ALT 10 L, Alkaline Phosphatase 109, Total Protein 5.4 L, Albumin 1.7 L, Globulin 3.7, Albumin/Globulin Ratio 0.5 L 03/31/22 03:55: PT 15.9 H, INR 1.3 03/31/22 11:10: Random Vancomycin 16.6 H Micro: Microbiology 03/29/22 11:10 Urine Catheter - Catheter Urine Culture - Final Citrobacter freundii Yeast, not Renée albicans 03/29/22 10:15 Blood Culture (Wb) - Left Wrist Blood Culture - Preliminary No growth in 48 hours. 03/29/22 09:35 Blood Culture (Wb) - Left Wrist Blood Culture - Preliminary No growth in 48 hours. Radiography Diagnostic Testing: Radiology Impression Echocardiogram 03/30/22 09:07 Interpretation Summary The estimated ejection fraction is 65-70 %. Bioprothetic MV Can Not Exclude MV small Vegetation Recommendation: consider to Evaluate with NOHEMY Ordering Physician: Hu Kumar Referring Physician: Carolyn Stephen Performed By: Sandy Shelton, SATISHCS, RVT Duplex Scan Lower Extremity Artery 03/30/22 10:22 Interpretation Summary Patent right femoral vessels with no pseudoaneurysm identified. Heterogenous, non-vascular collection lateral thigh with no flow chamber identified. Ordering Physician: Shlomo Gonzales Referring Physician: Carolyn Stephen Performed By: Sunita De La Garza, RVT Physical Exam Const Orientation / Consciousness: confused and lethargic Nutritional Appearance: obese Resp clear to auscultation bilaterally Cardio Cardio Narrative: tachycardic Rhythm: abnormal rhythm GI non-tender and non-distended Auscultation: normoactive bowel sounds Palpation: soft Extremity General Extremity: edema bilateral Skin Skin Narrative: ecchymosis, hematoma right hip Psych Psych Narrative: lethargic, slow to respond Assessment & Plan Assessment/Plan (1) Acute renal failure: PLAN: Acute renal failure on CKD likely due to ischemic ATN from hypotension, sepsis syndrome. Off pressors today. Blood cx no growth so far. Creatinine rising with oliguria. Poor dialysis candidate due to multiple comorbidities, debilitation. Consider DNR, no heroic measures including no dialysis. (2) CKD (chronic kidney disease) stage 4, GFR 15-29 ml/min: PLAN: baseline creatinine 1.5. No nephrologic care prior to hospitalization. (3) Hypotension: PLAN: Pancultured on antibiotics and pressor support as needed. Recent admission for sepsis. (4) Prosthetic valve endocarditis: PLAN: Renal dose antibiotics (5) Anemia: PLAN: PRBCs as needed (6) Bacteremia due to Enterococcus: PLAN: On long-term antibiotic therapy (7) Atrial fibrillation: PLAN: Rate controlled (8) UTI (urinary tract infection): PLAN: With endocarditis, sepsis
--- NOTE | 2022-03-31 12:17 | PCM.RX.CS ---
Consult Type of Consult: Follow-up Suspected Infection: Endocarditis - Recent aortic and mitral valve endocarditis Labs: Sodium 146 mmol/L (136-145) H 03/31/22 03:55 Potassium 4.6 mmol/L (3.5-5.1) 03/31/22 03:55 Chloride 118 mmol/L (98-107) H 03/31/22 03:55 Carbon Dioxide 17.0 mmol/L (21.0-32.0) L 03/31/22 03:55 Anion Gap 11 (5-15) 03/31/22 03:55 BUN 49 mg/dL (7-18) H 03/31/22 03:55 Creatinine 2.76 mg/dL (0.55-1.02) H 03/31/22 03:55 Est GFR (MDRD) Af Amer 21 mL/min (>60) L 03/31/22 03:55 Est GFR (MDRD) Non-Af 18 mL/min (>60) L 03/31/22 03:55 BUN/Creatinine Ratio 17.8 RATIO (10-20) 03/31/22 03:55 Glucose 139 mg/dL (74-106) H 03/31/22 03:55 Random Vancomycin 16.6 ug/mL (0.0-15.0) H 03/31/22 11:10 Microbiology: Microbiology 03/29/22 11:10 Urine Catheter - Catheter Urine Culture - Final Citrobacter freundii Yeast, not Renée albicans 03/29/22 10:15 Blood Culture (Wb) - Left Wrist Blood Culture - Preliminary No growth in 48 hours. 03/29/22 09:35 Blood Culture (Wb) - Left Wrist Blood Culture - Preliminary No growth in 48 hours. Goal Trough: 15-20 mcg/mL - Recent aortic and mitral valve endocarditis Pharmacy Plan for Drug Dosing: VANCOMYCIN LEVEL RECEIVED Current Vancomycin Dose: 1500mg x1 Number of Doses Received: 1 Vancomycin Level: 16.6 Hours Since Last Dose: 24 Renal Function: sCr 2.76 (CrCl 18 ml/min using AdjBW 70.2kg) Renal Function Trend: slightly worsened since admission, off pressor support today Lab/Micro: blood cx neg to date @ 48 hours Vancomycin Plan/Comments: Vancomycin 1000mg x1 dose now Pending Level: Random Vancomycin level @ 1200 04/01/22 Pharmacy Service will continue to monitor and adjust dosing as required. Labs to be done on [date and time ordered]: Random Vancomycin level @ 1200 04/01/22
[2022-03-31] MEDS: Vancomycin IV 1,000 MG/200 ML BAG 200 MG IV (12:27)
--- NOTE | 2022-03-31 13:32 | CON.PCM.CA_ITS ---
Assessment & Plan Assessment/Plan (1) Endocarditis: (2) Prosthetic valve endocarditis: (3) S/P MVR (mitral valve replacement): (4) Atrial fibrillation: PLAN: Plan * She is being managed by ID for her endocarditis * She is not on any rate limiting medications d/t her low BP readings. She previous was on Metoprolol and Diltiazem. With her low BP readings, will start her on amiodarone IV to help with rate control. * Unfortunately she is not able to be on anticoagulation, d/t her recent hematoma and bleed. HPI Consult Data Date of Consult: 03/31/22 HPI Narrative HPI Narrative: CARLOS ALBERTO GOLDBERG, is a 81 F who we were asked to consult on for Afib with RVR. Patient was admitted recently admitted to the hospital and managed as Enterococcus faecalis endocarditis, with vegetation seen on NOHEMY on her aortic valve and a 0.5 freely mobile mass on the mitral valve.? Patient was discharged to [facility]-way facility on on 03/27/2022 with IV ampicillin and ceftriaxone for total of 6 weeks until 04/20/2022. She then presented back to the hospital on 03/29/2022 with hypotension. With concerns over nausea and vomiting. Blood pressure was noted to be 60/30. Hemoglobin was 6.1. Oxygen was 91% on 2 L. INR was 7.8. She was admitted for shock, acute blood loss with anemia and right thigh hematoma. She did maxed out on her Levophed for her hypotension and she was started on vasopressin. Her Eliquis was held. Surgery was consulted for her large hematoma. She did receive 2 units of blood. Prior to her being admitted to the hospital this time she was on Cardizem and metoprolol for rate control. [facility] Medical History Chronic acquired lymphedema Chronic atrial fibrillation Chronic diastolic CHF (congestive heart failure) Former tobacco use History of temporary cardiac pacemaker treatment HTN (hypertension) Morbid obesity Rheumatoid arthritis Valvular heart disease Home Medications calcium carbonate 600 mg-vitamin D3 10 mcg (400 unit) tablet (Calcium 600 + D(3)) 1 ea PO DAILY SUPPLEMENT 12/17/13 [History Last Taken 03/29/22] furosemide 40 mg tablet 40 mg PO DAILY FLUID 12/17/13 [History Last Taken 03/29/22] ampicillin sodium 2 gram solution for injection 2 g IV QAM 33 days #33 ea [Rx Last Taken 03/28/22 12:00] ceftriaxone 2 gram intravenous solution 2 g IV Q12H #66 ea 03/22/22 [Rx Last Taken 03/29/22 09:00] diphenhydramine HCl 25 mg tablet (Allergy Relief (diphenhydramine)) 25 mg PO TID PRN allergic reaction 40 days #90 tabs 03/22/22 [Rx Last Taken Unknown] sucralfate 1 gram tablet (Carafate) 1 g PO BID #61 tabs 03/27/22 [Rx Last Taken 03/29/22] apixaban 2.5 mg tablet (Eliquis) 2.5 mg PO BID BLOOD THINNER 03/29/22 [History Last Taken 03/29/22] diltiazem HCl 240 mg capsule,extended release 24 hr 240 mg PO DAILY BLOOD PRESSURE 03/29/22 [History Last Taken 03/29/22] metoprolol tartrate 100 mg tablet 100 mg PO BID BLOOD PRESSURE 03/29/22 [History Last Taken 03/29/22] multivitamin with minerals-folic acid 120 mcg chewable tablet (Centrum Adult 50 Plus Fresh-Fruity) 1 tab PO DAILY HEALTH MAINTENANCE 03/29/22 [History Last Taken 03/29/22] pantoprazole 40 mg tablet,delayed release 40 mg PO BID GERD 03/29/22 [History Last Taken 03/29/22] sennosides 8.6 mg tablet (Senna Lax) 8.6 mg PO DAILY PRN Constipation 03/29/22 [History Last Taken Unknown] sennosides 8.6 mg tablet (Senna Lax) 8.6 mg PO QHS CONSTIPATION 03/29/22 [History Last Taken 03/28/22] tramadol 50 mg tablet 50 mg PO 0715,1915 PAIN 03/29/22 [History Last Taken 03/29/22 07:15] tramadol 50 mg tablet 50 mg PO DAILY PRN Pain 03/29/22 [History Last Taken Unknown] Allergy/AdvReac Type Severity Reaction Status Date / Time allopurinol Allergy Mild Rash Verified 03/29/22 09:36 ceftriaxone [From Rocephin] Allergy Mild Rash Verified 03/29/22 09:36 colchicine Allergy Mild Rash Verified 03/29/22 09:36 Family History Mother Heart disease Father Cancer Leukemia. Surgical History H/O tricuspid valve annuloplasty S/P MVR (mitral valve replacement) Social History household members: none Smoking Status: Former smoker how long ago did patient quit smoking: Quit 05/26/1959, smoked ~2 years w/ 0.25 pack/day. alcohol intake: current alcohol intake frequency: holidays/special occasions only substance use type: does not use Physical Exam Const alert Orientation / Consciousness: lethargic Resp normal air movement and clear to auscultation bilaterally Cardio Rate: tachycardic GI soft to palpation, non-tender and non-distended Skin no rashes or lesions noted Risk Stratification Risk Stratification Applicable: No Charges/Coding Visit Charges Office Visits / Consults: 32373 IP Consult L3 Objective Data Vital Signs: Vital Signs Temp Pulse Resp BP Pulse Ox O2 Del Method O2 Flow Rate 99.5 F H 135 H 23 H 98/64 95 Nasal Cannula 2 03/31/22 13:00 03/31/22 13:00 03/31/22 13:00 03/31/22 13:00 03/31/22 13:00 03/31/22 13:00 03/31/22 13:00 Oxygen Flow Rate (L/min) 2 Oxygen Delivery Method Nasal Cannula Weight: 236 lb 5.369 oz Body Mass Index (BMI) 44.7 Intake & Output: Intake and Output for Last 24 Hours 03/29/22 03/30/22 03/31/22 23:59 23:59 23:59 Intake Total 5089.48 / 5095.58 3160.45 / 3217.48 657.98 / 657.98 Output Total 100 / 140 105 / 255 240 / 240 Balance 4989.48 / 4955.58 3055.45 / 2962.48 417.98 / 417.98 Lab / Micro Data Result Diagrams: 03/31/22 03:55 03/31/22 03:55 Labs: Laboratory Results - last 24 hr 03/29/22 09:35: Crossmatch See Detail 03/30/22 03:55: Diff Path Review Reviewed 03/31/22 03:55: WBC 15.2 H, RBC 2.55 L, Hgb 8.1 L, Hct 24.6 L, MCV 96.5, MCH 31.8, MCHC 32.9, RDW Std Deviation 57.9 H, RDW Coeff of Diandra 18.7 H, Plt Count 126 L, MPV 9.8, Immature Gran % (Auto) 4.300 H, Neut % (Auto) 84.8 H, Lymph % (Auto) 7.8 L, [place] % (Auto) 2.7, Eos % (Auto) 0.0, Baso % (Auto) 0.4, Absolute Neuts (auto) 12.9 H, Absolute Lymphs (auto) 1.18, Nucleated RBC % 0.8 03/31/22 03:55: Sodium 146 H, Potassium 4.6, Chloride 118 H, Carbon Dioxide 17.0 L, Anion Gap 11, BUN 49 H, Creatinine 2.76 H, Estim Creat Clear Calc 11.68, Est GFR (MDRD) Af Amer 21 L, Est GFR (MDRD) Non-Af 18 L, BUN/Creatinine Ratio 17.8, Glucose 139 H, Calcium 8.3 L, Total Bilirubin 0.90, AST 31, ALT 10 L, Alkaline Phosphatase 109, Total Protein 5.4 L, Albumin 1.7 L, Globulin 3.7, Albumin/Globulin Ratio 0.5 L 03/31/22 03:55: PT 15.9 H, INR 1.3 03/31/22 11:10: Random Vancomycin 16.6 H Micro: Microbiology 03/29/22 11:10 Urine Catheter - Catheter Urine Culture - Final Citrobacter freundii Yeast, not Renée albicans 03/29/22 10:15 Blood Culture (Wb) - Left Wrist Blood Culture - Preliminary No growth in 48 hours. 03/29/22 09:35 Blood Culture (Wb) - Left Wrist Blood Culture - Preliminary No growth in 48 hours. Cardiology Labs/Tests 03/31/22 03:55: WBC 15.2 H, RBC 2.55 L, Hgb 8.1 L, Hct 24.6 L, MCV 96.5, MCH 31.8, MCHC 32.9, Plt Count 126 L, MPV 9.8, Immature Gran % (Auto) 4.300 H, Neut % (Auto) 84.8 H, Lymph % (Auto) 7.8 L, [place] % (Auto) 2.7, Eos % (Auto) 0.0, Baso % (Auto) 0.4, Absolute Neuts (auto) 12.9 H, Nucleated RBC % 0.8 03/31/22 03:55: Sodium 146 H, Potassium 4.6, Chloride 118 H, Carbon Dioxide 17.0 L, Anion Gap 11, BUN 49 H, Creatinine 2.76 H, Est GFR (MDRD) Af Amer 21 L, Est GFR (MDRD) Non-Af 18 L, BUN/Creatinine Ratio 17.8, Glucose 139 H, Calcium 8.3 L, Total Bilirubin 0.90 03/31/22 03:55: PT 15.9 H, INR 1.3 Rhythm: Radiography Diagnostic Testing: Radiology Impression Echocardiogram 03/30/22 09:07 Interpretation Summary The estimated ejection fraction is 65-70 %. Bioprothetic MV Can Not Exclude MV small Vegetation Recommendation: consider to Evaluate with NOHEMY Ordering Physician: Hu Kumar Referring Physician: Carolyn Stephen Performed By: Sandy Shelton, DEBBIE, RVT Duplex Scan Lower Extremity Artery 03/30/22 10:22 Interpretation Summary Patent right femoral vessels with no pseudoaneurysm identified. Heterogenous, non-vascular collection lateral thigh with no flow chamber identified. Ordering Physician: Shlomo Gonzales Referring Physician: Carolyn Stephen Performed By: Sunita De La Garza RVT
--- NOTE | 2022-03-31 13:34 | PCM.PN.ID ---
Physical Exam Narrative Feeling the same, no fever, no dyspnea, no abd pain Const alert Orientation / Consciousness: lethargic Resp normal air movement and clear to auscultation bilaterally Cardio Rate: tachycardic GI soft to palpation, non-tender and non-distended Skin no rashes or lesions noted ID ID: Route of nutrition/ use of supplements: [] Nutritional Intake: [] IV Site: [] Hernandez Catheter: [] Assessment & Plan Assessment/Plan (1) Prosthetic valve endocarditis: PLAN: On vanc/amp/ceftriaxone. Worsened JACQUIE from recent admit. Bcx neg at 48h. Ucx with small growth of citro, doubt true infection. TTE reviewed. Will stop vanc. Will follow (2) Shock: (3) CKD (chronic kidney disease), stage IV:
--- NOTE | 2022-03-31 14:31 | PCM.PN.SRG ---
Subjective Subjective Patient arousable but lethargic. Hgb improved to 8.1 from 7.0 after receiving 2 units prbc yesterday. She is currently maintaining BP off pressors. Objective Data Objective Data Alert, lethargic, NAD Normal respiratory effort, no use of accessory muscles, no audible wheeze or stridor Tachycardic, irregularly irregular rhythm Lateral thigh ecchymosis appears stable from yesterday, no appreciable increase in size. Skin integrity remains intact, no signs of compromise. No erythema or warmth. Vital Signs: Vital Signs Temp Pulse Resp BP Pulse Ox O2 Del Method O2 Flow Rate 99.5 F H 135 H 23 H 98/64 95 Nasal Cannula 2 03/31/22 13:00 03/31/22 13:00 03/31/22 13:00 03/31/22 13:00 03/31/22 13:00 03/31/22 13:00 03/31/22 13:00 Oxygen Flow Rate (L/min) 2 Oxygen Delivery Method Nasal Cannula Weight: 236 lb 5.369 oz Body Mass Index (BMI) 44.7 Intake & Output: Intake and Output for Last 24 Hours 03/29/22 03/30/22 03/31/22 23:59 23:59 23:59 Intake Total 5089.48 / 5095.58 3160.45 / 3217.48 857.98 / 857.98 Output Total 100 / 140 105 / 255 240 / 240 Balance 4989.48 / 4955.58 3055.45 / 2962.48 617.98 / 617.98 Lab / Micro Data Result Diagrams: 03/31/22 03:55 03/31/22 03:55 Labs: Laboratory Results - last 24 hr 03/29/22 09:35: Crossmatch See Detail 03/30/22 03:55: Diff Path Review Reviewed 03/31/22 03:55: WBC 15.2 H, RBC 2.55 L, Hgb 8.1 L, Hct 24.6 L, MCV 96.5, MCH 31.8, MCHC 32.9, RDW Std Deviation 57.9 H, RDW Coeff of Diandra 18.7 H, Plt Count 126 L, MPV 9.8, Immature Gran % (Auto) 4.300 H, Neut % (Auto) 84.8 H, Lymph % (Auto) 7.8 L, [place] % (Auto) 2.7, Eos % (Auto) 0.0, Baso % (Auto) 0.4, Absolute Neuts (auto) 12.9 H, Absolute Lymphs (auto) 1.18, Nucleated RBC % 0.8 03/31/22 03:55: Sodium 146 H, Potassium 4.6, Chloride 118 H, Carbon Dioxide 17.0 L, Anion Gap 11, BUN 49 H, Creatinine 2.76 H, Estim Creat Clear Calc 11.68, Est GFR (MDRD) Af Amer 21 L, Est GFR (MDRD) Non-Af 18 L, BUN/Creatinine Ratio 17.8, Glucose 139 H, Calcium 8.3 L, Total Bilirubin 0.90, AST 31, ALT 10 L, Alkaline Phosphatase 109, Total Protein 5.4 L, Albumin 1.7 L, Globulin 3.7, Albumin/Globulin Ratio 0.5 L 03/31/22 03:55: PT 15.9 H, INR 1.3 03/31/22 11:10: Random Vancomycin 16.6 H Micro: Microbiology 03/29/22 11:10 Urine Catheter - Catheter Urine Culture - Final Citrobacter freundii Yeast, not Renée albicans 03/29/22 10:15 Blood Culture (Wb) - Left Wrist Blood Culture - Preliminary No growth in 48 hours. 03/29/22 09:35 Blood Culture (Wb) - Left Wrist Blood Culture - Preliminary No growth in 48 hours. Radiography Diagnostic Testing: Radiology Impression Echocardiogram 03/30/22 09:07 Interpretation Summary The estimated ejection fraction is 65-70 %. Bioprothetic MV Can Not Exclude MV small Vegetation Recommendation: consider to Evaluate with NOHEMY Ordering Physician: Hu Kumar Referring Physician: Carolyn Stephen Performed By: Sandy Shelton, RDCS, RVT Duplex Scan Lower Extremity Artery 03/30/22 10:22 Interpretation Summary Patent right femoral vessels with no pseudoaneurysm identified. Heterogenous, non-vascular collection lateral thigh with no flow chamber identified. Ordering Physician: Shlomo Gonzales Referring Physician: Carolyn Stephen Performed By: Sunita De La Garza RVT Assessment & Plan Assessment/Plan (1) Hematoma: PLAN: Patient is currently off pressors with improved H&H, hematoma appears stable and still without signs of infection. Continue to recommend conservative management and will continue to monitor. Continue to recommend holding anticoagulation for 48-72 hours of stable H&H. Will continue to follow. Charges/Coding Visit Charges Inpatient E&M: 03261 Subs Hosp L1
[2022-03-31] MEDS: Amiodarone 360 MG in Dextrose 5% Viaflo Bag 192.8 ML 33.3 MG CONT INF (14:52)
--- NOTE | 2022-03-31 16:24 | PCM.PROGNOTE ---
Subjective Subjective Patient is arousable but lethargic. Her blood pressure has been maintained off of pressor therapy. She denies any abdominal pain. She is not eating much. She says she does not have much of an appetite. She denies any headache or dizziness. She denies any bright red blood per rectum or melanotic stools. Objective Data Objective Data Vital Signs: Vital Signs Temp Pulse Resp BP Pulse Ox O2 Del Method O2 Flow Rate 99.5 F H 141 H 25 H 100/60 94 Nasal Cannula 2 03/31/22 16:00 03/31/22 16:00 03/31/22 16:00 03/31/22 16:00 03/31/22 16:00 03/31/22 16:00 03/31/22 16:00 Oxygen Flow Rate (L/min) 2 Oxygen Delivery Method Nasal Cannula Weight: 236 lb 5.369 oz Body Mass Index (BMI) 44.7 Intake & Output: Intake and Output for Last 24 Hours 03/29/22 03/30/22 03/31/22 23:59 23:59 23:59 Intake Total 5089.48 / 5095.58 3160.45 / 3217.48 918.73 / 918.73 Output Total 100 / 140 105 / 255 240 / 240 Balance 4989.48 / 4955.58 3055.45 / 2962.48 678.73 / 678.73 Lab / Micro Data Result Diagrams: 03/31/22 03:55 03/31/22 03:55 Labs: Laboratory Results - last 24 hr 03/29/22 09:35: Crossmatch See Detail 03/30/22 03:55: Diff Path Review Reviewed 03/31/22 03:55: WBC 15.2 H, RBC 2.55 L, Hgb 8.1 L, Hct 24.6 L, MCV 96.5, MCH 31.8, MCHC 32.9, RDW Std Deviation 57.9 H, RDW Coeff of Diandra 18.7 H, Plt Count 126 L, MPV 9.8, Immature Gran % (Auto) 4.300 H, Neut % (Auto) 84.8 H, Lymph % (Auto) 7.8 L, [place] % (Auto) 2.7, Eos % (Auto) 0.0, Baso % (Auto) 0.4, Absolute Neuts (auto) 12.9 H, Absolute Lymphs (auto) 1.18, Nucleated RBC % 0.8 03/31/22 03:55: Sodium 146 H, Potassium 4.6, Chloride 118 H, Carbon Dioxide 17.0 L, Anion Gap 11, BUN 49 H, Creatinine 2.76 H, Estim Creat Clear Calc 11.68, Est GFR (MDRD) Af Amer 21 L, Est GFR (MDRD) Non-Af 18 L, BUN/Creatinine Ratio 17.8, Glucose 139 H, Calcium 8.3 L, Total Bilirubin 0.90, AST 31, ALT 10 L, Alkaline Phosphatase 109, Total Protein 5.4 L, Albumin 1.7 L, Globulin 3.7, Albumin/Globulin Ratio 0.5 L 03/31/22 03:55: PT 15.9 H, INR 1.3 03/31/22 11:10: Random Vancomycin 16.6 H Micro: Microbiology 03/29/22 11:10 Urine Catheter - Catheter Urine Culture - Final Citrobacter freundii Yeast, not Renée albicans 03/29/22 10:15 Blood Culture (Wb) - Left Wrist Blood Culture - Preliminary No growth in 48 hours. 03/29/22 09:35 Blood Culture (Wb) - Left Wrist Blood Culture - Preliminary No growth in 48 hours. Radiography Diagnostic Testing: Radiology Impression Echocardiogram 03/30/22 09:07 Interpretation Summary The estimated ejection fraction is 65-70 %. Bioprothetic MV Can Not Exclude MV small Vegetation Recommendation: consider to Evaluate with NOHEMY Ordering Physician: Hu Kumar Referring Physician: Carolyn Stephen Performed By: Sandy Shelton, DEBBIE, RVT Duplex Scan Lower Extremity Artery 03/30/22 10:22 Interpretation Summary Patent right femoral vessels with no pseudoaneurysm identified. Heterogenous, non-vascular collection lateral thigh with no flow chamber identified. Ordering Physician: Shlomo Gonzales Referring Physician: Carolyn Stephen Performed By: uSnita De La Garza RVT Physical Exam Narrative no fever, no dyspnea, no abd pain Const alert Orientation / Consciousness: lethargic Resp normal air movement and clear to auscultation bilaterally Cardio Rate: tachycardic GI soft to palpation, non-tender and non-distended Skin no rashes or lesions noted Assessment & Plan Assessment/Plan (1) GI bleed: PLAN: Patient seems to be stabilizing from her shock likely secondary to acute blood loss anemia. She has not shown any signs of GI bleeding at this time. Hemoglobin is improved. Recommend continue PPI therapy in continue to trend her hemoglobin. I do not think she needs repeat endoscopy at this time. Charges/Coding Visit Charges Inpatient E&M: 05411 Subs Hosp L2
[2022-03-31] MEDS: Amiodarone 360 MG in Dextrose 5% Viaflo Bag 192.8 ML 16.7 MG CONT INF (20:35)
[2022-04-01] VITALS (29 sets, daily range): BP systolic 96–139; BP diastolic 55–121; PULSE 99–151; RESP 15–30; TEMP 36.7–37.3; O2SAT 92–97
[2022-04-01 04:06] LABS: Absolute Lymphocyte Count 0.76 X10^3/uL (0.83-4.51); Absolute Neutrophil Count 9.3 X10^3/uL (2.0-7.7); Basophil# 0.02 X10^3/uL; Basophil% 0.2 % (0-1); Eosinophil# 0.01 X10^3/uL; Eosinophils% 0.1 % (0-5); Hematocrit 23.9 % (37-47); Lymphocyte # 0.76 X10^3/ul (0.83-4.51); Mean Corp Hgb Conc 33.5 g/dL (32-36); Mean Corpuscular Hgb 32.8 pg (27.0-32.0); Mean Platelet Vol. 10.2 fl (6.2-12.0); Monocyte# 0.36 X10^3/uL; Monocyte% 3.3 % (0-10); Neutrophil # 9.33 X10^3/uL (2.7-7.7); Neutrophil % 86.2 % (47-70); Platelet Count 109 K/mm3 (150-450); RBC Distribution Width CV 19.4 % (11.6-14.6); RBC Distribution Width SD 61.2 fl (35.1-43.9); Red Blood Count 2.44 M/mm3 (4.2-5.4); White Blood Count 10.8 K/mm3 (4.4-11.0)
[2022-04-01 04:13] LABS: International Normalized Ratio 1.3; Prothrombin Time (Protime)PT. 16.2 SECONDS (11.7-14.9)
[2022-04-01 04:27] LABS: ALB/GLOB Ratio 0.5 RATIO (0.9-2.4); AST(SGOT) 27 U/L (15-37); Alanine Aminotransfer ALT/SGPT 12 U/L (13-56); Alkaline Phosphatase 129 U/L (45-117); Anion Gap 9 (5-15); BUN 61 mg/dL (7-18); BUN/Creat Ratio 19.5 RATIO (10-20); Calcium,Total 8.6 mg/dL (8.5-10.1); Chloride 118 mmol/L (98-107); Creatinine, Serum 3.13 mg/dL (0.55-1.02); EST Glomerular Filtration Rate 15 mL/min (>60); Est Glom Filt Rate - Afr Amer 18 mL/min (>60); Globulin 3.8 g/dL (2.2-4.2); Glucose 143 mg/dL (74-106); Potassium 4.5 mmol/L (3.5-5.1); Protein, Total 5.8 g/dL (6.4-8.2); Sodium Level 146 mmol/L (136-145)
[2022-04-01] MEDS: 0.9% Saline Lock 10 ML Syringe IV ×2 (05:57→09:29)
[2022-04-01] MEDS: Nystatin Powder 15gm Bottle 1 APPLIC TOPICAL ×3 (05:58→21:21)
[2022-04-01] MEDS: Hydrocortisone Sod Succinate 100 MG/2 ML Vial IV ×3 (05:58→21:23)
--- NOTE | 2022-04-01 06:18 | PN.CC_ITS ---
Assessment & Plan Assessment/Plan (1) Hypotension: (2) Anemia: (3) Endocarditis: PLAN: Plan RECOMMENDATIONS: 1. Continue to monitor H&H and transfuse if hemoglobin drops below 7 g/dL. 2. Continue to hold systemic anticoagulation. 3. Antimicrobials per ID recommendations. 4. Wean stress dose steroids. 5. Wean supplemental oxygen to maintain saturations at or above 90%. 6. Atrial fibrillation management per cardiology. 7. Goals of care discussion with the patient's family. 8. Given the patient's lack of further ICU needs, will sign off. Please call with any additional questions. IMPRESSIONS: 1. Hypotension Most likely secondary to anemia in the setting of hematoma and coagulopathy. The patient's hemodynamic status has stabilized with transfusion of blood products and holding of systemic anticoagulation. Plan to continue to monitor H&H daily and transfuse if hemoglobin drops below 7 g/dL. Stress dose steroids can be weaned from my perspective. The patient remains off of vasopressor support. 2. Prostatic valve endocarditis Continue antimicrobial management per ID recommendations. 3. Acute on chronic kidney disease Most likely secondary to ischemic ATN in the setting of hypotension. The patient remains off of vasopressor support. Her creatinine continues to rise. Nephrology is following to assist with medical management. 4. 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 5. Recent admission/morbid obesity/bilateral lymphedema/bilateral arthritis Complicates care, management, recovery and prognosis. Continue supportive measures as noted above. Recommend goals of care discussion with the patient and family. This note was generated with [employer] dictation software. It may contain incorrect words, spelling, and punctuation that were not noted in checking the note before signing. Subjective Subjective The patient was seen and examined at the bedside this morning. Events from the last 24 hours have been reviewed. The patient is currently afebrile, hemodynamically stable and maintaining appropriate oxygen saturations on 2 L/min via nasal cannula. The patient was able to be weaned from Levophed yesterday. She is currently documented to be overall net +8.9 L for the hospitalization. She remains in atrial fibrillation with RVR. Hemoglobin is stable at 8.0 g/dL. Creatinine has increased to 3.13. Objective Data Objective Data The patient's most recent lab work, culture data and imaging studies have all been personally reviewed. Surface echocardiogram demonstrated normal LV size with an ejection fraction of 65 to 70%. The RV was noted to be moderately dilated. Vital Signs: Vital Signs Temp Pulse Resp BP Pulse Ox O2 Del Method O2 Flow Rate 98.9 F 142 H 23 H 117/77 94 Nasal Cannula 2 04/01/22 04:00 04/01/22 04:00 04/01/22 04:00 04/01/22 04:00 04/01/22 03:00 04/01/22 04:00 04/01/22 04:00 Oxygen Flow Rate (L/min) 2 Oxygen Delivery Method Nasal Cannula Weight: 237 lb 3.478 oz Body Mass Index (BMI) 44.7 Intake & Output: Intake and Output for Last 24 Hours 03/30/22 03/31/22 04/01/22 23:59 23:59 23:59 Intake Total 3160.45 / 3217.48 1275.69 / 1275.69 Output Total 105 / 255 290 / 340 125 / 125 Balance 3055.45 / 2962.48 985.69 / 935.69 -125 / -125 Lab / Micro Data Attestation: I reviewed the patient's lab results. Result Diagrams: 04/01/22 03:45 04/01/22 03:45 Labs: Laboratory Results - last 24 hr 03/30/22 03:55: Diff Path Review Reviewed 03/31/22 03:55: PT 15.9 H, INR 1.3 03/31/22 11:10: Random Vancomycin 16.6 H 04/01/22 03:45: WBC 10.8, RBC 2.44 L, Hgb 8.0 L, Hct 23.9 L, MCV 98.0, MCH 32.8 H, MCHC 33.5, RDW Std Deviation 61.2 H, RDW Coeff of Diandra 19.4 H, Plt Count 109 L , MPV 10.2, Immature Gran % (Auto) 3.200 H, Neut % (Auto) 86.2 H, Lymph % (Auto) 7.0 L, [place] % (Auto) 3.3, Eos % (Auto) 0.1, Baso % (Auto) 0.2, Absolute Neuts (auto) 9.3 H, Absolute Lymphs (auto) 0.76 L, Nucleated RBC % 3.0 04/01/22 03:45: Sodium 146 H, Potassium 4.5, Chloride 118 H, Carbon Dioxide 19.0 L, Anion Gap 9, BUN 61 H, Creatinine 3.13 H, Estim Creat Clear Calc 10.30, Est GFR (MDRD) Af Amer 18 L, Est GFR (MDRD) Non-Af 15 L, BUN/Creatinine Ratio 19.5, Glucose 143 H, Calcium 8.6, Total Bilirubin 0.80, AST 27, ALT 12 L, Alkaline Phosphatase 129 H, Total Protein 5.8 L, Albumin 2.0 L, Globulin 3.8, Albumin/Globulin Ratio 0.5 L 04/01/22 03:45: PT 16.2 H, INR 1.3 Micro: Microbiology 03/29/22 11:10 Urine Catheter - Catheter Urine Culture - Final Citrobacter freundii Yeast, not Renée albicans 03/29/22 10:15 Blood Culture (Wb) - Left Wrist Blood Culture - Preliminary No growth in 48 hours. 03/29/22 09:35 Blood Culture (Wb) - Left Wrist Blood Culture - Preliminary No growth in 48 hours. Physical Exam Const alert and no apparent distress General Appearance: cooperative Orientation / Consciousness: awake Nutritional Appearance: obese HEENT normocephalic and head/scalp atraumatic Eyes PERRL, EOMs intact bilaterally and conjunctivae normal Neck supple General: trachea midline Resp normal respiratory effort Auscultation: diminished lung sounds; Negative for rales, rhonchi or wheezes Cardio S1 normal heart sound, S2 normal heart sound, no murmurs, no rub, no gallops and no clicks Rate: tachycardic Rhythm: abnormal rhythm irregularly irregular GI normal to inspection, nondistended, normoactive bowel sounds, soft to palpation and non-tender Extremity Extremity Narrative: Large ecchymosis of the right hip. There is an area of significant induration on the anterior lateral side. Skin Skin Narrative: Skin is pale with scattered ecchymosis Neuro CN's II-XII intact bilaterally and no focal motor deficits Neuro Narrative: Marked debility with decreased strength but no focal deficits Psych Mood & Affect: flat affect Charges/Coding Visit Charges Inpatient E&M: 55283 Subs Hosp L3
[2022-04-01] MEDS: Amiodarone 360 MG in Dextrose 5% Viaflo Bag 192.8 ML 16.7 MG CONT INF ×2 (08:37→21:21)
[2022-04-01] MEDS: FLU VACC QS2022-23(6MOS UP)/PF 60 MCG/0.5 ML SYRINGE IM (09:28)
--- NOTE | 2022-04-01 10:13 | PCM.PN.REN ---
Subjective Subjective Slow to respond, debilitated. Poor historian. She is arousable to verbal stimuli. Objective Data Objective Data Vital Signs: Vital Signs Temp Pulse Resp BP Pulse Ox O2 Del Method O2 Flow Rate 98.6 F 120 H 17 130/76 H 97 Nasal Cannula 2 04/01/22 10:00 04/01/22 10:00 04/01/22 10:00 04/01/22 10:00 04/01/22 10:00 04/01/22 10:00 04/01/22 10:00 Oxygen Flow Rate (L/min) 2 Oxygen Delivery Method Nasal Cannula Weight: 107.6 kg Body Mass Index (BMI) 44.7 Intake & Output: Intake and Output for Last 24 Hours 03/30/22 03/31/22 04/01/22 23:59 23:59 23:59 Intake Total 3160.45 / 3217.48 1275.69 / 1275.69 288.54 / 288.54 Output Total 105 / 255 290 / 340 125 / 125 Balance 3055.45 / 2962.48 985.69 / 935.69 163.54 / 163.54 Lab / Micro Data Result Diagrams: 04/01/22 03:45 04/01/22 03:45 Labs: Laboratory Results - last 24 hr 03/31/22 11:10: Random Vancomycin 16.6 H 04/01/22 03:45: WBC 10.8, RBC 2.44 L, Hgb 8.0 L, Hct 23.9 L, MCV 98.0, MCH 32.8 H, MCHC 33.5, RDW Std Deviation 61.2 H, RDW Coeff of Diandra 19.4 H, Plt Count 109 L, MPV 10.2, Immature Gran % (Auto) 3.200 H, Neut % (Auto) 86.2 H, Lymph % (Auto) 7.0 L, [place] % (Auto) 3.3, Eos % (Auto) 0.1, Baso % (Auto) 0.2, Absolute Neuts (auto) 9.3 H, Absolute Lymphs (auto) 0.76 L, Nucleated RBC % 3.0 04/01/22 03:45: Sodium 146 H, Potassium 4.5, Chloride 118 H, Carbon Dioxide 19.0 L, Anion Gap 9, BUN 61 H, Creatinine 3.13 H, Estim Creat Clear Calc 10.30, Est GFR (MDRD) Af Amer 18 L, Est GFR (MDRD) Non-Af 15 L, BUN/Creatinine Ratio 19.5, Glucose 143 H, Calcium 8.6, Total Bilirubin 0.80, AST 27, ALT 12 L, Alkaline Phosphatase 129 H, Total Protein 5.8 L, Albumin 2.0 L, Globulin 3.8, Albumin/Globulin Ratio 0.5 L 04/01/22 03:45: PT 16.2 H, INR 1.3 Micro: Microbiology 03/29/22 11:10 Urine Catheter - Catheter Urine Culture - Final Citrobacter freundii Yeast, not Renée albicans 03/29/22 10:15 Blood Culture (Wb) - Left Wrist Blood Culture - Preliminary No growth in 48 hours. 03/29/22 09:35 Blood Culture (Wb) - Left Wrist Blood Culture - Preliminary No growth in 48 hours. Physical Exam Const no apparent distress Nutritional Appearance: obese HEENT Mouth: dry mucous membranes Eyes EOMs intact bilaterally Neck supple Resp clear to auscultation bilaterally Cardio Rhythm: abnormal rhythm irregularly irregular (Tachycardic) GI non-tender and non-distended Auscultation: normoactive bowel sounds Palpation: soft Bladder / Kidney Exam: catheter in place urethral (Oliguric) Extremity Extremity Narrative: No edema Skin Skin Narrative: diffuse Ecchymosis, right hip hematoma Neuro Sensorium / Orientation: awake Psych cooperative Psych Narrative: slow to respond Mood & Affect: depressed Assessment & Plan Assessment/Plan (1) Acute renal failure: PLAN: Acute renal failure on CKD likely due to ischemic ATN from hypotension, sepsis syndrome. Renal fxn continues to decline. Remains oliguric. Poor dilaysis candidate due to multiple comorbidities, endocarditis, chronic debilitation, Poor quality of life. PEPE POA, nursing staff. Lasix x1 today. Consider DNR, no heroic measures including no dialysis. (2) CKD (chronic kidney disease) stage 4, GFR 15-29 ml/min: PLAN: baseline creatinine 1.5. No nephrologic care prior to hospitalization. (3) Hypotension: PLAN: BP stable (4) Prosthetic valve endocarditis: PLAN: Renal dose antibiotics (5) Anemia: PLAN: PRBCs as needed (6) Bacteremia due to Enterococcus: PLAN: On long-term antibiotic therapy (7) Atrial fibrillation: PLAN: tachycardic (8) UTI (urinary tract infection): PLAN: With endocarditis, sepsis
[2022-04-01] MEDS: Furosemide 40 MG/4 ML Vial IV (11:06)
[2022-04-01] MEDS: Metoprolol Tartrate 5 MG/5 ML Vial IV ×2 (13:46→23:42)
--- NOTE | 2022-04-01 14:52 | PN.CARD_ITS ---
Subjective Subjective Seen and evaluated today at bedside along with the nursing staff Noted cardiac rhythm showing underlying atrial fibrillation Noted she is in A. fib with RVR Objective Data Vital Signs: Vital Signs Temp Pulse Resp BP Pulse Ox O2 Del Method O2 Flow Rate 98.7 F 99 20 H 121/75 H 96 Nasal Cannula 2 04/01/22 14:00 04/01/22 14:00 04/01/22 14:00 04/01/22 14:00 04/01/22 14:00 04/01/22 14:00 04/01/22 14:00 Oxygen Flow Rate (L/min) 2 Oxygen Delivery Method Nasal Cannula Weight: 237 lb 3.478 oz Body Mass Index (BMI) 44.7 Intake & Output: Intake and Output for Last 24 Hours 03/30/22 03/31/22 04/01/22 23:59 23:59 23:59 Intake Total 3160.45 / 3217.48 1275.69 / 1275.69 498.54 / 498.54 Output Total 105 / 255 290 / 340 250 / 250 Balance 3055.45 / 2962.48 985.69 / 935.69 248.54 / 248.54 Lab / Micro Data Result Diagrams: 04/01/22 03:45 04/01/22 03:45 Labs: Laboratory Results - last 24 hr 04/01/22 03:45: WBC 10.8, RBC 2.44 L, Hgb 8.0 L, Hct 23.9 L, MCV 98.0, MCH 32.8 H, MCHC 33.5, RDW Std Deviation 61.2 H, RDW Coeff of Diandra 19.4 H, Plt Count 109 L , MPV 10.2, Immature Gran % (Auto) 3.200 H, Neut % (Auto) 86.2 H, Lymph % (Auto) 7.0 L, [place] % (Auto) 3.3, Eos % (Auto) 0.1, Baso % (Auto) 0.2, Absolute Neuts (auto) 9.3 H, Absolute Lymphs (auto) 0.76 L, Nucleated RBC % 3.0 04/01/22 03:45: Sodium 146 H, Potassium 4.5, Chloride 118 H, Carbon Dioxide 19.0 L, Anion Gap 9, BUN 61 H, Creatinine 3.13 H, Estim Creat Clear Calc 10.30, Est GFR (MDRD) Af Amer 18 L, Est GFR (MDRD) Non-Af 15 L, BUN/Creatinine Ratio 19.5, Glucose 143 H, Calcium 8.6, Total Bilirubin 0.80, AST 27, ALT 12 L, Alkaline Phosphatase 129 H, Total Protein 5.8 L, Albumin 2.0 L, Globulin 3.8, Albumin/Globulin Ratio 0.5 L 04/01/22 03:45: PT 16.2 H, INR 1.3 Cardiology Labs/Tests 04/01/22 03:45: WBC 10.8, RBC 2.44 L, Hgb 8.0 L, Hct 23.9 L, MCV 98.0, MCH 32.8 H, MCHC 33.5, Plt Count 109 L, MPV 10.2, Immature Gran % (Auto) 3.200 H, Neut % (Auto) 86.2 H, Lymph % (Auto) 7.0 L, [place] % (Auto) 3.3, Eos % (Auto) 0.1, Baso % (Auto) 0.2, Absolute Neuts (auto) 9.3 H, Nucleated RBC % 3.0 04/01/22 03:45: Sodium 146 H, Potassium 4.5, Chloride 118 H, Carbon Dioxide 19.0 L, Anion Gap 9, BUN 61 H, Creatinine 3.13 H, Est GFR (MDRD) Af Amer 18 L, Est GFR (MDRD) Non-Af 15 L, BUN/Creatinine Ratio 19.5, Glucose 143 H, Calcium 8.6, Total Bilirubin 0.80 04/01/22 03:45: PT 16.2 H, INR 1.3 Rhythm: EKG: ECHO: Stress Test: Cardiac Cath: PCI: CT Surgery: Holter monitor: EPS: PPM: CXR: Chest CT Scan: Physical Exam Cardio Cardio Narrative: Review of the monitor technician showed underlying A. fib with RVR Cardiovascular S1-S2 is regular Chest exam, diminished air entry bilateral Assessment & Plan Assessment/Plan (1) Acute on chronic renal insufficiency: (2) Bacteremia due to Enterococcus: (3) S/P MVR (mitral valve replacement): (4) Prosthetic valve endocarditis: PLAN: Plan 81 year-old patient with multiple medical comorbidities Mitral valve prosthetic endocarditis, patient had also history of tricuspid valve annuloplasty On antimicrobial therapy/ceftriaxone/ampicillin monitored by ID Has anemia, with chronic atrial fibrillation. Anticoagulation discontinued Recent echocardiogram showed normal LV systolic function Ejection fraction 65-70% with moderately enlarged RV. Cardiac care plan recommendations; 1. High risk patient for anticoagulation with a history of anemia Will continue on rate control using beta-marky IV as patient could not tolerate p.o. In addition to amiodarone IV. Patient stable hemodynamically, off inotropic support Will continue to monitor and follow-up clinically.
--- NOTE | 2022-04-01 15:06 | PCM.PN.HOSP ---
Subjective Subjective Follow-up shock/acute blood loss anemia/right thigh hematoma Laying comfortably in bed but very tired, unable to consistently answer questions or orientation questions. Has remained off pressors. Objective Data Objective Data Vital Signs: Vital Signs Temp Pulse Resp BP Pulse Ox O2 Del Method O2 Flow Rate 98.7 F 99 20 H 121/75 H 96 Nasal Cannula 2 04/01/22 14:00 04/01/22 14:00 04/01/22 14:00 04/01/22 14:00 04/01/22 14:00 04/01/22 14:00 04/01/22 14:00 Oxygen Flow Rate (L/min) 2 Oxygen Delivery Method Nasal Cannula Weight: 107.6 kg Body Mass Index (BMI) 44.7 Intake & Output: Intake and Output for Last 24 Hours 03/30/22 03/31/22 04/01/22 23:59 23:59 23:59 Intake Total 3160.45 / 3217.48 1275.69 / 1275.69 498.54 / 498.54 Output Total 105 / 255 290 / 340 250 / 250 Balance 3055.45 / 2962.48 985.69 / 935.69 248.54 / 248.54 Lab / Micro Data Result Diagrams: 04/01/22 03:45 04/01/22 03:45 Labs: Laboratory Results - last 24 hr 04/01/22 03:45: WBC 10.8, RBC 2.44 L, Hgb 8.0 L, Hct 23.9 L, MCV 98.0, MCH 32.8 H, MCHC 33.5, RDW Std Deviation 61.2 H, RDW Coeff of Diandra 19.4 H, Plt Count 109 L, MPV 10.2, Immature Gran % (Auto) 3.200 H, Neut % (Auto) 86.2 H, Lymph % (Auto) 7.0 L, Morrison % (Auto) 3.3, Eos % (Auto) 0.1, Baso % (Auto) 0.2, Absolute Neuts (auto) 9.3 H, Absolute Lymphs (auto) 0.76 L, Nucleated RBC % 3.0 04/01/22 03:45: Sodium 146 H, Potassium 4.5, Chloride 118 H, Carbon Dioxide 19.0 L, Anion Gap 9, BUN 61 H, Creatinine 3.13 H, Estim Creat Clear Calc 10.30, Est GFR (MDRD) Af Amer 18 L, Est GFR (MDRD) Non-Af 15 L, BUN/Creatinine Ratio 19.5, Glucose 143 H, Calcium 8.6, Total Bilirubin 0.80, AST 27, ALT 12 L, Alkaline Phosphatase 129 H, Total Protein 5.8 L, Albumin 2.0 L, Globulin 3.8, Albumin/Globulin Ratio 0.5 L 04/01/22 03:45: PT 16.2 H, INR 1.3 Micro: Microbiology 03/29/22 11:10 Urine Catheter - Catheter Urine Culture - Final Citrobacter freundii Yeast, not Renée albicans 03/29/22 10:15 Blood Culture (Wb) - Left Wrist Blood Culture - Preliminary No growth in 48 hours. 03/29/22 09:35 Blood Culture (Wb) - Left Wrist Blood Culture - Preliminary No growth in 48 hours. Physical Exam Const Constitutional Narrative: Tired and unable to answer orientation questions HEENT normocephalic and head/scalp atraumatic Eyes Eyes Narrative: Opens eyes spontaneously to voice Neck supple Resp normal respiratory effort Resp Narrative: Diminished at the bases Cardio Cardio Narrative: Irregularly irregular GI soft to palpation and non-distended Extremity Extremity Narrative: No edema appreciated Skin Skin Narrative: Current skin changes lateral lower extremities Neuro moves all extremities Neuro Narrative: No overt focal deficits appreciated Psych Psych Narrative: Unable to cooperate secondary to mental status Assessment & Plan Assessment/Plan (1) Acute on chronic renal insufficiency: (2) Bacteremia due to Enterococcus: (3) S/P MVR (mitral valve replacement): (4) Prosthetic valve endocarditis: PLAN: Plan #Hypovolemic shock in setting of acute anemia and hematoma Resolved Systemic anticoagulation held and she has received packed red blood cells Monitoring H&H, transfuse if less than 7 Can begin weaning stress dose steroids from IV CV perspective Off vasopressors Surgery following due to hematoma and fracture ICU team signed off #Severe anemia secondary to acute blood loss and right proximal lower extremity Trending hemoglobin, has received 4 units of packed red blood cells Transfuse if less than 7 Systemic anticoagulation held #Recent acute GI bleed Recent grade B erosive esophagitis with oozing gastric ulcers and visible vessel which was injected and treated. Continue IV PPI, GI does not recommend repeat EGD at this time #Acute kidney injury on CKD stage IV Baseline 1.5 Likely ischemic ATN due to hypotension Continues to worsen Nephrology following?poor dialysis candidate Got Lasix x1 yesterday #Prostatic mitral valve endocarditis Cardiology and infectious disease following On Rocephin and ampicillin, vancomycin discontinued Most recent blood cultures no growth to date 48 hours #Atrial fibrillation Not on anticoagulation due to high risk with her history of anemia Cardiology following Recent echo with normal LV and EF 65-70% with moderately enlarged RV IV amiodarone and IV beta-marky as she is not tolerating p.o. #Supratherapeutic INR Possibly due to vitamin K deficiency from malnutrition This has been resolved Holding systemic anticoagulation #DVT ppx: SCDs given bleeding and anemia Rachna Green MD Charges/Coding Visit Charges Inpatient E&M: 95935 Subs Hosp L2
[2022-04-02] VITALS (28 sets, daily range): BP systolic 111–152; BP diastolic 65–107; PULSE 96–123; RESP 11–25; TEMP 36.3–36.9; O2SAT 88–97
--- NOTE | 2022-04-02 01:00 | NURSING ---
Noted pt's p.ox. 88%, pt found w/NC in hand on [employer]. Attempted to replace NC and pt refused to let go of NC at first. Attempted to place NC to nares once loose from pt's hand and pt swatted open hand at this RN, scraping skin w/her fingernails, and yelling What are you doing?! Explanation of need for O2 and low p.ox reading failed as pt cont to perseverate what are you doing?! while slapping at this RN. O2 left off at this time.
--- NOTE | 2022-04-02 02:17 | NURSING ---
Pt more pleasant and approachable now; O2 via NC applied at 2L.
[2022-04-02 04:32] LABS: Hematocrit 25.9 % (37-47); Mean Corp Hgb Conc 30.9 g/dL (32-36); Mean Corpuscular Hgb 30.8 pg (27.0-32.0); Mean Corpuscular Volume 99.6 fL (81-99); Mean Platelet Vol. 10.7 fl (6.2-12.0); POSITIVE COUNT YES; POSITIVE MORPHOLOGY YES; Platelet Count 126 K/mm3 (150-450); RBC Distribution Width CV 20.5 % (11.6-14.6); RBC Distribution Width SD 66.1 fl (35.1-43.9); White Blood Count 12.8 K/mm3 (4.4-11.0)
[2022-04-02 04:45] LABS: Differential Indicated MANUAL DIFF
[2022-04-02 04:50] LABS: International Normalized Ratio 1.4; Prothrombin Time (Protime)PT. 16.6 SECONDS (11.7-14.9)
[2022-04-02 04:54] LABS: ALB/GLOB Ratio 0.6 RATIO (0.9-2.4); AST(SGOT) 27 U/L (15-37); Alanine Aminotransfer ALT/SGPT 13 U/L (13-56); Albumin, Serum 2.3 g/dL (3.2-5.0); Alkaline Phosphatase 159 U/L (45-117); Anion Gap 11 (5-15); BUN 69 mg/dL (7-18); Chloride 119 mmol/L (98-107); Creatinine, Serum 3.28 mg/dL (0.55-1.02); EST Glomerular Filtration Rate 14 mL/min (>60); Est Glom Filt Rate - Afr Amer 17 mL/min (>60); Estimated Creatinine Clearance 9.83 ml/min; Globulin 3.9 g/dL (2.2-4.2); Glucose 124 mg/dL (74-106); Potassium 4.3 mmol/L (3.5-5.1); Protein, Total 6.2 g/dL (6.4-8.2); Sodium Level 149 mmol/L (136-145)
[2022-04-02] MEDS: Nystatin Powder 15gm Bottle 1 APPLIC TOPICAL ×3 (06:14→21:32)
[2022-04-02] MEDS: 0.9% Saline Lock 10 ML Syringe IV ×2 (06:14→15:43)
[2022-04-02 06:30] LABS: Anisocytosis 2+; Macrocytosis RARE; Platelet Estimate SLT DEC (ADEQ)
[2022-04-02 06:32] LABS: Absolute Neutrophil Count 10.5 X10^3/uL (2.0-7.7)
[2022-04-02 06:33] LABS: Absolute Lymphocyte Count 1.41 X10^3/uL (0.83-4.51); Total Cells Counted 104 (MANUAL DIFF)
[2022-04-02 06:34] LABS: Lymphocyte 11 % (19-41); Monocyte 3 % (0-10); Myelocyte 2 % (0-0); Neutrophil-Band 7 % (0-5); Neutrophil-Segmented 75 % (47-70)
[2022-04-02 06:35] LABS: Nucleated Red Bld Cells,Manual 2 % (0-5)
[2022-04-02] MEDS: Hydrocortisone Sod Succinate 100 MG/2 ML Vial IV ×2 (08:56→21:35)
[2022-04-02] MEDS: Amiodarone 360 MG in Dextrose 5% Viaflo Bag 192.8 ML 16.7 MG CONT INF ×2 (08:56→21:00)
[2022-04-02] MEDS: Dext 5%-0.45% NS 1,000 ML 60 ML IV (10:30)
[2022-04-02] MEDS: Petrolatum 33% Tube 1 APPLIC TOPICAL (11:37)
--- NOTE | 2022-04-02 13:16 | PN.HOSP_ITS ---
Subjective Subjective Laying in bed today, tired and minimally answering questions. Does have some pain in her leg, did not voice any other complaints Objective Data Objective Data Vital Signs: Vital Signs Temp Pulse Resp BP Pulse Ox O2 Del Method O2 Flow Rate 98.5 F 120 H 21 H 152/94 H 95 Nasal Cannula 2 04/02/22 12:00 04/02/22 12:00 04/02/22 12:00 04/02/22 12:00 04/02/22 12:00 04/02/22 12:00 04/02/22 12:23 Oxygen Flow Rate (L/min) 2 Oxygen Delivery Method Nasal Cannula Weight: 107.1 kg Body Mass Index (BMI) 44.7 Intake & Output: Intake and Output for Last 24 Hours 03/31/22 04/01/22 04/02/22 23:59 23:59 23:59 Intake Total 1275.69 / 1275.69 858.54 / 858.54 453.44 / 453.44 Output Total 290 / 340 425 / 575 400 / 400 Balance 985.69 / 935.69 433.54 / 283.54 53.44 / 53.44 Lab / Micro Data Result Diagrams: 04/02/22 03:43 04/02/22 03:43 Labs: Laboratory Results - last 24 hr 04/02/22 03:43: WBC 12.8 H, RBC 2.60 L, Hgb 8.0 L, Hct 25.9 L, MCV 99.6 H, MCH 30.8, MCHC 30.9 L D, RDW Std Deviation 66.1 H, RDW Coeff of Diandra 20.5 H, Plt Count 126 L, MPV 10.7, Neut % (Auto) Not Reportable, Absolute Neuts (auto) 10.5 H, Absolute Lymphs (auto) 1.41, Total Counted 104, Neutrophils % (Manual) 75 H, Band Neutrophils % 7 H, Lymphocytes % (Manual) 11 L, Monocytes % (Manual) 3, Myelocytes % 2 H, Nucleated RBCs/100 WBC 2, Diff Path Review May , Platelet Estimate SLT DEC, Anisocytosis 2+, Macrocytosis RARE 04/02/22 03:43: Sodium 149 H, Potassium 4.3, Chloride 119 H, Carbon Dioxide 19.0 L, Anion Gap 11, BUN 69 H, Creatinine 3.28 H, Estim Creat Clear Calc 9.83, Est GFR (MDRD) Af Amer 17 L, Est GFR (MDRD) Non-Af 14 L, BUN/Creatinine Ratio 21.0 H , Glucose 124 H, Calcium 9.0, Total Bilirubin 1.10 H, AST 27, ALT 13, Alkaline Phosphatase 159 H, Total Protein 6.2 L, Albumin 2.3 L, Globulin 3.9, Albumin/Globulin Ratio 0.6 L 04/02/22 03:43: PT 16.6 H, INR 1.4 Micro: Microbiology 03/29/22 11:10 Urine Catheter - Catheter Urine Culture - Final Citrobacter freundii Yeast, not Renée albicans 03/29/22 10:15 Blood Culture (Wb) - Left Wrist Blood Culture - Preliminary No growth in 48 hours. 03/29/22 09:35 Blood Culture (Wb) - Left Wrist Blood Culture - Preliminary No growth in 48 hours. Physical Exam Const Constitutional Narrative: Tired and would not answer orientation questions, does not appear acutely distressed HEENT normocephalic and head/scalp atraumatic Eyes Eyes Narrative: Opens eyes spontaneously to voice Neck supple Resp normal respiratory effort Resp Narrative: Diminished at the bases Cardio Cardio Narrative: Irregularly irregular, mildly tachycardic GI soft to palpation and non-distended Extremity Extremity Narrative: No edema appreciated Skin Skin Narrative: Chronic skin changes lateral lower extremities Neuro moves all extremities Neuro Narrative: No overt focal deficits appreciated Psych Psych Narrative: Unable to cooperate secondary to mental status Assessment & Plan Assessment/Plan (1) Acute on chronic renal insufficiency: (2) Bacteremia due to Enterococcus: (3) S/P MVR (mitral valve replacement): (4) Prosthetic valve endocarditis: PLAN: Plan #Hypovolemic shock in setting of acute anemia and hematoma-resolved Systemic anticoagulation held and she has received packed red blood cells Monitoring H&H, transfuse if less than 7 Can begin weaning stress dose steroids from IV CV perspective Off vasopressors Surgery following due to hematoma and fracture ICU team signed off 04/02/2022: Remains mildly tachycardic, not hypotensive and not requiring pressors. On hydrocortisone 100 mg IV every 12, will work towards tapering further #Severe anemia secondary to acute blood loss and right proximal lower extremity Trending hemoglobin, has received 4 units of packed red blood cells Transfuse if less than 7 Systemic anticoagulation held Hemoglobin is remained stable #Recent acute GI bleed Recent grade B erosive esophagitis with oozing gastric ulcers and visible vessel which was injected and treated. Continue IV PPI, GI does not recommend repeat EGD at this time #Acute kidney injury on CKD stage IV Baseline 1.5 Likely ischemic ATN due to hypotension Continues to worsen Nephrology following?poor dialysis candidate Got Lasix x1 yesterday 04/02: Continues to worsen, nephrology following. Patient is now DNR/DNI, will need to continue setting realistic expectations and goals of care #Prostatic mitral valve endocarditis Cardiology and infectious disease following On Rocephin and ampicillin, vancomycin discontinued Most recent blood cultures no growth to date 48 hours #Atrial fibrillation Not on anticoagulation due to high risk with her history of anemia Cardiology following Recent echo with normal LV and EF 65-70% with moderately enlarged RV IV amiodarone and IV beta-marky as she is not tolerating p.o. #Supratherapeutic INR Possibly due to vitamin K deficiency from malnutrition This has been resolved Holding systemic anticoagulation #DVT ppx: SCDs given bleeding and anemia Rachna Green MD Charges/Coding Visit Charges Inpatient E&M: 30609 Subs Hosp L2
--- NOTE | 2022-04-02 13:59 | PN.CARD_ITS ---
Subjective Subjective Seen and evaluated today no complaints reported. Objective Data Vital Signs: Vital Signs Temp Pulse Resp BP Pulse Ox O2 Del Method O2 Flow Rate 98.5 F 116 H 25 H 130/71 H 97 Nasal Cannula 2 04/02/22 12:00 04/02/22 13:00 04/02/22 13:00 04/02/22 13:00 04/02/22 13:32 04/02/22 13:32 04/02/22 13:00 Oxygen Flow Rate (L/min) 2 Oxygen Delivery Method Nasal Cannula Weight: 236 lb 1.841 oz Body Mass Index (BMI) 44.7 Intake & Output: Intake and Output for Last 24 Hours 03/31/22 04/01/22 04/02/22 23:59 23:59 23:59 Intake Total 1275.69 / 1275.69 858.54 / 858.54 453.44 / 453.44 Output Total 290 / 340 425 / 575 400 / 400 Balance 985.69 / 935.69 433.54 / 283.54 53.44 / 53.44 Lab / Micro Data Result Diagrams: 04/02/22 03:43 04/02/22 03:43 Labs: Laboratory Results - last 24 hr 04/02/22 03:43: WBC 12.8 H, RBC 2.60 L, Hgb 8.0 L, Hct 25.9 L, MCV 99.6 H, MCH 30.8, MCHC 30.9 L D, RDW Std Deviation 66.1 H, RDW Coeff of Diandra 20.5 H, Plt Count 126 L, MPV 10.7, Neut % (Auto) Not Reportable, Absolute Neuts (auto) 10.5 H, Absolute Lymphs (auto) 1.41, Total Counted 104, Neutrophils % (Manual) 75 H, Band Neutrophils % 7 H, Lymphocytes % (Manual) 11 L, Monocytes % (Manual) 3, Myelocytes % 2 H, Nucleated RBCs/100 WBC 2, Diff Path Review August, Platelet Estimate SLT DEC, Anisocytosis 2+, Macrocytosis RARE 04/02/22 03:43: Sodium 149 H, Potassium 4.3, Chloride 119 H, Carbon Dioxide 19.0 L, Anion Gap 11, BUN 69 H, Creatinine 3.28 H, Estim Creat Clear Calc 9.83, Est GFR (MDRD) Af Amer 17 L, Est GFR (MDRD) Non-Af 14 L, BUN/Creatinine Ratio 21.0 H , Glucose 124 H, Calcium 9.0, Total Bilirubin 1.10 H, AST 27, ALT 13, Alkaline Phosphatase 159 H, Total Protein 6.2 L, Albumin 2.3 L, Globulin 3.9, Albumin/Globulin Ratio 0.6 L 04/02/22 03:43: PT 16.6 H, INR 1.4 Cardiology Labs/Tests 04/02/22 03:43: WBC 12.8 H, RBC 2.60 L, Hgb 8.0 L, Hct 25.9 L, MCV 99.6 H, MCH 30.8, MCHC 30.9 L D, Plt Count 126 L, MPV 10.7, Neut % (Auto) Not Reportable, Absolute Neuts (auto) 10.5 H, Total Counted 104, Neutrophils % (Manual) 75 H, Band Neutrophils % 7 H, Lymphocytes % (Manual) 11 L, Monocytes % (Manual) 3, Myelocytes % 2 H 04/02/22 03:43: Sodium 149 H, Potassium 4.3, Chloride 119 H, Carbon Dioxide 19.0 L, Anion Gap 11, BUN 69 H, Creatinine 3.28 H, Est GFR (MDRD) Af Amer 17 L, Est GFR (MDRD) Non-Af 14 L, BUN/Creatinine Ratio 21.0 H, Glucose 124 H, Calcium 9.0, Total Bilirubin 1.10 H 04/02/22 03:43: PT 16.6 H, INR 1.4 Rhythm: EKG: ECHO: Stress Test: Cardiac Cath: PCI: CT Surgery: Holter monitor: EPS: PPM: CXR: Chest CT Scan: Physical Exam Cardio Cardio Narrative: Note responding very well to answering questions Cardiac exam pulse irregularly irregular Chest exam diminished air entry at the bases. Assessment & Plan Assessment/Plan (1) Acute on chronic renal insufficiency: (2) Endocarditis: (3) S/P MVR (mitral valve replacement): PLAN: Plan 81-year-old patient, with multiple medical comorbidities. 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 Had severe anemia requiring blood transfusion Cardiac care plan recommendations; Family deciding for comfort care and hospice Continued antibiotic treatment as per ID recommendation. From cardiac standpoint no further cardiac input and will sign off
[2022-04-02] MEDS: HYDROmorphone Inj 0.2 MG/ML SYRINGE IV (15:43)
[2022-04-03] VITALS (13 sets, daily range): BP systolic 104–133; BP diastolic 61–112; PULSE 81–114; RESP 14–21; TEMP 35.8–36.3; O2SAT 87–98
[2022-04-03 04:13] LABS: Hematocrit 24.1 % (37-47); Hemoglobin 7.6 g/dL (12.0-15.0); Mean Corp Hgb Conc 31.5 g/dL (32-36); Mean Corpuscular Hgb 31.8 pg (27.0-32.0); Mean Corpuscular Volume 100.8 fL (81-99); Mean Platelet Vol. 10.6 fl (6.2-12.0); POSITIVE COUNT YES; POSITIVE DIFFERENTIAL YES; POSITIVE MORPHOLOGY YES; Platelet Count 92 K/mm3 (150-450); RBC Distribution Width CV 21.2 % (11.6-14.6); RBC Distribution Width SD 66.8 fl (35.1-43.9); Red Blood Count 2.39 M/mm3 (4.2-5.4); White Blood Count 7.3 K/mm3 (4.4-11.0)
[2022-04-03 04:25] LABS: Differential Indicated MANUAL DIFF
[2022-04-03 04:28] LABS: International Normalized Ratio 1.4; Prothrombin Time (Protime)PT. 16.7 SECONDS (11.7-14.9)
[2022-04-03 05:31] LABS: ALB/GLOB Ratio 0.6 RATIO (0.9-2.4); AST(SGOT) 26 U/L (15-37); Alanine Aminotransfer ALT/SGPT 15 U/L (13-56); Albumin, Serum 2.1 g/dL (3.2-5.0); Alkaline Phosphatase 162 U/L (45-117); Anion Gap 10 (5-15); BUN 66 mg/dL (7-18); BUN/Creat Ratio 21.4 RATIO (10-20); Calcium,Total 8.5 mg/dL (8.5-10.1); Chloride 118 mmol/L (98-107); Creatinine, Serum 3.08 mg/dL (0.55-1.02); EST Glomerular Filtration Rate 15 mL/min (>60); Est Glom Filt Rate - Afr Amer 19 mL/min (>60); Estimated Creatinine Clearance 10.46 ml/min; Globulin 3.6 g/dL (2.2-4.2); Glucose 141 mg/dL (74-106); Potassium 3.7 mmol/L (3.5-5.1); Protein, Total 5.7 g/dL (6.4-8.2); Sodium Level 148 mmol/L (136-145)
[2022-04-03] MEDS: 0.9% Saline Lock 10 ML Syringe IV ×3 (05:36→12:50)
[2022-04-03] MEDS: Nystatin Powder 15gm Bottle 1 APPLIC TOPICAL (05:37)
[2022-04-03] MEDS: Dext 5%-0.45% NS 1,000 ML 60 ML IV (05:38)
[2022-04-03 06:08] LABS: Anisocytosis 2+; Macrocytosis RARE; Platelet Estimate MOD DEC (ADEQ)
[2022-04-03 06:11] LABS: Absolute Neutrophil Count 6.2 X10^3/uL (2.0-7.7)
[2022-04-03 06:12] LABS: Absolute Lymphocyte Count 0.73 X10^3/uL (0.83-4.51); Lymphocyte 10 % (19-41); Monocyte 1 % (0-10); Myelocyte 4 % (0-0); Neutrophil-Band 1 % (0-5); Neutrophil-Segmented 83 % (47-70); Nucleated Red Bld Cells,Manual 1 % (0-5); Promyelocyte 1 % (0-0); Total Cells Counted 101 (MANUAL DIFF)
[2022-04-03] MEDS: Hydrocortisone Sod Succinate 100 MG/2 ML Vial IV (10:20)
[2022-04-03] MEDS: Amiodarone 360 MG in Dextrose 5% Viaflo Bag 192.8 ML 16.7 MG CONT INF (10:22)
--- NOTE | 2022-04-03 11:34 | PCM.DC ---
Discharge Instructions Diet Discharge Diet: - (Per hospice) Follow Up Care Test Results: Test results from this visit will be discussed in further detail at your follow-up appointment, if applicable. Discharge Plan Admission Admit Date/Time: 03/29/22 11:49 Primary Reason for Your Visit: Low blood pressure Attending Provider: Rachna Green Primary Care Provider: Carolyn Stephen Consulting Providers: Natalie Do ; Jan Early ; Hu Kumar ; Ben Lizarraga ; Kyler Magdaleno ; Alex Pitts ; Cedrick Oliveira ; Taylor Ojeda [employer] ; Crystal Johnson ; Shlomo Gonzales ; Esther Enrique ; David Morales ; Ciara Case ; Carina Eugene ; Saniya Fishman [employer] ENG[employer]ER Instructions Patient Instructions: Hospice: As Nears Discharge Orders/Prescriptions Prescriptions: New acetaminophen [Tylenol] 325 mg Tablet 650 mg PO Q6H PRN PRN (Reason: Pain 1-10 Or Fever>100.7) Qty: 0 0RF ondansetron HCl (PF) 4 mg/2 mL Solution 4 mg IV Q8H PRN PRN (Reason: NAUSEA/VOMITING) Qty: 0 0RF nystatin [Nyamyc] 100,000 unit/gram Powder 1 applic topical TID Qty: 0 0RF Protocol: *Topical Application Instructions APPLICATION INSTRUCTIONS: Abd folds metoprolol tartrate 5 mg/5 mL Solution 5 mg IV Q6 PRN (Reason: TO CONTROL HEART RATE) Qty: 0 0RF Dilaudid (PF) 0.2 mg/mL Syringe 0.2 mg IV Q6H PRN PRN (Reason: prn pain 6-10) Qty: 0 0RF Petrolatum 33% [Eucerin Eqivalent] 1 applic topical BID PRN PRNQty: 0 0RF Continued sucralfate [Carafate] 1 gram tablet 1 g PO BID Qty: 61 0RF Discontinued furosemide 40 MG tablet 40 mg PO DAILY Hold Instructions: Until reevaluated by nephrology calcium carbonate-vitamin D3 [Calcium 600 + D(3)] 1 EACH tablet 1 ea PO DAILY ceftriaxone 2 gram recon soln 2 g IV Q12H Qty: 66 0RF Rx Instructions: stop date 04/25/22 dx: endocarditis weekly bmp and CBC. Fax to [phone] ampicillin sodium 2 gram Recon Soln 2 g IV QAM 33 Days Qty: 33 0RF Rx Instructions: dx: endocarditis stop date 04/25/22 weekly bmp, cbc. Fax to [phone] diphenhydramine HCl [Allergy Relief(diphenhydramin)] 25 mg tablet 25 mg PO TID PRN (Reason: allergic reaction) 40 Days Qty: 90 0RF Rx Instructions: Give prior to ceftriaxone. tramadol 50 mg Tablet 50 mg PO tramadol 50 mg Tablet 50 mg PO DAILY PRN (Reason: Pain) Centrum Adult 50 Fresh-Fruity 120 mcg Tablet,Chewable 1 tab PO DAILY sennosides [Senna Lax] 8.6 mg Tablet 8.6 mg PO DAILY PRN (Reason: Constipation) sennosides [Senna Lax] 8.6 mg Tablet 8.6 mg PO QHS metoprolol tartrate 100 mg Tablet 100 mg PO BID diltiazem HCl 240 mg capsule,extended release 24hr 240 mg PO DAILY pantoprazole 40 mg tablet,delayed release (DR/EC) 40 mg PO BID Eliquis 2.5 mg tablet 2.5 mg PO BID Referrals / Follow Up: Carolyn Stephen MD [Primary Care Provider] - Disposition Disposition (needs filled in before D/C Order can be placed): Hospice in Medical Facility
[2022-04-03] MEDS: HYDROmorphone Inj 0.2 MG/ML SYRINGE IV (11:37)
--- NOTE | 2022-04-03 11:45 | PCM.DC.SUM ---
Providers Date of Admission: 03/29/22 Date of Discharge: 04/03/22 Primary Care Physician: Dr. Carolyn Stephen MD Consultations 03/29/22 13:41 Consult: Gastroenterology Routine Consulting Provider: [facility] Reason for Consult: GI bleed EMERGENT Consult: No MD Notified: Yes Date Notified: 03/29/22 Time Notified: 15:26 Method of Notification: Text Consult: Basic Sciences Dean / Pulmonary Medicine Routine Consulting Provider: Pulmonary Medicine [facility] Reason for Consult: Hypotension EMERGENT Consult: No MD Notified: Yes Date Notified: 03/29/22 Time Notified: 13:42 Method of Notification: Verbal 03/29/22 16:58 Consult: Infectious Disease Routine Consulting Provider: Hu Kumar Reason for Consult: Shock, endocarditis EMERGENT Consult: No Notified: Yes Date Notified: 03/30/22 Time Notified: 07:41 Method of Notification: Text 03/30/22 09:20 Consult: Nephrology Routine Consulting Provider: Crystal Johnson Reason for Consult: JACQUIE EMERGENT Consult: No Notified: Yes Date Notified: 03/30/22 Time Notified: 09:20 Method of Notification: Verbal 03/30/22 10:11 Consult: Vascular Surgery Routine Consulting Provider: Shlomo Gonzales Reason for Consult: Arterial blood EMERGENT Consult: No Notified: Yes Date Notified: 03/30/22 Time Notified: 10:11 Method of Notification: ED Physician Initiated 03/31/22 08:53 Consult: Cardiology Routine Consulting Provider: Jan Early Reason for Consult: A. fib with RVR EMERGENT Consult: No Notified: Yes Date Notified: 03/31/22 Time Notified: 08:54 Method of Notification: Physician Initiated 04/02/22 15:27 Consult: Hospice / Palliative Care Routine Consulting Provider: [facility] Reason for Consult: Family interested in hospice referral, continues to decline EMERGENT Consult: No Notified: Yes Date Notified: 04/02/22 Time Notified: 15:27 Method of Notification: Answering Service Method of Consult:: In-Person Reason For Visit: ANEMIA Diagnosis Discharge Diagnosis (1) Acute on chronic renal insufficiency: Status: Chronic Code(s): N28.9 - Disorder of kidney and ureter, unspecified; N18.9 - Chronic kidney disease, unspecified (2) Endocarditis: Status: Acute Code(s): I38 - Endocarditis, valve unspecified (3) S/P MVR (mitral valve replacement): Status: Acute Code(s): Z95.2 - Presence of prosthetic heart valve Plan #Hypovolemic shock in setting of acute anemia and hematoma #Severe anemia secondary to acute blood loss and right proximal lower extremity #Recent acute GI bleed #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 #Atrial fibrillation #Supratherapeutic INR Medications at Discharge Home Medications sucralfate 1 gram tablet (Carafate) 1 g PO BID #61 tabs 03/27/22 Petrolatum 33% [Eucerin Eqivalent] 1 applic topical BID PRN PRN ##0 04/03/22 acetaminophen 325 mg tablet (Tylenol) 650 mg PO Q6H PRN PRN Pain 1-10 Or Fever>100.7 #0 tabs 04/03/22 hydromorphone (PF) 0.2 mg/mL injection syringe (Dilaudid (PF)) 0.2 mg IV Q6H PRN PRN prn pain 6-10 #0 mL 04/03/22 metoprolol tartrate 5 mg/5 mL intravenous solution 5 mg (5 mL) IV Q6 PRN TO CONTROL HEART RATE #0 mL 04/03/22 nystatin 100,000 unit/gram topical powder (Nyamyc) 1 applic topical TID #0 grams 04/03/22 ondansetron HCl (PF) 4 mg/2 mL injection solution 4 mg (2 mL) IV Q8H PRN PRN NAUSEA/VOMITING #0 mL 04/03/22 Hospital Course Summary of Care Provided Minutes Spent on Discharge: 35 Hospital Course: CARLOS ALBERTO GOLDBERG is a 81 F who presented 03/29/2022 with hypotension.? Patient was admitted recently admitted to the hospital and managed as Enterococcus faecalis endocarditis, with vegetation seen on NOHEMY on her aortic valve and a 0.5 freely mobile mass on the mitral valve.? Patient was discharged to nursing home facility on IV ampicillin and ceftriaxone for total of 6 weeks until 04/20/2022.? Patient had a Flor catheter placed. Patient was brought to the emergency room 03/29 with concerns over hypotension and nausea without vomiting.? In the emergency room, Patient was 60/31, heart rate 90, SBP 22, temperature 97.4 F, oxygen sat was 91% on 2 L of oxygen.? Her RBC count 13.3, hemoglobin 6.1, platelet count 266, INR 7.8, sodium is 143 potassium 4.3, chloride 112,, 20, BUN 41, creatinine 2.22, creatinine at discharge 2 days ago was 1.58.? Lactic acid is 2.7, total bili 1.2.? UA was slightly cloudy, nitrite negative, leukocyte esterase 500, WBC count is 25?15.? Chest x-ray showed blunting of the left costophrenic angle left basilar atelectasis/infiltrate. Diagnosed with hypovolemic shock from blood loss into right thigh and flank region. Was on pressors fluids and admitted to the ICU. Given packed red blood cells as well. He was noted to have a supratherapeutic INR which was likely secondary to vitamin K deficiency from malnutrition. She is no longer on Coumadin. Her Eliquis was held. Her antibiotics for her endocarditis were continued. Of note she also had JACQUIE on CKD and A. fib with RVR. Her hyper bulimic shock improved and she was weaned off pressors and stress dose steroids were being weaned off. Her hemoglobin was also stabilizing however her mental status continued to worsen and her creatinine also continue to worsen. She also was in A. fib with RVR maintained on amiodarone drip. Unfortunately was not swallowing or cooperating with speech and was unable to take p.o. Nephrology was following and felt that she was a poor repeat dialysis candidate. Ultimately she was made DNR/DNI, continued to worsen and hospice was consulted, she was transferred to inpatient hospice on 04/03/2022. On the day of discharge she was not giving any meaningful answers or purposeful interaction. Physical Exam Const Constitutional Narrative: Tired and would not answer orientation questions, does not appear acutely distressed HEENT normocephalic and head/scalp atraumatic Eyes Eyes Narrative: Opens eyes spontaneously to voice Neck supple Resp normal respiratory effort Resp Narrative: Diminished at the bases Cardio Cardio Narrative: Irregularly irregular, mildly tachycardic GI soft to palpation and non-distended Extremity Extremity Narrative: No edema appreciated Skin Skin Narrative: Chronic skin changes lateral lower extremities Neuro moves all extremities Neuro Narrative: No overt focal deficits appreciated Psych Psych Narrative: Unable to cooperate secondary to mental status Weight / BMI Weight Weight: 106.9 kg Body Mass Index (BMI) 44.7 ABG / Lab / Microbiology Data Result Diagrams: 04/03/22 03:30 04/03/22 03:30 Laboratory: Laboratory Results - last 24 hr 04/03/22 03:30: WBC 7.3, RBC 2.39 L, Hgb 7.6 L, Hct 24.1 L, MCV 100.8 H, MCH 31.8, MCHC 31.5 L, RDW Std Deviation 66.8 H, RDW Coeff of Diandra 21.2 H, Plt Count 92 L, MPV 10.6, Neut % (Auto) Not Reportable, Absolute Neuts (auto) 6.2, Absolute Lymphs (auto) 0.73 L, Total Counted 101, Neutrophils % (Manual) 83 H, Band Neutrophils % 1, Lymphocytes % (Manual) 10 L, Monocytes % (Manual) 1, Myelocytes % 4 H, Promyelocytes % 1 H, Nucleated RBCs/100 WBC 1, Diff Path Review August, Platelet Estimate MOD DEC, Anisocytosis 2+, Macrocytosis RARE 04/03/22 03:30: Sodium 148 H, Potassium 3.7, Chloride 118 H, Carbon Dioxide 20.0 L, Anion Gap 10, BUN 66 H, Creatinine 3.08 H, Estim Creat Clear Calc 10.46, Est GFR (MDRD) Af Amer 19 L, Est GFR (MDRD) Non-Af 15 L, BUN/Creatinine Ratio 21.4 H, Glucose 141 H, Calcium 8.5, Total Bilirubin 0.80, AST 26, ALT 15, Alkaline Phosphatase 162 H, Total Protein 5.7 L, Albumin 2.1 L, Globulin 3.6, Albumin/Globulin Ratio 0.6 L 04/03/22 03:30: PT 16.7 H, INR 1.4 Microbiology: Microbiology 03/29/22 10:15 Blood Culture (Wb) - Left Wrist Blood Culture - Final No growth in 5 days. 03/29/22 09:35 Blood Culture (Wb) - Left Wrist Blood Culture - Final No growth in 5 days. 03/29/22 11:10 Urine Catheter - Catheter Urine Culture - Final Citrobacter freundii Yeast, not Renée albicans D/C Instructions Discharge Diet: - (Per hospice) Meaningful Use Info Meaningful Use Diagnoses (Choose all that apply): None applicable Discharge Plan Admission Admit Date/Time: 03/29/22 11:49 Primary Reason for Your Visit: Low blood pressure Attending Provider: Rachna Green Primary Care Provider: Carolyn Stephen Consulting Providers: Natalie Do ; Jan Early ; Hu Kumar ; Ben Lizarraga ; Kyler Magdaleno ; Alex Pitts ; Cedrick Oliveira ; Taylor Ojeda PARTS TECHNICIAN ; Crystal Johnson ; Shlomo Gonzales ; Esther Enrique ; David Morales ; Ciara Case ; Carina Eugene ; Saniya Fishman PARTS TECHNICIAN Instructions Patient Instructions: Hospice: As Nears Discharge Orders/Prescriptions Prescriptions: New acetaminophen [Tylenol] 325 mg Tablet 650 mg PO Q6H PRN PRN (Reason: Pain 1-10 Or Fever>100.7) Qty: 0 0RF ondansetron HCl (PF) 4 mg/2 mL Solution 4 mg IV Q8H PRN PRN (Reason: NAUSEA/VOMITING) Qty: 0 0RF nystatin [Nyamyc] 100,000 unit/gram Powder 1 applic topical TID Qty: 0 0RF Protocol: *Topical Application Instructions APPLICATION INSTRUCTIONS: Abd folds metoprolol tartrate 5 mg/5 mL Solution 5 mg IV Q6 PRN (Reason: TO CONTROL HEART RATE) Qty: 0 0RF Dilaudid (PF) 0.2 mg/mL Syringe 0.2 mg IV Q6H PRN PRN (Reason: prn pain 6-10) Qty: 0 0RF Petrolatum 33% [Eucerin Eqivalent] 1 applic topical BID PRN PRNQty: 0 0RF Continued sucralfate [Carafate] 1 gram tablet 1 g PO BID Qty: 61 0RF Discontinued furosemide 40 MG tablet 40 mg PO DAILY Hold Instructions: Until reevaluated by nephrology calcium carbonate-vitamin D3 [Calcium 600 + D(3)] 1 EACH tablet 1 ea PO DAILY ceftriaxone 2 gram recon soln 2 g IV Q12H Qty: 66 0RF Rx Instructions: stop date 04/25/22 dx: endocarditis weekly bmp and CBC. Fax to [phone] ampicillin sodium 2 gram Recon Soln 2 g IV QAM 33 Days Qty: 33 0RF Rx Instructions: dx: endocarditis stop date 04/25/22 weekly bmp, cbc. Fax to [phone] diphenhydramine HCl [Allergy Relief(diphenhydramin)] 25 mg tablet 25 mg PO TID PRN (Reason: allergic reaction) 40 Days Qty: 90 0RF Rx Instructions: Give prior to ceftriaxone. tramadol 50 mg Tablet 50 mg PO tramadol 50 mg Tablet 50 mg PO DAILY PRN (Reason: Pain) Centrum Adult 50 Fresh-Fruity 120 mcg Tablet,Chewable 1 tab PO DAILY sennosides [Senna Lax] 8.6 mg Tablet 8.6 mg PO DAILY PRN (Reason: Constipation) sennosides [Senna Lax] 8.6 mg Tablet 8.6 mg PO QHS metoprolol tartrate 100 mg Tablet 100 mg PO BID diltiazem HCl 240 mg capsule,extended release 24hr 240 mg PO DAILY pantoprazole 40 mg tablet,delayed release (DR/EC) 40 mg PO BID Eliquis 2.5 mg tablet 2.5 mg PO BID Referrals / Follow Up: Carolyn Stephen MD [Primary Care Provider] - Disposition Disposition (needs filled in before D/C Order can be placed): Hospice in Medical Facility Charges/Coding Visit Charges Inpatient E&M: 68825 Disch Hosp
[2022-04-03] MEDS: LORazepam 2 MG/ML Syringe 0.5 MG IV (12:50)
[2022-04-04 14:04] LABS: Pathologist Review Reviewed
[2022-04-04 14:08] LABS: Pathologist Review Reviewed
== END 2022-04-03 13:00 | disposition hospice, inpatient (51) | DRG 871 ==
LOC: ED 12:10 → ICU 12:57
PROVIDERS: Admitting Provider Internal Medicine; Emergency Provider Emergency Medicine; PCP Internal Medicine; Visit Provider Internal Medicine
DX: R57.1 Hypovolemic shock (principal); N17.0 Acute kidney failure with tubular necrosis; E43 Unspecified severe protein-calorie malnutrition; R78.81 Bacteremia; I13.0 Hypertensive heart and chronic kidney disease with heart failure and stage 1 through stage 4 chronic kidney disease, or unspecified chronic kidney disease; I50.32 Chronic diastolic (congestive) heart failure; Z68.42 Body mass index [BMI] 45.0-49.9, adult; N18.4 Chronic kidney disease, stage 4 (severe); D62 Acute posthemorrhagic anemia; I95.9 Hypotension, unspecified; I48.0 Paroxysmal atrial fibrillation; E66.01 Morbid (severe) obesity due to excess calories; I08.9 Rheumatic multiple valve disease, unspecified; E56.1 Deficiency of vitamin K; I25.2 Old myocardial infarction; I89.0 Lymphedema, not elsewhere classified; W19.XXXA Unspecified fall, initial encounter; S70.11XA Contusion of right thigh, initial encounter; B95.2 Enterococcus as the cause of diseases classified elsewhere; R79.1 Abnormal coagulation profile; Z66 Do not resuscitate; Z95.2 Presence of prosthetic heart valve; Z79.2 Long term (current) use of antibiotics; Z79.01 Long term (current) use of anticoagulants; Z79.899 Other long term (current) drug therapy; Z87.891 Personal history of nicotine dependence; Z23 Encounter for immunization
CPT/HCPCS: 36415; 71045; 73700; 80053; 80202; 81001; 83605; 85014; 85018; 85025; 85610; 85730; 86644; 86850; 86900; 86901; 86920; 86922; 87040; 87077; 87086; 87088; 87186; 92507; 92526; 92610; 93005; 93308; 93926; 94762; 97110; 97162; 97166; 97530; 97535; 99285; G0008; J7030; J7040; J7050; P9016; P9040; Q9957; 90686; A4216; C8924; J0290; J0696; J1940; J3490; J7799; P9017